=== PATIENT | female | born 1940 | race Caucasian/White ===

== ENCOUNTER 2016-12-15 08:27 | Day surgery (SDC) | payer OTHER, BC ==
[2016-12-14 15:55] VITALS: BMI 21.5
[2016-12-15 09:30] LABS: INR 1.05 (0.82-1.09); PROTHROMBIN TIME (PATIENT) 11.6 SEC (9.98-11.88)
[2016-12-15 09:32] LABS: ACTIVATED PTT 33.8 SECONDS (26.9-34.4)
[2016-12-15] MEDS ORDERED: HEPARIN NA (PORCINE) 5,000 UNITS/ML 1ML VIAL ONE ×2 (10:32→11:17)
[2016-12-15] MEDS ORDERED: LIDOCAINE HCL 1%, 10 MG/ML (20ML VIAL) ONE (10:32)
[2016-12-15] MEDS ORDERED: MIDAZOLAM HCL 2 MG/2 ML SINGLE DOSE VIAL ONE ×2 (10:54→10:55)
[2016-12-15] MEDS ORDERED: ceFAZolin SODIUM 1 GM VIAL ONE (10:59)
[2016-12-15] MEDS ORDERED: LIDOCAINE HCL 1%, 10 MG/ML (50 mL VIAL) IJ ONE (11:02)
[2016-12-15] MEDS ORDERED: ONDANSETRON 4 MG/2 ML VIAL IVPUSH PRN (11:23)
--- NOTE | 2016-12-15 12:09 | OP ---
Operative Note - Note: Operative Date: 12/15/16 Pre-Operative Diagnosis: Right second toe discoloration Operation: Aortogram, RLE angiogram, right SFA atherectomy, right tibial artery atherecotmy with angioplasty Findings: TP trunk stenosis -- 80% Calcium present Post-Operative Diagnosis: Same as Pre-op Surgeon: Kyler Graham Anesthesia: Fractional Estimated Blood Loss (mls): 50 Operative Report Dictated: Yes
--- NOTE | 2016-12-15 12:14 | HP ---
Admitting History and Physical - Admission Chief Complaint: right foot second toe discoloration - Past Medical History Cardiovascular: Yes: Other (Sciatica) Musculoskeletal: Yes: Chronic low back pain (Secondary to sciatica) - Past Surgical History Past Surgical History: Yes: Vein Stripping/Ligation (B/L LE) - Smoking History Smoking history: Former smoker Have you smoked in the past 12 months: No If you are a former smoker, when did you quit?: 1989 - Alcohol/Substance Use Hx Alcohol Use: Yes (wine 2-3/day) Home Medications - Allergies Allergies/Adverse Reactions: Allergies Allergy/AdvReac Type Severity Reaction Status Date / Time No Known Allergies Allergy Verified 12/15/16 11:59 - Home Medications Home Medications: Ambulatory Orders Advair 250-50 Diskus 1 puff IH DAILY 11/01/16 Budesonide/Formeterol Fumarate [SYMBICORT 160/4.5mcg -] 1 inh IH DAILY 11/01/16 Cholecalciferol (Vitamin D3) [Vitamin D3] 1,000 units PO DAILY 11/01/16 Cilostazol 50 tab PO DAILY 11/01/16 Cyanocobalamin (Vitamin B-12) [Vitamin B-12] 1 tab PO DAILY 11/01/16 Fluocinonide 0.05% Cream [Lidex 0.05% Cream -] 1 applic TP DAILY #1 tube Gabapentin [Neurontin] 1 cap PO DAILY 11/01/16 [place]uff-3 Fatty Acids [[place]uff-3] 1 cap PO DAILY 11/01/16 Rosuvastatin Calcium [Crestor] 20 mg PO HS 11/01/16 Clopidogrel Bisulfate [Plavix -] 75 mg PO DAILY 12/14/16 Multivit-Min/FA/Lycopen/Lutein [Centrum Silver Tablet] 1 each PO DAILY 12/15/16 Physical Examination Vital Signs: Vital Signs Temperature 97.8 F 12/15/16 09:21 Pulse Rate 94 H 12/15/16 09:21 Respiratory Rate 18 12/15/16 09:21 Blood Pressure 149/80 12/15/16 09:21 O2 Sat by Pulse Oximetry (%) 97 12/15/16 09:21 Constitutional: Yes: Well Nourished Eyes: Yes: WNL HENT: Yes: WNL Neck: Yes: WNL Cardiovascular: Yes: WNL Respiratory: Yes: WNL Gastrointestinal: Yes: WNL Musculoskeletal: Yes: WNL Extremities: Yes: WNL Edema: No Assessment/Plan right foot second toe discoloration 1. For angiogram today
[2016-12-15 18:41] VITALS: TEMP 98.1
[2016-12-15 19:41] VITALS: BP 124/58; PULSE 80
--- NOTE | 2016-12-16 20:26 | OP ---
DATE OF OPERATION: 12/15/2016 PREOPERATIVE DIAGNOSIS: Right 2nd toe discoloration. POSTOPERATIVE DIAGNOSIS: Right 2nd toe discoloration. PROCEDURE: Aortogram, right lower extremity angiogram, orbital atherectomy right superficial femoral artery, orbital atherectomy right tibial artery. SURGEON: Kyler Espinoza DO ANESTHESIA: Fractional. BLOOD LOSS: Was 50 mL. The patient is a 76-year-old female that was seen in our vascular clinic with 2nd toe discoloration. She had a preoperative ultrasound showing that she has tibial disease and TP trunk disease. It was decided that she would need an angiogram. Patient came into ambulatory surgery. Patient was consented for the procedure, understanding all risks, benefits, and alternatives and was then taken to the operating room. Once in the operating room, she was laid on the operating table in a supine manner, and the areas of the right and left groin were prepped and draped in a sterile surgical manner. We then injected 10 mL of lidocaine 1% over the left common femoral artery. We then took a micropuncture needle and punctured the left common femoral artery. A micropuncture wire was inserted, and a traditional 5-Kyrgyz sheath was inserted. A 0.035 floppy guidewire was inserted under fluoroscopy into the aorta followed by an Omniflush catheter. We then shot an aortogram by hand injection showing that the aorta and the iliac arteries were without any disease. We then placed our 0.035 floppy guidewire down to the right common femoral artery and Omniflush catheter followed. We then shot an angiogram of the right lower extremity by hand injection showing that the proximal SFA was very calcified and had about an 80% stenosis right at the takeoff. The rest of the SFA was patent. Distal SFA was patent. Popliteal artery was patent. Below-knee popliteal artery was patent. The TP trunk had an 80% stenosis due to calcifications, and patient had 2-vessel runoff into the foot, AT and PT. At this point, we placed a 0.035 stiff guidewire into the SFA, took out our Omniflush catheter, placed a 6 x 45 crossover sheath and 5000 units of IV heparin were administered to the patient. We then went ahead and using an 0.035 Quick-Cross, we were able to get our wire and place our wire into the peritoneal artery, and that was exchanged for a ViperWire. We then went ahead and used a I orbital atherectomy device and performed orbital atherectomy of the tibioperoneal trunk at the tibial artery. We then made [address] We then brought the catheter up and performed orbital atherectomy of the proximal SFA. Completion angiogram showed that the proximal SFA was patent. Completion angiogram now showed that the TP trunk was patent. We then went ahead and used a 3 x 4 Bard balloon and performed angioplasty of the TP trunk at the tibial artery. Completion angiogram showed that the area was now patent, and there was good 2-vessel runoff into the foot. We then brought our sheath up and over and StarClose device was successfully deployed in the left common femoral artery. Pressure was held for 5 minutes after which there was no bleeding. Areas were then dried and Dermabond was placed. Patient tolerated the procedure with no complications. Patient transferred to PACU in stable condition. KYLER ESPINOZA DO NP/[id number]
== END 2016-12-15 15:25 | disposition home or self-care (01) ==
LOC: JASU-SURG 08:27
PROVIDERS: ATTEND Surgery Vascular Surgery
PROC: B41FYZZ Fluoroscopy of Right Lower Extremity Arteries using Other Contrast (ICD-10-PCS; 2016-12-15)
PROC: B410YZZ Fluoroscopy of Abdominal Aorta using Other Contrast (ICD-10-PCS; 2016-12-15)
PROC: 047T3ZZ Dilation of Right Peroneal Artery, Percutaneous Approach (ICD-10-PCS; principal; 2016-12-15 10:00)
DX: I70.291 Other atherosclerosis of native arteries of extremities, right leg (principal)
CPT/HCPCS: 37229; C1726; 36415; 76000-TC; 85610; 85730; 94760; J1644

== ENCOUNTER 2017-03-10 08:07 | Day surgery (SDC) | payer OTHER, BC ==
[2017-03-09 15:23] VITALS: BMI 21.7
[2017-03-10] MEDS ORDERED: MIDAZOLAM HCL 2 MG/2 ML SINGLE DOSE VIAL ONE (08:52)
[2017-03-10] MEDS ORDERED: PROPOFOL 20 ML ONE (08:52)
[2017-03-10] MEDS ORDERED: LIDOCAINE HCL 1%, 10 MG/ML (20ML VIAL) NR ONE (09:43)
[2017-03-10] MEDS ORDERED: ceFAZolin SODIUM 1 GM VIAL IVPB ONE (09:43)
[2017-03-10] MEDS ORDERED: HEPARIN NA (PORCINE) 5,000 UNITS/ML 1ML VIAL SQ ONE (09:53)
[2017-03-10] MEDS ORDERED: ceFAZolin SODIUM 1 GM VIAL ONE (09:58)
--- NOTE | 2017-03-10 10:22 | OP ---
Operative Note - Note: Operative Date: 03/10/17 Pre-Operative Diagnosis: LLE claudication Operation: Aortogram, LLE angiogram Post-Operative Diagnosis: Same as Pre-op Surgeon: Kyler Graham Anesthesia: Fractional Estimated Blood Loss (mls): 5 Operative Report Dictated: Yes
--- NOTE | 2017-03-10 10:23 | HP ---
Admitting History and Physical - Admission Chief Complaint: LLE claudication Limitations to Obtaining History: No Limitations - Past Medical History Cardiovascular: Yes: Other (Sciatica) ...: No Musculoskeletal: Yes: Chronic low back pain (Secondary to sciatica) - Past Surgical History Past Surgical History: Yes: Vein Stripping/Ligation (B/L LE) - Advance Directives Advance Directives: Yes: Living Will - Smoking History Smoking history: Former smoker Have you smoked in the past 12 months: No If you are a former smoker, when did you quit?: 1989 - Alcohol/Substance Use Hx Alcohol Use: Yes (wine 2-3/day) Home Medications - Allergies Allergies/Adverse Reactions: Allergies Allergy/AdvReac Type Severity Reaction Status Date / Time No Known Allergies Allergy Verified 03/10/17 08:42 - Home Medications Home Medications: Ambulatory Orders Advair 250-50 Diskus 1 puff IH DAILY 11/01/16 Budesonide/Formeterol Fumarate [SYMBICORT 160/4.5mcg -] 1 inh IH DAILY 11/01/16 Cholecalciferol (Vitamin D3) [Vitamin D3] 1,000 units PO DAILY 11/01/16 Cilostazol 50 tab PO DAILY 11/01/16 Cyanocobalamin (Vitamin B-12) [Vitamin B-12] 1 tab PO DAILY 11/01/16 Gabapentin [Neurontin] 1 cap PO DAILY 11/01/16 Phillips-3 Fatty Acids [[place]ips-3] 1 cap PO HS 11/01/16 Rosuvastatin Calcium [Crestor] 20 mg PO HS 11/01/16 Clopidogrel Bisulfate [Plavix -] 100 mg PO DAILY 12/14/16 Multivit-Min/FA/Lycopen/Lutein [Centrum Silver Tablet] 1 each PO DAILY 12/15/16 Naproxen [Naprosyn -] 500 mg PO DAILY 02/14/17 Silver Sulfadiazine [Silvadene] 85 gm TP DAILY #1 cream..g. 02/14/17 Review of Systems - Review of Systems Constitutional: reports: No Symptoms Eyes: reports: No Symptoms HENT: reports: No Symptoms Neck: reports: No Symptoms Cardiovascular: reports: No Symptoms Respiratory: reports: No Symptoms Gastrointestinal: reports: No Symptoms Musculoskeletal: reports: Extremity Pain, Muscle Pain, Muscle Cramps Integumentary: reports: No Symptoms Neurological: reports: No Symptoms Physical Examination Vital Signs: Vital Signs Temperature 97.8 F 03/10/17 08:46 Pulse Rate 100 H 03/10/17 08:46 Respiratory Rate 18 03/10/17 08:46 Blood Pressure 153/74 03/10/17 08:46 O2 Sat by Pulse Oximetry (%) 97 03/10/17 08:50 Constitutional: Yes: Well Nourished Eyes: Yes: WNL HENT: Yes: WNL Neck: Yes: WNL Cardiovascular: Yes: WNL Respiratory: Yes: WNL Gastrointestinal: Yes: WNL Extremities: Yes: WNL Edema: Yes Peripheral Pulses WNL: Yes Integumentary: Yes: WNL Neurological: Yes: WNL Problem List - Problems (1) Claudication in peripheral vascular disease Code(s): I73.9 - PERIPHERAL VASCULAR DISEASE, UNSPECIFIED Assessment/Plan LLE claudication 1. For angiogram today
[2017-03-10 11:09] VITALS: TEMP 98
--- NOTE | 2017-03-10 11:10 | OP ---
DATE OF OPERATION: 03/10/2017 PREOPERATIVE DIAGNOSIS: Left lower extremity claudication. POSTOPERATIVE DIAGNOSIS: Left lower extremity claudication. PROCEDURE PERFORMED: Aortogram, left lower extremity angiogram. SURGEON: Kyler Espinoza DO ANESTHESIA: Fractional. BLOOD LOSS: 50 mL. INDICATIONS: The patient is a 76-year-old female who had left lower extremity claudication. Preoperative ultrasound showed calcification of her SFA and decrease in her ABIs. The patient complained of left lower extremity claudication upon ambulation. It was decided that we would do a diagnostic angiogram by Ambulatory Surgery. DESCRIPTION OF PROCEDURE: The patient came into Ambulatory Surgery. The patient was consented for the procedure, understanding all risks, benefits and alternatives. She was then taken to the operating room. Once in the operating room, the patient was laid on the operating table in the supine manner. The area of the right groin was prepped and draped in a sterile surgical manner. We then injected 10 mL of lidocaine 1% over the right common femoral artery. Under ultrasound guidance, we visualized the right common femoral artery and we were able to use our Micropuncture needle and punctured the artery. Micropuncture wire was inserted. An additional 5-[place]an sheath was inserted. A 0.035 floppy guidewire was inserted into the aorta, followed by an Omni Flush catheter. We then shot an aortogram by hand injection, showing that aorta and iliac arteries were without any disease. We then took our wire and brought it up and over to the left common femoral artery and our Omni Flush catheter followed. We then shot an angiogram of the left lower extremity, showing that the common femoral artery, the profunda and the SFA were patent. The popliteal artery was patent. The patient had 3 vessels at the trifurcation and had 2-vessel runoff, PT and DP, into the foot. At this point there was no need for intervention. We brought our Omni Flush catheter up and over and out. We then took out our sheath and pressure was held on the right groin for 5 minutes. Afterwards there was no bleeding. The area was wet and dried, and Dermabond was placed. The patient tolerated the procedure with no complication. The patient was transferred to the PACU in stable condition. The patient's pain is probably neurological in nature, considering how much back pain she has. The patient will follow up in clinic in 2 weeks. KYLER ESPINOZA DO [employer] ACT OFFICER/[id number]
[2017-03-10 13:44] VITALS: BP 130/64; PULSE 96
== END 2017-03-10 13:47 | disposition home or self-care (01) ==
LOC: JASU-SURG 08:07
PROVIDERS: ATTEND Surgery Vascular Surgery
PROC: B41DZZZ Fluoroscopy of Aorta and Bilateral Lower Extremity Arteries (ICD-10-PCS; principal; 2017-03-10 10:30)
DX: I70.218 Atherosclerosis of native arteries of extremities with intermittent claudication, other extremity (principal)
CPT/HCPCS: 75716-TC; 76000-TC; 94760; J1644

== ENCOUNTER 2018-08-19 12:50 | Inpatient (IN) | payer OTHER, BC ==
--- NOTE | 2018-08-19 14:15 | PDOC ---
History of Present Illness - General Chief Complaint: Pain, Acute Stated Complaint: pain and swelling to legs Time Seen by Provider: 08/19/18 13:54 History Source: Patient Exam Limitations: No Limitations - History of Present Illness Initial Comments: 78 yo F h/o HLD and PAD on cilostazol and crestor, chronic b/l posterior leg wounds sent by wound care for worsening leg ulcers and pain. Patient noted several open ulcers with yellow drainage, pain, erythema, edema. Patient was on keflex and she voluntarily stopped it because it's not helping. Last U/S done showed 50-70% stenosis in superficial femoral artery b/l and R popliteal artery. Denies fever, chills, abd pain. 08/19/18 14:41 Leg exam revealed 1 ulcer on R medial leg, > 2 ulcers on posterior R leg and none on L leg. None of which is actively draining. Will send CBC, CMP, wound and blood cultures. Past History - Past Medical History Allergies/Adverse Reactions: Allergies Allergy/AdvReac Type Severity Reaction Status Date / Time No Known Allergies Allergy Verified 08/19/18 13:00 Home Medications: Ambulatory Orders Advair 250-50 Diskus 1 puff IH DAILY 11/01/16 Budesonide/Formeterol Fumarate [SYMBICORT 160/4.5mcg -] 1 inh IH DAILY 11/01/16 Cholecalciferol (Vitamin D3) [Vitamin D3] 1,000 units PO DAILY 11/01/16 Cilostazol 50 tab PO DAILY 11/01/16 Cyanocobalamin (Vitamin B-12) [Vitamin B-12] 1 tab PO DAILY 11/01/16 Gabapentin [Neurontin] 1 cap PO DAILY 11/01/16 [place]adwin-3 Fatty Acids [[place]adwin-3] 1 cap PO HS 11/01/16 Rosuvastatin Calcium [Crestor] 20 mg PO HS 11/01/16 Clopidogrel Bisulfate [Plavix -] 100 mg PO DAILY 12/14/16 Multivit-Min/FA/Lycopen/Lutein [Centrum Silver Tablet] 1 each PO DAILY 12/15/16 Silver Sulfadiazine [Silvadene] 85 gm TP DAILY #1 cream..g. 06/30/18 Cephalexin [Keflex] 500 mg PO TID #21 capsule 08/07/18 Anemia: No Cancer: No Cardiac Disorders: Yes (CAD) CVA: No COPD: Yes CHF: No Dementia: No Diabetes: No GI Disorders: Yes Disorders: No HTN: Yes Hypercholesterolemia: Yes Liver Disease: No Seizures: No Thyroid Disease: No - Surgical History Cardiac Surgery: Yes (cardiac stents x3) - Suicide/Smoking/Psychosocial Hx Smoking History: Never smoked Have you smoked in the past 12 months: No If you are a former smoker, when did you quit?: 1989 Information on smoking cessation initiated: No Hx Alcohol Use: No Drug/Substance Use Hx: No Substance Use Type: None Hx Substance Use Treatment: No Review of Systems - Review of Systems Able to Perform ROS?: Yes Is the patient limited Austrian proficient: No Constitutional: No: Chills, Fever Respiratory: No: Cough, Shortness of Breath Cardiac (ROS): Yes: Edema. No: Chest Pain Integumentary: Yes: Erythema, Lesions *Physical Exam - Vital Signs Last Vital Signs Temp Pulse Resp BP Pulse Ox 98.2 F 98 H 16 125/59 L 100 08/19/18 12:58 08/19/18 12:58 08/19/18 12:58 08/19/18 12:58 08/19/18 12:58 - Physical Exam General Appearance: Yes: Appropriately Dressed. No: Apparent Distress Respiratory/Chest: positive: Lungs Clear, Normal Breath Sounds Cardiovascular: positive: Regular Rhythm, Regular Rate, S1, S2, Edema Gastrointestinal/Abdominal: positive: Normal Bowel Sounds. negative: Tender Extremity: positive: Tender, Swelling, Erythema Integumentary: positive: Warm, Erythema, Swelling Neurologic: positive: subassembler II-XII NML intact, Fully Oriented, Alert ED Treatment Course - LABORATORY CBC & Chemistry Diagram: 08/19/18 14:46 08/19/18 14:46 *DC/Admit/Observation/Transfer Diagnosis at time of Disposition: Leg ulcer Qualifiers: Laterality: right Non-pressure ulcer stage: unspecified non-pressure ulcer stage Qualified Code(s): L97.919 - Non-pressure chronic ulcer of unspecified part of right lower leg with unspecified severity - Discharge Dispostion Decision to Admit order: Yes - Referrals - Patient Instructions - Post Discharge Activity
--- NOTE | 2018-08-19 15:11 | PDOC ---
Attending Attestation - Resident Resident Name: MuñizHair - ED Attending Attestation I have performed the following: I have examined & evaluated the patient, The case was reviewed & discussed with the resident, I agree w/resident's findings & plan - HPI HPI: 08/19/18 15:17 78 YOF with h/o severe PVD, chronic ulcers presenting with acute on chronic worsening lower extremity wounds /pain with drainage to RLE x 1 week, failing outpatient keflex course (Noncompliant, stopped taking ~2 days ago while supposed to be on 5 d course.) She had visit with vascular surgeon/wound clinic with Dr Graham 08/18/18 for RT lower posterior leg wounds/ulcers notable for copious amounts of draining to B/ L LE. Patient was placed on a course of Keflex and she stopped the medication because she felt like it was not working. US also revealed RLE moderate stenosis of mid SFA, diffuse calcification and LLE moderate distal SFA and distal popliteal artery stenosis, mild to moderate diffuse calcifications - disease progression noted compared to 04/2018. At that time, advised for ED eval, ID consult, referred for IV abx and admission 08/20/18 07:19 - Physicial Exam PE: 08/19/18 15:17 Agree with the resident's HPI and PE as documented in the electronic medical record. NAD, well appearing, of note, focused exam with BLE dry scaly skin and erythema, RLE with medial superficial ulcerative wound and posterior calf superficial ulcer wound, no drainage, very tender to palpation, +warmth to palpation. 1+ DP pulses throughout. soft compartments. wiggles toes, SILT grossly intact to light touch. - Medical Decision Making 08/19/18 15:18 See HPI for details Vital signs reviewed, wnl. Prior notes reviewed, including admissions, discharges and consultations. Prior wound culture from RLE with enterococcus and dipheteroid and Corynebacterium ( skin darrel) laboratory results and imaging reviewed, basic labs and lytes wnl, notable for - blood cultures, wound cultures pending and obtained EKG normal sinus rhythm at 98 bpm, no interval abnormalities, narrow QRS, ST and T wave segments and morphology normal. Nonspecific T wave abnormalities - intermittent PVCs, some limitation with artifact. ED course - wound cultures to lower extrem acute on chronic wounds, at risk for MRSA, cover with IV vancomycin/zosyn empirically; narrow per culture - IV abx zosyn and vancomycin, high risk for resistant organisms and pseudomonas coverage - analgesia - ID cs with Dr Bates as inpatient as dictated by vascular note. Admit for acute on chronic ulcerative wounds to RLE, with known PVD.. Discussed results and management plan with pt and family member at bedside, agree with impression and plan inpatient consult with vascular and ID. 08/19/18 15:20 08/20/18 07:19 Heart Score/ECG Review #1 ECG reviewed & interpreted by me at: 15:00 General ECG Interpretation: Sinus Rhythm, Normal Rate 08/19/18 15:21 EKG normal sinus rhythm at 98 bpm, no interval abnormalities, narrow QRS, ST and T wave segments and morphology normal. Nonspecific T wave abnormalities - intermittent PVCs, some limitation with artifact.
[2018-08-19 15:14] LABS: BASO % 1.2 % (0-2.0); EOS % 6.3 % (0-4.5); HEMATOCRIT 41.6 % (32.4-45.2); HEMOGLOBIN 13.9 GM/dL (10.7-15.3); MCH 34.4 pg (25.7-33.7); MCHC 33.5 g/dl (32.0-36.0); MEAN CELL VOLUME 102.7 fl (80-96); MONO % 13.4 % (3.8-10.2); NEUT % 62.1 % (42.8-82.8); PLATELET COUNT 270 K/MM3 (134-434); RBC 4.05 M/mm3 (3.60-5.2); RDW 13.2 % (11.6-15.6); WHITE BLOOD COUNT 7.6 K/mm3 (4.0-10.0)
[2018-08-19 15:18] LABS: ALBUMIN 3.1 g/dl (3.4-5.0); ALK PHOS 125 U/L (45-117); ANION GAP 10 MMOL/L (8-16); BILIRUBIN,TOTAL 0.6 mg/dL (0.2-1); BLOOD UREA NITROGEN 9 mg/dL (7-18); CALCIUM 8.7 mg/dL (8.5-10.1); CHLORIDE 102 mmol/L (98-107); CO2 26 mmol/L (21-32); CREATININE 0.4 mg/dL (0.55-1.3); GLUCOSE,RANDOM 107 mg/dL (74-106); POTASSIUM 4.1 mmol/L (3.5-5.1); SGOT/AST 37 U/L (15-37); SGPT/ALT 25 U/L (13-61); SODIUM 138 mmol/L (136-145); TOT PROT 6.8 g/dl (6.4-8.2)
[2018-08-19] MEDS ORDERED: VANCOMYCIN 1 GM in D5W (PRE-DOCKED) 1,000 MG/250 ML IVPB ONE (15:20)
[2018-08-19] MEDS ORDERED: PIPERACILLIN/TAZOB 3.375 GM 3.375 GM in DEXTROSE 5%-WATER - 50 ML IVPB ONE (15:22)
[2018-08-19] MEDS ORDERED: ACETAMINOPHEN 1000 MG/100 ML VIAL (NON FORMULARY) IVPB ONE (15:25)
[2018-08-19] MEDS ORDERED: PIPERACILLIN/TAZOB 3.375 GM 3.375 GM/50 ML BAG IVPB ONE ×2 (15:34→20:32)
[2018-08-19] MEDS ORDERED: VANCOMYCIN 1 GRAM (PRE-DOCKED) 1,000 MG/250 ML BAG IVPB ONE (15:34)
[2018-08-19] MEDS ORDERED: ACETAMINOPHEN INJECTION 100 ML IVPB ONE (15:34)
--- NOTE | 2018-08-19 15:36 | CON.ID ---
Consult Consult Specialty:: infectious diseases - Past Medical History Cardio/Vascular: Yes: Other (Sciatica) Musculoskeletal: Yes: Chronic low back pain (Secondary to sciatica) - Past Surgical History Past Surgical History: Yes: Vein Stripping/Ligation (B/L LE) - Alcohol/Substance Use Hx Alcohol Use: No - Smoking History Smoking history: Never smoked Have you smoked in the past 12 months: No If you are a former smoker, when did you quit?: 1989 Home Medications - Allergies Allergies/Adverse Reactions: Allergies Allergy/AdvReac Type Severity Reaction Status Date / Time No Known Allergies Allergy Verified 08/19/18 13:00 - Home Medications Home Medications: Ambulatory Orders Advair 250-50 Diskus 1 puff IH DAILY 11/01/16 Budesonide/Formeterol Fumarate [SYMBICORT 160/4.5mcg -] 1 inh IH DAILY 11/01/16 Cholecalciferol (Vitamin D3) [Vitamin D3] 1,000 units PO DAILY 11/01/16 Cilostazol 50 tab PO DAILY 11/01/16 Cyanocobalamin (Vitamin B-12) [Vitamin B-12] 1 tab PO DAILY 11/01/16 Gabapentin [Neurontin] 1 cap PO DAILY 11/01/16 [place]-3 Fatty Acids [[place]-3] 1 cap PO HS 11/01/16 Rosuvastatin Calcium [Crestor] 20 mg PO HS 11/01/16 Clopidogrel Bisulfate [Plavix -] 100 mg PO DAILY 12/14/16 Multivit-Min/FA/Lycopen/Lutein [Centrum Silver Tablet] 1 each PO DAILY 12/15/16 Silver Sulfadiazine [Silvadene] 85 gm TP DAILY #1 cream..g. 06/30/18 Cephalexin [Keflex] 500 mg PO TID #21 capsule 08/07/18 Physical Exam Vital Signs: Vital Signs Temperature 98.2 F 08/19/18 12:58 Pulse Rate 98 H 08/19/18 12:58 Respiratory Rate 16 08/19/18 12:58 Blood Pressure 125/59 L 08/19/18 12:58 O2 Sat by Pulse Oximetry (%) 100 08/19/18 12:58 Labs: CBC, BMP 08/19/18 14:46 08/19/18 14:46
[2018-08-19] MEDS: PIPERACILLIN/TAZOB 3.375 GM 3.375 GM in DEXTROSE 5%-WATER - 50 ML IVPB SCH ×2 (16:13→20:50)
--- NOTE | 2018-08-19 16:31 | HP ---
CHIEF COMPLAINT: PCP: None Wound Care: Dr. Graham HISTORY OF PRESENT ILLNESS: 78yo F with h/o HLD, CAD s/p PCI, and PAD with chronic wounds who presents today due to suspected cellulitus. Pt was seen within the week at wound care which noted some of the pt's R wounds beginning to drain yellow fluid. She was placed on Keflex and was instructed to take a 5 days course while following up a few days later. Pt stopped her Keflex regiment 2 days into the course because she felt like the antibiotics were not working. Pt returned on Tuesday08/18/18 to wound care with profusely draining wounds on her R leg and had ID consulted on the status of the wounds. Pt was recommended to go to the ER then, however pt opted to take outpatient antibiotics (Keflex) properly due to her birthday being today. Pt returned to the ER today due to acutely worsening pain. Pt was seen by ID in the ER and was placed on Zosyn for cellulitis. Wound and blood cultures were taken. Currently, pt reports burning pain in her legs. She denies any fever/chills, shortness of breath, chest pain, palpitations, abdominal pain, dysuria, polyuria , hematuria, diarrhea, constipation, n/v, weakness, parasthesias, incontinence, back pain. PAST MEDICAL HISTORY: HLD CAD s/p PCI PAD PAST SURGICAL HISTORY: B/L vein stripping PCI stenting (unknown material; unknown facility; more than 5 years ago) Social History: Smoking: Former; quit 1990 (smoked 1/2 PPD since she was 17) Alcohol: Denies Drugs: Denies Family History: Diabetes, HTN both sides Allergies No Known Allergies Allergy (Verified 08/19/18 13:00) HOME MEDICATIONS: Home Medications Medication Instructions Recorded Budesonide/Formeterol Fumarate 1 inh IH DAILY 11/01/16 [SYMBICORT 160/4.5mcg -] Cilostazol 50 tab PO DAILY 11/01/16 Cyanocobalamin (Vitamin B-12) 1 tab PO DAILY 11/01/16 [Vitamin B-12] Rosuvastatin Calcium [Crestor] 20 mg PO HS 11/01/16 Multivit-Min/FA/Lycopen/Lutein 1 each PO DAILY 12/15/16 [Centrum Silver Tablet] Silver Sulfadiazine [Silvadene] 85 gm TP DAILY #1 cream..g. 06/30/18 Cephalexin [Keflex] 500 mg PO TID #21 capsule 08/07/18 REVIEW OF SYSTEMS As per HPI PHYSICAL EXAMINATION Vital Signs - 24 hr 08/19/18 12:58 Temperature 98.2 F Pulse Rate 98 H Respiratory 16 Rate Blood Pressure 125/59 L O2 Sat by Pulse 100 Oximetry (%) GENERAL: NAD, awake, alert, and fully oriented HEEN: NC/AT, EOMI, SHAW, sclera anicteric, MMM NECK: No JVD LUNGS: CTA bilaterally. No wheezes, and no crackles. No accessory muscle use. HEART: RRR, normal S1 and S2 without murmur ABDOMEN: Soft, NT/ND, normoactive bowel sounds, no guarding MUSCULOSKELETAL: No CVA tenderness. EXTREMITIES: 1+ DP and PT pulse on L leg, 1+ PT pulse on R, warm, R leg edema noted (chronic), erythematous vascular changes noted b/l to knees, R leg anteromedial wound about 1in x .5in w/o drainage, R leg posterolateral wound .5in x .5in with trace yellow drainage, TTP of R leg. 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 Normal speech. Normal gait. PSYCHIATRIC: Cooperative. Good eye contact. Appropriate mood and affect. SKIN: Warm, dry, see extremity exam Laboratory Results 08/19/18 08/19/18 08/19/18 14:46 14:46 14:46 WBC 7.6 RBC 4.05 Hgb 13.9 Hct 41.6 MCV 102.7 H MCH 34.4 H MCHC 33.5 RDW 13.2 Plt Count 270 MPV 8.0 Absolute Neuts (auto) 4.7 Neutrophils % 62.1 D Lymphocytes % 17.0 D Monocytes % 13.4 H Eosinophils % 6.3 H D Basophils % 1.2 Nucleated RBC % 0 Sodium 138 Potassium 4.1 Chloride 102 Carbon Dioxide 26 Anion Gap 10 BUN 9 Creatinine 0.4 L Creat Clearance w eGFR 153.97 Random Glucose 107 H Calcium 8.7 Total Bilirubin 0.6 AST 37 ALT 25 Alkaline Phosphatase 125 H Total Protein 6.8 Albumin 3.1 L Blood Type O POSITIVE Antibody Screen Negative ASSESSMENT/PLAN: Cellulitis of the R leg B/l chronic wounds HLD CAD with prior stents --Continue Zosyn --Would cultures to follow-up --Silvadene to be applied with JOHN wrap --ID on board; appreciate recommendations --Will continue Cilostazole BID PO --Continue Crestor HS FEN: Fluids: Not indicated Electrolyte abnormalities: None Nutrition: Regular PPX: DVT - Lovenox SQ Dispo: Admit inpatient services for IV antibiotics Case discussed with Dr. Arianna Hodo, DO - IM PGY-2 Visit type - Emergency Visit Emergency Visit: Yes ED Registration Date: 08/19/18 Care time: The patient presented to the Emergency Department on the above date and was hospitalized for further evaluation of their emergent condition. - New Patient This patient is new to me today: Yes Date on this admission: 08/19/18 - Critical Care Critical Care patient: No
[2018-08-19] MEDS ORDERED: ACETAMINOPHEN 325 MG TABLET (FP) PO PRN (16:32)
--- NOTE | 2018-08-19 18:39 | PN ---
Teaching Attending Note Name of Resident: Saul Hood ATTENDING PHYSICIAN STATEMENT I saw and evaluated the patient. I reviewed the resident's note and discussed the case with the resident. I agree with the resident's findings and plan as documented. SUBJECTIVE: CC: draining LE wounds HPI: 78 y/o lady with h/o PVd, CAD s/p Stenting,HLP, chronic LE wounds, who presented after being referred form wound care clinic for treatment of infected LE wounds she has chronic wounds, started draining about 2 months ago. she has been visiting wound care clinic weekly . few days ago, she was given keflex for signs of infection, but she stopped on her own. she was seen again yesterday and was asked to go to ER, but she presented today. she denies any fever s or chills. no CP or SOB. arterial doppler was done and showed 20-49% setnosis in R SFA, and 50-74% stenosis in L distal popliteal artery which has progressed from before but Dr. Graham decided that no procedure was indicated. OBJECTIVE: NAD, MMM, no LAP or JVD in neck CV: RRR, no MRG lungs: CTAB Abd: soft, NT, ND ,NL BS Ext: erythema and hyperpigmentation in LE , with superficial wounds on both legs with yellow surface. DP 2+ b/l. nl sensation in feeet. fungal infection among R 3-4th digits . Neuro: EOMI, round equal pupils, reactive to light , no facial droop. strength 5 /5 in upper and lower extremities proximally and distally except for hip flexion as it is limited due to pain. nl sensation to light touch. ASSESSMENT AND PLAN: 78 y/o lady with h/o PVd, CAD s/p Stenting,HLP, chronic LE wounds, who presented after being referred form wound care clinic for treatment of infected LE wounds. 1- b/l LE infected wounds with surrounding cellulitis: - cont zosyn - follow cx - apply silvadine and wrap with gauze daily and JOHN wraps 2- Tinea pedis: add nystatin 3- PVD: no intervention per vascular note formyesterday - cont cilostazole - cont statin 4- Dispo: HLOC
[2018-08-19] MEDS ORDERED: INSULIN NPH 100 UNITS/ML *VIAL ONE (21:02)
[2018-08-19] MEDS ORDERED: NAPROXEN 250 MG TABLET (FP) PO ONE (21:05)
[2018-08-19] MEDS ORDERED: ROSUVASTATIN CA 20 MG TABLET (FP) PO SCH (22:00)
[2018-08-20] MEDS ORDERED: DEXTROSE 5%-WATER - 50 ML IVPB ONE ×3 (03:46→18:41)
[2018-08-20] MEDS ORDERED: PIPERACILLIN/TAZOBACTAM 3.375 GM VIAL IVPB ONE ×3 (03:46→18:41)
[2018-08-20] MEDS: PIPERACILLIN/TAZOB 3.375 GM 3.375 GM in DEXTROSE 5%-WATER - 50 ML IVPB SCH ×3 (03:52→18:43)
--- NOTE | 2018-08-20 04:22 | HOSP ---
Physical Examination Vital Signs: Vital Signs Temperature 97.6 F 08/19/18 20:29 Pulse Rate 96 H 08/19/18 20:29 Respiratory Rate 18 08/19/18 21:00 Blood Pressure 137/60 08/19/18 20:29 O2 Sat by Pulse Oximetry (%) 98 08/19/18 21:00 Labs: CBC, BMP 08/19/18 14:46 08/19/18 14:46 Hospitalist Encounter Assessment: got called around 4:am that patient went to the bathroom adn there was blood found in the toilet and when she wiped- this was the first time this has happened to her vitals: BP 116/49 HR 90 RR 14 patient is asymptomatic- denies any dizziness , palpitations, SOB ordered STAT CBC- will act appropriately based on Hgb level consider GI consult for AM rectal performed: no external hemorrhoids; blood present on glove- no fissures/ lesions no internal hemorrhoid palpated Visit type - Emergency Visit Emergency Visit: Yes ED Registration Date: 08/19/18 Care time: The patient presented to the Emergency Department on the above date and was hospitalized for further evaluation of their emergent condition. - New Patient This patient is new to me today: Yes Date on this admission: 08/20/18 - Critical Care Critical Care patient: No
[2018-08-20 04:46] LABS: HEMOGLOBIN 11.8 GM/dL (10.7-15.3); MCH 34.8 pg (25.7-33.7); MCHC 33.8 g/dl (32.0-36.0); MEAN CELL VOLUME 102.9 fl (80-96); MEAN PLT VOLUME 7.6 fl (7.5-11.1); PLATELET COUNT 238 K/MM3 (134-434); RDW 13.2 % (11.6-15.6)
[2018-08-20] MEDS ORDERED: SODIUM CHLORIDE 250 ML IV STA (05:19)
[2018-08-20 07:02] LABS: HEMATOCRIT 33.7 % (32.4-45.2); HEMOGLOBIN 11.3 GM/dL (10.7-15.3); MCH 34.3 pg (25.7-33.7); MCHC 33.5 g/dl (32.0-36.0); MEAN CELL VOLUME 102.4 fl (80-96); MEAN PLT VOLUME 7.7 fl (7.5-11.1); PLATELET COUNT 244 K/MM3 (134-434); RBC 3.29 M/mm3 (3.60-5.2); RDW 13.2 % (11.6-15.6); WHITE BLOOD COUNT 7.7 K/mm3 (4.0-10.0)
[2018-08-20 07:24] LABS: ANION GAP 6 MMOL/L (8-16); BLOOD UREA NITROGEN 13 mg/dL (7-18); CALCIUM 7.7 mg/dL (8.5-10.1); CHLORIDE 106 mmol/L (98-107); CO2 27 mmol/L (21-32); CREATININE 0.5 mg/dL (0.55-1.3); GLUCOSE,RANDOM 105 mg/dL (74-106); POTASSIUM 3.8 mmol/L (3.5-5.1); SODIUM 139 mmol/L (136-145)
--- NOTE | 2018-08-20 08:41 | CON.GI ---
Consult Consult Specialty:: GI Referred by:: Hospitalist Service Reason for Consultation:: Rectal Bleeding - History of Present Illness Chief Complaint: Leg Pain History of Present Illness: 73F admitted for evaluation of leg pain. Has PVD and leg wounds. Was advised to be admitted last week, however, wanted to celebrate her birthday yesterday. Had rectal bleeding this morning, was noted to be hypotensive and lightheaded with systolic BM 90's. She was bolused 250cc of NS. She takes 2 aleve pills per day for the leg pain and is on Pletal (She believes that she is on Plavix, however). She is not on GI prophylaxis at home. She was given 250mg of naproxen last night for her leg pain. She has three alcoholic beverages per day for multiple years. She had three dark bloody BM's this morning. She denies abdominal pain. She believes that her last colonoscopy was 8 years ago and was unrevealing. She denies nausea. There has been no vomiting. She does not recall having had an upper endoscopy. There is no family history of colon cancer. - History Source History Provided By: Patient, Medical Record - Past Medical History Cardio/Vascular: Yes: CAD (S/P cardiac stents), Other (PVD. LE venous stasis wounds) ...: No Musculoskeletal: Yes: Chronic low back pain (Secondary to sciatica) - Past Surgical History Past Surgical History: Yes: Vein Stripping/Ligation (B/L LE) - Alcohol/Substance Use Hx Alcohol Use: Yes (3 drinks per day) History of Substance Use: reports: None - Smoking History Smoking history: Former smoker Have you smoked in the past 12 months: No If you are a former smoker, when did you quit?: 1989 - Social History Usual Living Arrangement: Alone () ADL: Independent Place of : [facility] History of Recent Travel: No Home Medications - Allergies Allergies/Adverse Reactions: Allergies Allergy/AdvReac Type Severity Reaction Status Date / Time No Known Allergies Allergy Verified 08/19/18 13:00 - Home Medications Home Medications: Ambulatory Orders Budesonide/Formeterol Fumarate [SYMBICORT 160/4.5mcg -] 1 inh IH DAILY 11/01/16 Cilostazol 50 tab PO BID 11/01/16 Cyanocobalamin (Vitamin B-12) [Vitamin B-12] 1 tab PO DAILY 11/01/16 Rosuvastatin Calcium [Crestor] 20 mg PO HS 11/01/16 Multivit-Min/FA/Lycopen/Lutein [Centrum Silver Tablet] 1 each PO DAILY 12/15/16 Silver Sulfadiazine [Silvadene] 85 gm TP DAILY #1 cream..g. 06/30/18 Family Disease History - Family Disease History Family Disease History: Other: Father (: 50's: [place]), Mother (: "She was old"), Brother, Sister (1, healthy), Son (1, healthy), Daughter (1, healthy) Other Family History: No family history of colorectal cancer or other GI malignancy Review of Systems - Review of Systems Cardiovascular: denies: Chest Pain, Shortness of Breath Physical Exam-GI Vital Signs: Vital Signs Temperature 08/20/18 08:46 Pulse Rate 95 H 08/20/18 08:46 Respiratory Rate 18 08/20/18 08:46 Blood Pressure 106/60 08/20/18 08:46 O2 Sat by Pulse Oximetry (%) 98 % on RA 08/19/18 08:46 Constitutional: Yes: Calm Eyes: No: Sclera Icterus Cardiovascular: Yes: Tachycardia Respiratory: Yes: CTA Bilaterally Gastrointestinal Inspection: No: Distention, Scars ...Auscultate: Yes: Normoactive Bowel Sounds ...Palpate: Yes: Soft. No: Hepatomegaly, Splenomegaly, Tenderness ...Percussion: No: Tympanitic ...Rectal Exam: Yes: Other (No external lesions, no masses, dark blood in rectal vault) Edema: No (No LE edema) Neurological: Yes: Alert Labs: CBC, BMP 08/20/18 06:30 08/20/18 06:30 Problem List - Problems (1) Rectal bleed Assessment/Plan: New onset rectal bleeding in the setting of antiplatelet therapy, frequent NSAID use at home and NSAID analgesia last night for leg pain. Tachycardic and hypotensive with the bleeding. Differential would include LGIB source precipitated by NSAID use (diverticular) vs. brisk Upper GI bleed. Advise: Transfer to ICU for closer monitoring given change in hemodynamics along with her bleeding. No beds available to transfer to monitored setting NPO Started PPI drip Discussed both EGD and colonoscopy with Ms. Mcgrath. Discussed potential risks of the procedure like but not limited to bleeding, perforation requiring surgery to repair, infection, sedation medication effects all of which could be potentially life threatening. She has agreed to the procedures Ordered coags Code(s): K62.5 - HEMORRHAGE OF ANUS AND RECTUM
[2018-08-20] MEDS ORDERED: PANTOPRAZOLE SODIUM 80 MG in SODIUM CHLORIDE 100 ML IVPB SCH (08:45)
--- NOTE | 2018-08-20 08:57 | PN ---
Progress Note (short form) - Note Progress Note: Subjective: had 3 episodes of GI painless GI bleed this am , sat on toilet to urinate and BRBPR came out. no abd pain. felt a little dizzy. given IVF and CBC was done now she reports she is on plavix and she uses aleve . last colo was 7-8 yrs ago and was told it was fine. never had GI bleed before Objective: Vital Signs: Last Vital Signs Temp Pulse Resp BP Pulse Ox 97.4 F L 99 H 18 147/63 98 08/20/18 07:54 08/20/18 07:54 08/20/18 07:54 08/20/18 07:54 08/19/18 21:00 Laboratory Results - last 24 hr 08/19/18 08/19/18 08/19/18 14:46 14:46 14:46 WBC 7.6 RBC 4.05 Hgb 13.9 Hct 41.6 MCV 102.7 H MCH 34.4 H MCHC 33.5 RDW 13.2 Plt Count 270 MPV 8.0 Absolute Neuts (auto) 4.7 Neutrophils % 62.1 D Lymphocytes % 17.0 D Monocytes % 13.4 H Eosinophils % 6.3 H D Basophils % 1.2 Nucleated RBC % 0 Sodium 138 Potassium 4.1 Chloride 102 Carbon Dioxide 26 Anion Gap 10 BUN 9 Creatinine 0.4 L Creat Clearance w eGFR 153.97 Random Glucose 107 H Calcium 8.7 Total Bilirubin 0.6 AST 37 ALT 25 Alkaline Phosphatase 125 H Total Protein 6.8 Albumin 3.1 L Blood Type O POSITIVE Antibody Screen Negative 08/20/18 08/20/18 08/20/18 04:36 06:30 06:30 WBC 7.0 7.7 RBC 3.40 L 3.29 L Hgb 11.8 11.3 Hct 35.0 D 33.7 MCV 102.9 H 102.4 H MCH 34.8 H 34.3 H MCHC 33.8 33.5 RDW 13.2 13.2 Plt Count 238 244 MPV 7.6 7.7 Absolute Neuts (auto) Neutrophils % Lymphocytes % Monocytes % Eosinophils % Basophils % Nucleated RBC % Sodium 139 Potassium 3.8 Chloride 106 Carbon Dioxide 27 Anion Gap 6 L BUN 13 Creatinine 0.5 L Creat Clearance w eGFR 119.02 Random Glucose 105 Calcium 7.7 L Total Bilirubin AST ALT Alkaline Phosphatase Total Protein Albumin Blood Type Antibody Screen Physical Exam: NAD, anxious CV: RRR, no MRG lungs: CTAB Abd: soft, NT, ND ,NL BS Ext: erythema (improved) and hyperpigmentation on LE , with superficial wounds on both legs with yellow discharge. DP 2+ b/l. Rectal: declined by patient as it was just done by GI ASSESSMENT AND PLAN: 78 y/o lady with h/o PVd, CAD s/p Stenting,HLP, chronic LE wounds, who presented after being referred form wound care clinic for treatment of infected LE wounds. 1- Painless rectal bleed. DDx is wide but includes hemorrhoids, diverticular and AVMs.. she takes anti-platelet and NSAIds. - repeat stat CBC - follow CBC throughout the day - start IVF - GI on board, and will decide on colonoscopy later - hold cilostazole and no more NSAids -[facility] called, will call again when open 2- b/l LE infected wounds with surrounding cellulitis: legs look better today - cont zosyn - follow cx - apply silvadine and wrap with gauze daily and JOHN wraps 3- Tinea pedis: add nystatin 4- PVD: no intervention per vascular - hold cilostazole - cont statin 5- Dispo: HLOC. Tx to tele Visit type - Emergency Visit Emergency Visit: Yes ED Registration Date: 08/19/18 Care time: The patient presented to the Emergency Department on the above date and was hospitalized for further evaluation of their emergent condition. - Critical Care Critical Care patient: No - Discharge Referral Referred to [facility] No
[2018-08-20] MEDS ORDERED: SODIUM CHLORIDE 1,000 ML IV SCH ×2 (09:00→14:00)
[2018-08-20] MEDS ORDERED: BUDESONIDE/FORMETEROL FUMARATE 160/4.5 mcg INHALER IH SCH (10:00)
[2018-08-20] MEDS ORDERED: CYANOCOBALAMIN 1,000 MCG TABLET (FP) PO SCH (10:00)
[2018-08-20] MEDS ORDERED: ENOXAPARIN NA (PORCINE) 40 MG/0.4 ML DISP.SYRIN SQ SCH (10:00)
[2018-08-20] MEDS ORDERED: PANTOPRAZOLE 40 MG TABLET (FP) PO SCH (10:00)
[2018-08-20] MEDS ORDERED: CILOSTAZOL 50 MG TABLET (FP) PO SCH ×2 (10:00)
[2018-08-20] MEDS ORDERED: SILVER SULFADIAZINE 1% TOP CREAM 50 GM JAR TP SCH (10:00)
[2018-08-20 10:22] LABS: HEMATOCRIT 34.2 % (32.4-45.2); HEMOGLOBIN 11.6 GM/dL (10.7-15.3); MCH 34.9 pg (25.7-33.7); MCHC 33.9 g/dl (32.0-36.0); MEAN CELL VOLUME 102.7 fl (80-96); MEAN PLT VOLUME 7.8 fl (7.5-11.1); PLATELET COUNT 268 K/MM3 (134-434); RBC 3.33 M/mm3 (3.60-5.2); RDW 13.2 % (11.6-15.6); WHITE BLOOD COUNT 10.1 K/mm3 (4.0-10.0)
[2018-08-20 10:39] LABS: INR 1.13 (0.83-1.09); PROTHROMBIN TIME (PATIENT) 13.3 SEC (9.7-13.0)
[2018-08-20 10:41] LABS: ACTIVATED PTT 31.2 SECONDS (25.2-36.5)
--- NOTE | 2018-08-20 12:07 | PN ---
Progress Note, Physician History of Present Illness: events noted patient started bleeding since this morning feels very tired clots red according to her started suddenly - Current Medication List Current Medications: Active Medications Acetaminophen (Tylenol -) 650 mg PO Q4H PRN PRN Reason: FEVER Last Admin: 08/20/18 07:23 Dose: 650 mg Budesonide/Formoterol Fumarate (Symbicort 160/4.5mcg -) 2 puff IH BID [facility] Cyanocobalamin (Vitamin B12 -) 1,000 mcg PO DAILY [facility] Last Admin: 08/20/18 11:38 Dose: 1,000 mcg Piperacillin Sod/Tazobactam (Sod 3.375 gm/ Dextrose) 50 mls @ 100 mls/hr IVPB Q8H-IV [facility]; Protocol Last Admin: 08/20/18 11:37 Dose: 100 mls/hr Pantoprazole Sodium 80 mg/ (Sodium Chloride) 100 mls @ 10 mls/hr IVPB Q10H [facility] Last Admin: 08/20/18 09:47 Dose: 10 mls/hr Sodium Chloride (Normal Saline -) 1,000 mls @ 100 mls/hr IV ASDIR [facility] Last Admin: 08/20/18 09:47 Dose: 100 mls/hr Rosuvastatin Calcium (Crestor -) 20 mg PO HS [facility] Last Admin: 08/19/18 22:04 Dose: 20 mg Silver Sulfadiazine (Silvadene -) 1 applic TP DAILY [facility] Last Admin: 08/20/18 11:40 Dose: 1 applic - Objective Vital Signs: Vital Signs Temperature 97.4 F L 08/20/18 07:54 Pulse Rate 98 H 08/20/18 10:57 Respiratory Rate 18 08/20/18 10:57 Blood Pressure 106/49 L 08/20/18 10:57 O2 Sat by Pulse Oximetry (%) 98 08/19/18 21:00 Constitutional: Yes: No Distress, Calm Cardiovascular: Yes: Tachycardia, S1, S2 Respiratory: Yes: Regular, CTA Bilaterally Gastrointestinal: Yes: Soft, Hypoactive Bowel Sounds Musculoskeletal: Yes: WNL Extremities: Yes: WNL Integumentary: Yes: Erythema (b/l legs improving) Neurological: Yes: Alert, Oriented Labs: CBC, BMP 08/20/18 09:30 08/20/18 06:30 INR, PTT INR 1.13 (0.83-1.09) H 08/20/18 09:30 Assessment/Plan patient with multiple medical problems now with gi bleed gi bleed b/l cellulitis of the leg pain legs erythema of the legs plan continue abx hydration monitor h and h icu close watch rest as per the team
[2018-08-20 13:14] LABS: HEMATOCRIT 30.2 % (32.4-45.2); HEMOGLOBIN 10.2 GM/dL (10.7-15.3); MCH 34.8 pg (25.7-33.7); MCHC 33.7 g/dl (32.0-36.0); MEAN CELL VOLUME 103.2 fl (80-96); MEAN PLT VOLUME 7.9 fl (7.5-11.1); PLATELET COUNT 239 K/MM3 (134-434); RBC 2.93 M/mm3 (3.60-5.2); WHITE BLOOD COUNT 8.8 K/mm3 (4.0-10.0)
--- NOTE | 2018-08-20 13:33 | PN ---
Progress Note (short form) - Note Progress Note: EGD complete. Procedure report left in procedural section of physical chart and will be scanned into [employer] Problem List - Problems (1) Rectal bleed Code(s): K62.5 - HEMORRHAGE OF ANUS AND RECTUM
[2018-08-20] MEDS ORDERED: ePHEDrine SULFATE 50 MG/1 ML AMPULE ONE (13:52)
[2018-08-20] MEDS ORDERED: ACETAMINOPHEN 325 MG TABLET (FP) PO PRN (14:00)
[2018-08-20] MEDS ORDERED: PEG 3350/NA SULF BICARB CL/KCL 4000 ML SOLN.RECON PO ONE (15:00)
--- NOTE | 2018-08-20 16:41 | CONSULT ---
Consult Consult Specialty:: PULM/CCM Referred by:: Dr. Rani Keller Reason for Consultation:: GIB - History of Present Illness Chief Complaint: GIB History of Present Illness: Ms. Mcgrath is a 78yo F w/ COPD, HLD, CAD s/p PCI, and PAD c/b chronic LE wounds ( wound care clinic pt) admitted on 08/19 for suspected LE cellulitus. The pt was convalescing on 8W w/ IV Abx & taking copious NSAIDs for LE discomfort and suddenly presented w/ BRBPR this AM. Hgb 13.9 --> 10.2. - History Source History Provided By: Patient Limitations to Obtaining History: No Limitations - Past Medical History Cardio/Vascular: Yes: CAD (S/P cardiac stents), Other (PVD. LE venous stasis wounds) Pulmonary: Yes: COPD ...: No Musculoskeletal: Yes: Chronic low back pain (Secondary to sciatica) - Past Surgical History Past Surgical History: Yes: Vein Stripping/Ligation (B/L LE) - Alcohol/Substance Use Hx Alcohol Use: Yes (3 drinks per day) History of Substance Use: reports: None - Smoking History Smoking history: Former smoker Have you smoked in the past 12 months: No If you are a former smoker, when did you quit?: 1989 - Social History Usual Living Arrangement: Alone () ADL: Independent History of Recent Travel: No Home Medications - Allergies Allergies/Adverse Reactions: Allergies Allergy/AdvReac Type Severity Reaction Status Date / Time No Known Allergies Allergy Verified 08/19/18 13:00 - Home Medications Home Medications: Ambulatory Orders Budesonide/Formeterol Fumarate [SYMBICORT 160/4.5mcg -] 1 inh IH DAILY 11/01/16 Cilostazol 50 tab PO BID 11/01/16 Cyanocobalamin (Vitamin B-12) [Vitamin B-12] 1 tab PO DAILY 11/01/16 Rosuvastatin Calcium [Crestor] 20 mg PO HS 11/01/16 Multivit-Min/FA/Lycopen/Lutein [Centrum Silver Tablet] 1 each PO DAILY 12/15/16 Silver Sulfadiazine [Silvadene] 85 gm TP DAILY #1 cream..g. 06/30/18 Family Disease History - Family Disease History Family Disease History: Other: Father (: 50's: [place]), Mother (: "She was old"), Brother, Sister (1, healthy), Son (1, healthy), Daughter (1, healthy) Other Family History: No family history of colorectal cancer or other GI malignancy Review of Systems - Review of Systems Constitutional: reports: Weakness Eyes: reports: No Symptoms HENT: reports: No Symptoms Neck: reports: No Symptoms Cardiovascular: reports: No Symptoms Respiratory: reports: No Symptoms Gastrointestinal: reports: Rectal Bleeding Genitourinary: reports: No Symptoms Breasts: reports: No Symptoms Reported Musculoskeletal: reports: Back Pain, Extremity Pain Integumentary: reports: Erythema, Lesions Neurological: reports: No Symptoms Endocrine: reports: No Symptoms Hematology/Lymphatic: reports: No Symptoms Psychiatric: reports: No Symptoms Physical Exam Vital Signs: Vital Signs Temperature 98.0 F 08/20/18 15:12 Pulse Rate 96 H 08/20/18 15:12 Respiratory Rate 16 08/20/18 15:12 Blood Pressure 98/60 08/20/18 15:12 O2 Sat by Pulse Oximetry (%) 100 08/20/18 15:00 Intake & Output 08/17/18 08/18/18 08/19/18 08/20/18 23:59 23:59 23:59 23:59 Intake Total 100 1120 Balance 100 1120 Weight 51.12 kg Constitutional: Yes: Ashen, Cachectic, Thin Eyes: Yes: WNL HENT: Yes: WNL, Atraumatic, Normocephalic Neck: Yes: WNL, Supple, Trachea Midline Cardiovascular: Yes: WNL, Regular Rate and Rhythm Respiratory: Yes: CTA Bilaterally, Diminished Gastrointestinal: Yes: Rectal Bleeding ...Rectal Exam: Yes: Deferred Renal/: Yes: WNL Breast(s): Yes: WNL Musculoskeletal: Yes: Muscle Weakness Extremities: Yes: Erythema Edema: No Peripheral Pulses WNL: Yes Neurological: Yes: WNL, Alert, Oriented ...Motor Strength: WNL Psychiatric: Yes: WNL, Alert, Oriented Labs: CBC, BMP 08/20/18 12:50 08/20/18 06:30 Problem List - Problems (1) Rectal bleed Code(s): K62.5 - HEMORRHAGE OF ANUS AND RECTUM (2) Leg ulcer Code(s): L97.909 - NON-PRS CHRONIC ULC UNSP PRT OF UNSP LOW LEG W UNSP SEVERITY Qualifiers: Laterality: right Non-pressure ulcer stage: unspecified non-pressure ulcer stage Qualified Code(s): L97.919 - Non-pressure chronic ulcer of unspecified part of right lower leg with unspecified severity Assessment/Plan ASSESS: This is a 78 y/o woman w/ COPD, HL, PAD/PVD, CAD s/p Stenting, HLP, chronic LE wounds, admitted for infected LE wounds, transferred to ICU now for GIB. PLAN: -NPO -FiO2 for an SpO2 > 92% -Nebs -Cont home dose Symbicort -Hold NSAIDs -D/c All anti HTN meds -Maintain large bore IV X2 -Maintain active T&S -IVFs -Trend CBC -Normal Transfusion thresholds -Maintain a MAP Gaol of 65 -Cont Abx for Legs -Bowel Prep -Colonoscopy -SCDs -PPI TAY [facility]NALES-[facility] ICU PULM/CCM [id number]
--- NOTE | 2018-08-20 18:00 | EKG ---
Test Reason : Blood Pressure : / mmHG Vent. Rate : 098 BPM Atrial Rate : 098 BPM P-R Int : 000 ms QRS Dur : 074 ms QT Int : 392 ms P-R-T Axes : 000 044 -22 degrees QTc Int : 500 ms POOR DATA QUALITY, INTERPRETATION MAY BE ADVERSELY AFFECTED NORMAL SINUS RHYTHM WITH OCCASIONAL PREMATURE VENTRICULAR COMPLEXES POSSIBLE ANTERIOR INFARCT (CITED ON OR BEFORE 12-FEB-2007) ABNORMAL ECG WHEN COMPARED WITH ECG OF 12-FEB-2007 18:52, NON-SPECIFIC CHANGE IN ST SEGMENT IN INFERIOR LEADS NONSPECIFIC T WAVE ABNORMALITY, WORSE IN ANTERIOR LEADS T WAVE INVERSION NO LONGER EVIDENT IN LATERAL LEADS Confirmed by NICHOLAS ENW, MANUEL ([id number]) on 08/20/2018 6:00:29 PM Referred By: Confirmed By:MANUEL PETERSON MD
[2018-08-20 19:15] LABS: HEMOGLOBIN 9.5 GM/dL (10.7-15.3); MCH 34.2 pg (25.7-33.7); MCHC 32.8 g/dl (32.0-36.0); MEAN CELL VOLUME 104.5 fl (80-96); MEAN PLT VOLUME 7.8 fl (7.5-11.1); PLATELET COUNT 205 K/MM3 (134-434); RBC 2.78 M/mm3 (3.60-5.2); RDW 13.2 % (11.6-15.6); WHITE BLOOD COUNT 7.4 K/mm3 (4.0-10.0)
[2018-08-20] MEDS: PANTOPRAZOLE 20 MG TABLET (FP) PO SCH (21:31)
[2018-08-20] MEDS ORDERED: ROSUVASTATIN CA 20 MG TABLET (FP) PO SCH (22:00)
[2018-08-20] MEDS: BUDESONIDE/FORMETEROL FUMARATE 160/4.5 mcg INHALER IH SCH (22:25)
[2018-08-21] MEDS: SODIUM CHLORIDE 1,000 ML IV SCH ×2 (00:30→10:16)
[2018-08-21] MEDS ORDERED: DEXTROSE 5%-WATER - 50 ML IVPB ONE ×2 (03:16→08:42)
[2018-08-21] MEDS ORDERED: PIPERACILLIN/TAZOBACTAM 3.375 GM VIAL IVPB ONE ×2 (03:16→08:42)
[2018-08-21] MEDS: PIPERACILLIN/TAZOB 3.375 GM 3.375 GM in DEXTROSE 5%-WATER - 50 ML IVPB SCH ×2 (03:21→10:14)
[2018-08-21 07:01] LABS: HEMATOCRIT 27.4 % (32.4-45.2); HEMOGLOBIN 9.1 GM/dL (10.7-15.3); MCH 34.8 pg (25.7-33.7); MCHC 33.2 g/dl (32.0-36.0); MEAN CELL VOLUME 104.7 fl (80-96); PLATELET COUNT 219 K/MM3 (134-434); RBC 2.61 M/mm3 (3.60-5.2); RDW 13.2 % (11.6-15.6); WHITE BLOOD COUNT 7.5 K/mm3 (4.0-10.0)
[2018-08-21 07:44] LABS: ALBUMIN 2.2 g/dl (3.4-5.0); ALK PHOS 76 U/L (45-117); ANION GAP 5 MMOL/L (8-16); BILIRUBIN,TOTAL 0.8 mg/dL (0.2-1); BLOOD UREA NITROGEN 13 mg/dL (7-18); CALCIUM 7.2 mg/dL (8.5-10.1); CHLORIDE 108 mmol/L (98-107); CO2 29 mmol/L (21-32); CREATININE 0.4 mg/dL (0.55-1.3); GLUCOSE,RANDOM 89 mg/dL (74-106); MAGNESIUM 1.8 mg/dL (1.8-2.4); PHOSPHOROUS 3.1 mg/dL (2.5-4.9); SGOT/AST 25 U/L (15-37); SGPT/ALT 15 U/L (13-61); SODIUM 143 mmol/L (136-145); TOT PROT 4.9 g/dl (6.4-8.2)
[2018-08-21] MEDS ORDERED: ACETAMINOPHEN 1000 MG/100 ML VIAL (NON FORMULARY) IVPB ONE (08:00)
[2018-08-21] MEDS ORDERED: CYANOCOBALAMIN 1,000 MCG TABLET (FP) PO SCH (10:00)
[2018-08-21] MEDS ORDERED: SILVER SULFADIAZINE 1% TOP CREAM 400 GM JAR TP SCH (10:00)
[2018-08-21] MEDS: PANTOPRAZOLE 20 MG TABLET (FP) PO SCH ×2 (10:13→22:33)
[2018-08-21] MEDS: BUDESONIDE/FORMETEROL FUMARATE 160/4.5 mcg INHALER IH SCH ×2 (10:16→22:33)
[2018-08-21] MEDS ORDERED: PT OWN MED DRAWER 7, Y5N ONE ×2 (10:20→22:20)
[2018-08-21] MEDS ORDERED: SODIUM CHLORIDE 500 ML IV STA ×2 (11:28→15:40)
--- NOTE | 2018-08-21 11:59 | PN ---
Teaching Attending Note Name of Resident: Abril Winn ATTENDING PHYSICIAN STATEMENT I saw and evaluated the patient. I reviewed the resident's note and discussed the case with the resident. I agree with the resident's findings and plan as documented. SUBJECTIVE: Patient seen and examiend in the ICU. Awake and alert. Denies CP or SOB. Transferred due to acute GI bleed. No transfusions required. No abdominal pain. Intake & Output 08/18/18 08/19/18 08/20/18 08/21/18 23:59 23:59 23:59 23:59 Intake Total 100 1120 1200 Balance 100 1120 1200 Weight 112 lb 11.2 oz Last Vital Signs Temp Pulse Resp BP Pulse Ox 97.6 F 87 18 97/42 L 100 08/21/18 10:00 08/21/18 10:00 08/21/18 10:00 08/21/18 10:00 08/21/18 08:26 Active Medications Acetaminophen (Tylenol -) 650 mg PO Q4H PRN PRN Reason: FEVER Budesonide/Formoterol Fumarate (Symbicort 160/4.5mcg -) 2 puff IH BID [facility] Last Admin: 08/21/18 10:16 Dose: 160 mcg Cyanocobalamin (Vitamin B12 -) 1,000 mcg PO DAILY [facility] Last Admin: 08/21/18 10:20 Dose: 1,000 mcg Sodium Chloride (Normal Saline -) 1,000 mls @ 500 mls/hr IV 1XPACU [facility] Last Admin: 08/20/18 16:00 Dose: Not Given Piperacillin Sod/Tazobactam (Sod 3.375 gm/ Dextrose) 50 mls @ 100 mls/hr IVPB Q8H-IV [facility]; Protocol Last Admin: 08/21/18 10:14 Dose: 100 mls/hr Sodium Chloride (Normal Saline -) 1,000 mls @ 100 mls/hr IV ASDIR [facility] Last Admin: 08/21/18 10:16 Dose: 100 mls/hr Sodium Chloride (Normal Saline -) 500 mls @ 500 mls/hr IV ASDIR [facility] Stop: 08/21/18 12:27 Pantoprazole Sodium (Protonix -) 20 mg PO BID [facility] Last Admin: 08/21/18 10:13 Dose: 20 mg Rosuvastatin Calcium (Crestor -) 20 mg PO HS [facility] Last Admin: 08/20/18 21:30 Dose: Not Given Silver Sulfadiazine (Silvadene -) 1 applic TP DAILY [facility] Last Admin: 08/21/18 10:14 Dose: 1 applic Constitutional: Yes: Awake and alert, Thin, NAD Eyes: Yes: WNL HENT: Yes: WNL, Atraumatic, Normocephalic Neck: Yes: WNL, Supple, Trachea Midline Cardiovascular: Yes: WNL, Regular Rate and Rhythm Respiratory: Yes: Diminished at the bases, no wheeze Gastrointestinal: Yes: Rectal Bleeding ...Rectal Exam: Yes: Deferred Renal/: Yes: WNL Breast(s): Yes: WNL Musculoskeletal: Yes: Muscle Weakness Extremities: Yes: Erythema Edema: No Peripheral Pulses WNL: Yes Neurological: Yes: WNL, Alert, Oriented ...Motor Strength: WNL Psychiatric: Yes: WNL, Alert, Oriented Labs: Laboratory Results - last 24 hr 08/19/18 08/20/18 08/20/18 14:46 12:50 18:50 WBC 8.8 7.4 RBC 2.93 L 2.78 L Hgb 10.2 L 9.5 L Hct 30.2 L 29.0 L MCV 103.2 H 104.5 H MCH 34.8 H 34.2 H MCHC 33.7 32.8 RDW 13.0 13.2 Plt Count 239 205 MPV 7.9 7.8 Sodium Potassium Chloride Carbon Dioxide Anion Gap BUN Creatinine Creat Clearance w eGFR Random Glucose Calcium Phosphorus Magnesium Total Bilirubin AST ALT Alkaline Phosphatase Total Protein Albumin Blood Type O POSITIVE Antibody Screen Negative Crossmatch See Detail 08/21/18 08/21/18 05:30 05:30 WBC 7.5 RBC 2.61 L Hgb 9.1 L Hct 27.4 L MCV 104.7 H MCH 34.8 H MCHC 33.2 RDW 13.2 Plt Count 219 MPV 8.0 Sodium 143 Potassium 4.0 Chloride 108 H Carbon Dioxide 29 Anion Gap 5 L BUN 13 Creatinine 0.4 L Creat Clearance w eGFR 153.97 Random Glucose 89 Calcium 7.2 L Phosphorus 3.1 Magnesium 1.8 Total Bilirubin 0.8 AST 25 ALT 15 Alkaline Phosphatase 76 Total Protein 4.9 L Albumin 2.2 L Blood Type Antibody Screen Crossmatch Problem List - Problems (1) Rectal bleed Code(s): K62.5 - HEMORRHAGE OF ANUS AND RECTUM (2) Leg ulcer Code(s): L97.909 - NON-PRS CHRONIC ULC UNSP PRT OF UNSP LOW LEG W UNSP SEVERITY Qualifiers: Laterality: right Non-pressure ulcer stage: unspecified non-pressure ulcer stage Qualified Code(s): L97.919 - Non-pressure chronic ulcer of unspecified part of right lower leg with unspecified severity Assessment/Plan ASSESS: This is a 78 y/o woman w/ COPD, HL, PAD/PVD, CAD s/p Stenting, HLP, chronic LE wounds, admitted for infected LE wounds, transferred to ICU now for GIB. PLAN: NPO O2 as needed to maintain saturation BD TX PRN Symbicort No NSAIDs Maintain large bore IV X2 IVF bolus Normal transfusion thresholds ABX per ID For Colonoscopy Floor if H&H stable and no acute bleeding Dr Mccarthy
--- NOTE | 2018-08-21 12:43 | PN ---
Teaching Attending Note Name of Resident: Leilani Perez ATTENDING PHYSICIAN STATEMENT I saw and evaluated the patient. I reviewed the resident's note and discussed the case with the resident. I agree with the resident's findings and plan as documented. SUBJECTIVE: No fever or chills. cont to have bloody BM this am . no abd pain. feels SOB . no cough OBJECTIVE: NAD, calm CV: RRR, no MRG. JVD today lungs: CTAB Abd: soft, NT, ND ,NL BS Ext: erythema cont to improve. hyperpigmentation on LE , with superficial wounds on both legs with yellow discharge. DP 2+ b/l. ASSESSMENT AND PLAN: 78 y/o lady with h/o PVd, CAD s/p Stenting, HLP, chronic LE wounds, who presented after being referred form wound care clinic for treatment of infected LE wounds. 1- Painless lower GI bleed: vitals are stable. Hb is stable - Colonoscopy today - hold antiplatelet. - repeat CBC in afternoon - cont PPI 2- SOB: col dbe due to volume overload with IVF - check cxray - decrease rate of IVF 3- b/l LE infected wounds with surrounding cellulitis: improved . - wound cx reviewed. - cont zosyn - follow final cx 4- Tinea pedis: cont nystatin 5- PVD: no intervention per vascular - hold cilostazole - cont statin 6- Dispo: HLOC will call pharmacy and confirm meds
--- NOTE | 2018-08-21 13:22 | PN ---
Progress Note (short form) - Note Progress Note: Brief GI procedure note - see full report in paper chart Severe left sided diverticulosis Mostly brown liquid stool in left colon Area at 25cm from the anal verge with scant old blood in the region of a diverticulum, washed without underlying lesion; suspect resolved diverticular bleed Can start clear liquid diet Trend hgb
--- NOTE | 2018-08-21 13:49 | PN ---
Physical Exam: SUBJECTIVE: Patient seen this morning. She reports she has pain in her legs. She is unsure if she is having any blood bowel movements. No other complaints. OBJECTIVE: Vital Signs Temperature 97.6 F 08/21/18 10:00 Pulse Rate 93 H 08/21/18 12:00 Respiratory Rate 25 H 08/21/18 12:00 Blood Pressure 108/56 L 08/21/18 12:00 O2 Sat by Pulse Oximetry (%) 100 08/21/18 08:26 GENERAL: The patient is awake, alert, and fully oriented, in no acute distress. HEAD: Normal with no signs of trauma. EYES: PERRL, extraocular movements intact LUNGS: Breath sounds equal, clear to auscultation bilaterally, no wheezes, no crackles, no accessory muscle use. HEART: Regular rate and rhythm, S1, S2 without murmur, rub or gallop. ABDOMEN: Soft, nontender, nondistended, normoactive EXTREMITIES: 2+ pulses, warm, well-perfused, no edema, chronic skin changes with erythema, weeping at RLE CBCD WBC 7.5 K/mm3 (4.0-10.0) 08/21/18 05:30 RBC 2.61 M/mm3 (3.60-5.2) L 08/21/18 05:30 Hgb 9.1 GM/dL (10.7-15.3) L 08/21/18 05:30 Hct 27.4 % (32.4-45.2) L 08/21/18 05:30 MCV 104.7 fl (80-96) H 08/21/18 05:30 MCHC 33.2 g/dl (32.0-36.0) 08/21/18 05:30 RDW 13.2 % (11.6-15.6) 08/21/18 05:30 Plt Count 219 K/MM3 (134-434) 08/21/18 05:30 MPV 8.0 fl (7.5-11.1) 08/21/18 05:30 CMP Sodium 143 mmol/L (136-145) 08/21/18 05:30 Potassium 4.0 mmol/L (3.5-5.1) 08/21/18 05:30 Chloride 108 mmol/L (98-107) H 08/21/18 05:30 Carbon Dioxide 29 mmol/L (21-32) 08/21/18 05:30 Anion Gap 5 MMOL/L (8-16) L 08/21/18 05:30 BUN 13 mg/dL (7-18) 08/21/18 05:30 Creatinine 0.4 mg/dL (0.55-1.3) L 08/21/18 05:30 Creat Clearance w eGFR 153.97 (>60) 08/21/18 05:30 Calcium 7.2 mg/dL (8.5-10.1) L 08/21/18 05:30 Total Bilirubin 0.8 mg/dL (0.2-1) 08/21/18 05:30 AST 25 U/L (15-37) 08/21/18 05:30 ALT 15 U/L (13-61) 08/21/18 05:30 Alkaline Phosphatase 76 U/L (45-117) 08/21/18 05:30 Total Protein 4.9 g/dl (6.4-8.2) L 08/21/18 05:30 Albumin 2.2 g/dl (3.4-5.0) L 08/21/18 05:30 Active Medications Acetaminophen (Tylenol -) 650 mg PO Q4H PRN PRN Reason: FEVER Budesonide/Formoterol Fumarate (Symbicort 160/4.5mcg -) 2 puff IH BID [facility] Last Admin: 08/21/18 10:16 Dose: 160 mcg Cyanocobalamin (Vitamin B12 -) 1,000 mcg PO DAILY [facility] Last Admin: 08/21/18 10:20 Dose: 1,000 mcg Sodium Chloride (Normal Saline -) 1,000 mls @ 500 mls/hr IV 1XPACU [facility] Last Admin: 08/20/18 16:00 Dose: Not Given Piperacillin Sod/Tazobactam (Sod 3.375 gm/ Dextrose) 50 mls @ 100 mls/hr IVPB Q8H-IV [facility]; Protocol Last Admin: 08/21/18 10:14 Dose: 100 mls/hr Sodium Chloride (Normal Saline -) 1,000 mls @ 50 mls/hr IV ASDIR [facility] Pantoprazole Sodium (Protonix -) 20 mg PO BID [facility] Last Admin: 08/21/18 10:13 Dose: 20 mg Rosuvastatin Calcium (Crestor -) 20 mg PO HS [facility] Last Admin: 08/20/18 21:30 Dose: Not Given Silver Sulfadiazine (Silvadene -) 1 applic TP DAILY [facility] Last Admin: 08/21/18 10:14 Dose: 1 applic ASSESSMENT/PLAN: Patient is a 78 y/o female with a history of HLD, CAD s/p PCI, and PAD who is here for cellulitis and GI bleed. Neuro - A &O x3, stable Cardio - continue crestor - pressure low, 500 bolus with recent bleeding Pulm - stable - continue symbicort 2 puff BID GI - protonix 20 BID - EGD: gastric erythema and erosions, stricture below hiatal hernia - colonoscopy today, f/u results Nephro - stable ID - LE cellulitis - f/u Dr. Boyer - continue Michael - E. coli in wound Heme - hold AC with bleeding FEN - continue VB12 - NS @ 100 Dispo: to tele today Visit type - Emergency Visit Emergency Visit: No - New Patient This patient is new to me today: Yes Date on this admission: 08/21/18 - Critical Care Critical Care patient: Yes Total Critical Care Time (in minutes): 40 Critical Care Statement: The care of this patient involved high complexity decision making to prevent further life threatening deterioration of the patient 's condition and/or to evaluate & treat vital organ system(s) failure or risk of failure.
[2018-08-21] MEDS ORDERED: N IV SCH (14:00)
[2018-08-21 14:24] VITALS: BMI 21.1
--- NOTE | 2018-08-21 15:29 | PN ---
Progress Note, Physician History of Present Illness: stable gi note seen procedure note noted - Current Medication List Current Medications: Active Medications Acetaminophen (Tylenol -) 650 mg PO Q4H PRN PRN Reason: FEVER Budesonide/Formoterol Fumarate (Symbicort 160/4.5mcg -) 2 puff IH BID [facility] Last Admin: 08/21/18 10:16 Dose: 160 mcg Cyanocobalamin (Vitamin B12 -) 1,000 mcg PO DAILY [facility] Last Admin: 08/21/18 10:20 Dose: 1,000 mcg Sodium Chloride (Normal Saline -) 1,000 mls @ 500 mls/hr IV 1XPACU [facility] Last Admin: 08/20/18 16:00 Dose: Not Given Piperacillin Sod/Tazobactam (Sod 3.375 gm/ Dextrose) 50 mls @ 100 mls/hr IVPB Q8H-IV [facility]; Protocol Last Admin: 08/21/18 10:14 Dose: 100 mls/hr Sodium Chloride (Normal Saline -) 1,000 mls @ 50 mls/hr IV ASDIR [facility] Pantoprazole Sodium (Protonix -) 20 mg PO BID [facility] Last Admin: 08/21/18 10:13 Dose: 20 mg Rosuvastatin Calcium (Crestor -) 20 mg PO HS [facility] Last Admin: 08/20/18 21:30 Dose: Not Given Silver Sulfadiazine (Silvadene -) 1 applic TP DAILY [facility] Last Admin: 08/21/18 10:14 Dose: 1 applic - Objective Vital Signs: Vital Signs Temperature 97.6 F 08/21/18 10:00 Pulse Rate 93 H 08/21/18 12:00 Respiratory Rate 25 H 08/21/18 12:00 Blood Pressure 108/56 L 08/21/18 12:00 O2 Sat by Pulse Oximetry (%) 100 08/21/18 08:26 Constitutional: Yes: No Distress, Calm Cardiovascular: Yes: S1, S2 Respiratory: Yes: Regular, CTA Bilaterally Gastrointestinal: Yes: Soft, Hypoactive Bowel Sounds Musculoskeletal: Yes: WNL Extremities: Yes: WNL Neurological: Yes: Alert, Oriented Psychiatric: Yes: Alert, Oriented Labs: CBC, BMP 08/21/18 05:30 08/21/18 05:30 INR, PTT INR 1.13 (0.83-1.09) H 08/20/18 09:30 Assessment/Plan Problem List - Problems (1) Rectal bleed Code(s): K62.5 - HEMORRHAGE OF ANUS AND RECTUM (2) Leg ulcer Code(s): L97.909 - NON-PRS CHRONIC ULC UNSP PRT OF UNSP LOW LEG W UNSP SEVERITY Qualifiers: Laterality: right Non-pressure ulcer stage: unspecified non-pressure ulcer stage Qualified Code(s): L97.919 - Non-pressure chronic ulcer of unspecified part of right lower leg with unspecified severity Assessment/Plan ASSESS: This is a 78 y/o woman w/ COPD, HL, PAD/PVD, CAD s/p Stenting, HLP, chronic LE wounds, admitted for infected LE wounds, transferred to ICU now for GIB. plan continue abx monitor for bleeding rest as per the team patient stable
[2018-08-21] MEDS ORDERED: ACETAMINOPHEN 325 MG TABLET (FP) PO PRN (15:40)
[2018-08-21] MEDS ORDERED: SODIUM CHLORIDE 1,000 ML IV ONE (16:00)
[2018-08-21] MEDS ORDERED: SODIUM CHLORIDE 1,000 ML IV SCH (18:00)
[2018-08-21 19:22] LABS: HEMATOCRIT 28.4 % (32.4-45.2); HEMOGLOBIN 9.2 GM/dL (10.7-15.3); MCH 34.3 pg (25.7-33.7); MCHC 32.5 g/dl (32.0-36.0); MEAN CELL VOLUME 105.6 fl (80-96); MEAN PLT VOLUME 8.5 fl (7.5-11.1); PLATELET COUNT 213 K/MM3 (134-434); RBC 2.69 M/mm3 (3.60-5.2); RDW 13.3 % (11.6-15.6); WHITE BLOOD COUNT 8.1 K/mm3 (4.0-10.0)
--- NOTE | 2018-08-21 19:30 | PN ---
Physical Exam: SUBJECTIVE: Patient seen and examined at bedside this morning. No acute events overnight. Patient reports to have shortness of breath, and still noted to have some blood in her stool. Otherwise she denies any fever, chills, headache, dizziness, chest pain, abdominal pain, diarrhea, urinary symptoms. OBJECTIVE: Vital Signs Temperature 98.1 F 08/21/18 20:00 Pulse Rate 92 H 08/21/18 20:00 Respiratory Rate 20 08/21/18 20:00 Blood Pressure 131/52 L 08/21/18 20:00 O2 Sat by Pulse Oximetry (%) 99 08/21/18 21:00 GENERAL: The patient is awake, alert, and fully oriented, on 3L NC. HEAD: Normal with no signs of trauma. EYES: PERRLA, eOMI, sclera anicteric, conjunctiva clear. ENT: oropharynx clear without exudates, moist mucous membranes. NECK: Trachea midline, full range of motion, supple. LUNGS: Breath sounds equal, clear to auscultation bilaterally. HEART: Regular rate and rhythm, S1, S2 without murmur, rub or gallop. ABDOMEN: Soft, nontender, nondistended, normoactive bowel sounds. EXTREMITIES: 2+ pulses, no edema. +hyperpigmented lesion with erythema on both LE with multiple draining wounds bilaterally. NEUROLOGICAL: Cranial nerves II through XII grossly intact. Normal speech, gait not observed. PSYCH: Normal mood, normal affect. SKIN: Warm, dry, normal turgor, no rashes or lesions noted Laboratory Results - last 24 hr 08/21/18 08/21/18 08/21/18 05:30 05:30 17:30 WBC 7.5 8.1 RBC 2.61 L 2.69 L Hgb 9.1 L 9.2 L Hct 27.4 L 28.4 L MCV 104.7 H 105.6 H MCH 34.8 H 34.3 H MCHC 33.2 32.5 RDW 13.2 13.3 Plt Count 219 213 MPV 8.0 8.5 Sodium 143 Potassium 4.0 Chloride 108 H Carbon Dioxide 29 Anion Gap 5 L BUN 13 Creatinine 0.4 L Creat Clearance w eGFR 153.97 Random Glucose 89 Calcium 7.2 L Phosphorus 3.1 Magnesium 1.8 Total Bilirubin 0.8 AST 25 ALT 15 Alkaline Phosphatase 76 Total Protein 4.9 L Albumin 2.2 L Active Medications Generic Name Dose Route Start Last Admin Trade Name Lloydq PRN Reason Stop Dose Admin Acetaminophen 650 mg 08/21/18 15:40 Tylenol - PO Q4H PRN FEVER Budesonide/Formoterol Fumarate 2 puff 08/21/18 22:00 Symbicort 160/4.5mcg - IH BID [facility] Cyanocobalamin 1,000 mcg 08/22/18 10:00 Vitamin B12 - PO DAILY [facility] Sodium Chloride 1,000 mls @ 50 mls/hr 08/21/18 18:00 Normal Saline - IV ASDIR [facility] Piperacillin Sod/Tazobactam 50 mls @ 100 mls/hr 08/21/18 18:00 Sod 3.375 gm/ Dextrose IVPB Q8H-IV [facility] Protocol Pantoprazole Sodium 20 mg 08/21/18 22:00 Protonix - PO BID [facility] Rosuvastatin Calcium 20 mg 08/21/18 22:00 Crestor - PO HS [facility] ASSESSMENT/PLAN: Patient is a 78 year old female with past medical history of HLD, CAD s/p PCI, and PAD with chronic wounds, who initially presented from wound care clinic due to nonhealing LE wounds, and then had episodes of GI bleeding. #Bilateral LE cellulitis -Wound culture showed LFGNB and Grp D enterococcus -Zosyn 3.375gm q8h day 3 -Silvadene applied to wound -ID (Dr. Bates) consulted. REcommendations appreciated. #GI bleeding: LGIB vs UGIB -frequent NSAID use and antiplatelet therapy -GI (Dr Simon) consulted. REcommendations appreciated. -EGD done showed hiatal hernia, gastritis and esophageal spasm -Colonoscopy revealed severe left sided diverticulosis, mostly brown liquid stool in left colon; suspect resolved diverticular bleed -vitals and H/H stable, will continue to monitor -antiplatelet on hold -Tylenol PRN for pain -Protonix 20mg BID #Shortness of breath: new onset -patient saturating at 99% on 3L NC -CXR done -IVF decreased to 50cc #HLD -Continue Crestor 20mg Po HS #FEN -IV NS @50cc -Electrolytes wnl, routine bmp monitoring -Clear liquid diet #Prophylaxis -Not on any chemical ppx in light of bleeding #Disposition -full code -transfer to tele Visit type - Emergency Visit Emergency Visit: Yes ED Registration Date: 08/19/18 Care time: The patient presented to the Emergency Department on the above date and was hospitalized for further evaluation of their emergent condition. - New Patient This patient is new to me today: Yes Date on this admission: 08/22/18 - Critical Care Critical Care patient: Yes Total Critical Care Time (in minutes): 35 Critical Care Statement: The care of this patient involved high complexity decision making to prevent further life threatening deterioration of the patient 's condition and/or to evaluate & treat vital organ system(s) failure or risk of failure.
[2018-08-21] MEDS: ROSUVASTATIN CA 20 MG TABLET (FP) PO SCH (22:34)
[2018-08-22] MEDS ORDERED: PIPERACILLIN/TAZOBACTAM 3.375 GM VIAL IVPB ONE ×3 (01:27→17:09)
[2018-08-22] MEDS ORDERED: DEXTROSE 5%-WATER - 50 ML IVPB ONE ×3 (01:27→17:09)
[2018-08-22] MEDS: PIPERACILLIN/TAZOB 3.375 GM 3.375 GM in DEXTROSE 5%-WATER - 50 ML IVPB SCH ×4 (02:15→17:10)
[2018-08-22 07:04] LABS: HEMATOCRIT 26.5 % (32.4-45.2); HEMOGLOBIN 8.8 GM/dL (10.7-15.3); LYMPH % 19.9 % (8-40); MCH 34.6 pg (25.7-33.7); MCHC 33.1 g/dl (32.0-36.0); MEAN CELL VOLUME 104.6 fl (80-96); MONO % 12.4 % (3.8-10.2); NEUT % 54.7 % (42.8-82.8); PLATELET COUNT 222 K/MM3 (134-434); RBC 2.53 M/mm3 (3.60-5.2); WHITE BLOOD COUNT 6.5 K/mm3 (4.0-10.0)
[2018-08-22 07:29] LABS: ANION GAP 6 MMOL/L (8-16); BLOOD UREA NITROGEN 8 mg/dL (7-18); CALCIUM 7.6 mg/dL (8.5-10.1); CHLORIDE 108 mmol/L (98-107); CO2 27 mmol/L (21-32); CREATININE 0.4 mg/dL (0.55-1.3); GLUCOSE,RANDOM 101 mg/dL (74-106); MAGNESIUM 1.8 mg/dL (1.8-2.4); PHOSPHOROUS 2.7 mg/dL (2.5-4.9); POTASSIUM 3.3 mmol/L (3.5-5.1); SODIUM 141 mmol/L (136-145)
[2018-08-22] MEDS ORDERED: ALBUTEROL SO4 2.5/IPRATROPIUM 0.5 INH SOL 3 ML VIAL.NEB. NEB PRN (10:35)
[2018-08-22] MEDS: PANTOPRAZOLE 20 MG TABLET (FP) PO SCH ×2 (11:06→22:51)
[2018-08-22] MEDS: CYANOCOBALAMIN 1,000 MCG TABLET (FP) PO SCH (11:06)
[2018-08-22] MEDS: BUDESONIDE/FORMETEROL FUMARATE 160/4.5 mcg INHALER IH SCH ×2 (11:06→22:51)
[2018-08-22 11:13] LABS: N-TERMINAL BNP 1539.2 pg/ml (5-450)
[2018-08-22] MEDS ORDERED: POTASSIUM CHLORIDE TABS 20 MEQ TABLET.ER (FP) PO ONE (14:11)
--- NOTE | 2018-08-22 14:40 | PN ---
Progress Note, Physician - Current Medication List Current Medications: Active Medications Acetaminophen (Tylenol -) 650 mg PO Q4H PRN PRN Reason: FEVER Albuterol/Ipratropium (Duoneb -) 1 amp NEB Q4H PRN PRN Reason: SHORTNESS OF BREATH Last Admin: 08/22/18 11:46 Dose: 1 amp Budesonide/Formoterol Fumarate (Symbicort 160/4.5mcg -) 2 puff IH BID [facility] Last Admin: 08/22/18 11:06 Dose: 2 500s Cyanocobalamin (Vitamin B12 -) 1,000 mcg PO DAILY [facility] Last Admin: 08/22/18 11:06 Dose: 1,000 mcg Piperacillin Sod/Tazobactam (Sod 3.375 gm/ Dextrose) 50 mls @ 100 mls/hr IVPB Q8H-IV [facility]; Protocol Last Admin: 08/22/18 11:02 Dose: 100 mls/hr Pantoprazole Sodium (Protonix -) 20 mg PO BID [facility] Last Admin: 08/22/18 11:06 Dose: 20 mg Rosuvastatin Calcium (Crestor -) 20 mg PO HS [facility] Last Admin: 08/21/18 22:34 Dose: 20 mg - Objective Vital Signs: Vital Signs Temperature 98 F 08/22/18 11:07 Pulse Rate 90 08/22/18 11:07 Respiratory Rate 22 H 08/22/18 11:07 Blood Pressure 125/55 L 08/22/18 11:07 O2 Sat by Pulse Oximetry (%) 99 08/21/18 21:00 Labs: CBC, BMP 08/22/18 06:30 08/22/18 06:30 INR, PTT INR 1.13 (0.83-1.09) H 08/20/18 09:30
--- NOTE | 2018-08-22 15:39 | PN.GI ---
GI Progress Note Subjective: No overt bleeding EGD with findings not related to GI bleed Colonoscopy suggestive of resolved diverticular bleed Complains of SOB - Objective Vital Signs: Vital Signs Temperature 98.6 F 08/22/18 15:00 Pulse Rate 97 H 08/22/18 15:00 Respiratory Rate 20 08/22/18 15:00 Blood Pressure 106/57 L 08/22/18 15:00 O2 Sat by Pulse Oximetry (%) 99 08/21/18 21:00 Constitutional: Calm Eyes: No: Sclera Icterus Cardiovascular: Yes: Regular Rate and Rhythm Respiratory: Yes: Wheezes (exp wheezes with) ...Auscultate: Yes: Normoactive Bowel Sounds ...Palpate: Yes: Soft. No: Hepatomegaly, Splenomegaly, Tenderness Neurological: Yes: Alert Labs: CBC, BMP 08/22/18 06:30 08/22/18 06:30 INR, PTT INR 1.13 (0.83-1.09) H 08/20/18 09:30 Problem List - Problems (1) Rectal bleed Assessment/Plan: Suspected resolved diverticular bleed Avoid NSAIDS Advance diet: Chopped diet Outpatient follow-up from GI standpoint. DIscussed with patient's daughter as well Code(s): K62.5 - HEMORRHAGE OF ANUS AND RECTUM
--- NOTE | 2018-08-22 16:34 | PATH ---
Surgical Pathology Report Patient Name: ALBERTO MAYA [facility]. Rec. #: [id number] /Age/Gender: 1940 (Age: 78) / F Account: [id number] Location: [address] [place] [address]/[place] Taken: 08/20/2018 Received: 08/21/2018 Reported: 08/22/2018 Physicians: Catherine Bueno M.D. Specimen(s) Received A: ANTRUM B: BODY AND ANGULARIS Clinical History GI bleed Postoperative diagnosis: Hiatal hernia, gastritis, esophageal spasm Final Diagnosis A. STOMACH, ANTRUM, BIOPSY: GASTRIC ANTRAL MUCOSA WITH MILD CHRONIC FOCAL ACTIVE GASTRITIS AND ASSOCIATED EROSION. IMMUNOHISTOCHEMICAL STAIN FOR H. PYLORI IS NEGATIVE. B. STOMACH, ANGULARIS AND BODY, BIOPSY: GASTRIC MUCOSA WITH MILD CHRONIC GASTRITIS. IMMUNOHISTOCHEMICAL STAIN FOR H. PYLORI IS NEGATIVE. Electronically Signed Abril Dong M.D. Gross Description A. Received in formalin, labeled "biopsy antrum" are 3 sifuentes, irregular portions of soft tissue ranging from 0.1-0.3 cm. in greatest dimension. The specimens are submitted in toto in one cassette. B. Received in formalin, labeled "biopsy angularis and body" are 3 sifuentes, irregular portions of soft tissue ranging from 0.1-0.4 cm. in greatest dimension. The specimens are submitted in toto in one cassette. /08/21/2018 saudi08/21/2018
[2018-08-22] MEDS ORDERED: FUROSEMIDE 40 MG/4 ML INJECTABLE VIAL IVPUSH ONE (16:45)
--- NOTE | 2018-08-22 18:19 | PN ---
Teaching Attending Note Name of Resident: Leilani Perez ATTENDING PHYSICIAN STATEMENT I saw and evaluated the patient. I reviewed the resident's note and discussed the case with the resident. I agree with the resident's findings and plan as documented. SUBJECTIVE: no fever or chills. feels SOB , and has cough. OBJECTIVE: NAD, calm CV: RRR, no MRG. JVD today lungs: CTAB Abd: soft, NT, ND ,NL BS Ext: erythema cont to improve.did not allow full unwrapping of her legs ASSESSMENT AND PLAN: 78 y/o lady with h/o PVd, CAD s/p Stenting, HLP, chronic LE wounds, who presented after being referred form wound care clinic for treatment of infected LE wounds. 1- Painless lower GI bleed: s/p EGD and colo - cont to hold antiplatelet. - stable Hb - cont PPI - path report reviewed: gastritis and neg H. pylori 2- SOB: due to pulmonary edema form IVF. BNP elevated - stop IVf and give one dose of lasix 3- b/l LE infected wounds with surrounding cellulitis: improved . - cont zosyn - follow final cx 4- Tinea pedis: cont nystatin 5- PVD: no intervention per vascular ( out pt notes) - hold cilostazole - cont statin 6- h/o CAD , s/p stenting many years ago. - confirmed that ga is not on lavix . only cilostazole as out pt . now on hold will resume when safe per GI 7- Dispo: HLOC
--- NOTE | 2018-08-22 18:53 | PN ---
Physical Exam: SUBJECTIVE: Patient seen and examined at bedside this morning. Patient reported to have shortness breath. Last night Could not reach the bathroom without getting short of breath. As per nurse, desaturated to 80% while walking without oxygen. Otherwise, she denies any fever, chills, headache, dizziness, chest pain , abdominal pain, bloody stools. OBJECTIVE: Vital Signs Period Temp Pulse Resp BP Sys/Nelson Pulse Ox Last 24 Hr 97.6 F-98.6 F 85-97 20-22 106-131/47-60 99 GENERAL: The patient is awake, alert, and fully oriented, on 3L NC. HEAD: Normal with no signs of trauma. EYES: PERRLA, eOMI, sclera anicteric, conjunctiva clear. ENT: oropharynx clear without exudates, moist mucous membranes. NECK: Trachea midline, full range of motion, supple. LUNGS: Breath sounds equal, clear to auscultation bilaterally. HEART: Regular rate and rhythm, S1, S2 without murmur, rub or gallop. ABDOMEN: Soft, nontender, nondistended, normoactive bowel sounds. EXTREMITIES: 2+ pulses, no edema. +hyperpigmented lesion with erythema on both LE with multiple draining wounds bilaterally. NEUROLOGICAL: Cranial nerves II through XII grossly intact. Normal speech, gait not observed. PSYCH: Normal mood, normal affect. SKIN: Warm, dry, normal turgor, no rashes or lesions noted Laboratory Results - last 24 hr 08/19/18 08/21/18 08/22/18 14:46 17:30 06:30 WBC 8.1 RBC 2.69 L Hgb 9.2 L Hct 28.4 L MCV 105.6 H MCH 34.3 H MCHC 32.5 RDW 13.3 Plt Count 213 MPV 8.5 Absolute Neuts (auto) Neutrophils % Lymphocytes % Monocytes % Eosinophils % Basophils % Nucleated RBC % Sodium 141 Potassium 3.3 L Chloride 108 H Carbon Dioxide 27 Anion Gap 6 L BUN 8 Creatinine 0.4 L Creat Clearance w eGFR 153.97 Random Glucose 101 Calcium 7.6 L Phosphorus 2.7 Magnesium 1.8 B-Natriuretic Peptide 1539.2 H Crossmatch See Detail 08/22/18 06:30 WBC 6.5 RBC 2.53 L Hgb 8.8 L Hct 26.5 L MCV 104.6 H MCH 34.6 H MCHC 33.1 RDW 13.0 Plt Count 222 MPV 8.0 Absolute Neuts (auto) 3.5 Neutrophils % 54.7 Lymphocytes % 19.9 Monocytes % 12.4 H Eosinophils % 12.0 H D Basophils % 1.0 Nucleated RBC % 0 Sodium Potassium Chloride Carbon Dioxide Anion Gap BUN Creatinine Creat Clearance w eGFR Random Glucose Calcium Phosphorus Magnesium B-Natriuretic Peptide Crossmatch Active Medications Generic Name Dose Route Start Last Admin Trade Name Freq PRN Reason Stop Dose Admin Acetaminophen 650 mg 08/21/18 15:40 Tylenol - PO Q4H PRN FEVER Albuterol/Ipratropium 1 amp 08/22/18 10:35 08/22/18 11:46 Duoneb - NEB 1 amp Q4H PRN Administration SHORTNESS OF BREATH Budesonide/Formoterol Fumarate 2 puff 08/21/18 22:00 08/22/18 11:06 Symbicort 160/4.5mcg - IH 2 500s BID [facility] Administration Cyanocobalamin 1,000 mcg 08/22/18 10:00 08/22/18 11:06 Vitamin B12 - PO 1,000 mcg DAILY [facility] Administration Piperacillin Sod/Tazobactam 50 mls @ 100 mls/hr 08/21/18 18:00 08/22/18 17:10 Sod 3.375 gm/ Dextrose IVPB 100 mls/hr Q8H-IV [facility] Administration Protocol Pantoprazole Sodium 20 mg 08/21/18 22:00 08/22/18 11:06 Protonix - PO 20 mg BID [facility] Administration Rosuvastatin Calcium 20 mg 08/21/18 22:00 08/21/18 22:34 Crestor - PO 20 mg HS [facility] Administration ASSESSMENT/PLAN: Patient is a 78 year old female with past medical history of HLD, CAD s/p PCI, and PAD with chronic wounds, who initially presented from wound care clinic due to nonhealing LE wounds, and then had episodes of GI bleeding. #Bilateral LE cellulitis -Wound culture showed LFGNB and Grp D enterococcus -Zosyn 3.375gm q8h day 4 -Silvadene applied to wound -ID (Dr. Bates) consulted. REcommendations appreciated. #GI bleeding: LGIB vs UGIB -frequent NSAID use and antiplatelet therapy -GI (Dr Simon) consulted. REcommendations appreciated. -EGD done showed hiatal hernia, gastritis and esophageal spasm -Colonoscopy revealed severe left sided diverticulosis, mostly brown liquid stool in left colon; suspect resolved diverticular bleed -vitals and H/H stable, will continue to monitor -antiplatelet on hold -Tylenol PRN for pain -Protonix 20mg BID #Shortness of breath: new onset -patient saturating at 99% on 3L NC -CXR done -BNP 1539 -IV fluids discontinued -Will give one dose of IV Lasix 20mg #HLD -Continue Crestor 20mg Po HS #FEN -Not on any standing fluids -Electrolytes wnl, routine bmp monitoring -Chopped diet #Prophylaxis -Not on any chemical ppx in light of bleeding #Disposition -full code -tele Visit type - Emergency Visit Emergency Visit: Yes ED Registration Date: 08/19/18 Care time: The patient presented to the Emergency Department on the above date and was hospitalized for further evaluation of their emergent condition. - New Patient This patient is new to me today: Yes Date on this admission: 08/22/18 - Critical Care Critical Care patient: No
[2018-08-22] MEDS: ROSUVASTATIN CA 20 MG TABLET (FP) PO SCH (22:51)
[2018-08-23] MEDS ORDERED: PIPERACILLIN/TAZOBACTAM 3.375 GM VIAL IVPB ONE ×3 (01:18→20:03)
[2018-08-23] MEDS ORDERED: DEXTROSE 5%-WATER - 50 ML IVPB ONE ×3 (01:19→20:03)
[2018-08-23] MEDS: PIPERACILLIN/TAZOB 3.375 GM 3.375 GM in DEXTROSE 5%-WATER - 50 ML IVPB SCH ×3 (01:38→21:33)
[2018-08-23 07:05] LABS: HEMATOCRIT 26.5 % (32.4-45.2); HEMOGLOBIN 8.9 GM/dL (10.7-15.3); MCHC 33.6 g/dl (32.0-36.0); MEAN CELL VOLUME 104.3 fl (80-96); PLATELET COUNT 234 K/MM3 (134-434); RBC 2.54 M/mm3 (3.60-5.2); RDW 13.3 % (11.6-15.6); WHITE BLOOD COUNT 7.2 K/mm3 (4.0-10.0)
[2018-08-23 07:35] LABS: ANION GAP 3 MMOL/L (8-16); BLOOD UREA NITROGEN 6 mg/dL (7-18); CALCIUM 7.7 mg/dL (8.5-10.1); CHLORIDE 107 mmol/L (98-107); CO2 30 mmol/L (21-32); CREATININE 0.5 mg/dL (0.55-1.3); GLUCOSE,RANDOM 105 mg/dL (74-106); MAGNESIUM 1.8 mg/dL (1.8-2.4); PHOSPHOROUS 2.1 mg/dL (2.5-4.9); POTASSIUM 3.6 mmol/L (3.5-5.1); SODIUM 140 mmol/L (136-145)
--- NOTE | 2018-08-23 07:40 | PN ---
Teaching Attending Note Name of Resident: Leilani Perez ATTENDING PHYSICIAN STATEMENT I saw and evaluated the patient. I reviewed the resident's note and discussed the case with the resident. I agree with the resident's findings and plan as documented. SUBJECTIVE: Patient is feeling better, denies any shortness of breath. OBJECTIVE: Vital Signs Temperature 98.1 F 08/23/18 06:00 Pulse Rate 82 08/23/18 06:00 Respiratory Rate 18 08/23/18 06:00 Blood Pressure 118/69 08/23/18 06:00 O2 Sat by Pulse Oximetry (%) 98 08/22/18 21:00 GENERAL: The patient is awake, alert, and fully oriented, on 3L NC. HEAD: Normal with no signs of trauma. EYES: PERRLA, EOMI, sclera anicteric, conjunctiva clear. ENT: oropharynx clear without exudates, moist mucous membranes. NECK: Trachea midline, full range of motion, supple. LUNGS: Breath sounds equal, clear to auscultation bilaterally. HEART: Regular rate and rhythm, S1, S2 without murmur, rub or gallop. ABDOMEN: Soft, nontender, nondistended, normoactive bowel sounds. EXTREMITIES: 2+ pulses, no edema. hyperpigmented lesion with erythema on both LE with multiple draining wounds bilaterally. NEUROLOGICAL: Cranial nerves II through XII grossly intact. Normal speech, gait not observed. PSYCH: Normal mood, normal affect. SKIN: Warm, dry, normal turgor, no rashes or lesions noted CBCD WBC 6.5 K/mm3 (4.0-10.0) 08/22/18 06:30 RBC 2.53 M/mm3 (3.60-5.2) L 08/22/18 06:30 Hgb 8.8 GM/dL (10.7-15.3) L 08/22/18 06:30 Hct 26.5 % (32.4-45.2) L 08/22/18 06:30 MCV 104.6 fl (80-96) H 08/22/18 06:30 MCHC 33.1 g/dl (32.0-36.0) 08/22/18 06:30 RDW 13.0 % (11.6-15.6) 08/22/18 06:30 Plt Count 222 K/MM3 (134-434) 08/22/18 06:30 MPV 8.0 fl (7.5-11.1) 08/22/18 06:30 CMP Sodium 140 mmol/L (136-145) 08/23/18 06:30 Potassium 3.6 mmol/L (3.5-5.1) 08/23/18 06:30 Chloride 107 mmol/L (98-107) 08/23/18 06:30 Carbon Dioxide 30 mmol/L (21-32) 08/23/18 06:30 Anion Gap 3 MMOL/L (8-16) L 08/23/18 06:30 BUN 6 mg/dL (7-18) L 08/23/18 06:30 Creatinine 0.5 mg/dL (0.55-1.3) L 08/23/18 06:30 Creat Clearance w eGFR 119.02 (>60) 08/23/18 06:30 Random Glucose 105 mg/dL (74-106) 08/23/18 06:30 Calcium 7.7 mg/dL (8.5-10.1) L 08/23/18 06:30 Total Bilirubin 0.8 mg/dL (0.2-1) 08/21/18 05:30 AST 25 U/L (15-37) 08/21/18 05:30 ALT 15 U/L (13-61) 08/21/18 05:30 Alkaline Phosphatase 76 U/L (45-117) 08/21/18 05:30 Total Protein 4.9 g/dl (6.4-8.2) L 08/21/18 05:30 Albumin 2.2 g/dl (3.4-5.0) L 08/21/18 05:30 Current Medications Generic Name Dose Route Start Last Admin Trade Name Freq PRN Reason Stop Dose Admin Acetaminophen 650 mg 08/21/18 15:40 Tylenol - PO Q4H PRN FEVER Albuterol/Ipratropium 1 amp 08/22/18 10:35 08/22/18 11:46 Duoneb - NEB 1 amp Q4H PRN Administration SHORTNESS OF BREATH Budesonide/Formoterol Fumarate 2 puff 08/21/18 22:00 08/22/18 22:51 Symbicort 160/4.5mcg - IH 2 500s BID [facility] Administration Cyanocobalamin 1,000 mcg 08/22/18 10:00 08/22/18 11:06 Vitamin B12 - PO 1,000 mcg DAILY [facility] Administration Piperacillin Sod/Tazobactam 50 mls @ 100 mls/hr 08/21/18 18:00 08/23/18 01:38 Sod 3.375 gm/ Dextrose IVPB 100 mls/hr Q8H-IV [facility] Administration Protocol Pantoprazole Sodium 20 mg 08/21/18 22:00 08/22/18 22:51 Protonix - PO 20 mg BID [facility] Administration Rosuvastatin Calcium 20 mg 08/21/18 22:00 08/22/18 22:51 Crestor - PO 20 mg HS [facility] Administration Home Medications Medication Instructions Recorded Budesonide/Formeterol Fumarate 1 inh IH DAILY 11/01/16 [SYMBICORT 160/4.5mcg -] Cilostazol 50 tab PO BID 11/01/16 Cyanocobalamin (Vitamin B-12) 1 tab PO DAILY 11/01/16 [Vitamin B-12] Rosuvastatin Calcium [Crestor] 20 mg PO HS 11/01/16 Multivit-Min/FA/Lycopen/Lutein 1 each PO DAILY 12/15/16 [Centrum Silver Tablet] Silver Sulfadiazine [Silvadene] 85 gm TP DAILY #1 cream..g. 06/30/18 Albuterol Sulfate [Albuterol 1 unit NEB PRN 08/21/18 Sulfate Hfa] Tiotropium Breda [Spiriva] 2 unit NEB DAILY 08/21/18 Microbiology 08/19/18 14:46 Blood - Peripheral Venous Blood Culture - Preliminary NO GROWTH OBTAINED AFTER 72 HOURS, INCUBATION TO CONTINUE FOR 2 DAYS. 08/19/18 14:46 Blood - Peripheral Venous Blood Culture - Preliminary NO GROWTH OBTAINED AFTER 72 HOURS, INCUBATION TO CONTINUE FOR 2 DAYS. 08/19/18 14:35 Ulcer Gram Stain - Final 08/19/18 14:35 Ulcer Wound Culture - Final Enterococcus Faecalis Escherichia Coli Stenotrophomon.(X.)Maltophilia 08/19/18 14:51 Calf - Right Posterior Gram Stain - Final 08/19/18 14:51 Calf - Right Posterior Wound Culture - Final Escherichia Coli Enterococcus Faecalis Diphtheroid/Corynebacterium ASSESSMENT AND PLAN: Patient is a 78yo female with PMHx of PVd, CAD s/p stenting, HLP, chronic LE wounds, who presented after being referred form wound care clinic for treatment of infected LE wounds. # Acute LGI bleed most likely due diverticular bleed : s/p EGD and colonoscopy by . Upon dc to f/u with - cont to hold antiplatelet. avoid Nsaid, monitor h/h (stable at this time), cont PPI - path report reviewed: gastritis and neg H. pylori #DRm=[id number], avoid Qtc prolonging drugs. # b/l LE infected wounds with cellulitis: improved . on zosyn continue, ID on the case. # Tinea pedis: cont nystatin # PVD: no intervention per vascular ( out pt notes), hold cilostazole due to bleed, cont statin # Hx of CAD , s/p stenting many years ago. on cilostazole as out pt .( on hold now due to LGI bleed) will resume when safe per GI Advance diet: Chopped diet DVT Px: AC is on hold due to GIB will check TSh, FT4 since patient has cold extremities.
[2018-08-23] MEDS: PANTOPRAZOLE 20 MG TABLET (FP) PO SCH ×2 (09:31→21:32)
[2018-08-23] MEDS: CYANOCOBALAMIN 1,000 MCG TABLET (FP) PO SCH (09:31)
[2018-08-23] MEDS: BUDESONIDE/FORMETEROL FUMARATE 160/4.5 mcg INHALER IH SCH ×2 (09:31→21:32)
--- NOTE | 2018-08-23 11:54 | PN.GI ---
GI Progress Note Subjective: Pt seen/examined at bedside, reports some discomfort due to leg wounds, no new complaints. Denies abdominal pain, n/v. Tolerating regular diet, moving bowels, no further bleeding. - Objective Vital Signs: Vital Signs Temperature 98.1 F 08/23/18 10:00 Pulse Rate 90 08/23/18 10:00 Respiratory Rate 18 08/23/18 10:00 Blood Pressure 134/63 08/23/18 10:00 O2 Sat by Pulse Oximetry (%) 95 08/23/18 10:00 Constitutional: Well Nourished, No Distress, Calm Cardiovascular: Yes: WNL, Regular Rate and Rhythm Respiratory: Yes: WNL, Regular, CTA Bilaterally Gastrointestinal Inspection: Yes: WNL ...Palpate: Yes: Other (Abd soft, nt, nd) Labs: CBC, BMP 08/23/18 06:30 08/23/18 06:30 INR, PTT INR 1.13 (0.83-1.09) H 08/20/18 09:30 Problem List - Problems (1) Rectal bleed Assessment/Plan: 78yo female with rectal bleeding s/p EGD revealing 3cm hiatal hernia and gastric erythema (biopsies revealing chronic gastritis), and colonoscopy with left sided diverticulosis. Suspected resolved diverticular bleed. Hb stable, no further bleeding. -Continue to monitor Hb and for evidence of bleeding -Continue PPI -Avoid NSAIDs if possible -Diet as tolerated -Outpt GI follow up upon discharge Code(s): K62.5 - HEMORRHAGE OF ANUS AND RECTUM
--- NOTE | 2018-08-23 14:05 | PN ---
Progress Note, Physician History of Present Illness: still wiht leg pain no new issues wounds drying - Current Medication List Current Medications: Active Medications Acetaminophen (Tylenol -) 650 mg PO Q4H PRN PRN Reason: FEVER Albuterol/Ipratropium (Duoneb -) 1 amp NEB Q4H PRN PRN Reason: SHORTNESS OF BREATH Last Admin: 08/22/18 11:46 Dose: 1 amp Budesonide/Formoterol Fumarate (Symbicort 160/4.5mcg -) 2 puff IH BID [facility] [place] Last Admin: 08/23/18 09:31 Dose: 2 500s Cyanocobalamin (Vitamin B12 -) 1,000 mcg PO DAILY [facility] [place] Last Admin: 08/23/18 09:31 Dose: 1,000 mcg Piperacillin Sod/Tazobactam (Sod 3.375 gm/ Dextrose) 50 mls @ 100 mls/hr IVPB Q8H-IV [facility]; Protocol Last Admin: 08/23/18 09:32 Dose: 100 mls/hr Pantoprazole Sodium (Protonix -) 20 mg PO BID [facility] [place] Last Admin: 08/23/18 09:31 Dose: 20 mg Rosuvastatin Calcium (Crestor -) 20 mg PO HS [facility] [place] Last Admin: 08/22/18 22:51 Dose: 20 mg - Objective Vital Signs: Vital Signs Temperature 98.1 F 08/23/18 10:00 Pulse Rate 90 08/23/18 10:00 Respiratory Rate 18 08/23/18 10:00 Blood Pressure 134/63 08/23/18 10:00 O2 Sat by Pulse Oximetry (%) 95 08/23/18 10:00 Constitutional: Yes: Calm, Mild Distress Cardiovascular: Yes: Regular Rate and Rhythm Respiratory: Yes: Regular, CTA Bilaterally Gastrointestinal: Yes: Normal Bowel Sounds, Soft Musculoskeletal: Yes: WNL Extremities: Yes: Other Wound/Incision: Yes: Dressing Dry and Intact Neurological: Yes: Alert, Oriented Psychiatric: Yes: Alert, Oriented Labs: CBC, BMP 08/23/18 06:30 08/23/18 06:30 INR, PTT INR 1.13 (0.83-1.09) H 08/20/18 09:30 Assessment/Plan Problem List - Problems (1) Rectal bleed Code(s): K62.5 - HEMORRHAGE OF ANUS AND RECTUM (2) Leg ulcer Code(s): L97.909 - NON-PRS CHRONIC ULC UNSP PRT OF UNSP LOW LEG W UNSP SEVERITY Qualifiers: Laterality: right Non-pressure ulcer stage: unspecified non-pressure ulcer stage Qualified Code(s): L97.919 - Non-pressure chronic ulcer of unspecified part of right lower leg with unspecified severity Assessment/Plan ASSESS: This is a 78 y/o woman w/ COPD, HL, PAD/PVD, CAD s/p Stenting, HLP, chronic LE wounds, admitted for infected LE wounds, transferred to ICU now for GIB. all the cx reports noted patient says legs painful unable to walk properly plan continue abx await for finalization of cx then will decide final plan rest as per the team
--- NOTE | 2018-08-23 14:32 | PN ---
Physical Exam: SUBJECTIVE: Patient seen and examined at bedside this morning. No acute events overnight. Patient reported feeling better today with less shortness of breath. Patient still has bilateral leg pain. Erythema of b/l LE improved. Denies fever , chills, headache, chest pain, palpitations, abdominal pain, diarrhea, bloody stools or urinary symptoms. OBJECTIVE: Vital Signs Temperature 98.1 F 08/23/18 14:00 Pulse Rate 82 08/23/18 14:00 Respiratory Rate 20 08/23/18 14:00 Blood Pressure 121/50 L 08/23/18 14:00 O2 Sat by Pulse Oximetry (%) 95 08/23/18 10:00 GENERAL: The patient is awake, alert, and fully oriented, on 3L NC. HEAD: Normal with no signs of trauma. EYES: PERRLA, eOMI, sclera anicteric, conjunctiva clear. ENT: oropharynx clear without exudates, moist mucous membranes. NECK: Trachea midline, full range of motion, supple. LUNGS: Breath sounds equal, clear to auscultation bilaterally. HEART: Regular rate and rhythm, S1, S2 without murmur, rub or gallop. ABDOMEN: Soft, nontender, nondistended, normoactive bowel sounds. EXTREMITIES: 2+ pulses, no edema. +hyperpigmented lesion with erythema on both LE with multiple draining wounds bilaterally. NEUROLOGICAL: Cranial nerves II through XII grossly intact. Normal speech, gait not observed. PSYCH: Normal mood, normal affect. SKIN: Warm, dry, normal turgor, no rashes or lesions noted Laboratory Results - last 24 hr 08/19/18 08/23/18 08/23/18 14:46 06:30 06:30 WBC 7.2 RBC 2.54 L Hgb 8.9 L Hct 26.5 L MCV 104.3 H MCH 35.0 H MCHC 33.6 RDW 13.3 Plt Count 234 MPV 8.0 Sodium 140 Potassium 3.6 Chloride 107 Carbon Dioxide 30 Anion Gap 3 L BUN 6 L Creatinine 0.5 L Creat Clearance w eGFR 119.02 POC Glucometer Random Glucose 105 Calcium 7.7 L Phosphorus 2.1 L Magnesium 1.8 Crossmatch See Detail 08/23/18 06:50 WBC RBC Hgb Hct MCV MCH MCHC RDW Plt Count MPV Sodium Potassium Chloride Carbon Dioxide Anion Gap BUN Creatinine Creat Clearance w eGFR POC Glucometer 136 Random Glucose Calcium Phosphorus Magnesium Crossmatch Active Medications Generic Name Dose Route Start Last Admin Trade Name Freq PRN Reason Stop Dose Admin Acetaminophen 650 mg 08/21/18 15:40 Tylenol - PO Q4H PRN FEVER Albuterol/Ipratropium 1 amp 08/22/18 10:35 08/22/18 11:46 Duoneb - NEB 1 amp Q4H PRN Administration SHORTNESS OF BREATH Budesonide/Formoterol Fumarate 2 puff 08/21/18 22:00 08/23/18 09:31 Symbicort 160/4.5mcg - IH 2 500s BID [facility] Administration Cyanocobalamin 1,000 mcg 08/22/18 10:00 08/23/18 09:31 Vitamin B12 - PO 1,000 mcg DAILY [facility] Administration Piperacillin Sod/Tazobactam 50 mls @ 100 mls/hr 08/21/18 18:00 08/23/18 09:32 Sod 3.375 gm/ Dextrose IVPB 100 mls/hr Q8H-IV [facility] Administration Protocol Pantoprazole Sodium 20 mg 08/21/18 22:00 08/23/18 09:31 Protonix - PO 20 mg BID [facility] Administration Rosuvastatin Calcium 20 mg 08/21/18 22:00 08/22/18 22:51 Crestor - PO 20 mg HS [facility] Administration ASSESSMENT/PLAN: Patient is a 78 year old female with past medical history of HLD, CAD s/p PCI, and PAD with chronic wounds, who initially presented from wound care clinic due to nonhealing LE wounds, and then had episodes of GI bleeding. #Bilateral LE cellulitis -Wound culture showed LFGNB and Grp D enterococcus -Zosyn 3.375gm q8h day 5 -Silvadene applied to wound -ID (Dr. Bates) consulted. Recommendations appreciated. -Vascular surgery (Dr. Graham) consulted. #GI bleeding: LGIB vs UGIB -frequent NSAID use and antiplatelet therapy -GI (Dr Simon) consulted. REcommendations appreciated. -EGD done showed hiatal hernia, gastritis and esophageal spasm -Colonoscopy revealed severe left sided diverticulosis, mostly brown liquid stool in left colon; suspect resolved diverticular bleed -vitals and H/H stable, will continue to monitor -antiplatelet on hold -Tylenol PRN for pain -Protonix 20mg BID #Shortness of breath: new onset -patient saturating at 99% on 3L NC -BNP 1539 -IV fluids discontinued -one dose of IV Lasix 20mg given yesterday. -Will repeat CXR -TSH, free T4 #HLD -Continue Crestor 20mg Po HS #FEN -Not on any standing fluids -Electrolytes wnl, routine bmp monitoring -Chopped diet #Prophylaxis -Not on any chemical ppx in light of bleeding #Disposition -full code -tele Visit type - Emergency Visit Emergency Visit: Yes ED Registration Date: 08/19/18 Care time: The patient presented to the Emergency Department on the above date and was hospitalized for further evaluation of their emergent condition. - New Patient This patient is new to me today: Yes Date on this admission: 08/23/18 - Critical Care Critical Care patient: No
[2018-08-23] MEDS: ROSUVASTATIN CA 20 MG TABLET (FP) PO SCH (21:32)
[2018-08-24] MEDS: PIPERACILLIN/TAZOB 3.375 GM 3.375 GM in DEXTROSE 5%-WATER - 50 ML IVPB SCH ×3 (03:28→17:44)
[2018-08-24 05:56] LABS: BASO % 1.5 % (0-2.0); EOS % 13.1 % (0-4.5); HEMATOCRIT 27.3 % (32.4-45.2); HEMOGLOBIN 9.1 GM/dL (10.7-15.3); LYMPH % 21.7 % (8-40); MCH 35.2 pg (25.7-33.7); MCHC 33.5 g/dl (32.0-36.0); MEAN PLT VOLUME 7.9 fl (7.5-11.1); MONO % 13.1 % (3.8-10.2); NEUT % 50.6 % (42.8-82.8); PLATELET COUNT 222 K/MM3 (134-434); RDW 13.2 % (11.6-15.6); WHITE BLOOD COUNT 5.6 K/mm3 (4.0-10.0)
[2018-08-24 06:30] LABS: ANION GAP 5 MMOL/L (8-16); BLOOD UREA NITROGEN 4 mg/dL (7-18); CALCIUM 7.5 mg/dL (8.5-10.1); CHLORIDE 106 mmol/L (98-107); CO2 33 mmol/L (21-32); CREATININE 0.5 mg/dL (0.55-1.3); GLUCOSE,RANDOM 115 mg/dL (74-106); MAGNESIUM 1.6 mg/dL (1.8-2.4); PHOSPHOROUS 2.9 mg/dL (2.5-4.9); POTASSIUM 4.2 mmol/L (3.5-5.1); SODIUM 144 mmol/L (136-145)
--- NOTE | 2018-08-24 08:47 | CONSULT ---
- Consultation REQUESTING PROVIDER: CONSULT REQUEST: We have been asked to surgically evaluate this patient for B/L LE venous stasis wounds. PCP:Cedrick Pereira HISTORY OF PRESENT ILLNESS: 78 yo F h/o HLD, PAD and chronic b/l posterior leg wounds referred by wound care for worsening leg ulcers and pain- IV ABX. Patient was on Keflex and she voluntarily stopped it because it's not helping. She denies any fever, chills, abd pain, N/V/D. Past History - Past Medical History Allergies/Adverse Reactions: Allergies Allergy/AdvReac Type Severity Reaction Status Date / Time No Known Allergies Allergy Verified 08/19/18 13:00 Home Medications: Ambulatory Orders Advair 250-50 Diskus 1 puff IH DAILY 11/01/16 Budesonide/Formeterol Fumarate [SYMBICORT 160/4.5mcg -] 1 inh IH DAILY 11/01/16 Cholecalciferol (Vitamin D3) [Vitamin D3] 1,000 units PO DAILY 11/01/16 Cilostazol 50 tab PO DAILY 11/01/16 Cyanocobalamin (Vitamin B-12) [Vitamin B-12] 1 tab PO DAILY 11/01/16 Gabapentin [Neurontin] 1 cap PO DAILY 11/01/16 Alpine-3 Fatty Acids [Alpine-3] 1 cap PO HS 11/01/16 Rosuvastatin Calcium [Crestor] 20 mg PO HS 11/01/16 Clopidogrel Bisulfate [Plavix -] 100 mg PO DAILY 12/14/16 Multivit-Min/FA/Lycopen/Lutein [Centrum Silver Tablet] 1 each PO DAILY 12/15/16 Silver Sulfadiazine [Silvadene] 85 gm TP DAILY #1 cream..g. 06/30/18 Cephalexin [Keflex] 500 mg PO TID #21 capsule 08/07/18 Anemia: No Cancer: No Cardiac Disorders: Yes (CAD) CVA: No COPD: Yes CHF: No Dementia: No Diabetes: No GI Disorders: Yes Disorders: No HTN: Yes Hypercholesterolemia: Yes Liver Disease: No Seizures: No Thyroid Disease: No - Surgical History Cardiac Surgery: Yes (cardiac stents x3) - Suicide/Smoking/Psychosocial Hx Smoking History: Never smoked Have you smoked in the past 12 months: No If you are a former smoker, when did you quit?: 1989 Information on smoking cessation initiated: No Hx Alcohol Use: No Drug/Substance Use Hx: No Substance Use Type: None Hx Substance Use Treatment: No Review of Systems - Review of Systems Able to Perform ROS?: Yes Is the patient limited [place] proficient: No Constitutional: No: Chills, Fever Respiratory: No: Cough, Shortness of Breath Cardiac (ROS): Yes: Edema. No: Chest Pain Integumentary: Yes: Erythema, Lesions *Physical Exam - Vital Signs Last Vital Signs Temp Pulse Resp BP Pulse Ox 98.2 F 98 H 16 125/59 L 100 08/19/18 12:58 08/19/18 12:58 08/19/18 12:58 08/19/18 12:58 08/19/18 12:58 PHYSICAL EXAM: GENERAL: Awake, alert, and fully oriented, in no acute distress. HEAD: Normal with no signs of trauma. EYES: sclera anicteric, conjunctiva clear. LUNGS: No auditory wheezes, No accessory muscle use. MUSCULOSKELETAL: moving all extremities without limitation. LOWER EXTREMITIES: - Chronic Skin changes over b/l LE with mild edema and tenderness throughout Wound Right Lower Posterior Leg Wound Length (cm.): 2.0 Wound Width (cm.): 0.3 Wound Depth (cm.): 0.1 Wound Right Lower Posterior Leg Wound Length (cm.): 2.0 Wound Width (cm.): 0.3 Wound Depth (cm.): 0.1 Fibrotic Tissue: Yes Necrotic tissue: No Granulation tissue: Yes Drainage: minimal oozing, no active d/c B/L LE with +2 DP pulses, warm, well-perfused. NEUROLOGICAL: Normal speech, gait not observed. PSYCH: Cooperative. Good eye contact. Appropriate mood and affect. SKIN: Warm, dry, normal turgor. Vital Signs Temperature 97.4 F L 08/24/18 06:00 Pulse Rate 75 08/24/18 06:00 Respiratory Rate 18 08/24/18 06:00 Blood Pressure 111/57 L 08/24/18 06:00 O2 Sat by Pulse Oximetry (%) 93 L 08/23/18 20:45 Lab Results WBC 5.6 K/mm3 (4.0-10.0) 08/24/18 05:30 RBC 2.60 M/mm3 (3.60-5.2) L 08/24/18 05:30 Hgb 9.1 GM/dL (10.7-15.3) L 08/24/18 05:30 Hct 27.3 % (32.4-45.2) L 08/24/18 05:30 MCV 105.0 fl (80-96) H 08/24/18 05:30 MCHC 33.5 g/dl (32.0-36.0) 08/24/18 05:30 RDW 13.2 % (11.6-15.6) 08/24/18 05:30 Plt Count 222 K/MM3 (134-434) 08/24/18 05:30 Sodium 144 mmol/L (136-145) 08/24/18 05:30 Potassium 4.2 mmol/L (3.5-5.1) 08/24/18 05:30 Chloride 106 mmol/L (98-107) 08/24/18 05:30 Carbon Dioxide 33 mmol/L (21-32) H 08/24/18 05:30 Anion Gap 5 MMOL/L (8-16) L 08/24/18 05:30 BUN 4 mg/dL (7-18) L 08/24/18 05:30 Creatinine 0.5 mg/dL (0.55-1.3) L 08/24/18 05:30 Random Glucose 115 mg/dL (74-106) H 08/24/18 05:30 Calcium 7.5 mg/dL (8.5-10.1) L 08/24/18 05:30 Blood Type O POSITIVE 08/19/18 14:46 Antibody Screen Negative 08/19/18 14:46 INR 1.13 (0.83-1.09) H 08/20/18 09:30 Imaging: US taken 08/18/18 shows: 1. RIGHT LEG: -Moderate, 50-74% stenosis of the mid superficial femoral artery. -Secondary evidence of runoff disease. -Mild to moderate diffuse calcification visualized throughout the right lower extremity. 2. LEFT LEG: -Moderate, 50-74% stenosis of the distal superficial femoral artery and distal popliteal artery. -Secondary evidence of runoff disease. -Mild to moderate diffuse calcification visualized throughout the left lower extremity. Disease progression of the left lower extremity in comparison to prior study on 04/25/2018. Problem List - Problems (1) Venous stasis dermatitis Assessment/Plan: Patient with chronic B/L LE venous statis ulcers- no evidence foe surgical intervention. 1) Continue antibiotics per ID/medical team 2) Dress wounds with Silvadene cream, gauze and kurlex daily 3) Elevate the lower extremity above the level of the heart at all times while at rest 4) Bilateral compression with mara wraps once cellulitis has receded (wrap from metacarpal heads to below knee) 5) Follow up with Dr Graham as out patient in wound care clinic. Evaluation and plan discussed with Dr Graham. Code(s): I87.2 - VENOUS INSUFFICIENCY (CHRONIC) (PERIPHERAL) (2) Venous stasis dermatitis of both lower extremities Code(s): I87.2 - VENOUS INSUFFICIENCY (CHRONIC) (PERIPHERAL)
[2018-08-24] MEDS: BUDESONIDE/FORMETEROL FUMARATE 160/4.5 mcg INHALER IH SCH ×2 (09:21→21:03)
[2018-08-24] MEDS ORDERED: PIPERACILLIN/TAZOBACTAM 3.375 GM VIAL IVPB ONE ×2 (10:23→16:16)
[2018-08-24] MEDS ORDERED: DEXTROSE 5%-WATER - 50 ML IVPB ONE ×2 (10:24→16:16)
[2018-08-24] MEDS: CYANOCOBALAMIN 1,000 MCG TABLET (FP) PO SCH (10:44)
[2018-08-24] MEDS: PANTOPRAZOLE 20 MG TABLET (FP) PO SCH ×2 (10:44→21:03)
[2018-08-24 11:52] LABS: ANISOCYTOSIS 1+; MACROCYTOSIS 1+; PLATELET ESTIMATE NORMAL
[2018-08-24] MEDS ORDERED: MAGNESIUM OXIDE 400 MG TABLET (FP) PO ONE (15:17)
--- NOTE | 2018-08-24 16:39 | PN ---
Teaching Attending Note Name of Resident: Leilani Perez ATTENDING PHYSICIAN STATEMENT I saw and evaluated the patient. I reviewed the resident's note and discussed the case with the resident. I agree with the resident's findings and plan as documented. SUBJECTIVE: Patient is comfortable with no acute distress, no fever or chills with elevated blood pressure. OBJECTIVE: Vital Signs Temperature 98.0 F 08/24/18 14:20 Pulse Rate 68 08/24/18 14:20 Respiratory Rate 16 08/24/18 14:20 Blood Pressure 163/86 08/24/18 14:20 O2 Sat by Pulse Oximetry (%) 90 L 08/24/18 14:02 GENERAL: The patient is awake, alert, and fully oriented, sitting comfortably HEAD: Normal with no signs of trauma. EYES: PERRLA, EOMI, sclera anicteric, conjunctiva clear. ENT: oropharynx clear without exudates, moist mucous membranes. NECK: Trachea midline, full range of motion, supple. LUNGS: Breath sounds equal, clear to auscultation bilaterally. HEART: Regular rate and rhythm, S1, S2 without murmur, rub or gallop. ABDOMEN: Soft, nontender, nondistended, normoactive bowel sounds. EXTREMITIES: 2+ pulses, no edema. positive for LE wounds Bl. NEUROLOGICAL: Cranial nerves II through XII grossly intact. Normal speech, gait not observed. PSYCH: Normal mood, normal affect. SKIN: Warm, dry, normal turgor, no rashes or lesions noted CBCD WBC 5.6 K/mm3 (4.0-10.0) 08/24/18 05:30 RBC 2.60 M/mm3 (3.60-5.2) L 08/24/18 05:30 Hgb 9.1 GM/dL (10.7-15.3) L 08/24/18 05:30 Hct 27.3 % (32.4-45.2) L 08/24/18 05:30 MCV 105.0 fl (80-96) H 08/24/18 05:30 MCHC 33.5 g/dl (32.0-36.0) 08/24/18 05:30 RDW 13.2 % (11.6-15.6) 08/24/18 05:30 Plt Count 222 K/MM3 (134-434) 08/24/18 05:30 MPV 7.9 fl (7.5-11.1) 08/24/18 05:30 CMP Sodium 144 mmol/L (136-145) 08/24/18 05:30 Potassium 4.2 mmol/L (3.5-5.1) 08/24/18 05:30 Chloride 106 mmol/L (98-107) 08/24/18 05:30 Carbon Dioxide 33 mmol/L (21-32) H 08/24/18 05:30 Anion Gap 5 MMOL/L (8-16) L 08/24/18 05:30 BUN 4 mg/dL (7-18) L 08/24/18 05:30 Creatinine 0.5 mg/dL (0.55-1.3) L 08/24/18 05:30 Creat Clearance w eGFR 119.02 (>60) 08/24/18 05:30 Random Glucose 115 mg/dL (74-106) H 08/24/18 05:30 Calcium 7.5 mg/dL (8.5-10.1) L 08/24/18 05:30 Total Bilirubin 0.8 mg/dL (0.2-1) 08/21/18 05:30 AST 25 U/L (15-37) 08/21/18 05:30 ALT 15 U/L (13-61) 08/21/18 05:30 Alkaline Phosphatase 76 U/L (45-117) 08/21/18 05:30 Total Protein 4.9 g/dl (6.4-8.2) L 08/21/18 05:30 Albumin 2.2 g/dl (3.4-5.0) L 08/21/18 05:30 Current Medications Generic Name Dose Route Start Last Admin Trade Name Freq PRN Reason Stop Dose Admin Acetaminophen 650 mg 08/21/18 15:40 Tylenol - PO Q4H PRN FEVER Albuterol/Ipratropium 1 amp 08/22/18 10:35 08/22/18 11:46 Duoneb - NEB 1 amp Q4H PRN Administration SHORTNESS OF BREATH Budesonide/Formoterol Fumarate 2 puff 08/21/18 22:00 08/24/18 09:21 Symbicort 160/4.5mcg - IH 2 puff BID [facility] Administration Cyanocobalamin 1,000 mcg 08/22/18 10:00 08/24/18 10:44 Vitamin B12 - PO 1,000 mcg DAILY [facility] Administration Piperacillin Sod/Tazobactam 50 mls @ 100 mls/hr 08/21/18 18:00 08/24/18 10:43 Sod 3.375 gm/ Dextrose IVPB 100 mls/hr Q8H-IV [facility] Administration Protocol Pantoprazole Sodium 20 mg 08/21/18 22:00 08/24/18 10:44 Protonix - PO 20 mg BID [facility] Administration Rosuvastatin Calcium 20 mg 08/21/18 22:00 08/23/18 21:32 Crestor - PO 20 mg HS [facility] Administration Home Medications Medication Instructions Recorded Budesonide/Formeterol Fumarate 1 inh IH DAILY 11/01/16 [SYMBICORT 160/4.5mcg -] Cilostazol 50 tab PO BID 11/01/16 Cyanocobalamin (Vitamin B-12) 1 tab PO DAILY 11/01/16 [Vitamin B-12] Rosuvastatin Calcium [Crestor] 20 mg PO HS 11/01/16 Multivit-Min/FA/Lycopen/Lutein 1 each PO DAILY 12/15/16 [Centrum Silver Tablet] Silver Sulfadiazine [Silvadene] 85 gm TP DAILY #1 cream..g. 06/30/18 Albuterol Sulfate [Albuterol 1 unit NEB PRN 08/21/18 Sulfate Hfa] Tiotropium [place] [Spiriva] 2 unit NEB DAILY 08/21/18 ASSESSMENT AND PLAN: Patient is a 78yo female with PMHx of PVd, CAD s/p stenting, HLP, chronic LE wounds, who presented after being referred form wound care clinic for treatment of infected LE wounds. # s/p LGI bleed most likely due diverticular bleed : s/p EGD and colonoscopy by . patient will follow with Pletal is on hold. H/H stable. cont PPI. path report reviewed: gastritis and neg H. pylori # b/l LE infected wounds with cellulitis: improved .on zosyn continue, ID on the case. # Tinea pedis: cont nystatin # PVD: no intervention per vascular , hold cilostazole due to bleed, cont statin # Hx of CAD , s/p stenting many years ago. on cilostazole as out pt .( on hold now due to LGI bleed), will resume when safe per GI Advance diet: Chopped diet DVT Px: AC is on hold due to GIB
--- NOTE | 2018-08-24 16:56 | PN ---
Progress Note, Physician History of Present Illness: patient feels very weak throat painful says hard to walk cx results noted - Current Medication List Current Medications: Active Medications Acetaminophen (Tylenol -) 650 mg PO Q4H PRN PRN Reason: FEVER Albuterol/Ipratropium (Duoneb -) 1 amp NEB Q4H PRN PRN Reason: SHORTNESS OF BREATH Last Admin: 08/22/18 11:46 Dose: 1 amp Budesonide/Formoterol Fumarate (Symbicort 160/4.5mcg -) 2 puff IH BID [facility] Last Admin: 08/24/18 09:21 Dose: 2 puff Cyanocobalamin (Vitamin B12 -) 1,000 mcg PO DAILY [facility] Last Admin: 08/24/18 10:44 Dose: 1,000 mcg Piperacillin Sod/Tazobactam (Sod 3.375 gm/ Dextrose) 50 mls @ 100 mls/hr IVPB Q8H-IV [facility]; Protocol Last Admin: 08/24/18 10:43 Dose: 100 mls/hr Pantoprazole Sodium (Protonix -) 20 mg PO BID [facility] Last Admin: 08/24/18 10:44 Dose: 20 mg Rosuvastatin Calcium (Crestor -) 20 mg PO HS [facility] Last Admin: 08/23/18 21:32 Dose: 20 mg - Objective Vital Signs: Vital Signs Temperature 98.0 F 08/24/18 14:20 Pulse Rate 68 08/24/18 14:20 Respiratory Rate 16 08/24/18 14:20 Blood Pressure 163/86 08/24/18 14:20 O2 Sat by Pulse Oximetry (%) 90 L 08/24/18 14:02 Constitutional: Yes: Calm, Mild Distress, Thin Cardiovascular: Yes: Regular Rate and Rhythm Respiratory: Yes: Regular, CTA Bilaterally Gastrointestinal: Yes: Normal Bowel Sounds, Soft Musculoskeletal: Yes: WNL Extremities: Yes: Erythema, Other Wound/Incision: Yes: Dressing Dry and Intact Neurological: Yes: Alert, Oriented Psychiatric: Yes: Alert, Oriented Labs: CBC, BMP 08/24/18 05:30 08/24/18 05:30 INR, PTT INR 1.13 (0.83-1.09) H 08/20/18 09:30 Assessment/Plan Problem List - Problems (1) Rectal bleed Code(s): K62.5 - HEMORRHAGE OF ANUS AND RECTUM (2) Leg ulcer Code(s): L97.909 - NON-PRS CHRONIC ULC UNSP PRT OF UNSP LOW LEG W UNSP SEVERITY Qualifiers: Laterality: right Non-pressure ulcer stage: unspecified non-pressure ulcer stage Qualified Code(s): L97.919 - Non-pressure chronic ulcer of unspecified part of right lower leg with unspecified severity Assessment/Plan ASSESS: This is a 78 y/o woman w/ COPD, HL, PAD/PVD, CAD s/p Stenting, HLP, chronic LE wounds, admitted for infected LE wounds, transferred to ICU now for GIB. all the cx reports noted patient says legs painful unable to walk properly plan can switch to oral abx 1 ampiciliin 500 mg q6 hrly for 10 days 2 bactrim ds 1 tab po bid for 12 days 3 make sure patient checks her electrolytes at least once when patient on the med 4 wound care physio
--- NOTE | 2018-08-24 18:09 | PN ---
Physical Exam: SUBJECTIVE: Patient seen and examined at bedside this morning. No acute events overnight. Patient feels better and reports still with bilateral leg pain, making it hard for her to walk. OBJECTIVE: Vital Signs Temperature 98.0 F 08/24/18 14:20 Pulse Rate 68 08/24/18 14:20 Respiratory Rate 16 08/24/18 14:20 Blood Pressure 163/86 08/24/18 14:20 O2 Sat by Pulse Oximetry (%) 90 L 08/24/18 14:02 GENERAL: The patient is awake, alert, and fully oriented, on 3L NC. HEAD: Normal with no signs of trauma. EYES: PERRLA, eOMI, sclera anicteric, conjunctiva clear. ENT: oropharynx clear without exudates, moist mucous membranes. NECK: Trachea midline, full range of motion, supple. LUNGS: Breath sounds equal, clear to auscultation bilaterally. HEART: Regular rate and rhythm, S1, S2 without murmur, rub or gallop. ABDOMEN: Soft, nontender, nondistended, normoactive bowel sounds. EXTREMITIES: 2+ pulses, no edema. +hyperpigmented lesion with erythema on both LE, improving NEUROLOGICAL: Cranial nerves II through XII grossly intact. Normal speech, gait not observed. PSYCH: Normal mood, normal affect. SKIN: Warm, dry, normal turgor, no rashes or lesions noted Laboratory Results - last 24 hr 08/24/18 08/24/18 05:30 05:30 WBC 5.6 RBC 2.60 L Hgb 9.1 L Hct 27.3 L MCV 105.0 H MCH 35.2 H MCHC 33.5 RDW 13.2 Plt Count 222 MPV 7.9 Absolute Neuts (auto) 2.8 Neutrophils % 50.6 Lymphocytes % 21.7 Monocytes % 13.1 H Eosinophils % 13.1 H Basophils % 1.5 Nucleated RBC % 0 Hypochromia 0 Platelet Estimate Normal Polychromasia 0 Poikilocytosis 0 Anisocytosis 1+ Microcytosis 0 Macrocytosis 1+ Sodium 144 Potassium 4.2 Chloride 106 Carbon Dioxide 33 H Anion Gap 5 L BUN 4 L Creatinine 0.5 L Creat Clearance w eGFR 119.02 Random Glucose 115 H Calcium 7.5 L Phosphorus 2.9 Magnesium 1.6 L TSH 2.77 Free T4 0.88 Active Medications Generic Name Dose Route Start Last Admin Trade Name Freq PRN Reason Stop Dose Admin Acetaminophen 650 mg 08/21/18 15:40 Tylenol - PO Q4H PRN FEVER Albuterol/Ipratropium 1 amp 08/22/18 10:35 08/22/18 11:46 Duoneb - NEB 1 amp Q4H PRN Administration SHORTNESS OF BREATH Budesonide/Formoterol Fumarate 2 puff 08/21/18 22:00 08/24/18 09:21 Symbicort 160/4.5mcg - IH 2 puff BID [facility] Administration Cyanocobalamin 1,000 mcg 08/22/18 10:00 08/24/18 10:44 Vitamin B12 - PO 1,000 mcg DAILY [facility] Administration Piperacillin Sod/Tazobactam 50 mls @ 100 mls/hr 08/21/18 18:00 08/24/18 17:44 Sod 3.375 gm/ Dextrose IVPB 100 mls/hr Q8H-IV [facility] Administration Protocol Pantoprazole Sodium 20 mg 08/21/18 22:00 08/24/18 10:44 Protonix - PO 20 mg BID [facility] Administration Rosuvastatin Calcium 20 mg 08/21/18 22:00 08/23/18 21:32 Crestor - PO 20 mg HS [facility] Administration ASSESSMENT/PLAN: Patient is a 78 year old female with past medical history of HLD, CAD s/p PCI, and PAD with chronic wounds, who initially presented from wound care clinic due to nonhealing LE wounds, and then had episodes of GI bleeding. #Bilateral LE cellulitis -Wound culture showed LFGNB and Grp D enterococcus -Zosyn 3.375gm q8h day 6 -Silvadene applied to wound -ID (Dr. Bates) consulted. Recommendations appreciated. -Can switch to oral antibiotics upon discharge: -Ampicillin 500mg q6 for 10 days -Bactrim DS 1tab BID for 12 days -Wound care clinic follow up -Repeat electrolytes as outpatient -Vascular surgery (Dr. Graham) consulted. #GI bleeding: LGIB vs UGIB -frequent NSAID use and antiplatelet therapy -GI (Dr Simon) consulted. REcommendations appreciated. -EGD done showed hiatal hernia, gastritis and esophageal spasm -Colonoscopy revealed severe left sided diverticulosis, mostly brown liquid stool in left colon; suspect resolved diverticular bleed -vitals and H/H stable, will continue to monitor -antiplatelet on hold -Tylenol PRN for pain -Protonix 20mg BID #Shortness of breath: improving -patient saturating at 95% at rest without oxygen -not using oxygen at home -pre and post prior to discharge #HLD -Continue Crestor 20mg Po HS #FEN -Not on any standing fluids -Electrolytes wnl, routine bmp monitoring -Chopped diet #Prophylaxis -Not on any chemical ppx in light of bleeding #Disposition -full code -transfer to med surg -STR recommended by PT Visit type - Emergency Visit Emergency Visit: Yes ED Registration Date: 08/19/18 Care time: The patient presented to the Emergency Department on the above date and was hospitalized for further evaluation of their emergent condition. - New Patient This patient is new to me today: No - Critical Care Critical Care patient: No
[2018-08-24] MEDS: ROSUVASTATIN CA 20 MG TABLET (FP) PO SCH (21:03)
[2018-08-25] MEDS ORDERED: ACETAMINOPHEN 325 MG TABLET (FP) PO PRN (00:48)
[2018-08-25] MEDS ORDERED: ALBUTEROL SO4 2.5/IPRATROPIUM 0.5 INH SOL 3 ML VIAL.NEB. NEB PRN (00:48)
[2018-08-25] MEDS ORDERED: PIPERACILLIN/TAZOBACTAM 3.375 GM VIAL IVPB ONE ×2 (02:48→09:37)
[2018-08-25] MEDS ORDERED: DEXTROSE 5%-WATER - 50 ML IVPB ONE ×2 (02:48→09:37)
[2018-08-25] MEDS: PIPERACILLIN/TAZOB 3.375 GM 3.375 GM in DEXTROSE 5%-WATER - 50 ML IVPB SCH ×2 (03:07→09:46)
[2018-08-25 07:39] LABS: ANION GAP 4 MMOL/L (8-16); BLOOD UREA NITROGEN 4 mg/dL (7-18); CALCIUM 7.7 mg/dL (8.5-10.1); CHLORIDE 104 mmol/L (98-107); CO2 34 mmol/L (21-32); CREATININE 0.5 mg/dL (0.55-1.3); GLUCOSE,RANDOM 106 mg/dL (74-106); MAGNESIUM 1.6 mg/dL (1.8-2.4); PHOSPHOROUS 2.9 mg/dL (2.5-4.9); POTASSIUM 3.6 mmol/L (3.5-5.1); SODIUM 142 mmol/L (136-145)
[2018-08-25] MEDS ORDERED: MAGNESIUM OXIDE 400 MG TABLET (FP) PO ONE (09:10)
[2018-08-25] MEDS ORDERED: BUDESONIDE/FORMETEROL FUMARATE 160/4.5 mcg INHALER IH SCH (10:00)
[2018-08-25] MEDS ORDERED: CYANOCOBALAMIN 1,000 MCG TABLET (FP) PO SCH (10:00)
[2018-08-25] MEDS ORDERED: PANTOPRAZOLE 20 MG TABLET (FP) PO SCH (10:00)
--- NOTE | 2018-08-25 13:38 | PN ---
Progress Note, Physician History of Present Illness: patient still c/o of breathing difficulty needing oxygen still - Current Medication List Current Medications: Active Medications Acetaminophen (Tylenol -) 650 mg PO Q4H PRN PRN Reason: FEVER Albuterol/Ipratropium (Duoneb -) 1 amp NEB Q4H PRN PRN Reason: SHORTNESS OF BREATH Last Admin: 08/25/18 08:21 Dose: 1 amp Budesonide/Formoterol Fumarate (Symbicort 160/4.5mcg -) 2 puff IH BID [facility] Last Admin: 08/25/18 09:44 Dose: 2 puff Cyanocobalamin (Vitamin B12 -) 1,000 mcg PO DAILY [facility] Last Admin: 08/25/18 09:45 Dose: 1,000 mcg Piperacillin Sod/Tazobactam (Sod 3.375 gm/ Dextrose) 50 mls @ 100 mls/hr IVPB Q8H-IV [facility]; Protocol Last Admin: 08/25/18 09:46 Dose: 100 mls/hr Pantoprazole Sodium (Protonix -) 20 mg PO BID [facility] Last Admin: 08/25/18 09:45 Dose: 20 mg Rosuvastatin Calcium (Crestor -) 20 mg PO HS [facility] - Objective Vital Signs: Vital Signs Temperature 97.9 F 08/25/18 10:00 Pulse Rate 90 08/25/18 10:00 Respiratory Rate 20 08/25/18 10:00 Blood Pressure 125/54 L 08/25/18 10:00 O2 Sat by Pulse Oximetry (%) 95 08/25/18 09:00 Constitutional: Yes: Calm, Mild Distress HENT: Yes: Atraumatic, Normocephalic Cardiovascular: Yes: Regular Rate and Rhythm Respiratory: Yes: Regular, CTA Bilaterally Gastrointestinal: Yes: Normal Bowel Sounds, Soft Musculoskeletal: Yes: WNL Extremities: Yes: Other Wound/Incision: Yes: Dressing Dry and Intact Neurological: Yes: Alert, Oriented Psychiatric: Yes: Alert, Oriented Labs: CBC, BMP 08/24/18 05:30 08/25/18 06:10 INR, PTT INR 1.13 (0.83-1.09) H 08/20/18 09:30 Assessment/Plan Problem List - Problems (1) Rectal bleed Code(s): K62.5 - HEMORRHAGE OF ANUS AND RECTUM (2) Leg ulcer Code(s): L97.909 - NON-PRS CHRONIC ULC UNSP PRT OF UNSP LOW LEG W UNSP SEVERITY Qualifiers: Laterality: right Non-pressure ulcer stage: unspecified non-pressure ulcer stage Qualified Code(s): L97.919 - Non-pressure chronic ulcer of unspecified part of right lower leg with unspecified severity Assessment/Plan ASSESS: This is a 78 y/o woman w/ COPD, HL, PAD/PVD, CAD s/p Stenting, HLP, chronic LE wounds, admitted for infected LE wounds, transferred to ICU now for GIB. all the cx reports noted patient says legs painful unable to walk properly please make sure that the patient is stable from the resp point of view before patient goes to rehab rest as per the team
[2018-08-25 15:51] VITALS: BP 134/51; PULSE 96; TEMP 97.8
--- NOTE | 2018-08-25 16:53 | DS ---
Physical Exam: SUBJECTIVE: Patient seen and examined at bedside this morning. OBJECTIVE: Vital Signs Temperature 97.8 F 08/25/18 15:50 Pulse Rate 96 H 08/25/18 15:50 Respiratory Rate 20 08/25/18 15:50 Blood Pressure 134/51 L 08/25/18 15:50 O2 Sat by Pulse Oximetry (%) 95 08/25/18 09:00 PHYSICAL EXAM GENERAL: The patient is awake, alert, and fully oriented, on 3L NC. HEAD: Normal with no signs of trauma. EYES: PERRLA, eOMI, sclera anicteric, conjunctiva clear. ENT: oropharynx clear without exudates, moist mucous membranes. NECK: Trachea midline, full range of motion, supple. LUNGS: Breath sounds equal, clear to auscultation bilaterally. HEART: Regular rate and rhythm, S1, S2 without murmur, rub or gallop. ABDOMEN: Soft, nontender, nondistended, normoactive bowel sounds. EXTREMITIES: 2+ pulses, no edema. +hyperpigmented lesion with erythema on both LE, improving NEUROLOGICAL: Cranial nerves II through XII grossly intact. Normal speech, gait not observed. PSYCH: Normal mood, normal affect. SKIN: Warm, dry, normal turgor, no rashes or lesions noted LABS Laboratory Results - last 24 hr 08/25/18 06:10 Sodium 142 Potassium 3.6 Chloride 104 Carbon Dioxide 34 H Anion Gap 4 L BUN 4 L Creatinine 0.5 L Creat Clearance w eGFR 119.02 Random Glucose 106 Calcium 7.7 L Phosphorus 2.9 Magnesium 1.6 L HOSPITAL COURSE: Date of Admission:08/19/18 Date of Discharge: 08/25/18 Patient is a 78 year old female with past medical history of HLD, CAD s/p PCI, and PAD with chronic wounds, who initially presented from wound care clinic due to nonhealing LE wounds. Patient was admitted and wound culture was done. Patient was started on IV Zosyn. Patient also had episodes of rectal bleeding. GI consulted. Patient had endoscopy and colonoscopy done which showed gastritis , diverticulosis, H.pylori negative. She was started on Protonix 20mg BID. Patient was discharged to SNF for rehab and continued wound care, with oral antibiotics which she will continue for 2 weeks. Patient was instructed to follow-up with PCP, GI, ID and Vascular. Discharge Summary Reason For Visit: ULCER OF LOWER EXTERMITY Current Active Problems Leg ulcer (Acute) Venous stasis dermatitis of both lower extremities (Chronic) Condition: Improved - Instructions Diet, Activity, Other Instructions: Your visit You were admitted to the hospital because the wounds on your legs were noted to be infected. You were treated with IV antibiotics. You will be prescribed antibiotics which you will take by mouth and please take them as prescribed. You also had episodes of passing blood in the stool. You were evaluated by the portrait painter, where you underwent procedures to check your bowels. You were found to have an inflammation on your stomach that was likely caused by the medications you took for pain (Motrin, Aleve). Please avoid these medications in the future. Care -Drink plenty of water and exercise regularly. -Keep the wound clean and dry at all times. -Apply silvadene cream to the affected area. -Avoid NSAIDs such as Motrin or Aleve. Take Tylenol as needed for your leg pain. -Please follow up with Dr. Graham at the wound care clinic. Medications Please take the following medications as prescribed: 1. Ampicillin 500mg every 6 hours for 10 days. 2. Bactrim DS 1 tab twice a day for 12 days. 3. Protonix 20mg twice a day. Continue your other home medications as instructed. Follow-up -Please follow-up with your primary care doctor within 1 week. -Please follow-up with Dr. Graham at the wound clinic within 1 week. -Please follow-up with the portrait painter (Dr. Simon) within 1 week. Additional info Call 911 or go to the ED if with any worsening fever, chills, chest pain, shortness of breath, nausea, vomiting, headache, belly pain, bloody urine or stools. Referrals: [facility] [place] [facility] [place] [Provider Group] Araceli Bates MD [Staff Physician] - Isacc Simon DO [Staff Physician] - Kyler Graham MD [Non Staff, Medical] - 1 Week Disposition: [facility] - Home Medications Comprehensive Discharge Medication List: Ambulatory Orders Budesonide/Formeterol Fumarate [SYMBICORT 160/4.5mcg -] 1 inh IH DAILY 11/01/16 Cilostazol 50 tab PO BID 11/01/16 Cyanocobalamin (Vitamin B-12) [Vitamin B-12] 1 tab PO DAILY 11/01/16 Multivit-Min/FA/Lycopen/Lutein [Centrum Silver Tablet] 1 each PO DAILY 12/15/16 Silver Sulfadiazine [Silvadene] 85 gm TP DAILY #1 cream..g. 06/30/18 Albuterol Sulfate [Albuterol Sulfate Hfa] 1 unit NEB PRN 08/21/18 Tiotropium [place] [Spiriva] 2 unit NEB DAILY 08/21/18 Acetaminophen [Tylenol .Regular Strength -] 650 mg PO Q6H PRN tablet 08/25/18 Ampicillin Trihydrate 500 mg PO Q6H #40 capsule 08/25/18 Cyanocobalamin [Vitamin B12 -] 1,000 mcg PO DAILY tablet 08/25/18 Lactobacillus Acidophilus [Acidophilus Lactobacilli] 1 each PO DAILY #30 capsule 08/25/18 Pantoprazole Sodium [Protonix -] 20 mg PO BID #60 tablet.ec 08/25/18 Rosuvastatin [Crestor -] 20 mg PO HS #30 tablet 08/25/18 Sulfamethoxazole/Trimethoprim [Bactrim Ds -] 1 tab PO BID #24 tablet 08/25/18 - Discharge Referral Referred to [facility] No
--- NOTE | 2018-08-25 20:11 | PN ---
Teaching Attending Note Name of Resident: Leilani Perez ATTENDING PHYSICIAN STATEMENT I saw and evaluated the patient. I reviewed the resident's note and discussed the case with the resident. I agree with the resident's findings and plan as documented. SUBJECTIVE: Patient is comfortable with no acute distress, no nausea or vomiting, no shortness of breath. OBJECTIVE: Vital Signs Temperature 97.8 F 08/25/18 15:50 Pulse Rate 96 H 08/25/18 15:50 Respiratory Rate 20 08/25/18 15:50 Blood Pressure 134/51 L 08/25/18 15:50 O2 Sat by Pulse Oximetry (%) 95 08/25/18 09:00 GENERAL: The patient is awake, alert, and fully oriented. HEAD: Normal with no signs of trauma. EYES: PERRLA, EOMI, sclera anicteric, conjunctiva clear. ENT: oropharynx clear without exudates, moist mucous membranes. NECK: Trachea midline, full range of motion, supple. LUNGS: Breath sounds equal, clear to auscultation bilaterally. No wheeze, rales or rhonchi. HEART: Regular rate and rhythm, S1, S2 without murmur, rub or gallop. ABDOMEN: Soft, nontender, nondistended, normoactive bowel sounds. EXTREMITIES: 2+ pulses, no edema. open wounds of both LE bl. NEUROLOGICAL: Cranial nerves II through XII grossly intact. Normal speech, gait not observed. PSYCH: Normal mood, normal affect. SKIN: Warm, dry, normal turgor, no rashes or lesions noted CBCD WBC 5.6 K/mm3 (4.0-10.0) 08/24/18 05:30 RBC 2.60 M/mm3 (3.60-5.2) L 08/24/18 05:30 Hgb 9.1 GM/dL (10.7-15.3) L 08/24/18 05:30 Hct 27.3 % (32.4-45.2) L 08/24/18 05:30 MCV 105.0 fl (80-96) H 08/24/18 05:30 MCHC 33.5 g/dl (32.0-36.0) 08/24/18 05:30 RDW 13.2 % (11.6-15.6) 08/24/18 05:30 Plt Count 222 K/MM3 (134-434) 08/24/18 05:30 MPV 7.9 fl (7.5-11.1) 08/24/18 05:30 CMP Sodium 142 mmol/L (136-145) 08/25/18 06:10 Potassium 3.6 mmol/L (3.5-5.1) 08/25/18 06:10 Chloride 104 mmol/L (98-107) 08/25/18 06:10 Carbon Dioxide 34 mmol/L (21-32) H 08/25/18 06:10 Anion Gap 4 MMOL/L (8-16) L 08/25/18 06:10 BUN 4 mg/dL (7-18) L 08/25/18 06:10 Creatinine 0.5 mg/dL (0.55-1.3) L 08/25/18 06:10 Creat Clearance w eGFR 119.02 (>60) 08/25/18 06:10 Random Glucose 106 mg/dL (74-106) 08/25/18 06:10 Calcium 7.7 mg/dL (8.5-10.1) L 08/25/18 06:10 Total Bilirubin 0.8 mg/dL (0.2-1) 08/21/18 05:30 AST 25 U/L (15-37) 08/21/18 05:30 ALT 15 U/L (13-61) 08/21/18 05:30 Alkaline Phosphatase 76 U/L (45-117) 08/21/18 05:30 Total Protein 4.9 g/dl (6.4-8.2) L 08/21/18 05:30 Albumin 2.2 g/dl (3.4-5.0) L 08/21/18 05:30 Home Medications Medication Instructions Recorded Budesonide/Formeterol Fumarate 1 inh IH DAILY 11/01/16 [SYMBICORT 160/4.5mcg -] Cilostazol 50 tab PO BID 11/01/16 Cyanocobalamin (Vitamin B-12) 1 tab PO DAILY 11/01/16 [Vitamin B-12] Multivit-Min/FA/Lycopen/Lutein 1 each PO DAILY 12/15/16 [Centrum Silver Tablet] Silver Sulfadiazine [Silvadene] 85 gm TP DAILY #1 cream..g. 06/30/18 Albuterol Sulfate [Albuterol 1 unit NEB PRN 08/21/18 Sulfate Hfa] Tiotropium [place] [Spiriva] 2 unit NEB DAILY 08/21/18 Acetaminophen [Tylenol .Regular 650 mg PO Q6H PRN tablet 08/25/18 Strength -] Ampicillin Trihydrate 500 mg PO Q6H #40 capsule 08/25/18 Cyanocobalamin [Vitamin B12 -] 1,000 mcg PO DAILY tablet 08/25/18 Lactobacillus Acidophilus 1 each PO DAILY #30 capsule 08/25/18 [Acidophilus Lactobacilli] Pantoprazole Sodium [Protonix -] 20 mg PO BID #60 tablet.ec 08/25/18 Rosuvastatin [Crestor -] 20 mg PO HS #30 tablet 08/25/18 Sulfamethoxazole/Trimethoprim 1 tab PO BID #24 tablet 08/25/18 [Bactrim Ds -] US of LEs 08/18/18 shows: 1. RIGHT LEG: -Moderate, 50-74% stenosis of the mid superficial femoral artery. -Secondary evidence of runoff disease. -Mild to moderate diffuse calcification visualized throughout the right lower extremity. 2. LEFT LEG: -Moderate, 50-74% stenosis of the distal superficial femoral artery and distal popliteal artery. -Secondary evidence of runoff disease. -Mild to moderate diffuse calcification visualized throughout the left lower extremity. Disease progression of the left lower extremity in comparison to prior study on 04/25/2018. ASSESSMENT AND PLAN: Patient is a 78yo female with PMHx of PVd, CAD s/p stenting, HLP, chronic LE wounds, who presented after being referred form wound care clinic for treatment of infected LE wounds. #s/p Acute LGI bleed most likely due diverticular bleed : s/p EGD and colonoscopy by . patient will follow up with - will continue to Protonix 20mg po bid, avoid Nsaid, continue Protonix , H/H stable. - path report reviewed: gastritis and neg H. pylori # b/l LE infected wounds with cellulitis with open wounds: s/p IV zosyn completed , as per Id; Dr. Bates to discharge the patient on Bactrim Ds and ampicillin for 20 days , plenty of water to drink. # PVD: no intervention per vascular ( out pt notes), will continue cilostazole for now, discussed with GI, is ok to restart since patient needs the medication for her Lower extremities , has claudication with stenosis , which will help to heal her wounds as well. cont statin # Hx of CAD/PVD: s/p stenting many years ago. on cilostazole as out pt will continue, ok to restart her , as long as she is not taking NSAIDS with it. AND PATIENT is on Protonix 20mg BID. # Tinea pedis: cont nystatin Advance diet: Chopped diet
[2018-08-25] MEDS ORDERED: ROSUVASTATIN CA 20 MG TABLET (FP) PO SCH (22:00)
== END 2018-08-25 17:45 | DRG 602 ==
LOC: JER 12:50 → JERBED 15:34 → J8W 08-20 00:54 → JICU 08-20 15:14 → J4S 08-21 15:43 → J6S 08-25 00:39
PROVIDERS: ADMIT Internal Medicine; ATTEND Internal Medicine
PROC: 0DB68ZX Excision of Stomach, Via Natural or Artificial Opening Endoscopic, Diagnostic (ICD-10-PCS; principal; 2018-08-20 13:00)
PROC: 0DJD8ZZ Inspection of Lower Intestinal Tract, Via Natural or Artificial Opening Endoscopic (ICD-10-PCS; 2018-08-21)
DX: L03.115 Cellulitis of right lower limb (principal); K57.91 Diverticulosis of intestine, part unspecified, without perforation or abscess with bleeding; L97.919 Non-pressure chronic ulcer of unspecified part of right lower leg with unspecified severity; I73.89 Other specified peripheral vascular diseases; L03.116 Cellulitis of left lower limb; I25.10 Atherosclerotic heart disease of native coronary artery without angina pectoris; E78.5 Hyperlipidemia, unspecified; B35.3 Tinea pedis; M54.40 Lumbago with sciatica, unspecified side; K64.8 Other hemorrhoids; J44.9 Chronic obstructive pulmonary disease, unspecified; K44.9 Diaphragmatic hernia without obstruction or gangrene; K22.4 Dyskinesia of esophagus; R06.02 Shortness of breath; K29.60 Other gastritis without bleeding; B95.2 Enterococcus as the cause of diseases classified elsewhere; B96.20 Unspecified Escherichia coli [E. coli] as the cause of diseases classified elsewhere; I87.2 Venous insufficiency (chronic) (peripheral); Z95.5 Presence of coronary angioplasty implant and graft; Z87.891 Personal history of nicotine dependence
CPT/HCPCS: 29581-LT; 29581-RT; 36415; 71045-TC-FY; 80048; 80053; 82962; 83735; 83880; 84100; 84439; 84443; 85025; 85027; 85610; 85730; 86850; 86900; 86901; 86922; 87040; 87070; 87077; 87186; 87205; 88305-TC; 93005; 93010; 94640; 94760; 94761; 97116-GP; 97162-GP; 99284-25; A4649; A6197; G0463-25; J0131; J7030

== ENCOUNTER 2018-12-12 11:43 | Emergency (ER) | payer OTHER, BC ==
[2018-12-12 12:03] VITALS: BMI 20.7
--- NOTE | 2018-12-12 12:15 | PDOC ---
History of Present Illness - General Chief Complaint: Pain Stated Complaint: Edema - History of Present Illness Initial Comments: 12/12/18 13:01 78F w/ pmh of HLD, COPD, CAD(s/p PCI x3, 2005), PVD, diverticulosis presents ot [facility] with complaint of Left knee pain w/a bl knee swelling. Endorses injurying knee after twisting motion when pivoting around chair. Experienced a sharp pain in the Left knee. Did not fall. The day after twisting motion, had trouble ambulating but still able to stand. Experienced b/l knee swelling. Denies erythema to knees. Has chronic BLE swelling which occasional weeps serous fluid. Not compliant with compression stockings. Gets around with FWW. Saw PCP one week prior who prescribed Amoxicillin for presumed cellulitis. Patient lives at home alone. Has family and neighbors check in on her frequently. Severity: moderate Associated Symptoms: denies: chest pain, cough, diaphoresis, fever/chills, nausea/vomiting, shortness of breath, syncope Past History - Travel Traveled outside of the country in the last 30 days: No Close contact w/someone who was outside of country & ill: No - Past Medical History Allergies/Adverse Reactions: Allergies Allergy/AdvReac Type Severity Reaction Status Date / Time No Known Allergies Allergy Verified 12/12/18 12:11 Home Medications: Ambulatory Orders Budesonide/Formeterol Fumarate [SYMBICORT 160/4.5mcg -] 1 inh IH DAILY 11/01/16 Cilostazol 50 tab PO BID 11/01/16 Cyanocobalamin (Vitamin B-12) [Vitamin B-12] 1 tab PO DAILY 11/01/16 Multivit-Min/FA/Lycopen/Lutein [Centrum Silver Tablet] 1 each PO DAILY 12/15/16 Silver Sulfadiazine [Silvadene] 85 gm TP DAILY #1 cream..g. 06/30/18 Albuterol Sulfate [Albuterol Sulfate Hfa] 1 unit NEB PRN 08/21/18 Tiotropium [place] [Spiriva] 2 unit NEB DAILY 08/21/18 Acetaminophen [Tylenol .Regular Strength -] 650 mg PO Q6H PRN tablet 08/25/18 Ampicillin Trihydrate 500 mg PO Q6H #40 capsule 08/25/18 Cyanocobalamin [Vitamin B12 -] 1,000 mcg PO DAILY tablet 08/25/18 Lactobacillus Acidophilus [Acidophilus Lactobacilli] 1 each PO DAILY #30 capsule 08/25/18 Pantoprazole Sodium [Protonix -] 20 mg PO BID #60 tablet.ec 08/25/18 Rosuvastatin [Crestor -] 20 mg PO HS #30 tablet 08/25/18 Sulfamethoxazole/Trimethoprim [Bactrim Ds -] 1 tab PO BID #24 tablet 08/25/18 Anemia: No Cancer: No Cardiac Disorders: Yes (CAD) CVA: No COPD: Yes CHF: No Dementia: No Diabetes: No GI Disorders: Yes Disorders: No HTN: Yes Hypercholesterolemia: Yes Liver Disease: No Seizures: No Thyroid Disease: No - Surgical History Abdominal Surgery: No Cardiac Surgery: Yes (cardiac stents x3) - Suicide/Smoking/Psychosocial Hx Smoking History: Former smoker (former 1ppd, last cigarette was 14ys prior) Have you smoked in the past 12 months: No If you are a former smoker, when did you quit?: 1989 Information on smoking cessation initiated: No Hx Alcohol Use: Yes (2-3glasses of wine nightly) Drug/Substance Use Hx: No Substance Use Type: None Hx Substance Use Treatment: No Review of Systems - Review of Systems Constitutional: No: Chills, Diaphoresis, Fever, Malaise HEENTM: No: Blurred Vision, Double Vision Respiratory: No: Cough, Orthopnea, Shortness of Breath Cardiac (ROS): No: Chest Pain, Irregular Heart Rate ABD/GI: No: Constipated, Diarrhea, Nausea, Rectal Bleeding, Vomiting : No: Burning, Dysuria, Frequency Musculoskeletal: Yes: Symptoms Reported Integumentary: Yes: Symptoms Reported Neurological: No: Headache, Numbness, Paresthesia *Physical Exam - Vital Signs Last Vital Signs Temp Pulse Resp BP Pulse Ox 97.8 F 77 18 133/55 L 95 12/12/18 11:56 12/12/18 11:56 12/12/18 11:56 12/12/18 11:56 12/12/18 11:56 - Physical Exam General Appearance: Yes: Thin. No: Apparent Distress HEENT: positive: EOMI. negative: Pale Conjunctivae Respiratory/Chest: positive: Lungs Clear. negative: Crackles, Rales, Wheezing Cardiovascular: positive: Regular Rhythm, Regular Rate Vascular Pulses: Dorsalis-Pedis (R): 1+, Doralis-Pedis (L): 1+ Extremity: positive: Swelling (BLE 2+ pitting edema to mid thigh), Other ( normal AROM of RLE. LLE with decreased knee flexion. Mildy TTP of L knee) Neurologic: positive: Fully Oriented Medical Decision Making - Medical Decision Making 12/12/18 13:14 78F w/ pmh of HLD, COPD, CAD(s/p PCI x3, 2005), PVD, diverticulosis presents ot [facility] with complaint of Left knee pain w/a bl knee swelling. Possible MSK injury. Does not have good home support as patient lives alone
[2018-12-12] MEDS ORDERED: ACETAMINOPHEN 1000 MG/100 ML VIAL (NON FORMULARY) IVPB ONE (13:08)
[2018-12-12] MEDS ORDERED: ACETAMINOPHEN INJECTION 100 ML IVPB ONE (13:27)
--- NOTE | 2018-12-12 13:27 | PDOC ---
*Physical Exam - Vital Signs Last Vital Signs Temp Pulse Resp BP Pulse Ox 97.8 F 77 18 133/55 L 95 12/12/18 11:56 12/12/18 11:56 12/12/18 11:56 12/12/18 11:56 12/12/18 11:56 - Physical Exam Comments: 12/12/18 13:11 Gen: WDWN woman, no acute distress, laying in bed, cane at bedside Skin: venous stasis changes on bilateral lower extremities, not warm, equal in size Knee: left knee with normal passive range of motion, comparable to right, no overlying scars / ecchymosis MSK: quadriceps and calf tender to palpation' Neuro: alert and oriented <Silverio Vanessa - Last Filed: 12/12/18 15:18> - Vital Signs Last Vital Signs Temp Pulse Resp BP Pulse Ox 97.8 F 77 18 133/55 L 95 12/12/18 11:56 12/12/18 11:56 12/12/18 11:56 12/12/18 11:56 12/12/18 11:56 <Shelley Jimenez - Last Filed: 12/12/18 15:47> - Vital Signs Last Vital Signs Temp Pulse Resp BP Pulse Ox 97.8 F 77 18 133/55 L 95 12/12/18 11:56 12/12/18 11:56 12/12/18 11:56 12/12/18 11:56 12/12/18 11:56 <Jakob Cummins - Last Filed: 12/12/18 16:10> ED Treatment Course - LABORATORY CBC & Chemistry Diagram: 12/12/18 13:20 12/12/18 13:20 <Silverio Vanessa - Last Filed: 12/12/18 15:18> - LABORATORY CBC & Chemistry Diagram: 12/12/18 13:20 12/12/18 13:20 - ADDITIONAL ORDERS Additional order review: Laboratory Results 12/12/18 13:20 Sodium 143 Potassium 3.9 Chloride 105 Carbon Dioxide 30 Anion Gap 8 BUN 7.1 Creatinine 0.5 L Est GFR (CKD-EPI)AfAm 106.69 Est GFR (CKD-EPI)NonAf 92.05 Random Glucose 78 Calcium 8.9 Total Bilirubin 0.6 AST 68 H ALT 37 Alkaline Phosphatase 169 H Total Protein 7.0 Albumin 2.8 L 12/12/18 13:20 RBC 4.21 MCV 88.5 MCHC 32.9 RDW 20.7 H MPV 8.5 Neutrophils % 49.0 Lymphocytes % 24.5 Monocytes % 18.1 H Eosinophils % 7.4 H Basophils % 1.0 - Medications Given in the ED: ED Medications Discontinued Medications Generic Name Dose Route Start Last Admin Trade Name Freq PRN Reason Stop Dose Admin Acetaminophen 1,000 mg 12/12/18 13:08 12/12/18 13:53 Ofirmev Injection - IVPB 12/12/18 13:09 1,000 mg ONCE ONE Administration <Shelley Jimenez - Last Filed: 12/12/18 15:47> - LABORATORY CBC & Chemistry Diagram: 12/12/18 13:20 12/12/18 13:20 - ADDITIONAL ORDERS Additional order review: Laboratory Results 12/12/18 13:20 Sodium 143 Potassium 3.9 Chloride 105 Carbon Dioxide 30 Anion Gap 8 BUN 7.1 Creatinine 0.5 L Est GFR (CKD-EPI)AfAm 106.69 Est GFR (CKD-EPI)NonAf 92.05 Random Glucose 78 Calcium 8.9 Total Bilirubin 0.6 AST 68 H ALT 37 Alkaline Phosphatase 169 H Total Protein 7.0 Albumin 2.8 L 12/12/18 13:20 RBC 4.21 MCV 88.5 MCHC 32.9 RDW 20.7 H MPV 8.5 Neutrophils % 49.0 Lymphocytes % 24.5 Monocytes % 18.1 H Eosinophils % 7.4 H Basophils % 1.0 - RADIOLOGY Radiology Studies Ordered: Category Date Time Status KNEE 2 POS-LEFT [RAD] Stat Radiology 12/12/18 13:07 Taken DUPLEX VASCUL US-1 LEG [US] Stat Ultrasound 12/12/18 13:07 Completed - Medications Given in the ED: ED Medications Discontinued Medications Generic Name Dose Route Start Last Admin Trade Name Freq PRN Reason Stop Dose Admin Acetaminophen 1,000 mg 12/12/18 13:08 12/12/18 13:53 Ofirmev Injection - IVPB 12/12/18 13:09 1,000 mg ONCE ONE Administration <Jakob Cummins - Last Filed: 12/12/18 16:10> Medical Decision Making - Medical Decision Making 12/12/18 15:[address] Sanchez -Pt with L knee pain, chronic venous changes -Social work to evaluate safety at home with at home nursing / PT followup -L knee xray -L knee ultrasound to evaluate for hematoma -At home ice, elevate, stay off the leg -Orthopaedic consult for MRI if pain doesnt resolve by early next week 12/12/18 15:16 -CBC and CMP wnl -Knee images taken, awaiting read <Silverio Vanessa - Last Filed: 12/12/18 15:18> *DC/Admit/Observation/Transfer <Silverio Vanessa - Last Filed: 12/12/18 15:18> - Discharge Dispostion Decision to Admit order: No <Shelley Jimenez - Last Filed: 12/12/18 15:47> - Discharge Dispostion Decision to Admit order: No <Jakob Cummins - Last Filed: 12/12/18 16:10> Diagnosis at time of Disposition: Venous stasis dermatitis of both lower extremities Knee pain Qualifiers: Chronicity: acute Laterality: left Qualified Code(s): M25.562 - Pain in left knee Knee effusion Qualifiers: Laterality: left Qualified Code(s): M25.462 - Effusion, left knee - Discharge Dispostion Disposition: HOME Condition at time of disposition: Stable - Referrals Referrals: Jesenia Graham MD [Primary Care Provider] - Lux Avila DO [Staff Physician] - - Patient Instructions Printed Discharge Instructions: DI for Knee Effusion Additional Instructions: Ice affected knee 20 minutes on 20 minutes off for the next 3 days. Keep elevated as much as possible. When walking walking all times with walker. Take [id number] Tylenol as directed on package for the next week. Tramadol only for severe pain. It is important to follow up with orthopedics within the next 2-3 days. Visiting nurse and visiting physical therapy will visit you at home for further management. If you are unable to function at home like this please return to the emergency department your discretion. - Post Discharge Activity
[2018-12-12 14:00] LABS: EOS % 7.4 % (0-4.5); HEMATOCRIT 37.3 % (32.4-45.2); HEMOGLOBIN 12.3 GM/dL (10.7-15.3); LYMPH % 24.5 % (8-40); MCH 29.1 pg (25.7-33.7); MCHC 32.9 g/dl (32.0-36.0); MEAN CELL VOLUME 88.5 fl (80-96); MEAN PLT VOLUME 8.5 fl (7.5-11.1); MONO % 18.1 % (3.8-10.2); PLATELET COUNT 263 K/MM3 (134-434); RBC 4.21 M/mm3 (3.60-5.2); RDW 20.7 % (11.6-15.6); WHITE BLOOD COUNT 5.4 K/mm3 (4.0-10.0)
--- NOTE | 2018-12-12 14:23 | PDOC ---
Documentation entered by Nancy Schultz SCRIBE, acting as scribe for Jakob Cummins MD. Jakob Cummins MD: This documentation has been prepared by the Marion bergeron Renju, SCRIBE, under my direction and personally reviewed by me in its entirety. I confirm that the documentation accurately reflects all work, treatment, procedures, and medical decision making performed by me. Attending Attestation - Resident Resident Name: Aydin Sanchez - HPI HPI: 12/12/18 13:28 The patient is a 78 year old female with a past medical history of COPD, CAD(s/ p PCI x3, 2005), PVD, diverticulosis, and HLD who presents to the emergency department for evaluation of left knee pain associated with knee swelling bilaterally. Patient states she injured her left knee after twisting her leg while pivoting around a wooden chair. Patient states she did not fall. She states she ambulates with a walker. Family at bedside states she was PCP last week and was prescribed Amoxicillin for cellulitis. Patient lives at home alone and states she is unable to move up and down her stairs at home. The patient denies recent fall, chest pain, shortness of breath, headache, and dizziness. Denies fevers, chills, nausea, and vomiting. Allergies: No known allergies Social History: No reported alcohol, cigarette, or drug use. PCP: Dr. Costa Vascular: Dr. Graham - Physicial Exam PE: 12/12/18 13:29 ROS: A complete review of 10 out of 10 review of systems is taken and is negative apart from what is previously mentioned below and in the HPI. Vitals: Triage Vital signs reviewed General Appearance: no acute distress, well nourished well developed, Head: Atraumatic, Eyes: Pupils equal reactive round, extraocular movement intact Neck: Supple Chest Wall: Nontender Cardiac: Regular rate and rhythm, no murmurs, no rubs, no gallops, Lungs: Clear to auscultation bilaterally, good air movement bilaterally, Abdomen: Soft, non distended, non tender to palpation Extremities:(+)Bilateral 2+ pitting edema with chronic venous stasis changes to lower extremities. Some pain to left knee with active range of motion, no pain with passive range of motion. Skin: Warm and dry, no rashes or lesions, no rash, no petechiae Neuro: Strength intact to all extremities, Sensation intact to all extremities, gait normal Psych: normal mood, normal affect - Medical Decision Making 12/12/18 13:30 The patient is a 78 year old female with a past medical history of COPD, CAD(s/ p PCI x3, 2005), PVD, diverticulosis, and HLD who presents to the emergency department for evaluation of left knee pain associated with knee swelling bilaterally. Plan: Labs Medication Ultrasound X-ray 12/12/18 17:45 Difficulty ambulating in her three-story workup secondary to a knee injury that occurred last week. She has chronic venous stasis changes to her lower extremities she has on amoxicillin for the possibility of infection An x-ray was performed which demonstrated no acute fracture dislocation ultrasound was negative for DVT Given the patient's lack of mobility it was recommended that she stays in the hospital for possible short-term rehabilitation our social media marketing analyst has consult on the patient and offered the patient admission for short-term rehabilitation given her poor home situation Patient is adamant she will not go to a rehabilitation facility. Our social media marketing analyst has arranged for outpatient physical therapy and outpatient visiting nurse services Patient is here with her daughter and granddaughter. She feels better after IV Tylenol patient will need to follow up with her vascular surgeon for reevaluation over lower extremity peripheral vascular disease as well as with orthopedics within 2 days. Should the patient be unable to function at home or if any of the redness worsens or if fever develops she will return to the emergency department for further management Findings, the need for follow-up and strict return instructions discussed with patient.
[2018-12-12 14:31] LABS: ALBUMIN 2.8 g/dl (3.4-5.0); BILIRUBIN,TOTAL 0.6 mg/dL (0.2-1); BLOOD UREA NITROGEN 7.1 mg/dL (7-18); CALCIUM 8.9 mg/dL (8.5-10.1); CREATININE 0.5 mg/dL (0.55-1.3); POTASSIUM 3.9 mmol/L (3.5-5.1)
[2018-12-12 15:30] LABS: ANISOCYTOSIS 0; MACROCYTOSIS 0; OVALOCYTE 1+; PLATELET ESTIMATE NORMAL; TARGET CELLS 1+; TEAR DROP CELLS 1+
[2018-12-12 16:27] VITALS: BP 159/75; PULSE 76; TEMP 98
== END 2018-12-12 16:43 | disposition home or self-care (01) ==
LOC: JER 11:43
PROC: 3E033NZ Introduction of Analgesics, Hypnotics, Sedatives into Peripheral Vein, Percutaneous Approach (ICD-10-PCS; principal; 2018-12-12)
DX: I87.2 Venous insufficiency (chronic) (peripheral) (principal); I73.89 Other specified peripheral vascular diseases; M25.462 Effusion, left knee; M25.461 Effusion, right knee; M25.562 Pain in left knee; I25.10 Atherosclerotic heart disease of native coronary artery without angina pectoris; I10 Essential (primary) hypertension; Z95.5 Presence of coronary angioplasty implant and graft; E78.5 Hyperlipidemia, unspecified; Z87.19 Personal history of other diseases of the digestive system; X50.1XXA Overexertion from prolonged static or awkward postures, initial encounter; Y93.89 Activity, other specified; Y92.018 Other place in single-family (private) house as the place of occurrence of the external cause; Y99.8 Other external cause status
CPT/HCPCS: 36415; 73560-TC-LT-FY; 80053; 85025; 93971-TC; 96372; 99283-25; J0131

== ENCOUNTER 2019-12-27 14:47 | Inpatient (IN) | payer OTHER, BC ==
[2019-12-27 15:14] VITALS: BMI 20.2
--- NOTE | 2019-12-27 15:25 | PDOC ---
History of Present Illness - General Chief Complaint: Wound Stated Complaint: LEG INFECTION Time Seen by Provider: 12/27/19 15:24 - History of Present Illness Initial Comments: 79 YOF h/o NH s/p stenting on blood thinners and peripheral artery disease presents w/ bilateral lower leg wounds as well as right foot wound of two weeks duration. Patient reports that she is followed regularly by Dr. Graham, for management of bilateral lower extremity wounds 2/2 chronic venous insufficiency. At her last visit 3 week prior, her wounds were debrided and per the patient began weeping and impaired healing since. Approximately 2 weeks ago she observed a small blister on her right foot which has since in size and has become so painful as to limit ambulation. She mentions serosanguinous discharge from the leg wounds however no discharge from the foot wound. She denies fever, chills, nausea, vomiting, chest pain, shortness of breath. Constitutional: No Weight Change, No Fever, No Chills, No Night Sweats, No Fatigue, No Malaise ENT/Mouth: No Hearing Changes, No Ear Pain, No Nasal Congestion, No Sinus Pain, No Hoarseness, No sore throat, No Rhinorrhea, No Swallowing Difficulty Eyes: No Eye Pain, No Swelling, No Redness, No Foreign Body, No Discharge, No Vision Changes Cardiovascular: No Chest Pain, No SOB, No PND, No Dyspnea on Exertion, No Orthopnea, No Claudication, No Edema, No Palpitations Respiratory: No Cough, No Sputum, No Wheezing, No Smoke Exposure Gastrointestinal: No Nausea, No Vomiting, No Diarrhea, No Constipation, No Pain, No Heartburn, No Anorexia, No Dysphagia, No Hematochezia, No Melena, No Flatulence, No Jaundice Genitourinary: No Dysmenorrhea, No DUB, No Dyspareunia, No Dysuria, No Urinary Frequency, No Hematuria, No Urinary Incontinence, No Urgency, No Flank Pain, No Urinary Flow Changes, No Hesitancy Musculoskeletal: No Arthralgias, No Myalgias, No Joint Swelling, No Joint Stiffness, No Back Pain, No Neck Pain, No Injury History Skin: No Pruritis, No Hair Changes, No Breast/Skin Changes, No Nipple Discharge Neuro: No Weakness, No Numbness, No Paresthesias, No Loss of Consciousness, No Syncope, No Dizziness, No Headache, No Coordination Changes, No Recent Falls Psych: No Anxiety/Panic, No Depression, No Insomnia, No Personality Changes, No Delusions, No Rumination, No SI/HI/AH/VH, No Social Issues, No Memory Changes, No Violence/Abuse Hx., No Eating Concerns Heme/Lymph: No Bruising, No Bleeding, No Transfusions History, No Lymphadenopathy Endocrine: No Polyuria, No Polydipsia, No Temperature Intolerance Past History - Medical History Allergies/Adverse Reactions: Allergies Allergy/AdvReac Type Severity Reaction Status Date / Time No Known Allergies Allergy Verified 11/02/19 13:35 Home Medications: Ambulatory Orders Budesonide/Formeterol Fumarate [SYMBICORT 160/4.5mcg -] 1 inh IH DAILY 11/01/16 Cilostazol 50 tab PO BID 11/01/16 Multivit-Min/FA/Lycopen/Lutein [Centrum Silver Tablet] 1 each PO DAILY 12/15/16 Albuterol Sulfate [Albuterol Sulfate Hfa] 1 unit NEB PRN 08/21/18 Tiotropium [place] [Spiriva] 2 unit NEB DAILY 08/21/18 Acetaminophen [Tylenol .Regular Strength -] 650 mg PO Q6H PRN tablet 08/25/18 Cyanocobalamin [Vitamin B12 -] 1,000 mcg PO DAILY tablet 08/25/18 Lactobacillus Acidophilus [Acidophilus Lactobacilli] 1 each PO DAILY #30 capsule 08/25/18 Pantoprazole Sodium [Protonix -] 20 mg PO BID #60 tablet.ec 08/25/18 Rosuvastatin [Crestor -] 20 mg PO HS #30 tablet 08/25/18 Tramadol HCl 50 mg PO DAILY #3 tablet MDD 1 12/12/18 Anemia: No Cancer: No Cardiac Disorders: Yes (CAD) CVA: No COPD: Yes CHF: No Dementia: No Diabetes: No GI Disorders: Yes Disorders: No HTN: Yes Hypercholesterolemia: Yes Liver Disease: No Seizures: No Thyroid Disease: No - Surgical History Abdominal Surgery: No Cardiac Surgery: Yes (cardiac stents x3) - Reproductive History Is Patient Now?: No - Psycho-Social/Smoking History Smoking History: Never smoked Have you smoked in the past 12 months: No If you are a former smoker, when did you quit?: 1989 - Substance Abuse Hx (Audit-C & DAST Scrn) How often the patient has a drink containing alcohol: Monthly or less Score: In Men: 4 or > Positive; In Women: 3 or > Positive: 1 Screen Result (Pos requires Nsg. Audit-10AR): Negative In the last yr the pt used illegal drug/Rx for NonMed reason: No Score: Yes response is considered Positive: 0 Screen Result (Positive result requires Nsg. DAST-10): Negative *Physical Exam - Vital Signs Last Vital Signs Temp Pulse Resp BP Pulse Ox 97.9 F 98 H 19 141/70 97 12/27/19 15:06 12/27/19 15:06 12/27/19 15:06 12/27/19 15:06 12/27/19 15:06 - Physical Exam General Appearance: Yes: Appropriately Dressed, Mild Distress, Thin HEENT: positive: EOMI, JULIO C, Normal ENT Inspection, Normal Voice Neck: positive: Trachea midline, Normal Thyroid Respiratory/Chest: positive: Lungs Clear, Normal Breath Sounds Cardiovascular: positive: Regular Rhythm, Regular Rate, S1, S2 Gastrointestinal/Abdominal: positive: Normal Bowel Sounds, Flat, Soft Musculoskeletal: positive: Normal Inspection Extremity: positive: Normal Capillary Refill, Swelling, Erythema, Other (mottling of skin in bilateral lower leg, wounds on interior aspect of bilateral lower legs with serosanguinous discharge, 5cm blister on right foot with apparent underlying necrosis) Integumentary: positive: Erythema Medical Decision Making - Medical Decision Making 79 YOF h/o NH s/p stenting on blood thinners and peripheral artery disease presents w/ bilateral lower leg wounds as well as right foot wound of two weeks duration. Patient reports that she is followed regularly by Dr. Graham, for management of bilateral lower extremity wounds 2/2 chronic venous insufficiency. At her last visit 3 week prior, her wounds were debrided and per the patient began weeping and impaired healing since. Approximately 2 weeks ago she observed a small blister on her right foot which has since in size and has become so painful as to limit ambulation. She mentions serosanguinous discharge from the leg wounds however no discharge from the foot wound. She denies fever, chills, nausea, vomiting, chest pain, shortness of breath. Vitals on arrival wnl. Exam revealing of mottled, erythematous skin on lower legs bilaterally, ulceration of interior aspect of lower legs bilaterally with serosanguinous discharge, right foot shows 5 cm blister with underlying fluid and apparent necrosis. ddx: wet gangrene, osteomyelitis, cellulitis. plan: Xray right foot, wound cultures, blood cultures, labs, vancomycin and zosyn IV. reassess: Discharge - Follow up/Referral Referrals: Mark Liang MD [Primary Care Provider] - - Patient Discharge Instructions - Post Discharge Activity
[2019-12-27] MEDS ORDERED: PIPERACILLIN/TAZOB 3.375 GM 3.375 GM in DEXTROSE 5%-WATER - 50 ML IVPB ONE (16:53)
[2019-12-27] MEDS ORDERED: VANCOMYCIN 1 GM in D5W (PRE-DOCKED) 1,000 MG/250 ML IVPB ONE (16:54)
--- NOTE | 2019-12-27 17:27 | PDOC ---
Documentation entered by Suzanne Muhammad SCRIBE, acting as scribe for Candace Zhao MD. Candace Zhao MD: This documentation has been prepared by the scribe, Suzanne Muhammad SCRIBE, under my direction and personally reviewed by me in its entirety. I confirm that the documentation accurately reflects all work, treatment, procedures, and medical decision making performed by me. Attending Attestation - Resident Resident Name: Chris Medel - ED Attending Attestation I have performed the following: I have examined & evaluated the patient, The case was reviewed & discussed with the resident, I agree w/resident's findings & plan, Exceptions are as noted - HPI HPI: 12/27/19 16:12 The patient is an 79-year-old female with a past medical history significant for COPD, CAD s/p PCI, PVD, diverticulosis, and HLD who presents to the emergency department with bilateral lower extremity pain and increased drainage x1.5 weeks. Also reports large blister on bottom of R foot which has been drainaing a clear liquid. Reports pain when she puts pressure on her R foot. Denies fevers. Denies new shoes. No other complaints. - Physicial Exam PE: 12/27/19 17:20 General: non-toxic appearing Extremities: +cobblestoning of b/l lower legs with ulcer on medial aspect of L tib/fib with small amount of drainage, +large blister on bottom of R foot with small amount of serous liquid draining and minimal ttp, no crepitus, mildly increased warmth - Medical Decision Making 12/27/19 17:25 79 yo F with concern for cellulitis of foot/infected ulcer, not rapidly progressive and no systemic signs of infection so less likely nec fasc. Plan: -labs -cxr -xr R foot -vanc -zosyn -admit This clinical encounter is taking place during a federal and state health care emergency attributable to the novel [place] Virus pandemic. The County Extension Agent of the Department of Health and Human Services has declared, pursuant to the Public Health Service Act 319F-3 (42 U.S.C. 247d-6d), that a covered persons activities related to medical countermeasures against COVID-19 will be immune from liability under Federal and State law. Discharge - Discharge Information Problems reviewed: Yes Clinical Impression/Diagnosis: Cellulitis of foot - Follow up/Referral - Patient Discharge Instructions - Post Discharge Activity
[2019-12-27 17:37] LABS: BASO % 0.6 % (0-2.0); EOS % 0.5 % (0-4.5); HEMATOCRIT 46.2 % (32.4-45.2); HEMOGLOBIN 15.4 GM/dL (10.7-15.3); LYMPH % 10.6 % (8-40); MCH 35.1 pg (25.7-33.7); MCHC 33.4 g/dl (32.0-36.0); MEAN CELL VOLUME 104.9 fl (80-96); MEAN PLT VOLUME 8.1 fl (7.5-11.1); MONO % 12.1 % (3.8-10.2); NEUT % 76.2 % (42.8-82.8); PLATELET COUNT 267 K/MM3 (134-434); RDW 13.6 % (11.6-15.6); WHITE BLOOD COUNT 8.6 K/mm3 (4.0-10.0)
[2019-12-27] MEDS ORDERED: VANCOMYCIN 1 GRAM (PRE-DOCKED) 1,000 MG/250 ML BAG IVPB ONE (17:42)
[2019-12-27] MEDS ORDERED: PIPERACILLIN/TAZOB 3.375 GM 3.375 GM/50 ML BAG IVPB ONE (17:43)
[2019-12-27 17:44] LABS: INR 1.03 (0.83-1.09); PROTHROMBIN TIME (PATIENT) 12.1 SEC (9.7-13.0)
[2019-12-27 17:47] LABS: ACTIVATED PTT 30.5 SECONDS (25.2-36.5)
[2019-12-27] MEDS ORDERED: SODIUM CHLORIDE 1,000 ML IV SCH (18:00)
[2019-12-27 18:05] LABS: ALBUMIN 2.8 g/dl (3.4-5.0); BLOOD UREA NITROGEN 15.3 mg/dL (7-18); CALCIUM 9.3 mg/dL (8.5-10.1); CREATININE 0.7 mg/dL (0.55-1.3); TOT PROT 7.6 g/dl (6.4-8.2)
--- NOTE | 2019-12-27 19:46 | PN ---
Teaching Attending Note Name of Resident: Lenin Miles ATTENDING PHYSICIAN STATEMENT I saw and evaluated the patient. I reviewed the resident's note and discussed the case with the resident. I agree with the resident's findings and plan as documented. SUBJECTIVE: Patient is an 79 year old woman with a PMH of DC (s/p 2 stents), COPD, HLD and Peripheral artery disease who presents with bilateral lower leg wounds as well as right foot wound of two weeks duration. Patient reports that she is followed regularly by Dr. Graham for management of bilateral lower extremity wounds due to chronic venous insufficiency. At her last visit 3 week prior, her wounds were debrided and per the patient began weeping and healing has been impaired. Goldy roximately two weeks ago she observed a small blister on her right foot which has since in size and has become so painful as to limit ambulation. She mentions serosanguinous discharge from the leg wounds however no discharge from the foot wound. She denies fever, chills, nausea, vomiting, chest pain, shortness of breath, diarrhea or dysuria. Ex smoker. Denies alcohol, tobacco or illicit drug use. No sick contacts or recent travels. Family history of DM and HTN on both sides. OBJECTIVE: Alert Vital Signs Period Temp Pulse Resp BP Sys/Nelson Pulse Ox Last 24 Hr 97.3 F-97.9 F 94-98 19 125-141/69-70 97-97 HEENT: No Jaundice, eye redness or discharge, PERRLA, EOMI. Normocephalic, atraumatic. External ears are normal and hearing is grossly intact. No nasal discharge. Neck: Supple, nontender. No palpable adenopathy or thyromegaly. No JVD Chest: Good effort. Clear to auscultation and percussion. Heart: Regular. No S3, rub or murmur Abdomen: Not distended, soft, nontender and no HSM. No rebound or guarding. Normal bowel sounds. Ext: Peripheral pulses intact. Lower leg edema. Bilateral lower leg edema and erythema; wounds on interior aspect legs with serosanguinous discharge, blister on plantar surface of right foot. Skin: Warm and dry. No petechiae, rash or ecchymosis. Neuro: Alert. Oriented x3. CN 2-12 grossly intact. Sensation grossly intact in all four extremities and DTR are symmetric. Psych: Appropriate mood and affect. Good insight. Current Medications Generic Name Dose Route Start Last Admin Trade Name Frelora PRN Reason Stop Dose Admin Sodium Chloride 1,000 mls @ 0 mls/hr 12/27/19 18:00 12/27/19 18:16 Normal Saline - IV 1,000 mls/hr ASDIR WESTLEY Administration Wide Open Home Medications Medication Instructions Recorded Budesonide/Formeterol Fumarate 1 inh IH DAILY 11/01/16 [SYMBICORT 160/4.5mcg -] Cilostazol 50 tab PO BID 11/01/16 Multivit-Min/FA/Lycopen/Lutein 1 each PO DAILY 12/15/16 [Centrum Silver Tablet] Albuterol Sulfate [Albuterol 1 unit NEB PRN 08/21/18 Sulfate Hfa] Tiotropium [place] [Spiriva] 2 unit NEB DAILY 08/21/18 Acetaminophen [Tylenol .Regular 650 mg PO Q6H PRN tablet 08/25/18 Strength -] Cyanocobalamin [Vitamin B12 -] 1,000 mcg PO DAILY tablet 08/25/18 Lactobacillus Acidophilus 1 each PO DAILY #30 capsule 08/25/18 [Acidophilus Lactobacilli] Pantoprazole Sodium [Protonix -] 20 mg PO BID #60 tablet.ec 08/25/18 Rosuvastatin [Crestor -] 20 mg PO HS #30 tablet 08/25/18 Tramadol HCl 50 mg PO DAILY #3 tablet MDD 1 12/12/18 Abnormal Lab Results 12/27/19 12/27/19 12/27/19 17:00 17:00 17:00 Hgb 15.4 H Hct 46.2 H D MCV 104.9 H MCH 35.1 H D Monocytes % 12.1 H Anion Gap 6 L Random Glucose 116 H AST 51 H Alkaline Phosphatase 176 H C-Reactive Protein 11.4 H Albumin 2.8 L Current Medications Generic Name Dose Route Start Last Admin Trade Name Kenny PRN Reason Stop Dose Admin Enoxaparin Sodium 40 mg 12/28/19 10:00 Lovenox - SQ DAILY WESTLEY Sodium Chloride 1,000 mls @ 0 mls/hr 12/27/19 18:00 12/27/19 18:16 Normal Saline - IV 1,000 mls/hr ASDIR WESTLEY Administration Wide Open ASSESSMENT AND PLAN: 1. Infected leg wounds and cellulitis - Sepsis work up done. Patient started on IV Vancomycin and IV Zosyn. Provide daily wound care and consult ID, Vascular and Wound care service. Foot/tibia/fibula xrays show osteopenia, but no fracture or gas collection. Will need MRI to rule out osteomyelitis. CXR shows cardiomegaly with no evidence of acute lung disease. EKG shows NSR at 97/minute and QTc 464; inferior infarct of indeterminate age. Not significantly changed compared to prior EKG. Initial troponin is negative. Will avoid drugs that may prolong QTc. Viral testing for COVID-19 ordered and patient placed on airborne, droplet and contact isolation. Will continue comprehensive care for all of patients comorbid conditions including Duoneb PRN for COPD. 2. Hypoalbuminemia - Possibly due to combined effects of malnutrition and inflammation associated with comorbid conditions. Will ensure adequate dietary protein intake and also consult risk control officer. Urinalysis pending. 3. DVT prophylaxis - Lovenox 40 mg SQ q 24 hours. 4. Advance directives - Full code
--- NOTE | 2019-12-28 00:26 | HP ---
CHIEF COMPLAINT: B/L Leg ulcer PCP: Danica HISTORY OF PRESENT ILLNESS: Patient is an 79yo female with a PMHx of PVD, COPD, CAD, HLD and diverticulosis now presenting with b/l leg ulcer of >3days. Was of gradual onset, following surgery on b/l legs for venous peripheral vascular disease. Following the surgery, the legs healed but a few weeks later she noticed the skin over her leg began to swell with subsequent developement of an ulcer on b/l leg above the medial malleolus with the left appearing first. The ulcer on the plantar surface of her right foot is said to have developed 3 days ago following her f/u appointment. The ulcers started a started as a blister with intense pain and inability to walk leaving a necrotic overlying transparent skin. Pain is sharp, relieved by an unknown medication taken just once but no known aggravating factor. It is 9/10 in severity with numbness and a pinching sensation of affected skin Patient has a hx of 2 SC with [address], surg on B/l lower limbs and wears compression stockings all day except at bedtime. No hx of DM, blood disorder, fever, joint disorder, fever, chills, skin grider on sun exposure or STD. She admited to incontinence, wears diapers, no dysuria, frequency, hematuria, chest pain, cough, cyanosis, BOLAÑOS, seizures, confusion, hearing or visual impairment ER course was notable for: (1)Wound culture (2)Blood culture x 2 samples (3)N/S 1000ml, Zosyn and Vancomycin. Recent Travel:None PAST SURGICAL HISTORY: None Social History: Lives alone in [place] Smoking:None Alcohol:None Drugs: None Allergies: No Known Allergies Allergy (Verified 11/02/19 13:35) HOME MEDICATIONS: Home Medications Medication Instructions Recorded Budesonide/Formeterol Fumarate 1 inh IH DAILY 11/01/16 [SYMBICORT 160/4.5mcg -] Cilostazol 50 tab PO BID 11/01/16 Multivit-Min/FA/Lycopen/Lutein 1 each PO DAILY 12/15/16 [Centrum Silver Tablet] Albuterol Sulfate [Albuterol 1 unit NEB PRN 08/21/18 Sulfate Hfa] Tiotropium [place] [Spiriva] 2 unit NEB DAILY 08/21/18 Acetaminophen [Tylenol .Regular 650 mg PO Q6H PRN tablet 08/25/18 Strength -] Cyanocobalamin [Vitamin B12 -] 1,000 mcg PO DAILY tablet 08/25/18 Lactobacillus Acidophilus 1 each PO DAILY #30 capsule 08/25/18 [Acidophilus Lactobacilli] Pantoprazole Sodium [Protonix -] 20 mg PO BID #60 tablet.ec 08/25/18 Rosuvastatin [Crestor -] 20 mg PO HS #30 tablet 08/25/18 Tramadol HCl 50 mg PO DAILY #3 tablet MDD 1 12/12/18 REVIEW OF SYSTEMS Negative except as above Vital Signs - 24 hr 12/27/19 12/27/19 12/27/19 15:06 18:27 21:05 Temperature 97.9 F 97.3 F L 97.9 F Pulse Rate 98 H 102 H Pulse Rate [ 94 H Right Radial] Respiratory 19 18 Rate Blood Pressure 141/70 134/64 Blood Pressure 125/69 [Right Arm] O2 Sat by Pulse 97 97 93 L Oximetry (%) 12/27/19 12/27/19 21:16 21:32 Temperature 97.9 F Pulse Rate 102 H Pulse Rate [ Right Radial] Respiratory 18 Rate Blood Pressure 134/64 Blood Pressure [Right Arm] O2 Sat by Pulse 93 L 93 L Oximetry (%) PHYSICAL EXAMINATION GENERAL: Awake, alert, and fully oriented HEAD: Normal with no signs of trauma. EYES: Sclera anicteric, conjunctiva clear NECK: Normal range of motion, supple without lymphadenopathy, JVD, or masses. LUNGS:Vesicular breath sounds equal b/l. No wheezes, and no crackles. No obvious sign of respiratory distress HEART: Regular rate and rhythm, normal S1 and S2. Murmur in aortic and pulmonic valvualr regions, rub or gallop. ABDOMEN: Soft, nontender, flat, normoactive bowel sounds, no masses. No hepatomegaly or splenomegaly. MUSCULOSKELETAL: No CVA tenderness. UPPER EXTREMITIES: spare regions of subcutaneos bleeds NEUROLOGICAL: Cranial nerves II-XII intact. Normal speech. PSYCHIATRIC: Cooperative. Good eye contact. Appropriate mood and affect. SKIN. General thin and transparent exposing underlying capillaries. LOWER EXTREMITIES: Overlying skin is Swollen, hyperemic and cobble stoning of b/l legs with two ulcers on the rt lower limbs and one on the left. The rt ulcers are located on the plantar surface, with an overlying necrotic skin draining yellowish fluid. Laboratory Results - last 24 hr 12/27/19 12/27/19 12/27/19 17:00 17:00 17:00 WBC 8.6 RBC 4.40 Hgb 15.4 H Hct 46.2 H D MCV 104.9 H MCH 35.1 H D MCHC 33.4 RDW 13.6 D Plt Count 267 MPV 8.1 Absolute Neuts (auto) 6.6 Neutrophils % 76.2 D Lymphocytes % 10.6 D Monocytes % 12.1 H Eosinophils % 0.5 D Basophils % 0.6 Nucleated RBC % 0 PT with INR INR PTT (Actin FS) Sodium 136 Potassium 4.0 Chloride 100 Carbon Dioxide 30 Anion Gap 6 L BUN 15.3 Creatinine 0.7 Est GFR (CKD-EPI)AfAm 94.84 Est GFR (CKD-EPI)NonAf 81.83 Random Glucose 116 H Calcium 9.3 Total Bilirubin 1.0 AST 51 H ALT 29 Alkaline Phosphatase 176 H C-Reactive Protein 11.4 H Total Protein 7.6 Albumin 2.8 L 12/27/19 17:00 WBC RBC Hgb Hct MCV MCH MCHC RDW Plt Count MPV Absolute Neuts (auto) Neutrophils % Lymphocytes % Monocytes % Eosinophils % Basophils % Nucleated RBC % PT with INR 12.10 INR 1.03 PTT (Actin FS) 30.5 Sodium Potassium Chloride Carbon Dioxide Anion Gap BUN Creatinine Est GFR (CKD-EPI)AfAm Est GFR (CKD-EPI)NonAf Random Glucose Calcium Total Bilirubin AST ALT Alkaline Phosphatase C-Reactive Protein Total Protein Albumin ASSESSMENT/PLAN: #RLE CELLULITIS W/BLISTERING 2/2 LONG STANDING PAD Hx of PVD Chronic and new onset non healing ulcer left leg and rt plantar foot and leg nursing home hx of HLD Hx of SC x 2 stents New Onset leg ulcer and chronic ulcer Osteopenia observed in Xray of the legs and foot Wound culture Blood culture x 2 samples CBC + diff IV Vancomycin and IV Zosyn MRI B/L Lower limb w/o to r/o osteomyelitis. CXR shows cardiomegaly with no evidence of acute lung disease. #PROLONGED QTc on EKG EKG shows NSR at 97/minute and QTc 464 Inferior infarct of indeterminate age. Not significantly changed compared to prior EKG. Initial troponin is negative. Will avoid drugs that may prolong QTc. Viral testing for COVID-19 ordered Patient has been on airborne, droplet and contact isolation. Will continue comprehensive care for all of patients comorbid conditions. #Hypoalbuminemia Likely due reduced synthesis in malnutrition and losses in chronic inflammation. Patient to receive education on dietary protein intake. Consult stave saw operator. F/U UA result #DVT prophylaxis - Lovenox 40 mg SQ q 24 hours. Duoneb PRN for COPD F/u pending lab results and images and treat as medically required Advance directives - Full code Family Medical History Family History: As Documented (erythematous b/l legs with cobblestoning) Visit type - Medication Review Med list reviewed for High Risk Meds patients 65 and older: Yes - Emergency Visit Emergency Visit: Yes ED Registration Date: 12/27/19 Care time: The patient presented to the Emergency Department on the above date and was hospitalized for further evaluation of their emergent condition. - New Patient This patient is new to me today: Yes Date on this admission: 12/27/19 - Critical Care Critical Care patient: No ATTENDING PHYSICIAN STATEMENT I saw and evaluated the patient. I reviewed the resident's note and discussed the case with the resident. I agree with the resident's findings and plan as documented. SUBJECTIVE: OBJECTIVE: ASSESSMENT AND PLAN:
[2019-12-28] MEDS ORDERED: PIPERACILLIN/TAZOB 3.375 GM 3.375 GM in DEXTROSE 5%-WATER - 50 ML IVPB SCH (02:30)
[2019-12-28] MEDS ORDERED: PIPERACILLIN/TAZOBACTAM 3.375 GM VIAL IVPB ONE ×3 (03:11→13:23)
[2019-12-28] MEDS ORDERED: DEXTROSE 5%-WATER - 50 ML IVPB ONE ×3 (03:12→13:23)
[2019-12-28] MEDS: ACETAMINOPHEN 1000 MG/100 ML VIAL (NON FORMULARY) IVPB PRN ×2 (03:19→09:25)
[2019-12-28] MEDS: PIPERACILLIN/TAZOB 3.375 GM 3.375 GM in DEXTROSE 5%-WATER - 50 ML IVPB SCH ×3 (03:28→17:15)
[2019-12-28] MEDS ORDERED: ACETAMINOPHEN 325 MG TABLET (FP) PO ONE (07:55)
[2019-12-28] MEDS ORDERED: ALBUTEROL SO4 HFA INHALER IH PRN (08:16)
[2019-12-28 08:20] LABS: BASO % 0.6 % (0-2.0); EOS % 0.9 % (0-4.5); HEMATOCRIT 39.6 % (32.4-45.2); HEMOGLOBIN 13.2 GM/dL (10.7-15.3); LYMPH % 13.7 % (8-40); MCH 34.9 pg (25.7-33.7); MCHC 33.4 g/dl (32.0-36.0); MEAN CELL VOLUME 104.5 fl (80-96); MEAN PLT VOLUME 8.3 fl (7.5-11.1); MONO % 14.7 % (3.8-10.2); NEUT % 70.1 % (42.8-82.8); PLATELET COUNT 244 K/MM3 (134-434); RBC 3.79 M/mm3 (3.60-5.2); RDW 13.5 % (11.6-15.6); WHITE BLOOD COUNT 8.3 K/mm3 (4.0-10.0)
[2019-12-28 08:47] LABS: ALBUMIN 2.1 g/dl (3.4-5.0); BILIRUBIN,TOTAL 1.3 mg/dL (0.2-1); BLOOD UREA NITROGEN 10.4 mg/dL (7-18); CALCIUM 7.8 mg/dL (8.5-10.1); CREATININE 0.4 mg/dL (0.55-1.3); MAGNESIUM 1.9 mg/dL (1.8-2.4); POTASSIUM 3.5 mmol/L (3.5-5.1); TOT PROT 5.6 g/dl (6.4-8.2)
[2019-12-28] MEDS: ENOXAPARIN NA (PORCINE) 40 MG/0.4 ML DISP.SYRIN SQ SCH (09:14)
[2019-12-28 09:36] LABS: ARTERIAL BLD GAS O2 SATURATION 98.1 mmHg (95-98); ARTERIAL BLOOD GAS BASE EXCESS -0.5 mmol/L (-2-2); ARTERIAL BLOOD GAS PO2 109.2 mmHg (80-100); ARTERIAL BLOOD GAS pH 7.416 (7.350-7.450)
[2019-12-28] MEDS ORDERED: VANCOMYCIN 1 GRAM (PRE-DOCKED) 1,000 MG/250 ML BAG IVPB ONE (10:00)
[2019-12-28] MEDS ORDERED: VANCOMYCIN 1 GM in D5W (PRE-DOCKED) 1,000 MG/250 ML IVPB SCH (10:00)
--- NOTE | 2019-12-28 10:04 | PN ---
Progress Note (short form) - Note Progress Note: Vascular Surgery Pt seen and examined. Bilateral lower extremity cellulitis. Right plantar blister with abscess draining. Bedside blister debrided. Culture of abscess fluid sent off. Elen to all wounds daily . ID on case. Kyler Graham DO
--- NOTE | 2019-12-28 10:39 | CON.ID ---
Consult Consult Specialty:: infectious diseases Referred by:: hospitalist Reason for Consultation:: b/l cellulitis of the legs with open and draining wounds - History of Present Illness Chief Complaint: pain,erythema and wounds of both legs History of Present Illness: 79yo female with a PMHx of PVD, COPD, CAD, HLD and diverticulosis now presenting with b/l leg ulcer of >3days. 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 Following the surgery, the legs healed but a few weeks later she noticed the skin over her skin was beginning to swell and developed an ulcer on the left leg right above the above medial malleolus. The ulcer on the plantar surface of her right foot is said to have developed after wound dressing at her physician's clinic. Following the dressing, the blister developed causing her intense pain and inability to walk leaving a necrotic overlying transparent skin. Pain is sharp, relieved by an unknown medication taken just once but no known aggravating factor. It is 9/10 in severity with numbness and a pinching sensation of affected skin Patient has a hx of 2 MO with [address], surg on B/l lower limbs and wears compression stockings all day except at bedtime. No hx of DM, blood disorder, fever, joint disorder, fever, chills, skin grider on sun exposure or STD. She admited to incontinence, wears diapers, no dysuria, frequency, hematuria, chest pain, cough, cyanosis, BOLAÑOS, seizures, confusion, hearing or visual impairment the above is the history of the patient patient seen by vascular and wound care this morning and the wound was debrided ,patient c/o of pain in the wounds - History Source History Provided By: Patient Limitations to Obtaining History: No Limitations - Past Medical History Cardio/Vascular: Yes: Other (Sciatica) Pulmonary: Yes: COPD ...LMP: 05/16/89 ...: No Musculoskeletal: Yes: Chronic low back pain (Secondary to sciatica) - Past Surgical History Past Surgical History: Yes: Vein Stripping/Ligation (B/L LE) - Alcohol/Substance Use Hx Alcohol Use: Yes (2-3glasses of wine nightly) History of Substance Use: reports: None - Smoking History Smoking history: Never smoked Have you smoked in the past 12 months: No If you are a former smoker, when did you quit?: 1990 - Social History Usual Living Arrangement: Alone ADL: Independent History of Recent Travel: No Home Medications - Allergies Allergies/Adverse Reactions: Allergies Allergy/AdvReac Type Severity Reaction Status Date / Time No Known Allergies Allergy Verified 11/02/19 13:35 - Home Medications Home Medications: Ambulatory Orders Budesonide/Formeterol Fumarate [SYMBICORT 160/4.5mcg -] 1 puff IH DAILY 11/01/16 Cilostazol 50 tab PO BID 11/01/16 Albuterol Sulfate [Albuterol Sulfate Hfa] 2 puff IH Q4H PRN 08/21/18 Tiotropium [place] [Spiriva] 2 unit NEB DAILY 08/21/18 Lactobacillus Acidophilus [Acidophilus Lactobacilli] 1 each PO DAILY #30 capsule 08/25/18 Rosuvastatin [Crestor -] 20 mg PO HS #30 tablet 08/25/18 Alendronate Sodium [Fosamax] 1 tab WEEKLY 12/28/19 Amoxicillin/Potassium Clav [Augmentin 875-125 Tablet] 1 tab PO DAILY 12/28/19 Review of Systems - Review of Systems Constitutional: reports: Weakness, Other Eyes: reports: No Symptoms HENT: reports: No Symptoms Neck: reports: No Symptoms Cardiovascular: reports: No Symptoms Respiratory: reports: No Symptoms Gastrointestinal: reports: No Symptoms Genitourinary: reports: No Symptoms Musculoskeletal: reports: Muscle Pain Integumentary: reports: Erythema, Wound Neurological: reports: No Symptoms Endocrine: reports: No Symptoms Hematology/Lymphatic: reports: No Symptoms Psychiatric: reports: No Symptoms Physical Exam Vital Signs: Vital Signs Temperature 97.8 F 12/28/19 09:22 Pulse Rate 95 H 12/28/19 09:22 Respiratory Rate 12/28/19 09:22 Blood Pressure 114/60 12/28/19 09:22 O2 Sat by Pulse Oximetry (%) 99 12/28/19 09:22 Constitutional: Yes: Calm, Mild Distress, Thin Eyes: Yes: Conjunctiva Clear HENT: Yes: Atraumatic, Normocephalic Neck: Yes: Supple, Trachea Midline Cardiovascular: Yes: Regular Rate and Rhythm Respiratory: Yes: Regular, CTA Bilaterally Gastrointestinal: Yes: Normal Bowel Sounds, Soft Musculoskeletal: Yes: WNL Extremities: Yes: Erythema, Other (wounds on the legs) Wound/Incision: Yes: Dressing Removed, Draining, Other (infected wounds) Neurological: Yes: Alert, Oriented Psychiatric: Yes: Alert, Oriented Labs: CBC, BMP 12/28/19 07:06 12/28/19 07:06 Imaging - Results Chest X-ray: Report Reviewed, Image Reviewed X-ray: Report Reviewed, Image Reviewed Assessment/Plan Bilateral lower extremity cellulitis. Right plantar blister with abscess draining. cad cellulitis of the legs infected wound blister debrided plan will continue zosyn await for cx results wound care rest as per the team
[2019-12-28] MEDS ORDERED: PT OWN MED DRAWER 7, Y5N ONE (11:20)
[2019-12-28] MEDS: oxyCODONE HCL 5 MG TABLET PO PRN (14:21)
[2019-12-28] MEDS: COLLAGENASE CLOSTRIDIUM HIST. 30 GRAMS TUBE TP SCH (14:24)
--- NOTE | 2019-12-28 15:11 | PN ---
Physical Exam: SUBJECTIVE: Patient seen and examined bedside. Reports being in a lot of pain from her leg wound. Otherwise, denies, SOB, chest pain, fever or chills. OBJECTIVE: Vital Signs 12/28/19 09:22 Temperature 97.8 F Pulse Rate 95 H Respiratory 20 Rate Blood Pressure 114/60 O2 Sat by Pulse 99 Oximetry (%) GENERAL: The patient is awake, alert, and fully oriented. Cachectic HEAD: Normal with no signs of trauma. EYES: PERRL, extraocular movements intact ENT: moist mucous membranes. NECK: supple. LUNGS: Breath sounds equal & CTA BL HEART: RRR S1, S2 ABDOMEN: Soft, nontender, nondistended, normoactive bowel sounds EXTREMITIES: BL Legs are very erythematous with cobblestoning. Ulcer on medial aspect of L tib/fib with small amount of drainage. Large blister on bottom of R foot with serous liquid draining. Pulses intact. NEUROLOGICAL: Cranial nerves II through XII grossly intact. Normal speech PSYCH: Normal mood, normal affect. SKIN: BL Legs erythematous with cobblestoning. Laboratory Results - last 24 hr 12/27/19 12/27/19 12/27/19 17:00 17:00 17:00 WBC 8.6 RBC 4.40 Hgb 15.4 H Hct 46.2 H D MCV 104.9 H MCH 35.1 H D MCHC 33.4 RDW 13.6 D Plt Count 267 MPV 8.1 Absolute Neuts (auto) 6.6 Neutrophils % 76.2 D Lymphocytes % 10.6 D Monocytes % 12.1 H Eosinophils % 0.5 D Basophils % 0.6 Nucleated RBC % 0 ESR PT with INR INR PTT (Actin FS) D-Dimer Anticoagulation Therapy Puncture Site Patient Temperature ABG pH ABG pCO2 ABG pO2 ABG HCO3 ABG O2 Sat (Measured) ABG O2 Content ABG Base Excess Jason Test Patient On Oxygen O2 Delivery Device Oxygen Flow Rate Vent Mode Vent Rate Mechanical Rate PEEP Pressure Support Vent Sodium 136 Potassium 4.0 Chloride 100 Carbon Dioxide 30 Anion Gap 6 L BUN 15.3 Creatinine 0.7 Est GFR (CKD-EPI)AfAm 94.84 Est GFR (CKD-EPI)NonAf 81.83 Random Glucose 116 H Hemoglobin A1c % Calcium 9.3 Phosphorus Magnesium Ferritin Total Bilirubin 1.0 AST 51 H ALT 29 Alkaline Phosphatase 176 H LD Total C-Reactive Protein 11.4 H Total Protein 7.6 Albumin 2.8 L Vitamin B12 12/27/19 12/28/19 12/28/19 17:00 07:06 07:06 WBC 8.3 RBC 3.79 Hgb 13.2 Hct 39.6 MCV 104.5 H MCH 34.9 H MCHC 33.4 RDW 13.5 Plt Count 244 MPV 8.3 Absolute Neuts (auto) 5.8 Neutrophils % 70.1 Lymphocytes % 13.7 D Monocytes % 14.7 H Eosinophils % 0.9 Basophils % 0.6 Nucleated RBC % 0 ESR PT with INR 12.10 INR 1.03 PTT (Actin FS) 30.5 D-Dimer Anticoagulation Therapy Puncture Site Patient Temperature ABG pH ABG pCO2 ABG pO2 ABG HCO3 ABG O2 Sat (Measured) ABG O2 Content ABG Base Excess Jason Test Patient On Oxygen O2 Delivery Device Oxygen Flow Rate Vent Mode Vent Rate Mechanical Rate PEEP Pressure Support Vent Sodium 139 Potassium 3.5 Chloride 106 Carbon Dioxide 27 Anion Gap 7 L BUN 10.4 Creatinine 0.4 L Est GFR (CKD-EPI)AfAm 114.01 Est GFR (CKD-EPI)NonAf 98.37 Random Glucose 100 Hemoglobin A1c % Calcium 7.8 L Phosphorus 3.0 Magnesium 1.9 Ferritin 179.1 Total Bilirubin 1.3 H AST 41 H ALT 21 Alkaline Phosphatase 109 LD Total 139 C-Reactive Protein Total Protein 5.6 L Albumin 2.1 L Vitamin B12 686 12/28/19 12/28/19 12/28/19 07:06 07:06 09:15 WBC RBC Hgb Hct MCV MCH MCHC RDW Plt Count MPV Absolute Neuts (auto) Neutrophils % Lymphocytes % Monocytes % Eosinophils % Basophils % Nucleated RBC % ESR PT with INR INR PTT (Actin FS) D-Dimer Anticoagulation Therapy No Result Required. Puncture Site No Result Required. Patient Temperature No Result Required. ABG pH 7.416 ABG pCO2 37.70 ABG pO2 109.2 H ABG HCO3 23.7 ABG O2 Sat (Measured) 98.1 H ABG O2 Content No Result Required. ABG Base Excess -0.5 Jason Test No Result Required. Patient On Oxygen No Result Required. O2 Delivery Device No Result Required. Oxygen Flow Rate No Result Required. Vent Mode No Result Required. Vent Rate No Result Required. Mechanical Rate No Result Required. PEEP No Result Required. Pressure Support Vent No Result Required. Sodium Potassium Chloride Carbon Dioxide Anion Gap BUN Creatinine Est GFR (CKD-EPI)AfAm Est GFR (CKD-EPI)NonAf Random Glucose Hemoglobin A1c % 5.1 Calcium Phosphorus Magnesium Ferritin Total Bilirubin AST ALT Alkaline Phosphatase LD Total C-Reactive Protein Total Protein Albumin Vitamin B12 Cancelled 12/28/19 12/28/19 12:45 12:45 WBC RBC Hgb Hct MCV MCH MCHC RDW Plt Count MPV Absolute Neuts (auto) Neutrophils % Lymphocytes % Monocytes % Eosinophils % Basophils % Nucleated RBC % ESR 25 PT with INR INR PTT (Actin FS) D-Dimer 1103 H Anticoagulation Therapy Puncture Site Patient Temperature ABG pH ABG pCO2 ABG pO2 ABG HCO3 ABG O2 Sat (Measured) ABG O2 Content ABG Base Excess Jason Test Patient On Oxygen O2 Delivery Device Oxygen Flow Rate Vent Mode Vent Rate Mechanical Rate PEEP Pressure Support Vent Sodium Potassium Chloride Carbon Dioxide Anion Gap BUN Creatinine Est GFR (CKD-EPI)AfAm Est GFR (CKD-EPI)NonAf Random Glucose Hemoglobin A1c % Calcium Phosphorus Magnesium Ferritin Total Bilirubin AST ALT Alkaline Phosphatase LD Total C-Reactive Protein Total Protein Albumin Vitamin B12 Active Medications Generic Name Dose Route Start Last Admin Trade Name Freq PRN Reason Stop Dose Admin Acetaminophen 1,000 mg 12/28/19 02:36 12/28/19 09:25 Ofirmev Injection - IVPB 12/29/19 02:36 1,000 mg Q6H PRN Administration PAIN LEVEL 1-5 Albuterol Sulfate 2 puff 12/28/19 08:16 12/28/19 09:20 Ventolin Hfa Inhaler - IH 2 puff Q4H PRN Administration SHORT OF BREATH/WHEEZING Collagenase 1 applic 12/28/19 10:00 12/28/19 14:24 Santyl - TP 1 applic DAILY [facility] Administration Protocol Enoxaparin Sodium 40 mg 12/28/19 10:00 12/28/19 09:14 Lovenox - SQ 40 mg DAILY [place] Administration Piperacillin Sod/Tazobactam 50 mls @ 100 mls/hr 12/28/19 18:00 Sod 3.375 gm/ Dextrose IVPB Q8H-IV [place] Protocol Oxycodone HCl 5 mg 12/28/19 09:15 12/28/19 14:21 Roxicodone - PO 5 mg Q4H PRN Administration PAIN LEVEL 7 - 10 X-ray of the right leg, 2 views There is evidence of osteopenia. The alignment is satisfactory. No acute fracture, dislocation or gross focal bone destruction is identified. Vascular calcifications are present, posteriorly. There are mild to moderate degenerative changes in the knee joint. The ankle mortise is intact. Impression: See discussion above Correlate clinically to determine further evaluation considering the clinical history of rule out osteomyelitis. X-ray of the right foot, 3 views There is evidence of osteopenia. The alignment is satisfactory without gross evidence of an acute fracture, dislocation or bone destruction. No gross soft tissue swelling is identified Impression: See discussion above. Correlate clinically to determine further evaluation considering the clinical history of rule out osteomyelitis. ASSESSMENT/PLAN: 79 yo female with a PMHx of PVD, COPD, CAD (s/p PCI), HLD & diverticulosis now presenting with b/l leg ulcer with increased drainage over last week. Wound has gotten worse since her surgery on b/l legs for venous peripheral vascular disease. See's Dr. Graham at [facility]. Admitted to the hospital for cellulitis. RLE CELLULITIS - Hx of PVD, acute on chronic ulcer left leg and rt plantar foot and leg - xray of Right leg results above - Wound cultures pending - Blood culture x 2 samples - Previous cultures from 09/2019 grew pseudomonas - ID consulted (Dr. Bates) IV Zosyn started last night continue zosyn - IV Vancomycin given x1 in ED - Wound Care/Vascular (Dr. Graham) Bedside blister debrided. Culture of abscess fluid sent off. Santyl to all wounds daily - Continue Cilostazol Elevated Inflammatory makers - Elevated D-Dimer - elevated CRP, downtrending - covid pending COPD - continue home meds spiriva symbicort albuterol inhaler PRN Hypoalbuminemia - Likely 2/2 malnutrition and losses 2/2 chronic inflammation. - Consult maintenance technician 2nd shift DVT prophylaxis Lovenox 40 mg Sq Visit type - Emergency Visit Emergency Visit: Yes ED Registration Date: 12/27/19 Care time: The patient presented to the Emergency Department on the above date and was hospitalized for further evaluation of their emergent condition. - New Patient This patient is new to me today: Yes Date on this admission: 12/27/19 - Critical Care Critical Care patient: No - Discharge Referral Referred to [facility] Med P.C.: No - Medication Review Med list reviewed for High Risk Meds patients 65 and older: Yes ATTENDING PHYSICIAN STATEMENT I saw and evaluated the patient. I reviewed the resident's note and discussed the case with the resident. I agree with the resident's findings and plan as documented. SUBJECTIVE: OBJECTIVE: ASSESSMENT AND PLAN:
--- NOTE | 2019-12-28 15:44 | EKG ---
Test Reason : Blood Pressure : / mmHG Vent. Rate : 097 BPM Atrial Rate : 097 BPM P-R Int : 110 ms QRS Dur : 082 ms QT Int : 366 ms P-R-T Axes : 082 055 -28 degrees QTc Int : 464 ms SINUS RHYTHM WITH SINUS ARRHYTHMIA WITH SHORT IL POSSIBLE LEFT ATRIAL ENLARGEMENT POSSIBLE INFERIOR INFARCT , AGE UNDETERMINED ABNORMAL ECG WHEN COMPARED WITH ECG OF 19-AUG-2018 15:01, SINUS RHYTHM HAS REPLACED JUNCTIONAL RHYTHM NONSPECIFIC T WAVE ABNORMALITY, IMPROVED IN LATERAL LEADS Confirmed by REYMUNDO CHAPMAN MD ([id number]) on 12/28/2019 3:44:23 PM Referred By: Confirmed By:REYMUNDO CHAPMAN MD
--- NOTE | 2019-12-28 18:28 | PN ---
Teaching Attending Note Name of Resident: Yael Calabrese ATTENDING PHYSICIAN STATEMENT I saw and evaluated the patient. I reviewed the resident's note and discussed the case with the resident. I agree with the resident's findings and plan as documented. SUBJECTIVE: Patient is feeling comfortable, stating that her dr. was just here and wrapped her feet, and refusing to un-wrapp the feet at this time OBJECTIVE: Vital Signs Temperature 97.5 F L 12/28/19 14:00 Pulse Rate 82 12/28/19 14:00 Respiratory Rate 16 12/28/19 14:00 Blood Pressure 100/52 L 12/28/19 14:00 O2 Sat by Pulse Oximetry (%) 99 12/28/19 09:22 PE:per resident's note refused to unwrapp her feet CBCD WBC 8.3 K/mm3 (4.0-10.0) 12/28/19 07:06 RBC 3.79 M/mm3 (3.60-5.2) 12/28/19 07:06 Hgb 13.2 GM/dL (10.7-15.3) 12/28/19 07:06 Hct 39.6 % (32.4-45.2) 12/28/19 07:06 MCV 104.5 fl (80-96) H 12/28/19 07:06 MCHC 33.4 g/dl (32.0-36.0) 12/28/19 07:06 RDW 13.5 % (11.6-15.6) 12/28/19 07:06 Plt Count 244 K/MM3 (134-434) 12/28/19 07:06 MPV 8.3 fl (7.5-11.1) 12/28/19 07:06 CMP Sodium 139 mmol/L (136-145) 12/28/19 07:06 Potassium 3.5 mmol/L (3.5-5.1) 12/28/19 07:06 Chloride 106 mmol/L (98-107) 12/28/19 07:06 Carbon Dioxide 27 mmol/L (21-32) 12/28/19 07:06 Anion Gap 7 MMOL/L (8-16) L 12/28/19 07:06 BUN 10.4 mg/dL (7-18) 12/28/19 07:06 Creatinine 0.4 mg/dL (0.55-1.3) L 12/28/19 07:06 Random Glucose 100 mg/dL (74-106) 12/28/19 07:06 Calcium 7.8 mg/dL (8.5-10.1) L 12/28/19 07:06 Total Bilirubin 1.3 mg/dL (0.2-1) H 12/28/19 07:06 AST 41 U/L (15-37) H 12/28/19 07:06 ALT 21 U/L (13-61) 12/28/19 07:06 Alkaline Phosphatase 109 U/L (45-117) 12/28/19 07:06 Total Protein 5.6 g/dl (6.4-8.2) L 12/28/19 07:06 Albumin 2.1 g/dl (3.4-5.0) L 12/28/19 07:06 Current Medications Generic Name Dose Route Start Last Admin Trade Name Freq PRN Reason Stop Dose Admin Acetaminophen 1,000 mg 12/28/19 02:36 12/28/19 09:25 Ofirmev Injection - IVPB 12/29/19 02:36 1,000 mg Q6H PRN Administration PAIN LEVEL 1-5 Albuterol Sulfate 2 puff 12/28/19 15:15 Ventolin Hfa Inhaler - IH Q4H PRN WHEEZING Budesonide/Formoterol Fumarate 1 puff 12/29/19 10:00 Symbicort 160/4.5mcg - IH DAILY [facility] Cilostazol 50 mg 12/28/19 22:00 Pletal - PO BID [place] Collagenase 1 applic 12/28/19 10:00 12/28/19 14:24 Santyl - TP 1 applic DAILY [place] Administration Protocol Enoxaparin Sodium 40 mg 12/28/19 10:00 12/28/19 09:14 Lovenox - SQ 40 mg DAILY [place] Administration Piperacillin Sod/Tazobactam 50 mls @ 100 mls/hr 12/28/19 18:00 12/28/19 17:15 Sod 3.375 gm/ Dextrose IVPB 100 mls/hr Q8H-IV [place] Administration Protocol Lactobacillus Acidophilus 1 tab 12/29/19 10:00 Bacid - PO DAILY [place] Oxycodone HCl 5 mg 12/28/19 09:15 12/28/19 14:21 Roxicodone - PO 5 mg Q4H PRN Administration PAIN LEVEL 7 - 10 Rosuvastatin Calcium 20 mg 12/28/19 22:00 Crestor - PO HS [facility] Tiotropium [place] 2 puff 12/29/19 10:00 Spiriva Respimat IH DAILY [facility] Home Medications Medication Instructions Recorded Budesonide/Formeterol Fumarate 1 puff IH DAILY 11/01/16 [SYMBICORT 160/4.5mcg -] Cilostazol 50 tab PO BID 11/01/16 Albuterol Sulfate [Albuterol 2 puff IH Q4H PRN 08/21/18 Sulfate Hfa] Tiotropium [place] [Spiriva] 2 unit NEB DAILY 08/21/18 Lactobacillus Acidophilus 1 each PO DAILY #30 capsule 08/25/18 [Acidophilus Lactobacilli] Rosuvastatin [Crestor -] 20 mg PO HS #30 tablet 08/25/18 Alendronate Sodium [Fosamax] 1 tab WEEKLY 12/28/19 Amoxicillin/Potassium Clav 1 tab PO DAILY 12/28/19 [Augmentin 875-125 Tablet] Microbiology 12/28/19 09:53 Foot - Right Wound Culture - Preliminary 12/27/19 17:00 Wound Gram Stain - Final 12/27/19 17:00 Wound Wound Culture - Preliminary Pseudomonas Species Presumptive Mrsa (Pbp2a Pos) 12/27/19 17:00 Wound Gram Stain - Final 12/27/19 17:00 Wound Wound Culture - Preliminary Pseudomonas Species Pseudomonas Species#2 Non Lactose Fermenting Gnb Presumptive Mrsa (Pbp2a Pos) 12/27/19 17:00 Blood - Peripheral Venous Blood Culture - Preliminary NO GROWTH OBTAINED AFTER 24 HOURS, INCUBATION TO CONTINUE FOR 4 DAYS. 12/27/19 17:00 Blood - Peripheral Venous Blood Culture - Preliminary NO GROWTH OBTAINED AFTER 24 HOURS, INCUBATION TO CONTINUE FOR 4 DAYS. ASSESSMENT AND PLAN: This patient is an 79yof with a PMHx of PVD, COPD, CAD (s/p PCI), HLD & diverti culosis now presenting with b/l leg ulcer with increased drainage over last week s/p surgery of b/l lower extremities , follows Dr. Bearden at [facility]. Admitted to the hospital for having acute cellulitis with abscess draining. # Acute bl lower extremities CELLULITIS with right plantar blister with an abscess draining. On Iv abx zosyn , s/p vanco. follow the cx and sensitivity s/p debridment by Dr bearden, vascular surgeon. as per vascular , cx of an abscess was send, and ordered Santyl to all the wounds #PVD: continue Plental, and crestor # Covid pending : follow markers # Hx of COPD stable : continue home meds, symbicort and spiriva #Hx of CAD (s/p PCI): #Hx of dicerticulosis: stable DVT Px: Lovenox 40 mg Sq .
[2019-12-28] MEDS: ROSUVASTATIN CA 20 MG TABLET (FP) PO SCH (21:09)
[2019-12-28] MEDS: CILOSTAZOL 50 MG TABLET PO SCH (21:09)
[2019-12-28] MEDS ORDERED: CILOSTAZOL 50 MG TABLET PO SCH (22:00)
[2019-12-29] MEDS ORDERED: DEXTROSE 5%-WATER - 50 ML IVPB ONE ×3 (01:00→18:53)
[2019-12-29] MEDS ORDERED: PIPERACILLIN/TAZOBACTAM 3.375 GM VIAL IVPB ONE ×3 (01:00→18:53)
[2019-12-29] MEDS: PIPERACILLIN/TAZOB 3.375 GM 3.375 GM in DEXTROSE 5%-WATER - 50 ML IVPB SCH ×3 (01:37→18:56)
[2019-12-29] MEDS: oxyCODONE HCL 5 MG TABLET PO PRN ×3 (07:00→22:09)
[2019-12-29 08:20] LABS: HEMATOCRIT 38.5 % (32.4-45.2); MCH 35.6 pg (25.7-33.7); MCHC 33.8 g/dl (32.0-36.0); MEAN CELL VOLUME 105.2 fl (80-96); MEAN PLT VOLUME 8.4 fl (7.5-11.1); PLATELET COUNT 213 K/MM3 (134-434); RBC 3.66 M/mm3 (3.60-5.2); RDW 13.6 % (11.6-15.6); WHITE BLOOD COUNT 7.2 K/mm3 (4.0-10.0)
[2019-12-29 08:36] LABS: PHOSPHOROUS 3.1 mg/dL (2.5-4.9)
[2019-12-29] MEDS ORDERED: PT OWN MED DRAWER 7, Y5N ONE ×2 (09:49→21:03)
[2019-12-29] MEDS: LACTOBACILLUS ACIDOPHILUS 1 TABLET PO SCH (09:53)
[2019-12-29] MEDS: BUDESONIDE/FORMETEROL FUMARATE 160/4.5 mcg INHALER IH SCH (09:53)
[2019-12-29] MEDS: ENOXAPARIN NA (PORCINE) 40 MG/0.4 ML DISP.SYRIN SQ SCH (09:53)
[2019-12-29] MEDS: CILOSTAZOL 50 MG TABLET PO SCH ×2 (09:54→22:08)
[2019-12-29] MEDS: COLLAGENASE CLOSTRIDIUM HIST. 30 GRAMS TUBE TP SCH (09:54)
--- NOTE | 2019-12-29 10:06 | PN ---
Progress Note (short form) - Note Progress Note: Patient is feeling better, NAD Vital Signs Temperature 97.4 F L 12/29/19 07:00 Pulse Rate 78 12/29/19 07:00 Respiratory Rate 20 12/29/19 07:00 Blood Pressure 103/40 L 12/29/19 07:00 O2 Sat by Pulse Oximetry (%) 97 12/29/19 07:00 GENERAL: The patient is awake, alert, and fully oriented, in no acute distress. HEAD: Normal with no signs of trauma. EYES: PERRL, extraocular movements intact, sclera anicteric, conjunctiva clear. ENT: Ears normal, oropharynx clear without exudates, moist mucous membranes. NECK: Trachea midline, full range of motion, supple. LUNGS: Breath sounds equal, clear to auscultation bilaterally, no wheezes, no crackles, no accessory muscle use. HEART: Regular rate and rhythm, S1, S2 without murmur, rub or gallop. ABDOMEN: Soft, nontender, nondistended, normoactive bowel sounds, no guarding, no rebound, no hepatosplenomegaly, no masses. EXTREMITIES: 2+ pulses, warm, bl LE wrapped with mara bandage by Dr bearden NEUROLOGICAL: Cranial nerves II through XII grossly intact. Normal speech, gait not observed. PSYCH: Normal mood, normal affect. SKIN: Warm, dry, normal turgor, no rashes or lesions noted CBCD WBC 7.2 K/mm3 (4.0-10.0) 12/29/19 06:35 RBC 3.66 M/mm3 (3.60-5.2) 12/29/19 06:35 Hgb 13.0 GM/dL (10.7-15.3) 12/29/19 06:35 Hct 38.5 % (32.4-45.2) 12/29/19 06:35 MCV 105.2 fl (80-96) H 12/29/19 06:35 MCHC 33.8 g/dl (32.0-36.0) 12/29/19 06:35 RDW 13.6 % (11.6-15.6) 12/29/19 06:35 Plt Count 213 K/MM3 (134-434) 12/29/19 06:35 MPV 8.4 fl (7.5-11.1) 12/29/19 06:35 CMP Sodium 139 mmol/L (136-145) 12/28/19 07:06 Potassium 3.5 mmol/L (3.5-5.1) 12/28/19 07:06 Chloride 106 mmol/L (98-107) 12/28/19 07:06 Carbon Dioxide 27 mmol/L (21-32) 12/28/19 07:06 Anion Gap 7 MMOL/L (8-16) L 12/28/19 07:06 BUN 10.4 mg/dL (7-18) 12/28/19 07:06 Creatinine 0.4 mg/dL (0.55-1.3) L 12/28/19 07:06 Random Glucose 100 mg/dL (74-106) 12/28/19 07:06 Calcium 7.8 mg/dL (8.5-10.1) L 12/28/19 07:06 Total Bilirubin 1.3 mg/dL (0.2-1) H 12/28/19 07:06 AST 41 U/L (15-37) H 12/28/19 07:06 ALT 21 U/L (13-61) 12/28/19 07:06 Alkaline Phosphatase 109 U/L (45-117) 12/28/19 07:06 Total Protein 5.6 g/dl (6.4-8.2) L 12/28/19 07:06 Albumin 2.1 g/dl (3.4-5.0) L 12/28/19 07:06 Current Medications Generic Name Dose Route Start Last Admin Trade Name Freq PRN Reason Stop Dose Admin Albuterol Sulfate 2 puff 12/28/19 15:15 Ventolin Hfa Inhaler - IH Q4H PRN WHEEZING Budesonide/Formoterol Fumarate 1 puff 12/29/19 10:00 12/29/19 09:53 Symbicort 160/4.5mcg - IH 1 puff DAILY [facility] Administration Cilostazol 50 mg 12/28/19 22:00 12/29/19 09:54 Pletal - PO 50 mg BID [facility] Administration Collagenase 1 applic 12/28/19 10:00 12/29/19 09:54 Santyl - TP 1 applic DAILY [facility] Administration Protocol Enoxaparin Sodium 40 mg 12/28/19 10:00 12/29/19 09:53 Lovenox - SQ 40 mg DAILY [facility] Administration Piperacillin Sod/Tazobactam 50 mls @ 100 mls/hr 12/28/19 18:00 12/29/19 09:53 Sod 3.375 gm/ Dextrose IVPB 100 mls/hr Q8H-IV [facility] Administration Protocol Lactobacillus Acidophilus 1 tab 12/29/19 10:00 12/29/19 09:53 Bacid - PO 1 tab DAILY [facility] Administration Oxycodone HCl 5 mg 12/28/19 09:15 12/29/19 07:00 Roxicodone - PO 5 mg Q4H PRN Administration PAIN LEVEL 7 - 10 Rosuvastatin Calcium 20 mg 12/28/19 22:00 12/28/19 21:09 Crestor - PO 20 mg HS [facility] Administration Tiotropium [place] 2 puff 12/29/19 10:00 Spiriva Respimat IH DAILY [facility] Home Medications Medication Instructions Recorded Budesonide/Formeterol Fumarate 1 puff IH DAILY 11/01/16 [SYMBICORT 160/4.5mcg -] Cilostazol 50 tab PO BID 11/01/16 Albuterol Sulfate [Albuterol 2 puff IH Q4H PRN 08/21/18 Sulfate Hfa] Tiotropium [place] [Spiriva] 2 unit NEB DAILY 08/21/18 Lactobacillus Acidophilus 1 each PO DAILY #30 capsule 08/25/18 [Acidophilus Lactobacilli] Rosuvastatin [Crestor -] 20 mg PO HS #30 tablet 08/25/18 Alendronate Sodium [Fosamax] 1 tab WEEKLY 12/28/19 Amoxicillin/Potassium Clav 1 tab PO DAILY 12/28/19 [Augmentin 875-125 Tablet] cXR: MILD CARDIOMEGALY, NO ACUTE LUNG DZ XRAY OF THE RIGHT LEG: NO FX, + FOR VASCULAR CALCIFICATIONS, MILD TO MODERATE DEGENERATIVE CHANGES IN THE KNEE JOINT. Microbiology 12/28/19 09:53 Foot - Right Wound Culture - Preliminary 12/27/19 17:00 Wound Gram Stain - Final 12/27/19 17:00 Wound Wound Culture - Preliminary Pseudomonas Species Presumptive Mrsa (Pbp2a Pos) 12/27/19 17:00 Wound Gram Stain - Final 12/27/19 17:00 Wound Wound Culture - Preliminary Pseudomonas Species Pseudomonas Species#2 Non Lactose Fermenting Gnb Presumptive Mrsa (Pbp2a Pos) 12/27/19 17:00 Blood - Peripheral Venous Blood Culture - Preliminary NO GROWTH OBTAINED AFTER 24 HOURS, INCUBATION TO CONTINUE FOR 4 DAYS. 12/27/19 17:00 Blood - Peripheral Venous Blood Culture - Preliminary NO GROWTH OBTAINED AFTER 24 HOURS, INCUBATION TO CONTINUE FOR 4 DAYS. AssessmENT AND PLAN: This patient is an 79yof with a PMHx of PVD, COPD, CAD (s/p PCI), HLD & diverticulosis now presenting with b/l leg ulcer with increased drainage over last week s/p surgery of b/l lower extremities , follows Dr. Bearden at [facility]. Admitted to the hospital for having acute cellulitis with abscess draining. # Acute bl lower extremities CELLULITIS with right plantar blister with an abscess draining. On Iv abx zosyn , s/p vanco. follow the cx and sensitivity s/p debridment by Dr bearden, vascular surgeon. as per vascular , cx of an abscess was send, and ordered Santyl to all the wounds #PVD: continue Plental, and crestor # Covid pending : follow markers # Hx of COPD stable : continue home meds, symbicort and spiriva #Hx of CAD (s/p PCI): #Hx of dicerticulosis: stable DVT Px: Lovenox 40 mg Sq cbc cmp esr crp Visit type - Emergency Visit Emergency Visit: Yes ED Registration Date: 12/27/19 Care time: The patient presented to the Emergency Department on the above date and was hospitalized for further evaluation of their emergent condition. - New Patient This patient is new to me today: No - Critical Care Critical Care patient: No - Discharge Referral Referred to [facility] No - Medication Review Med list reviewed for High Risk Meds patients 65 and older: Yes
[2019-12-29] MEDS ORDERED: VANCOMYCIN 1 GRAM (PRE-DOCKED) 1,000 MG/250 ML BAG IVPB SCH (10:28)
[2019-12-29] MEDS: TIOTROPIUM BROMIDE 2.5 MCG (SPIRIVA) RESPIMAT INHALER IH SCH (11:53)
--- NOTE | 2019-12-29 15:39 | PN ---
Progress Note, Physician History of Present Illness: Pt states she feels well other than some throbbing pain in LE. Afebrile, without distress. - Current Medication List Current Medications: Active Medications Albuterol Sulfate (Ventolin Hfa Inhaler -) 2 puff IH Q4H PRN PRN Reason: WHEEZING Amino Acids (Prosource No Carb Liquid Pkt) 30 ml PO BID@0800,1730 [facility] Budesonide/Formoterol Fumarate (Symbicort 160/4.5mcg -) 1 puff IH DAILY [facility] Last Admin: 12/29/19 09:53 Dose: 1 puff Documented by: Cilostazol (Pletal -) 50 mg PO BID [facility] Last Admin: 12/29/19 09:54 Dose: 50 mg Documented by: Collagenase (Santyl -) 1 applic TP DAILY [facility]; Protocol Last Admin: 12/29/19 09:54 Dose: 1 applic Documented by: Enoxaparin Sodium (Lovenox -) 40 mg SQ DAILY [facility] Last Admin: 12/29/19 09:53 Dose: 40 mg Documented by: Piperacillin Sod/Tazobactam (Sod 3.375 gm/ Dextrose) 50 mls @ 100 mls/hr IVPB Q 8H-IV [facility]; Protocol Last Admin: 12/29/19 09:53 Dose: 100 mls/hr Documented by: Vancomycin HCl (Vancomycin (Pre-Docked)) 1,000 mg in 250 mls @ 166.667 mls/hr IVPB Q12H [facility]; Protocol Stop: 12/29/19 23:57 Last Admin: 12/29/19 11:02 Dose: 166.667 mls/hr Documented by: Vancomycin HCl 750 mg/ (Dextrose) 250 mls @ 250 mls/hr IVPB BID [facility]; Protocol Lactobacillus Acidophilus (Bacid -) 1 tab PO DAILY [facility] Last Admin: 12/29/19 09:53 Dose: 1 tab Documented by: Oxycodone HCl (Roxicodone -) 5 mg PO Q4H PRN PRN Reason: PAIN LEVEL 7 - 10 Last Admin: 12/29/19 15:14 Dose: 5 mg Documented by: Rosuvastatin Calcium (Crestor -) 20 mg PO HS [facility] Last Admin: 12/28/19 21:09 Dose: 20 mg Documented by: Tiotropium [place] (Spiriva Respimat) 2 puff IH DAILY [facility] Last Admin: 12/29/19 11:53 Dose: 2 puff Documented by: - Objective Vital Signs: Vital Signs Temperature 98.1 F 12/29/19 11:00 Pulse Rate 79 12/29/19 11:00 Respiratory Rate 18 12/29/19 11:00 Blood Pressure 103/47 L 12/29/19 11:00 O2 Sat by Pulse Oximetry (%) 95 12/29/19 11:00 Constitutional: Yes: No Distress, Calm Cardiovascular: Yes: Regular Rate and Rhythm Respiratory: Yes: Regular Gastrointestinal: Yes: Normal Bowel Sounds, Soft Genitourinary: Yes: WNL Wound/Incision: Yes: Dressing Dry and Intact (refuses wound evaluation at this time) Labs: CBC, BMP 12/29/19 06:35 12/28/19 07:06 INR, PTT INR 1.03 (0.83-1.09) 12/27/19 17:00 - ....Imaging X-ray: Report Reviewed Problem List - Problems (1) Cellulitis of foot Code(s): L03.119 - CELLULITIS OF UNSPECIFIED PART OF LIMB (2) Leg ulcer Code(s): L97.909 - NON-PRS CHRONIC ULC UNSP PRT OF UNSP LOW LEG W UNSP SEVERITY Qualifiers: Laterality: right Non-pressure ulcer stage: unspecified non-pressure ulcer stage Qualified Code(s): L97.919 - Non-pressure chronic ulcer of unspecified part of right lower leg with unspecified severity (3) Claudication in peripheral vascular disease Code(s): I73.9 - PERIPHERAL VASCULAR DISEASE, UNSPECIFIED (4) Idiopathic chronic venous hypertension of right lower extremity with ulcer and inflammation Code(s): I87.331 - CHRONIC VENOUS HTN W ULCER AND INFLAMMATION OF R LOW EXTREM; L97.919 - NON-PRS CHRONIC ULC UNSP PRT OF R LOW LEG W UNSP SEVERITY (5) Venous stasis dermatitis of both lower extremities Code(s): I87.2 - VENOUS INSUFFICIENCY (CHRONIC) (PERIPHERAL) Assessment/Plan Infected LE ulcers Rt plantar ulcer PVD CAD COPD Venous stasis -- wound culture isolates noted: Pseudomonas, MRSA -- Blood cultures neg 24h, CRP trending down -- Zosyn/Vancomycin for now -- monitor renal function, Vancomycin levels -- continue wound care
[2019-12-29] MEDS: AMINO ACIDS/PROTEIN HYDROLYS 30 ML LIQUID.PKT PO SCH (18:56)
[2019-12-29] MEDS ORDERED: VANCOMYCIN 1,000 MG in DEXTROSE 5%-WATER - 250 ML IVPB SCH (22:00)
[2019-12-29] MEDS: VANCOMYCIN 750 MG in DEXTROSE 5%-WATER - 250 ML IVPB SCH (22:08)
[2019-12-29] MEDS: ROSUVASTATIN CA 20 MG TABLET (FP) PO SCH (22:08)
[2019-12-30] MEDS ORDERED: DEXTROSE 5%-WATER - 50 ML IVPB ONE ×3 (02:38→17:29)
[2019-12-30] MEDS ORDERED: PIPERACILLIN/TAZOBACTAM 3.375 GM VIAL IVPB ONE ×3 (02:38→17:28)
[2019-12-30] MEDS: PIPERACILLIN/TAZOB 3.375 GM 3.375 GM in DEXTROSE 5%-WATER - 50 ML IVPB SCH ×3 (02:45→17:52)
[2019-12-30 08:23] LABS: BASO % 1.1 % (0-2.0); EOS % 6.7 % (0-4.5); HEMATOCRIT 37.5 % (32.4-45.2); HEMOGLOBIN 12.6 GM/dL (10.7-15.3); LYMPH % 18.1 % (8-40); MCH 35.1 pg (25.7-33.7); MCHC 33.6 g/dl (32.0-36.0); MEAN CELL VOLUME 104.4 fl (80-96); MEAN PLT VOLUME 8.1 fl (7.5-11.1); NEUT % 58.1 % (42.8-82.8); PLATELET COUNT 227 K/MM3 (134-434); RBC 3.59 M/mm3 (3.60-5.2); RDW 13.4 % (11.6-15.6); WHITE BLOOD COUNT 6.6 K/mm3 (4.0-10.0)
[2019-12-30 08:57] LABS: ALBUMIN 1.9 g/dl (3.4-5.0); BLOOD UREA NITROGEN 8.8 mg/dL (7-18); CALCIUM 7.8 mg/dL (8.5-10.1); CREATININE 0.4 mg/dL (0.55-1.3); MAGNESIUM 1.9 mg/dL (1.8-2.4); POTASSIUM 3.5 mmol/L (3.5-5.1); TOT PROT 5.5 g/dl (6.4-8.2)
[2019-12-30] MEDS: VANCOMYCIN 750 MG in DEXTROSE 5%-WATER - 250 ML IVPB SCH ×2 (09:39→22:33)
[2019-12-30] MEDS ORDERED: PT OWN MED DRAWER 7, Y5N ONE (09:47)
[2019-12-30] MEDS: CILOSTAZOL 50 MG TABLET PO SCH ×2 (09:51→22:33)
[2019-12-30] MEDS: LACTOBACILLUS ACIDOPHILUS 1 TABLET PO SCH (09:51)
[2019-12-30] MEDS: AMINO ACIDS/PROTEIN HYDROLYS 30 ML LIQUID.PKT PO SCH ×2 (09:51→17:52)
[2019-12-30] MEDS: ENOXAPARIN NA (PORCINE) 40 MG/0.4 ML DISP.SYRIN SQ SCH (09:51)
[2019-12-30] MEDS: COLLAGENASE CLOSTRIDIUM HIST. 30 GRAMS TUBE TP SCH (09:52)
[2019-12-30] MEDS: BUDESONIDE/FORMETEROL FUMARATE 160/4.5 mcg INHALER IH SCH (09:52)
[2019-12-30] MEDS: TIOTROPIUM BROMIDE 2.5 MCG (SPIRIVA) RESPIMAT INHALER IH SCH (09:52)
[2019-12-30 10:03] LABS: ERYTHROCYTE SEDIMENTATION RATE 35 mm/hr (0-30)
--- NOTE | 2019-12-30 13:40 | PN ---
Physical Exam: SUBJECTIVE: Patient seen and examined. She reports some soreness but is overall feeling better. She gets some shortness of breath when moving around but quickly recovers. OBJECTIVE: Vital Signs Period Temp Pulse Resp BP Sys/Nelson Pulse Ox Last 24 Hr 97.9 F-98.3 F 86-102 18-20 105-146/50-70 91-98 GENERAL: A&Ox3, no acute distress HEAD: Atraumatic. EYES: PERRL, EOM intact. ENT: Ears normal, nares patent, moist mucous membranes. NECK: Trachea midline, full range of motion. LUNGS: Clear to auscultation bilaterally. HEART: RRR, no murmur. ABDOMEN: Soft, nontender, nondistended, normoactive bowel sounds. EXTREMITIES: Warm, well-perfused, erythema b/l. Bandaged. NEUROLOGICAL: Cranial nerves II through XII grossly intact. Normal speech. PSYCH: Normal mood, normal affect. SKIN: Warm, dry, normal turgor. Laboratory Results - last 24 hr 12/30/19 12/30/19 07:18 07:18 WBC 6.6 RBC 3.59 L Hgb 12.6 Hct 37.5 MCV 104.4 H MCH 35.1 H MCHC 33.6 RDW 13.4 Plt Count 227 MPV 8.1 Absolute Neuts (auto) 3.9 Neutrophils % 58.1 Lymphocytes % 18.1 D Monocytes % 16.0 H Eosinophils % 6.7 H D Basophils % 1.1 Nucleated RBC % 0 ESR 35 H Sodium 137 Potassium 3.5 Chloride 102 Carbon Dioxide 26 Anion Gap 9 BUN 8.8 Creatinine 0.4 L Est GFR (CKD-EPI)AfAm 114.01 Est GFR (CKD-EPI)NonAf 98.37 Random Glucose 89 Calcium 7.8 L Magnesium 1.9 Total Bilirubin 1.0 AST 34 ALT 22 Alkaline Phosphatase 94 C-Reactive Protein 5.8 H Total Protein 5.5 L Albumin 1.9 L Active Medications Generic Name Dose Route Start Last Admin Trade Name Freq PRN Reason Stop Dose Admin Albuterol Sulfate 2 puff 12/28/19 15:15 Ventolin Hfa Inhaler - IH Q4H PRN WHEEZING Amino Acids 30 ml 12/29/19 17:30 12/30/19 09:51 Prosource No Carb Liquid Pkt PO 30 ml BID@0800,1730 [facility] Administration Budesonide/Formoterol Fumarate 1 puff 12/29/19 10:00 12/30/19 09:52 Symbicort 160/4.5mcg - IH 1 puff DAILY [facility] Administration Cilostazol 50 mg 12/28/19 22:00 12/30/19 09:51 Pletal - PO 50 mg BID [facility] Administration Collagenase 1 applic 12/28/19 10:00 12/30/19 09:52 Santyl - TP 1 applic DAILY [facility] Administration Protocol Enoxaparin Sodium 40 mg 12/28/19 10:00 12/30/19 09:51 Lovenox - SQ 40 mg DAILY [facility] Administration Piperacillin Sod/Tazobactam 50 mls @ 100 mls/hr 12/28/19 18:00 12/30/19 11:05 Sod 3.375 gm/ Dextrose IVPB 100 mls/hr Q8H-IV [facility] Administration Protocol Vancomycin HCl 750 mg/ 250 mls @ 250 mls/hr 12/29/19 22:00 12/30/19 09:39 Dextrose IVPB 250 mls/hr BID [facility] Administration Protocol Lactobacillus Acidophilus 1 tab 12/29/19 10:00 12/30/19 09:51 Bacid - PO 1 tab DAILY [facility] Administration Oxycodone HCl 5 mg 12/28/19 09:15 12/29/19 22:09 Roxicodone - PO 5 mg Q4H PRN Administration PAIN LEVEL 7 - 10 Rosuvastatin Calcium 20 mg 12/28/19 22:00 12/29/19 22:08 Crestor - PO 20 mg HS [facility] Administration Tiotropium [place] 2 puff 12/29/19 10:00 12/30/19 09:52 Spiriva Respimat IH 2 puff DAILY [facility] Administration ASSESSMENT/PLAN: 79 yo female with a PMHx of PVD, COPD, CAD (s/p PCI), HLD & diverticulosis now presenting with b/l leg ulcer with increased drainage over last week. Wound has gotten worse since her surgery on b/l legs for venous peripheral vascular disease. Admitted to the hospital for cellulitis. #RLE cellulitis - Hx of PVD, acute on chronic ulcer left leg and rt plantar foot and leg - xray of Right leg results above - Wound cultures MRSA and Pseudomonas - Blood cultures negative after 3 days - Zosyn - Vanc - Bacid - oxycodone PRN - Wound Care/Vascular (Dr. Graham) - continue Santyl - Continue Cilostazol - ID following #COPD - continue Spiriva, Symbicort, Albuterol #HLD - continue statin DVT Ppx Lovenox 40 mg Sq FEN no standing fluids monitor labs cholesterol/sodium/fat restricted diet dispo med/surg FULL CODE Visit type - Emergency Visit Emergency Visit: Yes ED Registration Date: 12/27/19 Care time: The patient presented to the Emergency Department on the above date and was hospitalized for further evaluation of their emergent condition. - New Patient This patient is new to me today: Yes Date on this admission: 12/30/19 - Critical Care Critical Care patient: No - Medication Review Med list reviewed for High Risk Meds patients 65 and older: Yes ATTENDING PHYSICIAN STATEMENT I saw and evaluated the patient. I reviewed the resident's note and discussed the case with the resident. I agree with the resident's findings and plan as documented. SUBJECTIVE: OBJECTIVE: ASSESSMENT AND PLAN:
--- NOTE | 2019-12-30 15:01 | PN ---
Progress Note, Physician History of Present Illness: Pt without new complaints. Has throbbing pain in Rt foot. Afebrile. MRI results noted. - Current Medication List Current Medications: Active Medications Albuterol Sulfate (Ventolin Hfa Inhaler -) 2 puff IH Q4H PRN PRN Reason: WHEEZING Amino Acids (Prosource No Carb Liquid Pkt) 30 ml PO BID@0800,1730 [facility] Last Admin: 12/30/19 09:51 Dose: 30 ml Documented by: Budesonide/Formoterol Fumarate (Symbicort 160/4.5mcg -) 1 puff IH DAILY [facility] Last Admin: 12/30/19 09:52 Dose: 1 puff Documented by: Cilostazol (Pletal -) 50 mg PO BID [facility] Last Admin: 12/30/19 09:51 Dose: 50 mg Documented by: Collagenase (Santyl -) 1 applic TP DAILY [facility]; Protocol Last Admin: 12/30/19 09:52 Dose: 1 applic Documented by: Enoxaparin Sodium (Lovenox -) 40 mg SQ DAILY [facility] Last Admin: 12/30/19 09:51 Dose: 40 mg Documented by: Piperacillin Sod/Tazobactam (Sod 3.375 gm/ Dextrose) 50 mls @ 100 mls/hr IVPB Q8H-IV [facility]; Protocol Last Admin: 12/30/19 11:05 Dose: 100 mls/hr Documented by: Vancomycin HCl 750 mg/ (Dextrose) 250 mls @ 250 mls/hr IVPB BID [facility]; Protocol Last Admin: 12/30/19 09:39 Dose: 250 mls/hr Documented by: Lactobacillus Acidophilus (Bacid -) 1 tab PO DAILY [facility] Last Admin: 12/30/19 09:51 Dose: 1 tab Documented by: Oxycodone HCl (Roxicodone -) 5 mg PO Q4H PRN PRN Reason: PAIN LEVEL 7 - 10 Last Admin: 12/29/19 22:09 Dose: 5 mg Documented by: Rosuvastatin Calcium (Crestor -) 20 mg PO HS [facility] Last Admin: 12/29/19 22:08 Dose: 20 mg Documented by: Tiotropium [place] (Spiriva Respimat) 2 puff IH DAILY [facility] Last Admin: 12/30/19 09:52 Dose: 2 puff Documented by: - Objective Vital Signs: Vital Signs Temperature 98.2 F 12/30/19 09:00 Pulse Rate 102 H 12/30/19 09:00 Respiratory Rate 20 12/30/19 09:00 Blood Pressure 134/54 L 12/30/19 09:00 O2 Sat by Pulse Oximetry (%) 98 12/30/19 09:00 Constitutional: Yes: No Distress, Calm Cardiovascular: Yes: Regular Rate and Rhythm Respiratory: Yes: Regular Gastrointestinal: Yes: Normal Bowel Sounds, Soft Genitourinary: Yes: WNL Wound/Incision: Yes: Dressing Dry and Intact Neurological: Yes: Alert Labs: CBC, BMP 12/30/19 07:18 12/30/19 07:18 INR, PTT INR 1.03 (0.83-1.09) 12/27/19 17:00 Microbiology 12/27/19 17:00 Wound Gram Stain - Final 12/27/19 17:00 Wound Wound Culture - Final Pseudomonas Aeruginosa Mr S Aureus 12/28/19 09:53 Foot - Right Gram Stain - Final 12/28/19 09:53 Foot - Right Wound Culture - Final Presumptive Mrsa (Pbp2a Pos) Pseudomonas Species 12/27/19 17:00 Wound Gram Stain - Final 12/27/19 17:00 Wound Wound Culture - Preliminary Pseudomonas Species Non Lactose Fermenting Gnb Mr S Aureus 12/27/19 17:00 Blood - Peripheral Venous Blood Culture - Preliminary NO GROWTH OBTAINED AFTER 48 HOURS, INCUBATION TO CONTINUE FOR 3 DAYS. 12/27/19 17:00 Blood - Peripheral Venous Blood Culture - Preliminary NO GROWTH OBTAINED AFTER 48 HOURS, INCUBATION TO CONTINUE FOR 3 DAYS. - ....Imaging MRI: Report Reviewed Problem List - Problems (1) Cellulitis of foot Code(s): L03.119 - CELLULITIS OF UNSPECIFIED PART OF LIMB (2) Leg ulcer Code(s): L97.909 - NON-PRS CHRONIC ULC UNSP PRT OF UNSP LOW LEG W UNSP SEVERITY Qualifiers: Laterality: right Non-pressure ulcer stage: unspecified non-pressure ulcer stage Qualified Code(s): L97.919 - Non-pressure chronic ulcer of unspecified p art of right lower leg with unspecified severity (3) Claudication in peripheral vascular disease Code(s): I73.9 - PERIPHERAL VASCULAR DISEASE, UNSPECIFIED (4) Idiopathic chronic venous hypertension of right lower extremity with ulcer and inflammation Code(s): I87.331 - CHRONIC VENOUS HTN W ULCER AND INFLAMMATION OF R LOW EXTREM; L97.919 - NON-PRS CHRONIC ULC UNSP PRT OF R LOW LEG W UNSP SEVERITY (5) Venous stasis dermatitis of both lower extremities Code(s): I87.2 - VENOUS INSUFFICIENCY (CHRONIC) (PERIPHERAL) Assessment/Plan Infected LE ulcers Rt plantar ulcer PVD CAD COPD Venous stasis -- MRI b/l +cellulitis, no abscess/OM -- wound culture +Pseudomonas, MRSA -- continue current antibiotics. Check Vancomycin trough level prior to tomorrow night's dose, monitor renal function -- Blood cultures neg 48h -- continue wound care
--- NOTE | 2019-12-30 17:36 | PN ---
Teaching Attending Note Name of Resident: Stephanie Fatima ATTENDING PHYSICIAN STATEMENT I saw and evaluated the patient. I reviewed the resident's note and discussed the case with the resident. I agree with the resident's findings and plan as documented. SUBJECTIVE: Patient is feeling better OBJECTIVE: Vital Signs Temperature 98.5 F 12/30/19 13:00 Pulse Rate 100 H 12/30/19 13:00 Respiratory Rate 20 12/30/19 13:00 Blood Pressure 128/68 12/30/19 13:00 O2 Sat by Pulse Oximetry (%) 98 12/30/19 09:00 PE: per resident's note CBCD WBC 6.6 K/mm3 (4.0-10.0) 12/30/19 07:18 RBC 3.59 M/mm3 (3.60-5.2) L 12/30/19 07:18 Hgb 12.6 GM/dL (10.7-15.3) 12/30/19 07:18 Hct 37.5 % (32.4-45.2) 12/30/19 07:18 MCV 104.4 fl (80-96) H 12/30/19 07:18 MCHC 33.6 g/dl (32.0-36.0) 12/30/19 07:18 RDW 13.4 % (11.6-15.6) 12/30/19 07:18 Plt Count 227 K/MM3 (134-434) 12/30/19 07:18 MPV 8.1 fl (7.5-11.1) 12/30/19 07:18 CMP Sodium 137 mmol/L (136-145) 12/30/19 07:18 Potassium 3.5 mmol/L (3.5-5.1) 12/30/19 07:18 Chloride 102 mmol/L (98-107) 12/30/19 07:18 Carbon Dioxide 26 mmol/L (21-32) 12/30/19 07:18 Anion Gap 9 MMOL/L (8-16) 12/30/19 07:18 BUN 8.8 mg/dL (7-18) 12/30/19 07:18 Creatinine 0.4 mg/dL (0.55-1.3) L 12/30/19 07:18 Random Glucose 89 mg/dL (74-106) 12/30/19 07:18 Calcium 7.8 mg/dL (8.5-10.1) L 12/30/19 07:18 Total Bilirubin 1.0 mg/dL (0.2-1) 12/30/19 07:18 AST 34 U/L (15-37) 12/30/19 07:18 ALT 22 U/L (13-61) 12/30/19 07:18 Alkaline Phosphatase 94 U/L (45-117) 12/30/19 07:18 Total Protein 5.5 g/dl (6.4-8.2) L 12/30/19 07:18 Albumin 1.9 g/dl (3.4-5.0) L 12/30/19 07:18 Current Medications Generic Name Dose Route Start Last Admin Trade Name Freq PRN Reason Stop Dose Admin Albuterol Sulfate 2 puff 12/28/19 15:15 Ventolin Hfa Inhaler - IH Q4H PRN WHEEZING Amino Acids 30 ml 12/29/19 17:30 12/30/19 09:51 Prosource No Carb Liquid Pkt PO 30 ml BID@0800,1730 [facility] Administration Budesonide/Formoterol Fumarate 1 puff 12/29/19 10:00 12/30/19 09:52 Symbicort 160/4.5mcg - IH 1 puff DAILY [facility] Administration Cilostazol 50 mg 12/28/19 22:00 12/30/19 09:51 Pletal - PO 50 mg BID [facility] Administration Collagenase 1 applic 12/28/19 10:00 12/30/19 09:52 Santyl - TP 1 applic DAILY [facility] Administration Protocol Enoxaparin Sodium 40 mg 12/28/19 10:00 12/30/19 09:51 Lovenox - SQ 40 mg DAILY [facility] Administration Piperacillin Sod/Tazobactam 50 mls @ 100 mls/hr 12/28/19 18:00 12/30/19 11:05 Sod 3.375 gm/ Dextrose IVPB 100 mls/hr Q8H-IV [facility] Administration Protocol Vancomycin HCl 750 mg/ 250 mls @ 250 mls/hr 12/29/19 22:00 12/30/19 09:39 Dextrose IVPB 250 mls/hr BID [facility] Administration Protocol Lactobacillus Acidophilus 1 tab 12/29/19 10:00 12/30/19 09:51 Bacid - PO 1 tab DAILY [facility] Administration Oxycodone HCl 5 mg 12/28/19 09:15 12/29/19 22:09 Roxicodone - PO 5 mg Q4H PRN Administration PAIN LEVEL 7 - 10 Rosuvastatin Calcium 20 mg 12/28/19 22:00 12/29/19 22:08 Crestor - PO 20 mg HS [facility] Administration Tiotropium [place] 2 puff 12/29/19 10:00 12/30/19 09:52 Spiriva Respimat IH 2 puff DAILY [facility] Administration Home Medications Medication Instructions Recorded Budesonide/Formeterol Fumarate 1 puff IH DAILY 11/01/16 [SYMBICORT 160/4.5mcg -] Cilostazol 50 tab PO BID 11/01/16 Albuterol Sulfate [Albuterol 2 puff IH Q4H PRN 08/21/18 Sulfate Hfa] Tiotropium [place] [Spiriva] 2 unit NEB DAILY 08/21/18 Lactobacillus Acidophilus 1 each PO DAILY #30 capsule 08/25/18 [Acidophilus Lactobacilli] Rosuvastatin [Crestor -] 20 mg PO HS #30 tablet 08/25/18 Alendronate Sodium [Fosamax] 1 tab WEEKLY 12/28/19 Amoxicillin/Potassium Clav 1 tab PO DAILY 12/28/19 [Augmentin 875-125 Tablet] Microbiology 12/27/19 17:00 Blood - Peripheral Venous Blood Culture - Preliminary NO GROWTH OBTAINED AFTER 72 HOURS, INCUBATION TO CONTINUE FOR 2 DAYS. 12/27/19 17:00 Blood - Peripheral Venous Blood Culture - Preliminary NO GROWTH OBTAINED AFTER 72 HOURS, INCUBATION TO CONTINUE FOR 2 DAYS. 12/27/19 17:00 Wound Gram Stain - Final 12/27/19 17:00 Wound Wound Culture - Final Pseudomonas Aeruginosa Mr S Aureus 12/28/19 09:53 Foot - Right Gram Stain - Final 12/28/19 09:53 Foot - Right Wound Culture - Final Presumptive Mrsa (Pbp2a Pos) Pseudomonas Species 12/27/19 17:00 Wound Gram Stain - Final 12/27/19 17:00 Wound Wound Culture - Preliminary Pseudomonas Species Non Lactose Fermenting Gnb S Aureus cXR: MILD CARDIOMEGALY, NO ACUTE LUNG DZ XRAY OF THE RIGHT LEG: NO FX, + FOR VASCULAR CALCIFICATIONS, MILD TO MODERATE DEGENERATIVE CHANGES IN THE KNEE JOINT. ASSESSMENT AND PLAN: This patient is an 79yof with a PMHx of PVD, COPD, CAD (s/p PCI), HLD & diverticulosis now presenting with b/l leg ulcer with increased drainage over last week s/p surgery of b/l lower extremities , follows Dr. Bearden at [facility]. Admitted to the hospital for having acute cellulitis with abscess draining. # Acute bl lower extremities CELLULITIS with right plantar blister with an abscess draining. On Iv abx zosyn and vanco. the cx as above, follow sensitivity s/p debridment by Dr bearden, vascular surgeon. as per vascular , cx of an abscess was send, and ordered Santyl to all the wounds #PVD: continue Plental, and crestor # Covid pending : follow markers # Hx of COPD stable : continue home meds, symbicort and spiriva #Hx of CAD (s/p PCI): #Hx of dicerticulosis: stable DVT Px: Lovenox 40 mg Sq continue to monitor the patient
[2019-12-30] MEDS: ROSUVASTATIN CA 20 MG TABLET (FP) PO SCH (22:32)
[2019-12-30] MEDS: oxyCODONE HCL 5 MG TABLET PO PRN (22:32)
[2019-12-31] MEDS ORDERED: DEXTROSE 5%-WATER - 50 ML IVPB ONE ×3 (01:52→17:19)
[2019-12-31] MEDS ORDERED: PIPERACILLIN/TAZOBACTAM 3.375 GM VIAL IVPB ONE ×3 (01:52→17:18)
[2019-12-31] MEDS: PIPERACILLIN/TAZOB 3.375 GM 3.375 GM in DEXTROSE 5%-WATER - 50 ML IVPB SCH ×3 (01:55→18:04)
[2019-12-31] MEDS ORDERED: SODIUM CHLORIDE 1,000 ML IV SCH (08:00)
[2019-12-31 08:31] LABS: EOS % 5.1 % (0-4.5); HEMATOCRIT 40.8 % (32.4-45.2); HEMOGLOBIN 13.6 GM/dL (10.7-15.3); LYMPH % 16.1 % (8-40); MCH 35.2 pg (25.7-33.7); MCHC 33.4 g/dl (32.0-36.0); MEAN CELL VOLUME 105.4 fl (80-96); MEAN PLT VOLUME 7.9 fl (7.5-11.1); MONO % 15.6 % (3.8-10.2); NEUT % 62.2 % (42.8-82.8); PLATELET COUNT 233 K/MM3 (134-434); RBC 3.87 M/mm3 (3.60-5.2); RDW 13.7 % (11.6-15.6); WHITE BLOOD COUNT 7.6 K/mm3 (4.0-10.0)
[2019-12-31 08:56] LABS: ALBUMIN 1.9 g/dl (3.4-5.0); BILIRUBIN,TOTAL 1.7 mg/dL (0.2-1); CALCIUM 7.8 mg/dL (8.5-10.1); CREATININE 0.7 mg/dL (0.55-1.3); MAGNESIUM 2.1 mg/dL (1.8-2.4); POTASSIUM 3.3 mmol/L (3.5-5.1); TOT PROT 5.7 g/dl (6.4-8.2)
[2019-12-31] MEDS ORDERED: POTASSIUM CHLORIDE TABS 20 MEQ TABLET.ER (FP) PO ONE (09:15)
[2019-12-31] MEDS ORDERED: ASCORBIC ACID 250 MG TABLET (FP) PO SCH (10:00)
[2019-12-31 10:04] LABS: ANISOCYTOSIS 1+; MACROCYTOSIS 2+; PLATELET ESTIMATE NORMAL; TEAR DROP CELLS 1+
[2019-12-31] MEDS ORDERED: PT OWN MED DRAWER 7, Y5N ONE ×3 (10:31→20:34)
[2019-12-31] MEDS: ZINC SULFATE 220 MG CAPSULE (FP) PO SCH (10:39)
[2019-12-31] MEDS: LACTOBACILLUS ACIDOPHILUS 1 TABLET PO SCH (10:39)
[2019-12-31] MEDS: CILOSTAZOL 50 MG TABLET PO SCH ×2 (10:39→21:28)
[2019-12-31] MEDS: ENOXAPARIN NA (PORCINE) 40 MG/0.4 ML DISP.SYRIN SQ SCH (10:40)
[2019-12-31] MEDS: AMINO ACIDS/PROTEIN HYDROLYS 30 ML LIQUID.PKT PO SCH ×2 (10:40→18:04)
[2019-12-31] MEDS: TIOTROPIUM BROMIDE 2.5 MCG (SPIRIVA) RESPIMAT INHALER IH SCH (10:41)
[2019-12-31] MEDS: BUDESONIDE/FORMETEROL FUMARATE 160/4.5 mcg INHALER IH SCH (10:42)
[2019-12-31] MEDS: COLLAGENASE CLOSTRIDIUM HIST. 30 GRAMS TUBE TP SCH (10:53)
[2019-12-31] MEDS: MULTIVIT-MINERALS ORAL LIQUID PO SCH (11:01)
[2019-12-31] MEDS: VANCOMYCIN 750 MG in DEXTROSE 5%-WATER - 250 ML IVPB SCH ×2 (11:11→21:29)
[2019-12-31] MEDS: ASCORBIC ACID 250 MG TABLET (FP) PO SCH ×2 (11:12→21:28)
--- NOTE | 2019-12-31 13:40 | PN ---
Progress Note, Physician History of Present Illness: feeling a bit better today - Current Medication List Current Medications: Active Medications Albuterol Sulfate (Ventolin Hfa Inhaler -) 2 puff IH Q4H PRN PRN Reason: WHEEZING Amino Acids (Prosource No Carb Liquid Pkt) 30 ml PO BID@0800,1730 [facility] Last Admin: 12/31/19 10:40 Dose: 30 ml Documented by: Ascorbic Acid (Vitamin C -) 250 mg PO BID [facility] Last Admin: 12/31/19 11:12 Dose: 250 mg Documented by: Budesonide/Formoterol Fumarate (Symbicort 160/4.5mcg -) 1 puff IH DAILY [facility] Last Admin: 12/31/19 10:42 Dose: 1 puff Documented by: Cilostazol (Pletal -) 50 mg PO BID [facility] Last Admin: 12/31/19 10:39 Dose: 50 mg Documented by: Collagenase (Santyl -) 1 applic TP DAILY [facility]; Protocol Last Admin: 12/31/19 10:53 Dose: 1 applic Documented by: Enoxaparin Sodium (Lovenox -) 40 mg SQ DAILY [facility] Last Admin: 12/31/19 10:40 Dose: 40 mg Documented by: Piperacillin Sod/Tazobactam (Sod 3.375 gm/ Dextrose) 50 mls @ 100 mls/hr IVPB Q8H-IV [facility]; Protocol Last Admin: 12/31/19 10:37 Dose: 100 mls/hr Documented by: Vancomycin HCl 750 mg/ (Dextrose) 250 mls @ 250 mls/hr IVPB BID [facility]; Protocol Last Admin: 12/31/19 11:11 Dose: 250 mls/hr Documented by: Sodium Chloride (Normal Saline -) 1,000 mls @ 83 mls/hr IV ASDIR [facility] Stop: 12/31/19 20:03 Last Admin: 12/31/19 11:02 Dose: 83 mls/hr Documented by: Lactobacillus Acidophilus (Bacid -) 1 tab PO DAILY [facility] Last Admin: 12/31/19 10:39 Dose: 1 tab Documented by: Multivitamins/Minerals (Certavite-Antioxidant Liquid) 15 ml PO DAILY [facility] Last Admin: 12/31/19 11:01 Dose: 15 ml Documented by: Oxycodone HCl (Roxicodone -) 5 mg PO Q4H PRN PRN Reason: PAIN LEVEL 7 - 10 Last Admin: 12/30/19 22:32 Dose: 5 mg Documented by: Rosuvastatin Calcium (Crestor -) 20 mg PO HS [facility] Last Admin: 12/30/19 22:32 Dose: 20 mg Documented by: Tiotropium [place] (Spiriva Respimat) 2 puff IH DAILY [facility] Last Admin: 12/31/19 10:41 Dose: 2 puff Documented by: Zinc Sulfate (Orazinc -) 220 mg PO DAILY [facility] Last Admin: 12/31/19 10:39 Dose: 220 mg Documented by: - Objective Vital Signs: Vital Signs Temperature 97.5 F L 12/31/19 05:00 Pulse Rate 94 H 12/31/19 05:00 Respiratory Rate 20 12/31/19 05:00 Blood Pressure 100/42 L 12/31/19 05:00 O2 Sat by Pulse Oximetry (%) 100 12/31/19 05:00 Constitutional: Yes: Calm, Mild Distress, Other (fsailure to thrive) Cardiovascular: Yes: S1, S2 Respiratory: Yes: Regular, CTA Bilaterally Gastrointestinal: Yes: Normal Bowel Sounds, Soft Musculoskeletal: Yes: WNL Extremities: Yes: Other Wound/Incision: Yes: Dressing Dry and Intact Neurological: Yes: Alert, Oriented Psychiatric: Yes: Alert, Oriented Labs: CBC, BMP 12/31/19 07:25 12/31/19 07:25 INR, PTT INR 1.03 (0.83-1.09) 12/27/19 17:00 Assessment/Plan Problem List - Problems (1) Cellulitis of foot Code(s): L03.119 - CELLULITIS OF UNSPECIFIED PART OF LIMB (2) Leg ulcer Code(s): L97.909 - NON-PRS CHRONIC ULC UNSP PRT OF UNSP LOW LEG W UNSP SEVERITY Qualifiers: Laterality: right Non-pressure ulcer stage: unspecified non-pressure ulcer stage Qualified Code(s): L97.919 - Non-pressure chronic ulcer of unspecified part of right lower leg with unspecified severity (3) Claudication in peripheral vascular disease Code(s): I73.9 - PERIPHERAL VASCULAR DISEASE, UNSPECIFIED (4) Idiopathic chronic venous hypertension of right lower extremity with ulcer and inflammation Code(s): I87.331 - CHRONIC VENOUS HTN W ULCER AND INFLAMMATION OF R LOW EXTREM; L97.919 - NON-PRS CHRONIC ULC UNSP PRT OF R LOW LEG W UNSP SEVERITY (5) Venous stasis dermatitis of both lower extremities Code(s): I87.2 - VENOUS INSUFFICIENCY (CHRONIC) (PERIPHERAL) Assessment/Plan Infected LE ulcers Rt plantar ulcer PVD CAD COPD Venous stasis continue current abx vanco trough wound care rest as per the team
--- NOTE | 2019-12-31 14:49 | PN ---
Physical Exam: SUBJECTIVE: Patient seen and examined bedside, resting comfortably. In no distress. Denies SOB, chest pain, fever, or chills. No events overnight. Said pain is well controlled. OBJECTIVE: Vital Signs 12/30/19 12/30/19 17:47 21:00 Temperature 98.9 F 98.8 F Pulse Rate 101 H 88 Respiratory 20 Rate Blood Pressure 141/47 L 120/46 L O2 Sat by Pulse 90 L 94 L Oximetry (%) 12/31/19 05:00 Temperature 97.5 F L Pulse Rate 94 H Respiratory 20 Rate Blood Pressure 100/42 L O2 Sat by Pulse 100 Oximetry (%) GENERAL: The patient is awake, alert, and fully oriented. Cachectic. HEAD: Normal with no signs of trauma. EYES: PERRL, extraocular movements intact ENT: moist mucous membranes. LUNGS: Breath sounds equal & CTA BL HEART: RRR S1, S2 ABDOMEN: Soft, nontender, nondistended, normoactive bowel sounds EXTREMITIES: BL Legs wrapped as per wound care instructions. Pulses intact bl PSYCH: Normal mood, normal affect. SKIN: BL Legs erythematous with cobblestoning. Laboratory Results - last 24 hr 12/31/19 12/31/19 07:25 07:25 WBC 7.6 RBC 3.87 Hgb 13.6 Hct 40.8 MCV 105.4 H MCH 35.2 H MCHC 33.4 RDW 13.7 Plt Count 233 MPV 7.9 Absolute Neuts (auto) 4.7 Neutrophils % 62.2 Lymphocytes % 16.1 Monocytes % 15.6 H Eosinophils % 5.1 H Basophils % 1.0 Nucleated RBC % 0 Hypochromia 0 Platelet Estimate Normal Polychromasia 1+ Poikilocytosis 1+ Anisocytosis 1+ Microcytosis 0 Macrocytosis 2+ Tear Drop Cells 1+ ESR Cancelled Sodium 139 Potassium 3.3 L Chloride 103 Carbon Dioxide 27 Anion Gap 9 BUN 14.0 Creatinine 0.7 Est GFR (CKD-EPI)AfAm 94.84 Est GFR (CKD-EPI)NonAf 81.83 Random Glucose 99 Calcium 7.8 L Magnesium 2.1 Total Bilirubin 1.7 H AST 36 ALT 20 Alkaline Phosphatase 110 C-Reactive Protein 4.4 H Total Protein 5.7 L Albumin 1.9 L Active Medications Generic Name Dose Route Start Last Admin Trade Name Freq PRN Reason Stop Dose Admin Albuterol Sulfate 2 puff 12/28/19 15:15 Ventolin Hfa Inhaler - IH Q4H PRN WHEEZING Amino Acids 30 ml 12/29/19 17:30 12/31/19 10:40 Prosource No Carb Liquid Pkt PO 30 ml BID@0800,1730 [facility] Administration Ascorbic Acid 250 mg 12/31/19 10:00 12/31/19 11:12 Vitamin C - PO 250 mg BID [facility] Administration Budesonide/Formoterol Fumarate 1 puff 12/29/19 10:00 12/31/19 10:42 Symbicort 160/4.5mcg - IH 1 puff DAILY [facility] Administration Cilostazol 50 mg 12/28/19 22:00 12/31/19 10:39 Pletal - PO 50 mg BID [facility] Administration Collagenase 1 applic 12/28/19 10:00 12/31/19 10:53 Santyl - TP 1 applic DAILY [facility] Administration Protocol Enoxaparin Sodium 40 mg 12/28/19 10:00 12/31/19 10:40 Lovenox - SQ 40 mg DAILY [facility] Administration Piperacillin Sod/Tazobactam 50 mls @ 100 mls/hr 12/28/19 18:00 12/31/19 10:37 Sod 3.375 gm/ Dextrose IVPB 100 mls/hr Q8H-IV [facility] Administration Protocol Vancomycin HCl 750 mg/ 250 mls @ 250 mls/hr 12/29/19 22:00 12/31/19 11:11 Dextrose IVPB 250 mls/hr BID [facility] Administration Protocol Sodium Chloride 1,000 mls @ 83 mls/hr 12/31/19 08:00 12/31/19 11:02 Normal Saline - IV 12/31/19 20:03 83 mls/hr ASDIR [facility] Administration Lactobacillus Acidophilus 1 tab 12/29/19 10:00 12/31/19 10:39 Bacid - PO 1 tab DAILY [facility] Administration Multivitamins/Minerals 15 ml 12/31/19 10:00 12/31/19 11:01 Certavite-Antioxidant Liquid PO 15 ml DAILY [facility] Administration Oxycodone HCl 5 mg 12/28/19 09:15 12/30/19 22:32 Roxicodone - PO 5 mg Q4H PRN Administration PAIN LEVEL 7 - 10 Rosuvastatin Calcium 20 mg 12/28/19 22:00 12/30/19 22:32 Crestor - PO 20 mg HS [facility] Administration Tiotropium [place] 2 puff 12/29/19 10:00 12/31/19 10:41 Spiriva Respimat IH 2 puff DAILY [facility] Administration Zinc Sulfate 220 mg 12/31/19 10:00 12/31/19 10:39 Orazinc - PO 220 mg DAILY [facility] Administration ASSESSMENT/PLAN: 79 yo female with a PMHx of PVD, COPD, CAD (s/p PCI), HLD & diverticulosis now presenting with b/l leg ulcer with increased drainage over last week. Wound has gotten worse since her surgery on b/l legs for venous peripheral vascular disease. See's Dr. Graham at [facility]. Admitted to the hospital for cellulitis. RLE CELLULITIS - Hx of PVD, acute on chronic ulcer left leg and rt plantar foot and leg - cultures + for pseudomonas & MRSA - ID consulted (Dr. Bates) IV Zosyn day 5 IV Vacn day 3 - Wound Care/Vascular (Dr. Graham) Santyl to all wounds daily - Continue Cilostazol COPD - continue home meds spiriva symbicort albuterol inhaler PRN Hypoalbuminemia - Likely 2/2 malnutrition and losses 2/2 chronic inflammation. - Consult lung puller started on dailyzinc, vitamin C, multivitamins w/minerals Ensure Enlive daily & Magic cup - on Prosource No Carb Liquid pkt DVT prophylaxis Lovenox 40 mg Sq Visit type - Emergency Visit Emergency Visit: Yes ED Registration Date: 12/27/19 Care time: The patient presented to the Emergency Department on the above date and was hospitalized for further evaluation of their emergent condition. - New Patient This patient is new to me today: No - Critical Care Critical Care patient: No - Discharge Referral Referred to [facility] Med P.C.: Yes Physician Referral: Kyler Graham DO ([facility]) - Medication Review Med list reviewed for High Risk Meds patients 65 and older: Yes ATTENDING PHYSICIAN STATEMENT I saw and evaluated the patient. I reviewed the resident's note and discussed the case with the resident. I agree with the resident's findings and plan as documented. SUBJECTIVE: OBJECTIVE: ASSESSMENT AND PLAN:
--- NOTE | 2019-12-31 17:31 | PN ---
Teaching Attending Note Name of Resident: Yael Claabrese ATTENDING PHYSICIAN STATEMENT I saw and evaluated the patient. I reviewed the resident's note and discussed the case with the resident. I agree with the resident's findings and plan as documented. SUBJECTIVE: Patient is feeling better today , NAD, no fever or chills, no chest pain. OBJECTIVE: Vital Signs Temperature 98.8 F 12/31/19 14:00 Pulse Rate 91 H 12/31/19 14:00 Respiratory Rate 20 12/31/19 14:00 Blood Pressure 113/52 L 12/31/19 14:00 O2 Sat by Pulse Oximetry (%) 91 L 12/31/19 14:00 PE:per resident's note CBCD WBC 7.6 K/mm3 (4.0-10.0) 12/31/19 07:25 RBC 3.87 M/mm3 (3.60-5.2) 12/31/19 07:25 Hgb 13.6 GM/dL (10.7-15.3) 12/31/19 07:25 Hct 40.8 % (32.4-45.2) 12/31/19 07:25 MCV 105.4 fl (80-96) H 12/31/19 07:25 MCHC 33.4 g/dl (32.0-36.0) 12/31/19 07:25 RDW 13.7 % (11.6-15.6) 12/31/19 07:25 Plt Count 233 K/MM3 (134-434) 12/31/19 07:25 MPV 7.9 fl (7.5-11.1) 12/31/19 07:25 CMP Sodium 139 mmol/L (136-145) 12/31/19 07:25 Potassium 3.3 mmol/L (3.5-5.1) L 12/31/19 07:25 Chloride 103 mmol/L (98-107) 12/31/19 07:25 Carbon Dioxide 27 mmol/L (21-32) 12/31/19 07:25 Anion Gap 9 MMOL/L (8-16) 12/31/19 07:25 BUN 14.0 mg/dL (7-18) 12/31/19 07:25 Creatinine 0.7 mg/dL (0.55-1.3) 12/31/19 07:25 Random Glucose 99 mg/dL (74-106) 12/31/19 07:25 Calcium 7.8 mg/dL (8.5-10.1) L 12/31/19 07:25 Total Bilirubin 1.7 mg/dL (0.2-1) H 12/31/19 07:25 AST 36 U/L (15-37) 12/31/19 07:25 ALT 20 U/L (13-61) 12/31/19 07:25 Alkaline Phosphatase 110 U/L (45-117) 12/31/19 07:25 Total Protein 5.7 g/dl (6.4-8.2) L 12/31/19 07:25 Albumin 1.9 g/dl (3.4-5.0) L 12/31/19 07:25 Current Medications Generic Name Dose Route Start Last Admin Trade Name Freq PRN Reason Stop Dose Admin Albuterol Sulfate 2 puff 12/28/19 15:15 Ventolin Hfa Inhaler - IH Q4H PRN WHEEZING Amino Acids 30 ml 12/29/19 17:30 12/31/19 10:40 Prosource No Carb Liquid Pkt PO 30 ml BID@0800,1730 [facility] Administration Ascorbic Acid 250 mg 12/31/19 10:00 12/31/19 11:12 Vitamin C - PO 250 mg BID [facility] Administration Budesonide/Formoterol Fumarate 1 puff 12/29/19 10:00 12/31/19 10:42 Symbicort 160/4.5mcg - IH 1 puff DAILY [facility] Administration Cilostazol 50 mg 12/28/19 22:00 12/31/19 10:39 Pletal - PO 50 mg BID [facility] Administration Collagenase 1 applic 12/28/19 10:00 12/31/19 10:53 Santyl - TP 1 applic DAILY [facility] Administration Protocol Enoxaparin Sodium 40 mg 12/28/19 10:00 12/31/19 10:40 Lovenox - SQ 40 mg DAILY [facility] Administration Piperacillin Sod/Tazobactam 50 mls @ 100 mls/hr 12/28/19 18:00 12/31/19 10:37 Sod 3.375 gm/ Dextrose IVPB 100 mls/hr Q8H-IV [facility] Administration Protocol Vancomycin HCl 750 mg/ 250 mls @ 250 mls/hr 12/29/19 22:00 12/31/19 11:11 Dextrose IVPB 250 mls/hr BID [facility] Administration Protocol Sodium Chloride 1,000 mls @ 83 mls/hr 12/31/19 08:00 12/31/19 11:02 Normal Saline - IV 12/31/19 20:03 83 mls/hr ASDIR [facility] Administration Lactobacillus Acidophilus 1 tab 12/29/19 10:00 12/31/19 10:39 Bacid - PO 1 tab DAILY [facility] Administration Multivitamins/Minerals 15 ml 12/31/19 10:00 12/31/19 11:01 Certavite-Antioxidant Liquid PO 15 ml DAILY [facility] Administration Oxycodone HCl 5 mg 12/28/19 09:15 12/30/19 22:32 Roxicodone - PO 5 mg Q4H PRN Administration PAIN LEVEL 7 - 10 Rosuvastatin Calcium 20 mg 12/28/19 22:00 12/30/19 22:32 Crestor - PO 20 mg HS [facility] Administration Tiotropium [place] 2 puff 12/29/19 10:00 12/31/19 10:41 Spiriva Respimat IH 2 puff DAILY [facility] Administration Zinc Sulfate 220 mg 12/31/19 10:00 12/31/19 10:39 Orazinc - PO 220 mg DAILY [facility] Administration Home Medications Medication Instructions Recorded Budesonide/Formeterol Fumarate 1 puff IH DAILY 11/01/16 [SYMBICORT 160/4.5mcg -] Cilostazol 50 tab PO BID 11/01/16 Albuterol Sulfate [Albuterol 2 puff IH Q4H PRN 08/21/18 Sulfate Hfa] Tiotropium [place] [Spiriva] 2 unit NEB DAILY 08/21/18 Lactobacillus Acidophilus 1 each PO DAILY #30 capsule 08/25/18 [Acidophilus Lactobacilli] Rosuvastatin [Crestor -] 20 mg PO HS #30 tablet 08/25/18 Alendronate Sodium [Fosamax] 1 tab WEEKLY 12/28/19 Amoxicillin/Potassium Clav 1 tab PO DAILY 12/28/19 [Augmentin 875-125 Tablet] Microbiology 12/27/19 17:00 Blood - Peripheral Venous Blood Culture - Preliminary NO GROWTH OBTAINED AFTER 96 HOURS, INCUBATION TO CONTINUE FOR 1 DAYS. 12/27/19 17:00 Blood - Peripheral Venous Blood Culture - Preliminary NO GROWTH OBTAINED AFTER 96 HOURS, INCUBATION TO CONTINUE FOR 1 DAYS. 12/27/19 17:00 Wound Gram Stain - Final 12/27/19 17:00 Wound Wound Culture - Preliminary Pseudomonas Aeruginosa Non Lactose Fermenting Gnb S Aureus 12/27/19 17:00 Wound Gram Stain - Final 12/27/19 17:00 Wound Wound Culture - Final Pseudomonas Aeruginosa S Aureus 12/28/19 09:53 Foot - Right Gram Stain - Final 12/28/19 09:53 Foot - Right Wound Culture - Final Presumptive Mrsa (Pbp2a Pos) Pseudomonas Species cXR: MILD CARDIOMEGALY, NO ACUTE LUNG DZ XRAY OF THE RIGHT LEG: NO FX, + FOR VASCULAR CALCIFICATIONS, MILD TO MODERATE DEGENERATIVE CHANGES IN THE KNEE JOINT. ASSESSMENT AND PLAN: This patient is an 79yof with a PMHx of PVD, COPD, CAD (s/p PCI), HLD & diverticulosis now presenting with b/l leg ulcer with increased drainage over last week s/p surgery of b/l lower extremities , follows Dr. Bearden at [facility]. Admitted to the hospital for having acute cellulitis with abscess draining. # Acute bl lower extremities CELLULITIS(MRSA) with right plantar blister with an abscess draining. On Iv abx zosyn and vanco.as per ID, the cx as above, follow sensitivity s/p debridment by Dr bearden, vascular surgeon. as per vascular , cx of an abscess was send, and ordered Santyl to all the wounds #PVD: continue Plental, and crestor # Covid pending : follow markers # Hx of COPD stable : continue home meds, symbicort and spiriva #Hx of CAD (s/p PCI): #Hx of dicerticulosis: stable DVT Px: Lovenox 40 mg Sq continue to monitor the patient vanco trough level tonight , follow
[2019-12-31] MEDS: ROSUVASTATIN CA 20 MG TABLET (FP) PO SCH (21:29)
[2019-12-31] MEDS: oxyCODONE HCL 5 MG TABLET PO PRN (23:51)
[2020-01-01] MEDS ORDERED: PIPERACILLIN/TAZOBACTAM 3.375 GM VIAL IVPB ONE ×3 (00:10→17:40)
[2020-01-01] MEDS ORDERED: DEXTROSE 5%-WATER - 50 ML IVPB ONE ×3 (00:10→17:41)
[2020-01-01] MEDS: PIPERACILLIN/TAZOB 3.375 GM 3.375 GM in DEXTROSE 5%-WATER - 50 ML IVPB SCH ×3 (01:23→17:55)
[2020-01-01 07:54] LABS: HEMATOCRIT 39.1 % (32.4-45.2); MCH 34.9 pg (25.7-33.7); MCHC 33.3 g/dl (32.0-36.0); MEAN CELL VOLUME 104.7 fl (80-96); PLATELET COUNT 249 K/MM3 (134-434); RBC 3.74 M/mm3 (3.60-5.2); RDW 13.7 % (11.6-15.6)
[2020-01-01 08:23] LABS: ALBUMIN 1.9 g/dl (3.4-5.0); BILIRUBIN,TOTAL 0.7 mg/dL (0.2-1); CALCIUM 7.8 mg/dL (8.5-10.1); CREATININE 0.7 mg/dL (0.55-1.3); MAGNESIUM 2.2 mg/dL (1.8-2.4); PHOSPHOROUS 2.5 mg/dL (2.5-4.9); POTASSIUM 3.5 mmol/L (3.5-5.1); TOT PROT 5.6 g/dl (6.4-8.2)
[2020-01-01] MEDS ORDERED: PT OWN MED DRAWER 7, Y5N ONE ×2 (10:34→21:01)
[2020-01-01] MEDS: ZINC SULFATE 220 MG CAPSULE (FP) PO SCH (10:40)
[2020-01-01] MEDS: AMINO ACIDS/PROTEIN HYDROLYS 30 ML LIQUID.PKT PO SCH ×2 (10:41→17:54)
[2020-01-01] MEDS: LACTOBACILLUS ACIDOPHILUS 1 TABLET PO SCH (10:41)
[2020-01-01] MEDS: CILOSTAZOL 50 MG TABLET PO SCH ×2 (10:41→21:21)
[2020-01-01] MEDS: MULTIVIT-MINERALS ORAL LIQUID PO SCH (10:42)
[2020-01-01] MEDS: ASCORBIC ACID 250 MG TABLET (FP) PO SCH ×2 (10:42→21:21)
[2020-01-01] MEDS: ENOXAPARIN NA (PORCINE) 40 MG/0.4 ML DISP.SYRIN SQ SCH (10:42)
[2020-01-01] MEDS: TIOTROPIUM BROMIDE 2.5 MCG (SPIRIVA) RESPIMAT INHALER IH SCH (10:47)
[2020-01-01] MEDS: BUDESONIDE/FORMETEROL FUMARATE 160/4.5 mcg INHALER IH SCH (10:48)
--- NOTE | 2020-01-01 11:16 | PN ---
Progress Note, Physician History of Present Illness: legs still itching feels better - Current Medication List Current Medications: Active Medications Albuterol Sulfate (Ventolin Hfa Inhaler -) 2 puff IH Q4H PRN PRN Reason: WHEEZING Amino Acids (Prosource No Carb Liquid Pkt) 30 ml PO BID@0800,1730 [facility] Last Admin: 01/01/20 10:41 Dose: 30 ml Documented by: Ascorbic Acid (Vitamin C -) 250 mg PO BID [facility] Last Admin: 01/01/20 10:42 Dose: 250 mg Documented by: Budesonide/Formoterol Fumarate (Symbicort 160/4.5mcg -) 1 puff IH DAILY [facility] Last Admin: 01/01/20 10:48 Dose: 1 puff Documented by: Cilostazol (Pletal -) 50 mg PO BID [facility] Last Admin: 01/01/20 10:41 Dose: 50 mg Documented by: Collagenase (Santyl -) 1 applic TP DAILY [facility]; Protocol Last Admin: 12/31/19 10:53 Dose: 1 applic Documented by: Enoxaparin Sodium (Lovenox -) 40 mg SQ DAILY [facility] Last Admin: 01/01/20 10:42 Dose: 40 mg Documented by: Piperacillin Sod/Tazobactam (Sod 3.375 gm/ Dextrose) 50 mls @ 100 mls/hr IVPB Q8H-IV [facility]; Protocol Last Admin: 01/01/20 10:43 Dose: 100 mls/hr Documented by: Vancomycin HCl 750 mg/ (Dextrose) 250 mls @ 250 mls/hr IVPB BID [facility]; Protocol Last Admin: 12/31/19 21:29 Dose: Not Given Documented by: Lactobacillus Acidophilus (Bacid -) 1 tab PO DAILY [facility] Last Admin: 01/01/20 10:41 Dose: 1 tab Documented by: Multivitamins/Minerals (Certavite-Antioxidant Liquid) 15 ml PO DAILY [facility] Last Admin: 01/01/20 10:42 Dose: 15 ml Documented by: Oxycodone HCl (Roxicodone -) 5 mg PO Q4H PRN PRN Reason: PAIN LEVEL 7 - 10 Last Admin: 12/31/19 23:51 Dose: 5 mg Documented by: Rosuvastatin Calcium (Crestor -) 20 mg PO HS [facility] Last Admin: 12/31/19 21:29 Dose: 20 mg Documented by: Tiotropium [place] (Spiriva Respimat) 2 puff IH DAILY [facility] Last Admin: 01/01/20 10:47 Dose: 2 puff Documented by: Zinc Sulfate (Orazinc -) 220 mg PO DAILY [facility] Last Admin: 01/01/20 10:40 Dose: 220 mg Documented by: - Objective Vital Signs: Vital Signs Temperature 97.7 F 01/01/20 05:54 Pulse Rate 79 01/01/20 05:54 Respiratory Rate 20 01/01/20 05:54 Blood Pressure 105/46 L 01/01/20 05:54 O2 Sat by Pulse Oximetry (%) 97 01/01/20 05:54 Constitutional: Yes: Calm, Mild Distress, Other (failure to thrive) Cardiovascular: Yes: S1, S2 Respiratory: Yes: Regular, CTA Bilaterally Musculoskeletal: Yes: WNL Extremities: Yes: WNL Neurological: Yes: Alert, Oriented Psychiatric: Yes: Alert, Oriented Labs: CBC, BMP 01/01/20 06:56 01/01/20 06:56 INR, PTT INR 1.03 (0.83-1.09) 12/27/19 17:00 Assessment/Plan Problem List - Problems (1) Cellulitis of foot Code(s): L03.119 - CELLULITIS OF UNSPECIFIED PART OF LIMB (2) Leg ulcer Code(s): L97.909 - NON-PRS CHRONIC ULC UNSP PRT OF UNSP LOW LEG W UNSP SEVERITY Qualifiers: Laterality: right Non-pressure ulcer stage: unspecified non-pressure ulcer stage Qualified Code(s): L97.919 - Non-pressure chronic ulcer of unspecified part of right lower leg with unspecified severity (3) Claudication in peripheral vascular disease Code(s): I73.9 - PERIPHERAL VASCULAR DISEASE, UNSPECIFIED (4) Idiopathic chronic venous hypertension of right lower extremity with ulcer and inflammation Code(s): I87.331 - CHRONIC VENOUS HTN W ULCER AND INFLAMMATION OF R LOW EXTREM; L97.919 - NON-PRS CHRONIC ULC UNSP PRT OF R LOW LEG W UNSP SEVERITY (5) Venous stasis dermatitis of both lower extremities Code(s): I87.2 - VENOUS INSUFFICIENCY (CHRONIC) (PERIPHERAL) Assessment/Plan Infected LE ulcers Rt plantar ulcer PVD CAD COPD Venous stasis continue current abx will restart vanco tomorrow wound care rest as per the team
--- NOTE | 2020-01-01 15:43 | PN ---
Physical Exam: SUBJECTIVE: Patient seen and examined bedside, in no distress. Refusing to have her wounds looked at, wants to be seen by Dr. Graham. Patient having increased shortness of breath with stress. On 2L NC currently. Denies chest pain, fever, increased pain, n/v/d. OBJECTIVE: Vital Signs Period Temp Pulse Resp BP Sys/Nelson Pulse Ox Last 24 Hr 97.7 F-98.1 F 79-93 20-20 105-118/46-53 92-97 GENERAL: The patient is awake, alert, and fully oriented. Cachectic. HEAD: Normal with no signs of trauma. EYES: PERRL, extraocular movements intact ENT: moist mucous membranes. LUNGS: Breath sounds equal, decreased BL. Mild wheezing on expiration HEART: RRR S1, S2 ABDOMEN: Soft, nontender, nondistended, normoactive bowel sounds EXTREMITIES: BL Legs wrapped as per wound care instructions. Patient did not allow us to undo bandages. SKIN: BL Legs erythematous with cobblestoning. Laboratory Results - last 24 hr 12/31/19 01/01/20 01/01/20 18:00 06:56 06:56 WBC 6.0 RBC 3.74 Hgb 13.0 Hct 39.1 MCV 104.7 H MCH 34.9 H MCHC 33.3 RDW 13.7 Plt Count 249 MPV 8.0 Sodium 140 Potassium 3.5 Chloride 106 Carbon Dioxide 29 Anion Gap 6 L BUN 15.0 Creatinine 0.7 Est GFR (CKD-EPI)AfAm 94.84 Est GFR (CKD-EPI)NonAf 81.83 Random Glucose 85 Calcium 7.8 L Phosphorus 2.5 Magnesium 2.2 Total Bilirubin 0.7 AST 31 ALT 17 Alkaline Phosphatase 118 H C-Reactive Protein 3.5 H Total Protein 5.6 L Albumin 1.9 L Vitamin B12 857 Serum Folate 11 Vancomycin Pre-Dose 24.6 H 01/01/20 09:35 WBC RBC Hgb Hct MCV MCH MCHC RDW Plt Count MPV Sodium Potassium Chloride Carbon Dioxide Anion Gap BUN Creatinine Est GFR (CKD-EPI)AfAm Est GFR (CKD-EPI)NonAf Random Glucose Calcium Phosphorus Magnesium Total Bilirubin AST ALT Alkaline Phosphatase C-Reactive Protein Total Protein Albumin Vitamin B12 Serum Folate Vancomycin Pre-Dose 14.6 H Active Medications Generic Name Dose Route Start Last Admin Trade Name Freq PRN Reason Stop Dose Admin Albuterol Sulfate 2 puff 12/28/19 15:15 Ventolin Hfa Inhaler - IH Q4H PRN WHEEZING Amino Acids 30 ml 12/29/19 17:30 01/01/20 10:41 Prosource No Carb Liquid Pkt PO 30 ml BID@0800,1730 [facility] Administration Ascorbic Acid 250 mg 12/31/19 10:00 01/01/20 10:42 Vitamin C - PO 250 mg BID [facility] Administration Budesonide/Formoterol Fumarate 1 puff 12/29/19 10:00 01/01/20 10:48 Symbicort 160/4.5mcg - IH 1 puff DAILY [facility] Administration Cilostazol 50 mg 12/28/19 22:00 01/01/20 10:41 Pletal - PO 50 mg BID [facility] Administration Collagenase 1 applic 12/28/19 10:00 12/31/19 10:53 Santyl - TP 1 applic DAILY [facility] Administration Protocol Enoxaparin Sodium 40 mg 12/28/19 10:00 01/01/20 10:42 Lovenox - SQ 40 mg DAILY [facility] Administration Piperacillin Sod/Tazobactam 50 mls @ 100 mls/hr 12/28/19 18:00 01/01/20 10:43 Sod 3.375 gm/ Dextrose IVPB 100 mls/hr Q8H-IV [facility] Administration Protocol Vancomycin HCl 750 mg/ 250 mls @ 250 mls/hr 12/29/19 22:00 12/31/19 21:29 Dextrose IVPB Not Given BID [facility] Protocol Lactobacillus Acidophilus 1 tab 12/29/19 10:00 01/01/20 10:41 Bacid - PO 1 tab DAILY [facility] Administration Multivitamins/Minerals 15 ml 12/31/19 10:00 01/01/20 10:42 Certavite-Antioxidant Liquid PO 15 ml DAILY [facility] Administration Oxycodone HCl 5 mg 12/28/19 09:15 12/31/19 23:51 Roxicodone - PO 5 mg Q4H PRN Administration PAIN LEVEL 7 - 10 Rosuvastatin Calcium 20 mg 12/28/19 22:00 12/31/19 21:29 Crestor - PO 20 mg HS [facility] Administration Tiotropium [place] 2 puff 12/29/19 10:00 01/01/20 10:47 Spiriva Respimat IH 2 puff DAILY [facility] Administration Zinc Sulfate 220 mg 12/31/19 10:00 01/01/20 10:40 Orazinc - PO 220 mg DAILY [facility] Administration ASSESSMENT/PLAN: 79 yo female with a PMHx of PVD, COPD, CAD (s/p PCI), HLD & diverticulosis now presenting with b/l leg ulcer with increased drainage over last week. Wound has gotten worse since her surgery on b/l legs for venous peripheral vascular disease. See's Dr. Graham at [facility]. Admitted to the hospital for cellulitis. RLE CELLULITIS - Hx of PVD, acute on chronic ulcer left leg and rt plantar foot and leg - cultures + for pseudomonas & MRSA + acinetobacter - ID consulted (Dr. Bates) IV Zosyn day 6 IV Vacn day 4 - Wound Care/Vascular (Dr. Graham) Santyl to all wounds daily - Continue Cilostazol Elevated D-Dimer - in setting of infection - r/o DVT - BL venous duplex negative COPD - continue home meds Hypoalbuminemia - Likely 2/2 malnutrition and losses 2/2 chronic inflammation. 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 - New Patient This patient is new to me today: No - Critical Care Critical Care patient: No - Discharge Referral Referred to [facility] Med P.C.: Yes Physician Referral: Kyler Graham DO ([facility]) - Medication Review Med list reviewed for High Risk Meds patients 65 and older: Yes ATTENDING PHYSICIAN STATEMENT I saw and evaluated the patient. I reviewed the resident's note and discussed the case with the resident. I agree with the resident's findings and plan as documented. SUBJECTIVE: OBJECTIVE: ASSESSMENT AND PLAN:
[2020-01-01] MEDS: COLLAGENASE CLOSTRIDIUM HIST. 30 GRAMS TUBE TP SCH (17:55)
--- NOTE | 2020-01-01 18:38 | PN ---
Teaching Attending Note Name of Resident: Yael Calabrese ATTENDING PHYSICIAN STATEMENT I saw and evaluated the patient. I reviewed the resident's note and discussed the case with the resident. I agree with the resident's findings and plan as documented. SUBJECTIVE: seen in am . upset and wants dr. bearden to see her. decliend legs exam. denies SOb or cp OBJECTIVE: NAd, awake, alert ,cooperative CV: RRR Lungs: scattered wheezing. no crackles CV: RRR Abd:sfot, Nt, Nd Ext : legs are wrapped with gauze . no edema on thighs, wrinkly skin oon upper legs . increased warmth . hyperpipgmentaion to upper legs . feet are wrapped. L heel with no ulcers. declined removal of dressings ASSESSMENT AND PLAN: 79 y/o lady with h/o PVD, COPD, CAD (s/p PCI), HLD & diverticulosis who presented with ulcers and drainage of legs 1- cellulitis of LE s . 2- s/p debridement 3- h/o COPD : stable 4- h/o COPD 5- CAD 6- elevated d dimer Plan: - Cx Noted. - will d/w ID - cont Abx - cont santyl - wound care center notified for surgical f/u - elevated d dimer in setting of infection . PE is not suspected , also suspicion for DVT is low . will do US of legs , if neg will stop. procedure was explained to patient and she agrees . - cont inhalers HLOC
[2020-01-01] MEDS: ROSUVASTATIN CA 20 MG TABLET (FP) PO SCH (21:20)
[2020-01-01] MEDS: oxyCODONE HCL 5 MG TABLET PO PRN (21:21)
[2020-01-01] MEDS: VANCOMYCIN 750 MG in DEXTROSE 5%-WATER - 250 ML IVPB SCH (21:21)
[2020-01-02] MEDS ORDERED: PIPERACILLIN/TAZOBACTAM 3.375 GM VIAL IVPB ONE ×3 (01:27→17:40)
[2020-01-02] MEDS ORDERED: DEXTROSE 5%-WATER - 50 ML IVPB ONE ×3 (01:28→17:40)
[2020-01-02] MEDS: PIPERACILLIN/TAZOB 3.375 GM 3.375 GM in DEXTROSE 5%-WATER - 50 ML IVPB SCH ×3 (01:33→17:50)
[2020-01-02 07:40] LABS: HEMATOCRIT 37.6 % (32.4-45.2); HEMOGLOBIN 12.7 GM/dL (10.7-15.3); MCH 35.2 pg (25.7-33.7); MCHC 33.7 g/dl (32.0-36.0); MEAN CELL VOLUME 104.6 fl (80-96); MEAN PLT VOLUME 7.7 fl (7.5-11.1); PLATELET COUNT 246 K/MM3 (134-434); RDW 13.4 % (11.6-15.6); WHITE BLOOD COUNT 6.6 K/mm3 (4.0-10.0)
[2020-01-02 07:51] LABS: BLOOD UREA NITROGEN 15.9 mg/dL (7-18); CALCIUM 7.3 mg/dL (8.5-10.1); CREATININE 0.6 mg/dL (0.55-1.3); MAGNESIUM 2.1 mg/dL (1.8-2.4); PHOSPHOROUS 2.5 mg/dL (2.5-4.9); POTASSIUM 3.1 mmol/L (3.5-5.1)
[2020-01-02] MEDS ORDERED: POTASSIUM CHLORIDE TABS 20 MEQ TABLET.ER (FP) PO ONE (08:26)
[2020-01-02] MEDS ORDERED: PT OWN MED DRAWER 7, Y5N ONE ×2 (09:15→21:22)
[2020-01-02] MEDS: ENOXAPARIN NA (PORCINE) 40 MG/0.4 ML DISP.SYRIN SQ SCH (09:19)
[2020-01-02] MEDS: CILOSTAZOL 50 MG TABLET PO SCH ×2 (09:19→21:25)
[2020-01-02] MEDS: LACTOBACILLUS ACIDOPHILUS 1 TABLET PO SCH (09:19)
[2020-01-02] MEDS: ZINC SULFATE 220 MG CAPSULE (FP) PO SCH (09:19)
[2020-01-02] MEDS: MULTIVIT-MINERALS ORAL LIQUID PO SCH (09:19)
[2020-01-02] MEDS: AMINO ACIDS/PROTEIN HYDROLYS 30 ML LIQUID.PKT PO SCH ×2 (09:19→21:25)
[2020-01-02] MEDS: BENZOCAINE/MENTH/CETYLPYRD CL 1 EACH LOZENGE MM PRN (09:19)
[2020-01-02] MEDS: ASCORBIC ACID 250 MG TABLET (FP) PO SCH (09:20)
[2020-01-02] MEDS: LYTES/YERBA SANTA 240 ML BOTTLE MM SCH (09:20)
[2020-01-02] MEDS: COLLAGENASE CLOSTRIDIUM HIST. 30 GRAMS TUBE TP SCH (09:20)
[2020-01-02] MEDS: TIOTROPIUM BROMIDE 2.5 MCG (SPIRIVA) RESPIMAT INHALER IH SCH (09:20)
[2020-01-02] MEDS: BUDESONIDE/FORMETEROL FUMARATE 160/4.5 mcg INHALER IH SCH (09:20)
[2020-01-02] MEDS: VANCOMYCIN 750 MG in DEXTROSE 5%-WATER - 250 ML IVPB SCH ×2 (10:09→21:26)
[2020-01-02] MEDS: ALBUTEROL SO4 HFA INHALER IH PRN (10:12)
--- NOTE | 2020-01-02 10:27 | PN ---
Progress Note, Physician History of Present Illness: patient with nausea,failure to thrive - Current Medication List Current Medications: Active Medications Albuterol Sulfate (Ventolin Hfa Inhaler -) 2 puff IH Q4H PRN PRN Reason: WHEEZING Last Admin: 01/02/20 10:12 Dose: 2 puff Documented by: Amino Acids (Prosource No Carb Liquid Pkt) 30 ml PO BID@0800,1730 [facility] Last Admin: 01/02/20 09:19 Dose: 30 ml Documented by: Ascorbic Acid (Vitamin C -) 250 mg PO BID [facility] Last Admin: 01/02/20 09:20 Dose: 250 mg Documented by: Benzocaine/Menthol (Cepacol Lozenge -) 1 each MM PRN PRN PRN Reason: SORE THROAT Last Admin: 01/02/20 09:19 Dose: 1 each Documented by: Budesonide/Formoterol Fumarate (Symbicort 160/4.5mcg -) 1 puff IH DAILY [facility] Last Admin: 01/02/20 09:20 Dose: 1 puff Documented by: Cilostazol (Pletal -) 50 mg PO BID [facility] Last Admin: 01/02/20 09:19 Dose: 50 mg Documented by: Collagenase (Santyl -) 1 applic TP DAILY [facility]; Protocol Last Admin: 01/02/20 09:20 Dose: 1 applic Documented by: Enoxaparin Sodium (Lovenox -) 40 mg SQ DAILY [facility] Last Admin: 01/02/20 09:19 Dose: 40 mg Documented by: Piperacillin Sod/Tazobactam (Sod 3.375 gm/ Dextrose) 50 mls @ 100 mls/hr IVPB Q8H-IV [facility]; Protocol Last Admin: 01/02/20 09:19 Dose: 100 mls/hr Documented by: Vancomycin HCl 750 mg/ (Dextrose) 250 mls @ 250 mls/hr IVPB BID [facility]; Protocol Last Admin: 01/02/20 10:09 Dose: 250 mls/hr Documented by: Lactobacillus Acidophilus (Bacid -) 1 tab PO DAILY [facility] Last Admin: 01/02/20 09:19 Dose: 1 tab Documented by: Multivitamins/Minerals (Certavite-Antioxidant Liquid) 15 ml PO DAILY [facility] Last Admin: 01/02/20 09:19 Dose: 15 ml Documented by: Oxycodone HCl (Roxicodone -) 5 mg PO Q4H PRN PRN Reason: PAIN LEVEL 7 - 10 Last Admin: 01/01/20 21:21 Dose: 5 mg Documented by: Rosuvastatin Calcium (Crestor -) 20 mg PO HS [facility] Last Admin: 01/01/20 21:20 Dose: 20 mg Documented by: Saliva Substitute (Mouthkote Solution -) 1 applic MM DAILY [facility] Last Admin: 01/02/20 09:20 Dose: 1 applic Documented by: Tiotropium [place] (Spiriva Respimat) 2 puff IH DAILY [facility] Last Admin: 01/02/20 09:20 Dose: 2 puff Documented by: Zinc Sulfate (Orazinc -) 220 mg PO DAILY [facility] Last Admin: 01/02/20 09:19 Dose: 220 mg Documented by: - Objective Vital Signs: Vital Signs Temperature 97.6 F 01/02/20 10:00 Pulse Rate 95 H 01/02/20 10:00 Respiratory Rate 20 01/02/20 10:00 Blood Pressure 124/53 L 01/02/20 10:00 O2 Sat by Pulse Oximetry (%) 96 01/02/20 10:00 Constitutional: Yes: No Distress, Calm Cardiovascular: Yes: S1, S2 Respiratory: Yes: Regular, CTA Bilaterally Gastrointestinal: Yes: Normal Bowel Sounds, Soft Musculoskeletal: Yes: WNL Extremities: Yes: Other Wound/Incision: Yes: Dressing Dry and Intact Neurological: Yes: Alert, Oriented Psychiatric: Yes: Alert, Oriented Labs: CBC, BMP 01/02/20 06:40 01/02/20 06:40 INR, PTT INR 1.03 (0.83-1.09) 12/27/19 17:00 Assessment/Plan Problem List - Problems (1) Cellulitis of foot Code(s): L03.119 - CELLULITIS OF UNSPECIFIED PART OF LIMB (2) Leg ulcer Code(s): L97.909 - NON-PRS CHRONIC ULC UNSP PRT OF UNSP LOW LEG W UNSP SEVERITY Qualifiers: Laterality: right Non-pressure ulcer stage: unspecified non-pressure ulcer stage Qualified Code(s): L97.919 - Non-pressure chronic ulcer of unspecified part of right lower leg with unspecified severity (3) Claudication in peripheral vascular disease Code(s): I73.9 - PERIPHERAL VASCULAR DISEASE, UNSPECIFIED (4) Idiopathic chronic venous hypertension of right lower extremity with ulcer and inflammation Code(s): I87.331 - CHRONIC VENOUS HTN W ULCER AND INFLAMMATION OF R LOW EXTREM; L97.919 - NON-PRS CHRONIC ULC UNSP PRT OF R LOW LEG W UNSP SEVERITY (5) Venous stasis dermatitis of both lower extremities Code(s): I87.2 - VENOUS INSUFFICIENCY (CHRONIC) (PERIPHERAL) Assessment/Plan Infected LE ulcers Rt plantar ulcer PVD CAD COPD Venous stasis continue current abx will d/w the team wound care rest as per the team
--- NOTE | 2020-01-02 15:04 | PN ---
Physical Exam: SUBJECTIVE: Patient seen and examined bedside. Wearing NC because she was stressed and became SOB. Patient is frustrated because she does not want to go to [facility] because the she has no one to take care of things at home. However, if she goes home, she does not qaulify for daily wound dressing changes with VNS. Patient denies any chest pain, fever, chills, n/v/d. Later in morning after taking all her vitamins and medications, the patient vomited. She was coughing a lot with the vomit and became very SOB. On reexamination she was feeling better but still wearing NC. OBJECTIVE: Vital Signs 01/02/20 10:00 Temperature 97.6 F Pulse Rate 95 H Respiratory 20 Rate Blood Pressure 124/53 L O2 Sat by Pulse 96 Oximetry (%) GENERAL: The patient is A&Ox3. Very cachectic. HEAD: Normal with no signs of trauma. EYES: PERRL, extraocular movements intact ENT: dry mucous membranes LUNGS: Breath sounds equal, decreased BL. Mild wheezing on expiration HEART: RRR S1, S2 ABDOMEN: Soft, nontender, nondistended EXTREMITIES: Pt has BL ulcers on shins. She has plantar ulcer on R foot that was recently debrided with a white rough center that can't be scrapped away. Mild serous discharge from all wounds. Wounds very pink, look clean, no obvious purulence. SKIN: BL Legs erythematous with cobblestoning. Laboratory Results - last 24 hr 01/02/20 01/02/20 06:40 06:40 WBC 6.6 RBC 3.60 Hgb 12.7 Hct 37.6 MCV 104.6 H MCH 35.2 H MCHC 33.7 RDW 13.4 Plt Count 246 MPV 7.7 Sodium 141 Potassium 3.1 L Chloride 108 H Carbon Dioxide 24 Anion Gap 10 BUN 15.9 Creatinine 0.6 Est GFR (CKD-EPI)AfAm 99.77 Est GFR (CKD-EPI)NonAf 86.09 Random Glucose 82 Calcium 7.3 L Phosphorus 2.5 Magnesium 2.1 Active Medications Generic Name Dose Route Start Last Admin Trade Name Freq PRN Reason Stop Dose Admin Albuterol Sulfate 2 puff 12/28/19 15:15 01/02/20 10:12 Ventolin Hfa Inhaler - IH 2 puff Q4H PRN Administration WHEEZING Amino Acids 30 ml 12/29/19 17:30 01/02/20 09:19 Prosource No Carb Liquid Pkt PO 30 ml BID@0800,1730 [facility] Administration Ascorbic Acid 500 mg 01/03/20 16:00 Vitamin C - PO DAILY [facility] Benzocaine/Menthol 1 each 01/02/20 06:50 01/02/20 09:19 Cepacol Lozenge - MM 1 each PRN PRN Administration SORE THROAT Budesonide/Formoterol Fumarate 1 puff 12/29/19 10:00 01/02/20 09:20 Symbicort 160/4.5mcg - IH 1 puff DAILY [facility] Administration Cilostazol 50 mg 12/28/19 22:00 01/02/20 09:19 Pletal - PO 50 mg BID [facility] Administration Collagenase 1 applic 12/28/19 10:00 01/02/20 09:20 Santyl - TP 1 applic DAILY [facility] Administration Protocol Enoxaparin Sodium 40 mg 12/28/19 10:00 01/02/20 09:19 Lovenox - SQ 40 mg DAILY [facility] Administration Piperacillin Sod/Tazobactam 50 mls @ 100 mls/hr 12/28/19 18:00 01/02/20 09:19 Sod 3.375 gm/ Dextrose IVPB 100 mls/hr Q8H-IV [facility] Administration Protocol Vancomycin HCl 750 mg/ 250 mls @ 250 mls/hr 12/29/19 22:00 01/02/20 10:09 Dextrose IVPB 250 mls/hr BID [facility] Administration Protocol Lactobacillus Acidophilus 1 tab 12/29/19 10:00 01/02/20 09:19 Bacid - PO 1 tab DAILY [facility] Administration Oxycodone HCl 5 mg 12/28/19 09:15 01/01/20 21:21 Roxicodone - PO 5 mg Q4H PRN Administration PAIN LEVEL 7 - 10 Rosuvastatin Calcium 20 mg 12/28/19 22:00 01/01/20 21:20 Crestor - PO 20 mg HS [facility] Administration Saliva Substitute 1 applic 01/02/20 10:00 01/02/20 09:20 Mouthkote Solution - MM 1 applic DAILY [facility] Administration Tiotropium [place] 2 puff 12/29/19 10:00 01/02/20 09:20 Spiriva Respimat IH 2 puff DAILY [facility] Administration Zinc Sulfate 220 mg 01/03/20 16:00 Orazinc - PO DAILY [facility] AP portable chest: Shortness of breath a single AP view of the chest has been submitted. Since 12/27/2019 at 1633 hours there are new bilateral effusions with basilar atelectasis and some mild congestive changes. There is a prominent heart, sclerotic unfolded aorta and normal taco. There is a left upper lobe granuloma. Impression: Some congestive changes. Bibasilar findings. Left upper lobe granuloma. New bilateral pulmonary and pleural changes since 12/27/2019. ASSESSMENT/PLAN: 79 yo female with a PMHx of PVD, COPD, CAD (s/p PCI), HLD & diverticulosis now presenting with b/l leg ulcer with increased drainage over last week. Wound has gotten worse since her surgery on b/l legs for venous peripheral vascular disease. See's Dr. Graham at [facility]. Admitted to the hospital for cellulitis. RLE CELLULITIS - Hx of PVD, acute on chronic ulcer left leg and rt plantar foot and leg - cultures + for pseudomonas & MRSA + acinetobacter - ID consulted (Dr. Bates) IV Zosyn day 7 IV Vacn day 5 - troph tomorrow 9:30 AM before 10 AM dose - Wound Care/Vascular (Dr. Graham) Santyl to all wounds daily. Xeroform to plantar surface wound - Continue Cilostazol COPD - continue home meds Hypoalbuminemia - Likely 2/2 malnutrition and losses 2/2 chronic inflammation. - patient became nauseas and vomited from supplements CXR ordered due to possible aspiration/ results above - repeat CXR in AM b/c concern for aspiration d/c multivitamin Zinc & vitamin C for after lunch - continue ensure drinks DVT prophylaxis Lovenox 40 mg Sq Visit type - Emergency Visit Emergency Visit: Yes ED Registration Date: 12/27/19 Care time: The patient presented to the Emergency Department on the above date and was hospitalized for further evaluation of their emergent condition. - New Patient This patient is new to me today: No - Critical Care Critical Care patient: No - Discharge Referral Referred to [facility] Med P.C.: Yes Physician Referral: Kyler Graham DO ([facility]) - Medication Review Med list reviewed for High Risk Meds patients 65 and older: Yes ATTENDING PHYSICIAN STATEMENT I saw and evaluated the patient. I reviewed the resident's note and discussed the case with the resident. I agree with the resident's findings and plan as documented. SUBJECTIVE: OBJECTIVE: ASSESSMENT AND PLAN:
--- NOTE | 2020-01-02 17:14 | PN ---
Teaching Attending Note Name of Resident: Yael Calabrese ATTENDING PHYSICIAN STATEMENT I saw and evaluated the patient. I reviewed the resident's note and discussed the case with the resident. I agree with the resident's findings and plan as documented. SUBJECTIVE: seen around 11 am no fever or chills. no SOB . episode fo cough and wheezing and vomiting after am med including vitamins dsat to 856 % required o2. then later today , she saturated 97 % on room are. OBJECTIVE: NAd, awake, alert ,cooperative CV: RRR Lungs: scattered wheezing, more prominant than yesterday . no crackles CV: RRR Abd: soft, NT, ND Ext : legs with wounds anteriorly and posteriorly with clan base and no discharge . surround ing skin is erythematous and warm and wrinkly. R platar area with an ulcer that has a whitish center , but no discharge and no erythema . L heel with dark discoloration . . no edema on thighs ASSESSMENT AND PLAN: 79 y/o lady with h/o PVD, COPD, CAD (s/p PCI), HLD & diverticulosis who presented with ulcers and drainage of legs 1- cellulitis of LEs . 2- s/p debridement 3- h/o COPD : stable 4- h/o COPD 5- CAD 6- elevated d dimer 7- possible episode of aspiration with vomiting 01/01 Plan: - cxray with some changes in lower ungs. ? aspirated during vomiting this am . sat O2 imrpoved to 97 % on RA later today. No evidence of PNA . possible aspiratio Pneumonitis - speech eval - dc zinc and Vit C - cont Abx . d/w Id . Acinetobacter is covered by zosyn - cont santyl - team d/w dr. bearden who will evaluate wounds tomorrow - elevated d dimer in setting of infection. US negative fro DVT . will not investigate further - cont inhalers d/w patient possible need fro rehab for wound care and strength . She absolutely refused rehab and wants to go home with VNS understanding risk fro falls, and inappropriate wound care HLOC
[2020-01-02] MEDS: oxyCODONE HCL 5 MG TABLET PO PRN (17:57)
[2020-01-02] MEDS: ROSUVASTATIN CA 20 MG TABLET (FP) PO SCH (21:25)
[2020-01-03] MEDS ORDERED: PIPERACILLIN/TAZOBACTAM 3.375 GM VIAL IVPB ONE ×3 (01:50→18:53)
[2020-01-03] MEDS ORDERED: DEXTROSE 5%-WATER - 50 ML IVPB ONE ×3 (01:50→18:53)
[2020-01-03] MEDS: PIPERACILLIN/TAZOB 3.375 GM 3.375 GM in DEXTROSE 5%-WATER - 50 ML IVPB SCH ×3 (02:21→18:56)
[2020-01-03] MEDS ORDERED: FLUCONAZOLE 150 MG TABLET PO ONE (03:35)
[2020-01-03] MEDS ORDERED: PATIENT'S OWN MEDICATION (NON-FORMULARY) (Alendronate Sodium [Fosamax] 1 TAB) PO SCH (07:00)
[2020-01-03 07:24] LABS: HEMATOCRIT 35.4 % (32.4-45.2); HEMOGLOBIN 11.9 GM/dL (10.7-15.3); MCH 34.7 pg (25.7-33.7); MCHC 33.5 g/dl (32.0-36.0); MEAN CELL VOLUME 103.5 fl (80-96); MEAN PLT VOLUME 7.9 fl (7.5-11.1); PLATELET COUNT 232 K/MM3 (134-434); RBC 3.42 M/mm3 (3.60-5.2); RDW 13.4 % (11.6-15.6)
[2020-01-03 07:45] LABS: BLOOD UREA NITROGEN 11.2 mg/dL (7-18); CALCIUM 7.4 mg/dL (8.5-10.1); CREATININE 0.6 mg/dL (0.55-1.3); PHOSPHOROUS 2.5 mg/dL (2.5-4.9); POTASSIUM 3.2 mmol/L (3.5-5.1)
[2020-01-03] MEDS ORDERED: SODIUM CHLORIDE 1,000 ML IV SCH (07:45)
[2020-01-03] MEDS ORDERED: POTASSIUM CHLORIDE TABS 20 MEQ TABLET.ER (FP) PO ONE (07:49)
[2020-01-03] MEDS ORDERED: ACETAMINOPHEN 325 MG TABLET (FP) PO PRN (08:00)
[2020-01-03] MEDS ORDERED: PT OWN MED DRAWER 7, Y5N ONE ×2 (09:43→21:26)
[2020-01-03] MEDS: LACTOBACILLUS ACIDOPHILUS 1 TABLET PO SCH (09:48)
[2020-01-03] MEDS: AMINO ACIDS/PROTEIN HYDROLYS 30 ML LIQUID.PKT PO SCH (09:48)
[2020-01-03] MEDS: ENOXAPARIN NA (PORCINE) 40 MG/0.4 ML DISP.SYRIN SQ SCH (09:49)
[2020-01-03] MEDS: CILOSTAZOL 50 MG TABLET PO SCH ×2 (09:49→21:40)
[2020-01-03] MEDS: oxyCODONE HCL 5 MG TABLET PO PRN (09:50)
[2020-01-03] MEDS: LYTES/YERBA SANTA 240 ML BOTTLE MM SCH (09:51)
[2020-01-03] MEDS: BUDESONIDE/FORMETEROL FUMARATE 160/4.5 mcg INHALER IH SCH (09:52)
[2020-01-03] MEDS: TIOTROPIUM BROMIDE 2.5 MCG (SPIRIVA) RESPIMAT INHALER IH SCH (09:52)
[2020-01-03] MEDS: COLLAGENASE CLOSTRIDIUM HIST. 30 GRAMS TUBE TP SCH (09:53)
--- NOTE | 2020-01-03 09:53 | PN ---
Progress Note, Physician History of Present Illness: stable no new issues failure to thrive wound care - Current Medication List Current Medications: Active Medications Acetaminophen (Tylenol -) 650 mg PO Q6H PRN PRN Reason: PAIN LEVEL 4 - 6 Albuterol Sulfate (Ventolin Hfa Inhaler -) 2 puff IH Q4H PRN PRN Reason: WHEEZING Last Admin: 01/02/20 10:12 Dose: 2 puff Documented by: Amino Acids (Prosource No Carb Liquid Pkt) 30 ml PO BID [facility] Last Admin: 01/02/20 21:25 Dose: 30 ml Documented by: Benzocaine/Menthol (Cepacol Lozenge -) 1 each MM PRN PRN PRN Reason: SORE THROAT Last Admin: 01/02/20 09:19 Dose: 1 each Documented by: Budesonide/Formoterol Fumarate (Symbicort 160/4.5mcg -) 1 puff IH DAILY [facility] Last Admin: 01/02/20 09:20 Dose: 1 puff Documented by: Cilostazol (Pletal -) 50 mg PO BID [facility] Last Admin: 01/02/20 21:25 Dose: 50 mg Documented by: Collagenase (Santyl -) 1 applic TP DAILY [facility]; Protocol Last Admin: 01/02/20 09:20 Dose: 1 applic Documented by: Enoxaparin Sodium (Lovenox -) 40 mg SQ DAILY [facility] Last Admin: 01/02/20 09:19 Dose: 40 mg Documented by: Piperacillin Sod/Tazobactam (Sod 3.375 gm/ Dextrose) 50 mls @ 100 mls/hr IVPB Q8H-IV [facility]; Protocol Last Admin: 01/03/20 02:21 Dose: 100 mls/hr Documented by: Vancomycin HCl 750 mg/ (Dextrose) 250 mls @ 250 mls/hr IVPB BID [facility]; Protocol Last Admin: 01/02/20 21:26 Dose: 250 mls/hr Documented by: Sodium Chloride (Normal Saline -) 1,000 mls @ 75 mls/hr IV ASDIR [facility] Stop: 01/03/20 21:04 Lactobacillus Acidophilus (Bacid -) 1 tab PO DAILY [facility] Last Admin: 01/02/20 09:19 Dose: 1 tab Documented by: Oxycodone HCl (Roxicodone -) 5 mg PO Q6H PRN PRN Reason: PAIN LEVEL 6-10 Rosuvastatin Calcium (Crestor -) 20 mg PO HS [facility] Last Admin: 01/02/20 21:25 Dose: 20 mg Documented by: Saliva Substitute (Mouthkote Solution -) 1 applic MM DAILY [facility] Last Admin: 01/02/20 09:20 Dose: 1 applic Documented by: Tiotropium [place] (Spiriva Respimat) 2 puff IH DAILY [facility] Last Admin: 01/02/20 09:20 Dose: 2 puff Documented by: - Objective Vital Signs: Vital Signs Temperature 98.1 F 01/03/20 06:24 Pulse Rate 80 01/03/20 06:24 Respiratory Rate 20 01/03/20 06:24 Blood Pressure 93/58 L 01/03/20 06:24 O2 Sat by Pulse Oximetry (%) 98 01/03/20 02:00 Constitutional: Yes: Calm, Other (failure to thrive) Eyes: Yes: Conjunctiva Clear Cardiovascular: Yes: S1, S2 Respiratory: Yes: Regular, CTA Bilaterally Gastrointestinal: Yes: Normal Bowel Sounds, Soft Musculoskeletal: Yes: WNL Extremities: Yes: Erythema, Other Wound/Incision: Yes: Dressing Dry and Intact Neurological: Yes: Alert, Oriented Psychiatric: Yes: Alert, Oriented Labs: CBC, BMP 01/03/20 06:45 01/03/20 06:45 INR, PTT INR 1.03 (0.83-1.09) 12/27/19 17:00 Assessment/Plan Problem List - Problems (1) Cellulitis of foot Code(s): L03.119 - CELLULITIS OF UNSPECIFIED PART OF LIMB (2) Leg ulcer Code(s): L97.909 - NON-PRS CHRONIC ULC UNSP PRT OF UNSP LOW LEG W UNSP SEVERITY Qualifiers: Laterality: right Non-pressure ulcer stage: unspecified non-pressure ulcer stage Qualified Code(s): L97.919 - Non-pressure chronic ulcer of unspecified part of right lower leg with unspecified severity (3) Claudication in peripheral vascular disease Code(s): I73.9 - PERIPHERAL VASCULAR DISEASE, UNSPECIFIED (4) Idiopathic chronic venous hypertension of right lower extremity with ulcer and inflammation Code(s): I87.331 - CHRONIC VENOUS HTN W ULCER AND INFLAMMATION OF R LOW EXTREM; L97.919 - NON-PRS CHRONIC ULC UNSP PRT OF R LOW LEG W UNSP SEVERITY (5) Venous stasis dermatitis of both lower extremities Code(s): I87.2 - VENOUS INSUFFICIENCY (CHRONIC) (PERIPHERAL) Assessment/Plan Infected LE ulcers Rt plantar ulcer PVD CAD COPD Venous stasis continue current abx will d/w the team wound care rest as per the team
[2020-01-03] MEDS: ALBUTEROL SO4 HFA INHALER IH PRN (10:15)
[2020-01-03] MEDS ORDERED: MAG HYDROX/AL HYDROX/SIMETH 30 ML UNIT-DOSE CUP PO PRN (10:33)
--- NOTE | 2020-01-03 10:33 | CONSULT ---
Admitting History and Physical - Admission History of Present Illness: 79 y/o lady with h/o PVD, COPD, CAD (s/p PCI), HLD & diverticulosis who presented with ulcers and drainage of legs On 01/01, pt noted to be vomiting large amount after swallowing all morning medications, pt states the vitamins make her nauseous, pt then began coughing and wheezing and appeared SOB, ventolin inh given w/ minimal relief. Later, pt ambulated 20ft with PT Pt maintained on O2 2L spo2 96%, in no acute respiratory distress at this time CXR 01/01,01/02 Progressive bibasilar changes Selected Entries 01/01/20 01/01/20 01/01/20 05:54 09:00 14:00 Breakfast Diet Tolerated Lunch Supper Temperature 97.7 F 98.0 F Pulse Rate 79 92 H Blood Pressure 105/46 L 118/53 L O2 Sat by Pulse 97 92 L 92 L Oximetry (%) Oxygen Delivery Method 01/01/20 01/01/20 01/01/20 17:15 19:44 21:00 Breakfast Diet Tolerated Lunch Supper Temperature 98.2 F 98.3 F Pulse Rate 88 91 H Blood Pressure 137/65 124/49 L O2 Sat by Pulse 100 95 95 Oximetry (%) Oxygen Delivery Room Air Method 01/02/20 01/02/20 01/02/20 06:00 09:00 10:00 Breakfast Diet Tolerated Lunch Supper Temperature 98.1 F 97.6 F Pulse Rate 85 95 H Blood Pressure 107/52 L 124/53 L O2 Sat by Pulse 86 L 96 96 Oximetry (%) Oxygen Delivery Nasal Cannula Method 01/02/20 01/02/20 01/02/20 14:00 15:00 18:00 Breakfast 50% Diet Tolerated Fair Lunch 25% Supper Temperature 98.7 F 98.7 F Pulse Rate 89 96 H Blood Pressure 114/60 146/56 L O2 Sat by Pulse 97 96 Oximetry (%) Oxygen Delivery Method 01/02/20 01/02/20 01/02/20 19:30 20:33 20:36 Breakfast Diet Tolerated Lunch Supper 50% Temperature 99.1 F Pulse Rate 91 H Blood Pressure 113/54 L O2 Sat by Pulse 94 L 94 L Oximetry (%) Oxygen Delivery Nasal Cannula Method 01/03/20 01/03/20 02:00 06:24 Breakfast Diet Tolerated Lunch Supper Temperature 97.9 F 98.1 F Pulse Rate 82 80 Blood Pressure 113/62 93/58 L O2 Sat by Pulse 98 Oximetry (%) Oxygen Delivery Method Laboratory Tests 12/27/19 12/31/19 01/01/20 17:45 18:00 06:56 WBC 6.0 Vancomycin Pre-Dose 24.6 H COVID-19 ([facility]) Not detected 01/01/20 01/02/20 01/03/20 09:35 06:40 06:45 WBC 6.6 7.0 Vancomycin Pre-Dose 14.6 H COVID-19 (JOCELYN) Pt vomited again today after pills, and nausea. Pt c/o heartburn/beches. Denies Odynophagia Limited appetite for solids. Accepts Ensure History Source: Patient Limitations to Obtaining History: No Limitations - Past Medical History Cardiovascular: Yes: Other (Sciatica) Pulmonary: Yes: COPD ...LMP: 05/16/89 ...: No Musculoskeletal: Yes: Chronic low back pain (Secondary to sciatica) - Past Surgical History Past Surgical History: Yes: Vein Stripping/Ligation (B/L LE) - Smoking History Smoking history: Never smoked Have you smoked in the past 12 months: No If you are a former smoker, when did you quit?: 1989 - Alcohol/Substance Use Hx Alcohol Use: Yes (2-3glasses of wine nightly) History of Substance Use: reports: None - Social History ADL: Independent History of Recent Travel: No History - Admission Reason For Visit: WOUND OF FOOT - Diagnostics X-ray: Report Reviewed - General Mental Status: Alert and Oriented, Awake and Alert, Able to Follow Commands Attention: Intact Ability to Follow Directions: Excellent Head/Neck Control: WFL - Hearing Hearing: Normal Speech Evaluation - Communication Primary Language: AMERICAN Communication: Yes: Within Normal Limits - Speech Production Able to Make Needs Known: Yes: WNL Intelligibility: Yes: WNL - Speech Characteristics Voice Loudness: Normal Voice Pitch: Yes: Normal Voice Phonatory-based Quality: Yes: Normal Speech Pattern: Normal Speech Clarity: < 100% Nasal Resonance: Normal Articulation: Yes: Precise Rate of Speech: Intact - Language/Auditory Comprehension Follows: Yes: 2 Stage Simple Commands - Language/Verbal Expression Able to Respond to Simple Queries: Yes: WNL Able to Communicate Wants and Needs: Yes: WNL Functional Communication Status: Yes: WNL - Swallow Evaluation/Bedside Assessment Current Nutritional Intake: Regular, Thin Liquids Oral Secretions: Yes: WFL Dentition: Yes: Adequate Facial Symmetry at Rest: Symmetrical Facial Symmetry on Retraction: Symmetrical Facial Movement: Controlled Sensation: Normal Against Resistance Opening: Normal Against Resistance Closing: Normal Pucker Lips: Normal Smile: Normal Lingual Movement: Normal, Symmetric Lingual Speed of Movement: Normal Lingual Movement Strgth Against Opposition: Normal Lingual Movement Characteristics: Normal Velopharyngeal Movement: Normal Laryngeal Elevation: WFL Laryngeal Movement: Able to Palpate Rate of Intake: WFL Bolus Size: WFL Labial Seal: WFL Chewing: WFL (refused trial of solids. Denies difficulty but poor acceptance) Timing of Swallow: WFL Coughing/Throat Clear: No Change in Voice: No Recommendations - Speech Evaluation, Impression/Plan Impression: Pt vomited yesterday and today after pills, and nausea. Pt c/o "Angina", heartburn/beches. Denies Odynophagia. Limited appetite for solids. Accepts Ensure. No oral thrush noted. Nausea sec to several pills with limited PO intake? Esophageal candidiasis? GERD? - Dysphagia Impressions/Plan Dysphagia Impressions: Ongoing Evaluation *Silent aspiration: cannot be R/O at bedside Dysphagia Treatment Plan: Other (Give pills with pudding,after meals/PO intake, attempt to reduce # of pills at a time.) Recommendations: GI Consult (if difficulty,vomiting persists.), Other (consider appetite stimulant) - Recommendations Diet Consistency: Regular (per pt preferences) Liquids: Thin Liquids Supplement: Ensure, Magic Cup, Ensure Pudding
[2020-01-03] MEDS ORDERED: PANTOPRAZOLE 40 MG TABLET PO SCH (11:08)
[2020-01-03] MEDS: VANCOMYCIN 750 MG in DEXTROSE 5%-WATER - 250 ML IVPB SCH (13:52)
--- NOTE | 2020-01-03 15:09 | PN ---
Teaching Attending Note Name of Resident: Yael Calabrese ATTENDING PHYSICIAN STATEMENT I saw and evaluated the patient. I reviewed the resident's note and discussed the case with the resident. I agree with the resident's findings and plan as documented. SUBJECTIVE: vomiting with potassium pill this am . No fever or chills, No SOB. has dis comfort in perineal area . has Purwick placed and last night per RN dirty fluid was pooling there. OBJECTIVE: NAD, awake, alert ,cooperative CV: RRR Lungs: scattered wheezing, improved from yesterday. no crackles. good air entry CV: RRR Abd: soft, NT, ND Ext: did not allow wounds exam today . perineal area with decreased hair. erythema on external and internal labia majora b/l. with small abrasions on internal labia majora b/l . normal vaginal secretions are seen . ASSESSMENT AND PLAN: 79 y/o lady with h/o PVD, COPD, CAD (s/p PCI), HLD & diverticulosis who presented with ulcers and drainage of legs 1- cellulitis of LEs. 2- s/p debridement 3- h/o COPD : stable 4- h/o COPD 5- CAD 6- elevated d dimer 7- possible episode of aspiration with vomiting 01/01 8- ulceration of labia majora Plan: - respiratory status is stable. cxray with b/l basilar changes , likely represents aspiratio Pneumonitis vs atelectasis . no clinical signs of PNA - dc vitamins. give po liquid K instead of pills - speech eval -cont abx - adjust vanco dose - cont santyl -vascular eval today - cont inhalers - dc PureWick de to ulcerations. diaper HLOC
[2020-01-03] MEDS ORDERED: ZINC SULFATE 220 MG CAPSULE (FP) PO SCH (16:00)
[2020-01-03] MEDS ORDERED: ASCORBIC ACID 500 MG TABLET (FP) PO SCH (16:00)
--- NOTE | 2020-01-03 16:07 | PN ---
Physical Exam: SUBJECTIVE: Patient seen and examined bedside. Complaining of leg pain. Denies fever, chills, n/v/d, increased SOB. Last night patient complained of thick yellow vaginal discharge when purewick was changed. Night team saw and examined and gave 1 dose of oral fluconazole. Later in the morning after patient received PO potassium she vomited again. She describes getting burning sensation in her chest radiating to her throat multiple times after meals. OBJECTIVE: Vital Signs 01/03/20 14:00 Temperature 98.0 F Pulse Rate 91 H Respiratory 20 Rate Blood Pressure 112/46 L O2 Sat by Pulse 94 L Oximetry (%) GENERAL: The patient is A&Ox3. Very cachectic. HEAD: Normal with no signs of trauma. EYES: PERRL, extraocular movements intact ENT: dry mucous membranes LUNGS: BL wheezing, on 3L NC HEART: RRR S1, S2 ABDOMEN: Soft, nontender, nondistended : vaginal area examined, normal white discharged seen, skin breakdown around labia major from purewick. EXTREMITIES: Wounds wrapped, patient did not let us examine today SKIN: BL Legs erythematous with cobblestoning. Laboratory Results - last 24 hr 01/03/20 01/03/20 01/03/20 06:45 06:45 10:04 WBC 7.0 RBC 3.42 L Hgb 11.9 Hct 35.4 MCV 103.5 H MCH 34.7 H MCHC 33.5 RDW 13.4 Plt Count 232 MPV 7.9 Sodium 138 Potassium 3.2 L Chloride 106 Carbon Dioxide 25 Anion Gap 7 L BUN 11.2 Creatinine 0.6 Est GFR (CKD-EPI)AfAm 99.77 Est GFR (CKD-EPI)NonAf 86.09 Random Glucose 102 Calcium 7.4 L Phosphorus 2.5 Magnesium 2.0 Vancomycin Pre-Dose 18.6 H Active Medications Generic Name Dose Route Start Last Admin Trade Name Freq PRN Reason Stop Dose Admin Acetaminophen 650 mg 01/03/20 08:00 Tylenol - PO Q6H PRN PAIN LEVEL 4 - 6 Al Hydroxide/Mg Hydroxide 30 ml 01/03/20 10:33 Mylanta Oral Suspension - PO Q6H PRN DYSPEPSIA Albuterol Sulfate 2 puff 12/28/19 15:15 01/03/20 10:15 Ventolin Hfa Inhaler - IH 2 puff Q4H PRN Administration WHEEZING Amino Acids 30 ml 01/02/20 22:00 01/03/20 09:48 Prosource No Carb Liquid Pkt PO 30 ml BID [facility] Administration Benzocaine/Menthol 1 each 01/02/20 06:50 01/02/20 09:19 Cepacol Lozenge - MM 1 each PRN PRN Administration SORE THROAT Budesonide/Formoterol Fumarate 1 puff 12/29/19 10:00 01/03/20 09:52 Symbicort 160/4.5mcg - IH 1 puff DAILY [facility] Administration Cilostazol 50 mg 12/28/19 22:00 01/03/20 09:49 Pletal - PO 50 mg BID [facility] Administration Collagenase 1 applic 12/28/19 10:00 01/03/20 09:53 Santyl - TP 1 applic DAILY [facility] Administration Protocol Emollient Ointment 1 applic 01/03/20 16:00 Aquaphor - TP DAILY [facility] Enoxaparin Sodium 40 mg 12/28/19 10:00 01/03/20 09:49 Lovenox - SQ 40 mg DAILY [facility] Administration Piperacillin Sod/Tazobactam 50 mls @ 100 mls/hr 12/28/19 18:00 01/03/20 09:50 Sod 3.375 gm/ Dextrose IVPB 100 mls/hr Q8H-IV [facility] Administration Protocol Vancomycin HCl 750 mg/ 250 mls @ 250 mls/hr 12/29/19 22:00 01/03/20 13:52 Dextrose IVPB Not Given BID [facility] Protocol Sodium Chloride 1,000 mls @ 75 mls/hr 01/03/20 07:45 01/03/20 09:58 Normal Saline - IV 01/03/20 21:04 75 mls/hr ASDIR [facility] Administration Lactobacillus Acidophilus 1 tab 12/29/19 10:00 01/03/20 09:48 Bacid - PO 1 tab DAILY [facility] Administration Multi-Ingredient Ointment 1 applic 01/03/20 16:00 Zinc Oxide TP DAILY [facility] Oxycodone HCl 5 mg 01/03/20 08:00 01/03/20 09:50 Roxicodone - PO 5 mg Q6H PRN Administration PAIN LEVEL 6-10 Pantoprazole Sodium 40 mg 01/03/20 11:08 Protonix - PO DAILY [facility] Rosuvastatin Calcium 20 mg 12/28/19 22:00 01/02/20 21:25 Crestor - PO 20 mg HS [facility] Administration Saliva Substitute 1 applic 01/02/20 10:00 01/03/20 09:51 Mouthkote Solution - MM 1 applic DAILY [facility] Administration Tiotropium [place] 2 puff 12/29/19 10:00 01/03/20 09:52 Spiriva Respimat IH 2 puff DAILY [facility] Administration ASSESSMENT/PLAN: 79 yo female with a PMHx of PVD, COPD, CAD (s/p PCI), HLD & diverticulosis now presenting with b/l leg ulcer with increased drainage over last week. Wound has gotten worse since her surgery on b/l legs for venous peripheral vascular disease. See's Dr. Graham at [facility]. Admitted to the hospital for cellulitis. RLE CELLULITIS - Hx of PVD, acute on chronic ulcer left leg and rt plantar foot and leg - cultures + for pseudomonas & MRSA + acinetobacter - ID consulted (Dr. Bates) IV Zosyn day 8 IV Vacn day 6 - troph today 18.6. Held morning dose. Starting decreased vanc dose tonight - Wound Care/Vascular (Dr. Graham) Santyl to all wounds daily. Xeroform to plantar surface wound - Continue Cilostazol Vaginal Skin Ulcer - oral fluconazole given by night team for suspected sharon - skin breakdown from purewick >> d/c purewick - start diapers - start TP zinc for skin breakdown COPD - continue home meds Hypoalbuminemia - Likely 2/2 malnutrition and losses 2/2 chronic inflammation. - patient became nauseas and vomited from supplements again today. Watch for signs symptoms aspiration pneumonia d/c supplements - continue ensure drinks Hypokalemia - po potassium give but patient threw up - if levels continue to decrease will try IV potassium DVT prophylaxis Lovenox 40 mg Sq Visit type - Emergency Visit Emergency Visit: Yes ED Registration Date: 12/27/19 Care time: The patient presented to the Emergency Department on the above date and was hospitalized for further evaluation of their emergent condition. - New Patient This patient is new to me today: No - Critical Care Critical Care patient: No - Discharge Referral Referred to [facility] Med P.C.: Yes Physician Referral: Kyler Graham DO ([facility]) - Medication Review Med list reviewed for High Risk Meds patients 65 and older: Yes ATTENDING PHYSICIAN STATEMENT I saw and evaluated the patient. I reviewed the resident's note and discussed the case with the resident. I agree with the resident's findings and plan as documented. SUBJECTIVE: OBJECTIVE: ASSESSMENT AND PLAN:
[2020-01-03] MEDS: MINERAL OIL/PET HY-PHL TOPICAL OINTMENT 454 GM JAR TP SCH (18:14)
[2020-01-03] MEDS: ZINC OXIDE 20% TOPICAL OINTMENT 30 GM TUBE TP SCH (18:14)
--- NOTE | 2020-01-03 18:32 | PN ---
Progress Note (short form) - Note Progress Note: Vascular Surgery Pt seen and examined. All dressings changed. All wounds clean on bl shins Right plantar blister site is clean. Pt to go home on antibiotics as per ID Please have pt come to wound care center on tuesday. Continue santyl with xeroform daily Kyler Graham DO
[2020-01-03] MEDS: VANCOMYCIN 500 MG in DEXTROSE 5%-WATER 100 ML IVPB SCH (21:39)
[2020-01-03] MEDS: MAG HYDROX/AL HYDROX/SIMETH 30 ML UNIT-DOSE CUP PO SCH (21:40)
[2020-01-03] MEDS: ROSUVASTATIN CA 20 MG TABLET (FP) PO SCH (21:40)
[2020-01-04] MEDS ORDERED: PIPERACILLIN/TAZOBACTAM 3.375 GM VIAL IVPB ONE ×3 (01:43→17:14)
[2020-01-04] MEDS ORDERED: DEXTROSE 5%-WATER - 50 ML IVPB ONE ×3 (01:44→17:14)
[2020-01-04] MEDS: PIPERACILLIN/TAZOB 3.375 GM 3.375 GM in DEXTROSE 5%-WATER - 50 ML IVPB SCH ×3 (02:07→17:18)
[2020-01-04] MEDS: BENZOCAINE/MENTH/CETYLPYRD CL 1 EACH LOZENGE MM PRN ×2 (02:28→22:45)
[2020-01-04] MEDS: MAG HYDROX/AL HYDROX/SIMETH 30 ML UNIT-DOSE CUP PO SCH (06:17)
[2020-01-04 08:58] LABS: BASO % 0.9 % (0-2.0); EOS % 2.2 % (0-4.5); HEMATOCRIT 36.6 % (32.4-45.2); HEMOGLOBIN 12.4 GM/dL (10.7-15.3); LYMPH % 11.9 % (8-40); MCH 35.5 pg (25.7-33.7); MCHC 33.9 g/dl (32.0-36.0); MEAN CELL VOLUME 104.5 fl (80-96); MEAN PLT VOLUME 7.8 fl (7.5-11.1); MONO % 12.3 % (3.8-10.2); NEUT % 72.7 % (42.8-82.8); PLATELET COUNT 249 K/MM3 (134-434); RBC 3.51 M/mm3 (3.60-5.2); RDW 13.5 % (11.6-15.6); WHITE BLOOD COUNT 7.5 K/mm3 (4.0-10.0)
[2020-01-04 09:22] LABS: CREATININE 0.7 mg/dL (0.55-1.3); POTASSIUM 3.8 mmol/L (3.5-5.1)
[2020-01-04 09:23] LABS: CALCIUM 7.5 mg/dL (8.5-10.1); MAGNESIUM 2.3 mg/dL (1.8-2.4); PHOSPHOROUS 2.1 mg/dL (2.5-4.9)
[2020-01-04] MEDS ORDERED: PT OWN MED DRAWER 7, Y5N ONE ×4 (09:23→22:40)
[2020-01-04 09:26] LABS: BLOOD UREA NITROGEN 8.4 mg/dL (7-18)
[2020-01-04] MEDS: ENOXAPARIN NA (PORCINE) 40 MG/0.4 ML DISP.SYRIN SQ SCH (09:30)
[2020-01-04] MEDS: CILOSTAZOL 50 MG TABLET PO SCH ×2 (09:30→22:14)
[2020-01-04] MEDS: LACTOBACILLUS ACIDOPHILUS 1 TABLET PO SCH (09:30)
[2020-01-04] MEDS: PANTOPRAZOLE 40 MG TABLET PO SCH (09:30)
[2020-01-04] MEDS: guaiFENesin 600 MG TABLET.ER (FP) PO SCH ×2 (09:30→22:13)
[2020-01-04] MEDS: TIOTROPIUM BROMIDE 2.5 MCG (SPIRIVA) RESPIMAT INHALER IH SCH (09:31)
[2020-01-04] MEDS: BUDESONIDE/FORMETEROL FUMARATE 160/4.5 mcg INHALER IH SCH (09:31)
[2020-01-04] MEDS: MINERAL OIL/PET HY-PHL TOPICAL OINTMENT 454 GM JAR TP SCH (09:31)
[2020-01-04] MEDS: LYTES/YERBA SANTA 240 ML BOTTLE MM SCH (09:31)
[2020-01-04] MEDS: ZINC OXIDE 20% TOPICAL OINTMENT 30 GM TUBE TP SCH (09:32)
[2020-01-04] MEDS: COLLAGENASE CLOSTRIDIUM HIST. 30 GRAMS TUBE TP SCH (09:32)
[2020-01-04] MEDS ORDERED: PANTOPRAZOLE 40 MG TABLET PO SCH (10:00)
[2020-01-04] MEDS: VANCOMYCIN 500 MG in DEXTROSE 5%-WATER 100 ML IVPB SCH (10:40)
[2020-01-04] MEDS: CALCIUM CARBONATE 650 MG TABLET PO SCH ×3 (10:40→22:13)
--- NOTE | 2020-01-04 10:44 | PN ---
Progress Note, BUSINESS OPERATIONS MANAGER - Note Progress Note: Selected Entries 01/03/20 01/03/20 01/03/20 10:00 15:00 17:15 Breakfast 50% 50% 0 Diet Tolerated Fair Fair Fair Lunch 50% 50% Supper 25% Temperature Pulse Rate Blood Pressure 01/04/20 01/04/20 07:11 09:24 Breakfast Diet Tolerated Lunch Supper Temperature 98.4 F 98.3 F Pulse Rate 88 90 Blood Pressure 116/56 L 130/65 Laboratory Tests 01/04/20 08:29 WBC 7.5 Much improved, Protonix. Eating well without difficulty.
--- NOTE | 2020-01-04 11:33 | PN ---
Progress Note, Physician History of Present Illness: stable very weak wounds looked at looks clean - Current Medication List Current Medications: Active Medications Acetaminophen (Tylenol -) 650 mg PO Q6H PRN PRN Reason: PAIN LEVEL 4 - 6 Albuterol Sulfate (Ventolin Hfa Inhaler -) 2 puff IH Q4H PRN PRN Reason: WHEEZING Last Admin: 01/03/20 10:15 Dose: 2 puff Documented by: Benzocaine/Menthol (Cepacol Lozenge -) 1 each MM PRN PRN PRN Reason: SORE THROAT Last Admin: 01/04/20 02:28 Dose: 1 each Documented by: Budesonide/Formoterol Fumarate (Symbicort 160/4.5mcg -) 1 puff IH DAILY [facility] Last Admin: 01/04/20 09:31 Dose: 1 puff Documented by: Calcium Carbonate (Calcium Carbonate -) 650 mg PO BID [facility] Last Admin: 01/04/20 10:41 Dose: Not Given Documented by: Cilostazol (Pletal -) 50 mg PO BID [facility] Last Admin: 01/04/20 09:30 Dose: 50 mg Documented by: Collagenase (Santyl -) 1 applic TP DAILY [facility]; Protocol Last Admin: 01/04/20 09:32 Dose: 1 applic Documented by: Emollient Ointment (Aquaphor -) 1 applic TP DAILY [facility] Last Admin: 01/04/20 09:31 Dose: 1 applic Documented by: Enoxaparin Sodium (Lovenox -) 40 mg SQ DAILY [facility] Last Admin: 01/04/20 09:30 Dose: 40 mg Documented by: Guaifenesin (Mucinex -) 600 mg PO BID [facility] Last Admin: 01/04/20 09:30 Dose: 600 mg Documented by: Piperacillin Sod/Tazobactam (Sod 3.375 gm/ Dextrose) 50 mls @ 100 mls/hr IVPB Q 8H-IV [facility]; Protocol Last Admin: 01/04/20 09:30 Dose: 100 mls/hr Documented by: Vancomycin HCl 500 mg/ (Dextrose) 100 mls @ 100 mls/hr IVPB Q12H [facility]; Protocol Last Admin: 01/04/20 10:40 Dose: 100 mls/hr Documented by: Lactobacillus Acidophilus (Bacid -) 1 tab PO DAILY [facility] Last Admin: 01/04/20 09:30 Dose: 1 tab Documented by: Multi-Ingredient Ointment (Zinc Oxide) 1 applic TP DAILY [facility] Last Admin: 01/04/20 09:32 Dose: 1 applic Documented by: Oxycodone HCl (Roxicodone -) 5 mg PO Q6H PRN PRN Reason: PAIN LEVEL 6-10 Last Admin: 01/03/20 09:50 Dose: 5 mg Documented by: Pantoprazole Sodium (Protonix -) 40 mg PO DAILY [facility] Last Admin: 01/04/20 09:30 Dose: 40 mg Documented by: Rosuvastatin Calcium (Crestor -) 20 mg PO HS [facility] Last Admin: 01/03/20 21:40 Dose: 20 mg Documented by: Saliva Substitute (Mouthkote Solution -) 1 applic MM DAILY [facility] Last Admin: 01/04/20 09:31 Dose: 1 applic Documented by: Tiotropium [place] (Spiriva Respimat) 2 puff IH DAILY [facility] Last Admin: 01/04/20 09:31 Dose: 2 puff Documented by: - Objective Vital Signs: Vital Signs Temperature 98.3 F 01/04/20 09:24 Pulse Rate 90 01/04/20 09:24 Respiratory Rate 20 01/04/20 09:24 Blood Pressure 130/65 01/04/20 09:24 O2 Sat by Pulse Oximetry (%) 96 01/04/20 07:11 Constitutional: Yes: Calm, Mild Distress Eyes: Yes: Conjunctiva Clear Cardiovascular: Yes: S1, S2 Respiratory: Yes: Regular, CTA Bilaterally Gastrointestinal: Yes: Normal Bowel Sounds, Soft Musculoskeletal: Yes: WNL Extremities: Yes: Other Wound/Incision: Yes: Dressing Removed, Other Neurological: Yes: Alert, Oriented Psychiatric: Yes: Alert, Oriented Labs: CBC, BMP 01/04/20 08:29 01/04/20 08:29 INR, PTT INR 1.03 (0.83-1.09) 12/27/19 17:00 Assessment/Plan Problem List - Problems (1) Cellulitis of foot Code(s): L03.119 - CELLULITIS OF UNSPECIFIED PART OF LIMB (2) Leg ulcer Code(s): L97.909 - NON-PRS CHRONIC ULC UNSP PRT OF UNSP LOW LEG W UNSP SEVERITY Qualifiers: Laterality: right Non-pressure ulcer stage: unspecified non-pressure ulcer stage Qualified Code(s): L97.919 - Non-pressure chronic ulcer of unspecified part of right lower leg with unspecified severity (3) Claudication in peripheral vascular disease Code(s): I73.9 - PERIPHERAL VASCULAR DISEASE, UNSPECIFIED (4) Idiopathic chronic venous hypertension of right lower extremity with ulcer and inflammation Code(s): I87.331 - CHRONIC VENOUS HTN W ULCER AND INFLAMMATION OF R LOW EXTREM; L97.919 - NON-PRS CHRONIC ULC UNSP PRT OF R LOW LEG W UNSP SEVERITY (5) Venous stasis dermatitis of both lower extremities Code(s): I87.2 - VENOUS INSUFFICIENCY (CHRONIC) (PERIPHERAL) Assessment/Plan Infected LE ulcers Rt plantar ulcer PVD CAD COPD Venous stasis wounds looked at plan can switch to oral abx doxy 100 mg po bid levaquin 750mg po daily both for another 10 days needs nutrition and lot of help wound care
[2020-01-04] MEDS ORDERED: ALBUTEROL SO4 2.5/IPRATROPIUM 0.5 INH SOL 3 ML VIAL.NEB. NEB ONE (11:44)
[2020-01-04] MEDS ORDERED: ALBUTEROL SO4 2.5/IPRATROPIUM 0.5 INH SOL 3 ML VIAL.NEB. NEB PRN (12:08)
[2020-01-04] MEDS: ALBUTEROL SO4 2.5/IPRATROPIUM 0.5 INH SOL 3 ML VIAL.NEB. NEB SCH ×3 (15:25→20:38)
--- NOTE | 2020-01-04 15:28 | PN ---
Teaching Attending Note Name of Resident: Yael Calabrese ATTENDING PHYSICIAN STATEMENT I saw and evaluated the patient. I reviewed the resident's note and discussed the case with the resident. I agree with the resident's findings and plan as documented. SUBJECTIVE: No fever ro chills. denies SOB . denies cough . she feels much better . has pain in legs OBJECTIVE: NAD, awake, alert ,cooperative CV: RRR Lungs: scattered wheezing, good air entry CV: RRR Abd: soft, NT, ND Ext: legs with hyperpigmented skin, and improvement in warmth. wounds with no discharge , clean base, . R plantar foot blister has dried and with no discharge. L heel is still the same ASSESSMENT AND PLAN: 79 y/o lady with h/o PVD, COPD, CAD (s/p PCI), HLD & diverticulosis who presented with ulcers and drainage of legs 1- cellulitis of LEs. 2- s/p debridement 3- h/o COPD : stable 4- h/o COPD 5- CAD 6- elevated d dimer 7- possible episode of aspiration with vomiting 01/01 8- ulceration of labia majora Plan: - cxray is stable /better - atelectasis is expected to get worse while pt in hospital. add incentive spirometer. add Nebs , dc spiriva . check pre-post - speech eval noted - d/w dr. Bates, po Abx x 10 days . EKG reviewed, QTC 460 acceptable. will repeat to make sure qtc is not longer - cont santyl and xeroform to wounds daily patient contto refuse rehab, i spoke to her again today. d/w IRENE
--- NOTE | 2020-01-04 17:31 | PN ---
Physical Exam: SUBJECTIVE: Patient seen and examined bedside. Complaining of having shortness of breath this morning, so on NC. Patient still complaining of gastric reflux pain, and said she did not like the mylanta. OBJECTIVE: Vital Signs Vital Signs - 24 hr 01/03/20 01/04/20 20:53 07:11 Temperature 98.3 F 98.4 F Pulse Rate 86 88 Respiratory 20 20 Rate Blood Pressure 102/50 L 116/56 L O2 Sat by Pulse 96 96 Oximetry (%) 01/04/20 01/04/20 09:24 14:00 Temperature 98.3 F 97.7 F Pulse Rate 90 Respiratory 20 20 Rate Blood Pressure 130/65 99/45 L O2 Sat by Pulse 96 Oximetry (%) GENERAL: The patient is A&Ox3. Very cachectic. HEAD: Normal with no signs of trauma. EYES: PERRL, extraocular movements intact ENT: dry mucous membranes LUNGS: BL expiratory wheezing, on 3L NC HEART: RRR S1, S2 ABDOMEN: Soft, nontender, nondistended EXTREMITIES: Wounds look pink and clean, no streaking, no purulent discharge. SKIN: BL Legs erythematous with cobblestoning. Laboratory Results - last 24 hr 01/04/20 01/04/20 08:29 08:29 WBC 7.5 RBC 3.51 L Hgb 12.4 Hct 36.6 MCV 104.5 H MCH 35.5 H MCHC 33.9 RDW 13.5 Plt Count 249 MPV 7.8 Absolute Neuts (auto) 5.4 Neutrophils % 72.7 Lymphocytes % 11.9 D Monocytes % 12.3 H Eosinophils % 2.2 Basophils % 0.9 Nucleated RBC % 0 Sodium 141 Potassium 3.8 Chloride 107 Carbon Dioxide 27 Anion Gap 7 L BUN 8.4 Creatinine 0.7 Est GFR (CKD-EPI)AfAm 94.84 Est GFR (CKD-EPI)NonAf 81.83 Random Glucose 93 Calcium 7.5 L Phosphorus 2.1 L Magnesium 2.3 Active Medications Generic Name Dose Route Start Last Admin Trade Name Freq PRN Reason Stop Dose Admin Acetaminophen 650 mg 01/03/20 08:00 Tylenol - PO Q6H PRN PAIN LEVEL 4 - 6 Albuterol Sulfate 2 puff 12/28/19 15:15 01/03/20 10:15 Ventolin Hfa Inhaler - IH 2 puff Q4H PRN Administration WHEEZING Albuterol/Ipratropium 1 amp 01/04/20 16:00 01/04/20 16:43 Duoneb - NEB 1 amp RQID [facility] Administration Benzocaine/Menthol 1 each 01/02/20 06:50 01/04/20 02:28 Cepacol Lozenge - MM 1 each PRN PRN Administration SORE THROAT Budesonide/Formoterol Fumarate 1 puff 12/29/19 10:00 01/04/20 09:31 Symbicort 160/4.5mcg - IH 1 puff DAILY [facility] Administration Calcium Carbonate 650 mg 01/04/20 08:15 01/04/20 10:41 Calcium Carbonate - PO Not Given BID [facility] Cilostazol 50 mg 12/28/19 22:00 01/04/20 09:30 Pletal - PO 50 mg BID [facility] Administration Collagenase 1 applic 12/28/19 10:00 01/04/20 09:32 Santyl - TP 1 applic DAILY [facility] Administration Protocol Emollient Ointment 1 applic 01/03/20 16:00 01/04/20 09:31 Aquaphor - TP 1 applic DAILY [facility] Administration Enoxaparin Sodium 40 mg 12/28/19 10:00 01/04/20 09:30 Lovenox - SQ 40 mg DAILY [facility] Administration Guaifenesin 600 mg 01/04/20 10:00 01/04/20 09:30 Mucinex - PO 600 mg BID [facility] Administration Piperacillin Sod/Tazobactam 50 mls @ 100 mls/hr 12/28/19 18:00 01/04/20 17:18 Sod 3.375 gm/ Dextrose IVPB 100 mls/hr Q8H-IV [facility] Administration Protocol Vancomycin HCl 500 mg/ 100 mls @ 100 mls/hr 01/03/20 22:00 01/04/20 10:40 Dextrose IVPB 100 mls/hr Q12H [facility] Administration Protocol Lactobacillus Acidophilus 1 tab 12/29/19 10:00 01/04/20 09:30 Bacid - PO 1 tab DAILY [facility] Administration Multi-Ingredient Ointment 1 applic 01/03/20 16:00 01/04/20 09:32 Zinc Oxide TP 1 applic DAILY [facility] Administration Oxycodone HCl 5 mg 01/03/20 08:00 08/20/20 09:50 Roxicodone - PO 5 mg Q6H PRN Administration PAIN LEVEL 6-10 Pantoprazole Sodium 40 mg 01/04/20 08:17 01/04/20 09:30 Protonix - PO 40 mg DAILY [facility] Administration Rosuvastatin Calcium 20 mg 12/28/19 22:00 01/03/20 21:40 Crestor - PO 20 mg HS [facility] Administration Saliva Substitute 1 applic 01/02/20 10:00 01/04/20 09:31 Mouthkote Solution - MM 1 applic DAILY [facility] Administration Tiotropium [place] 2 puff 12/29/19 10:00 01/04/20 09:31 Spiriva Respimat IH 2 puff DAILY [facility] Administration ASSESSMENT/PLAN: 79 yo female with a PMHx of PVD, COPD, CAD (s/p PCI), HLD & diverticulosis now presenting with b/l leg ulcer with increased drainage over last week. Wound has gotten worse since her surgery on b/l legs for venous peripheral vascular disease. See's Dr. Graham at [facility]. Admitted to the hospital for cellulitis. RLE CELLULITIS - Hx of PVD, acute on chronic ulcer left leg and rt plantar foot and leg - cultures + for pseudomonas & MRSA + acinetobacter - ID consulted (Dr. Bates) completed vanc/zosyn >> can switch to oral abx doxy 100 mg po bid Levaquin 750mg po daily - Wound Care/Vascular (Dr. Graham) Santyl to all wounds daily. Xeroform to plantar surface wound - Continue Cilostazol - Started doxy - patient Qtc 477, repeat ECG tomorrow before starting levaquin Vaginal Skin Ulcer - diapers - continue TP zinc for skin breakdown COPD - hold home meds for now - start duo nebs for increased wheezing and SOB Hypoalbuminemia - Likely 2/2 malnutrition and losses 2/2 chronic inflammation. - continue ensure drinks Hypokalemia - po potassium give but patient threw up - if levels continue to decrease will try IV potassium DVT prophylaxis - Lovenox 40 mg Sq Dispo: patient has a sister Joy, will be around for few days. sw verbalized that patient d/c home with not concrete plan is not a safe d/c planing. sw will make a referral to a [facility]. Patient daughter made aware that transportation logistics internship initial assessment will take place after patient get home. Then will take few days to this agency to place a aids in the home. sw asked daughter "what is going to happened while waiting for services to be implemented. Mehreen did not answered me. she stated that she will call after speaking to patient sister(joy) Visit type - Emergency Visit Emergency Visit: Yes ED Registration Date: 12/27/19 Care time: The patient presented to the Emergency Department on the above date and was hospitalized for further evaluation of their emergent condition. - New Patient This patient is new to me today: No - Critical Care Critical Care patient: No - Discharge Referral Referred to [facility] Med [facility].C[facility] Yes Physician Referral: Kyler Graham DO ([facility]) - Medication Review Med list reviewed for High Risk Meds patients 65 and older: Yes ATTENDING PHYSICIAN STATEMENT I saw and evaluated the patient. I reviewed the resident's note and discussed the case with the resident. I agree with the resident's findings and plan as documented. SUBJECTIVE: OBJECTIVE: ASSESSMENT AND PLAN:
[2020-01-04] MEDS: ROSUVASTATIN CA 20 MG TABLET (FP) PO SCH (22:13)
[2020-01-04] MEDS: DOXYCYCLINE HYCLATE 100 MG CAPSULE PO SCH (22:13)
[2020-01-05] MEDS ORDERED: PT OWN MED DRAWER 7, Y5N ONE ×2 (05:12→09:35)
[2020-01-05] MEDS: levoFLOXacin 750 MG TABLET PO SCH (05:16)
[2020-01-05] MEDS: BENZOCAINE/MENTH/CETYLPYRD CL 1 EACH LOZENGE MM PRN ×3 (05:16→21:37)
[2020-01-05] MEDS: ALBUTEROL SO4 2.5/IPRATROPIUM 0.5 INH SOL 3 ML VIAL.NEB. NEB SCH ×4 (07:20→20:45)
[2020-01-05 07:33] LABS: HEMATOCRIT 34.5 % (32.4-45.2); HEMOGLOBIN 11.6 GM/dL (10.7-15.3); MCH 34.8 pg (25.7-33.7); MCHC 33.7 g/dl (32.0-36.0); MEAN CELL VOLUME 103.5 fl (80-96); PLATELET COUNT 243 K/MM3 (134-434); RBC 3.34 M/mm3 (3.60-5.2); RDW 13.4 % (11.6-15.6); WHITE BLOOD COUNT 6.7 K/mm3 (4.0-10.0)
[2020-01-05 07:50] LABS: BLOOD UREA NITROGEN 6.9 mg/dL (7-18); CALCIUM 7.8 mg/dL (8.5-10.1); CREATININE 0.6 mg/dL (0.55-1.3); MAGNESIUM 2.3 mg/dL (1.8-2.4); PHOSPHOROUS 1.8 mg/dL (2.5-4.9); POTASSIUM 3.1 mmol/L (3.5-5.1)
[2020-01-05] MEDS: KCL 10 MEQ IVPB 10 MEQ/100 ML INFUS.BAG IVPB SCH ×3 (09:38→13:06)
[2020-01-05] MEDS: ENOXAPARIN NA (PORCINE) 40 MG/0.4 ML DISP.SYRIN SQ SCH (09:42)
[2020-01-05] MEDS: DOXYCYCLINE HYCLATE 100 MG CAPSULE PO SCH ×2 (09:43→17:32)
[2020-01-05] MEDS: guaiFENesin 600 MG TABLET.ER (FP) PO SCH ×2 (09:43→22:14)
[2020-01-05] MEDS: LACTOBACILLUS ACIDOPHILUS 1 TABLET PO SCH (09:43)
[2020-01-05] MEDS: CALCIUM CARBONATE 650 MG TABLET PO SCH ×2 (09:43→22:14)
[2020-01-05] MEDS: PANTOPRAZOLE 40 MG TABLET PO SCH (09:44)
[2020-01-05] MEDS: ZINC OXIDE 20% TOPICAL OINTMENT 30 GM TUBE TP SCH (09:44)
[2020-01-05] MEDS: CILOSTAZOL 50 MG TABLET PO SCH ×2 (09:44→22:15)
[2020-01-05] MEDS: LYTES/YERBA SANTA 240 ML BOTTLE MM SCH (09:45)
[2020-01-05] MEDS: MINERAL OIL/PET HY-PHL TOPICAL OINTMENT 454 GM JAR TP SCH (09:45)
[2020-01-05] MEDS: COLLAGENASE CLOSTRIDIUM HIST. 30 GRAMS TUBE TP SCH (09:46)
--- NOTE | 2020-01-05 12:25 | PN ---
Progress Note, Physician History of Present Illness: stable no new issues - Current Medication List Current Medications: Active Medications Acetaminophen (Tylenol -) 650 mg PO Q6H PRN PRN Reason: PAIN LEVEL 4 - 6 Albuterol Sulfate (Ventolin Hfa Inhaler -) 2 puff IH Q4H PRN PRN Reason: WHEEZING Last Admin: 01/03/20 10:15 Dose: 2 puff Documented by: Albuterol/Ipratropium (Duoneb -) 1 amp NEB RQID [facility] Last Admin: 01/05/20 11:11 Dose: 1 amp Documented by: Benzocaine/Menthol (Cepacol Lozenge -) 1 each MM PRN PRN PRN Reason: SORE THROAT Last Admin: 01/05/20 05:16 Dose: 1 each Documented by: Budesonide/Formoterol Fumarate (Symbicort 160/4.5mcg -) 1 puff IH DAILY [facility] Last Admin: 01/04/20 09:31 Dose: 1 puff Documented by: Calcium Carbonate (Calcium Carbonate -) 650 mg PO BID [facility] Last Admin: 01/05/20 09:43 Dose: 650 mg Documented by: Cilostazol (Pletal -) 50 mg PO BID [facility] Last Admin: 01/05/20 09:44 Dose: 50 mg Documented by: Collagenase (Santyl -) 1 applic TP DAILY [facility]; Protocol Last Admin: 01/05/20 09:46 Dose: 1 applic Documented by: Doxycycline Hyclate (Vibramycin -) 100 mg PO BID@1000,1800 [facility] Last Admin: 01/05/20 09:43 Dose: 100 mg Documented by: Emollient Ointment (Aquaphor -) 1 applic TP DAILY [facility] Last Admin: 01/05/20 09:45 Dose: 1 applic Documented by: Enoxaparin Sodium (Lovenox -) 40 mg SQ DAILY [facility] Last Admin: 01/05/20 09:42 Dose: 40 mg Documented by: Guaifenesin (Mucinex -) 600 mg PO BID [facility] Last Admin: 01/05/20 09:43 Dose: 600 mg Documented by: Lactobacillus Acidophilus (Bacid -) 1 tab PO DAILY [facility] Last Admin: 01/05/20 09:43 Dose: 1 tab Documented by: Levofloxacin (Levaquin) 750 mg PO DAILY@0600 [facility] Last Admin: 01/05/20 05:16 Dose: 750 mg Documented by: Multi-Ingredient Ointment (Zinc Oxide) 1 applic TP DAILY [facility] Last Admin: 01/05/20 09:44 Dose: 1 applic Documented by: Oxycodone HCl (Roxicodone -) 5 mg PO Q6H PRN PRN Reason: PAIN LEVEL 6-10 Last Admin: 01/03/20 09:50 Dose: 5 mg Documented by: Pantoprazole Sodium (Protonix -) 40 mg PO DAILY [facility] Last Admin: 01/05/20 09:44 Dose: 40 mg Documented by: Rosuvastatin Calcium (Crestor -) 20 mg PO HS [facility] Last Admin: 01/04/20 22:13 Dose: 20 mg Documented by: Saliva Substitute (Mouthkote Solution -) 1 applic MM DAILY [facility] Last Admin: 01/05/20 09:45 Dose: 1 applic Documented by: Tiotropium [place] (Spiriva Respimat) 2 puff IH DAILY [facility] Last Admin: 01/04/20 09:31 Dose: 2 puff Documented by: - Objective Vital Signs: Vital Signs Temperature 98.6 F 01/05/20 10:00 Pulse Rate 106 H 01/05/20 10:00 Respiratory Rate 18 01/05/20 10:00 Blood Pressure 115/50 L 01/05/20 10:00 O2 Sat by Pulse Oximetry (%) 94 L 01/05/20 10:00 Constitutional: Yes: No Distress, Calm, Thin, Other (failure to thrive) Cardiovascular: Yes: S1, S2 Respiratory: Yes: Regular, CTA Bilaterally Gastrointestinal: Yes: Normal Bowel Sounds, Soft Musculoskeletal: Yes: WNL Extremities: Yes: Other Wound/Incision: Yes: Dressing Dry and Intact Neurological: Yes: Alert, Oriented Psychiatric: Yes: Alert, Oriented Labs: CBC, BMP 01/05/20 05:56 01/05/20 05:56 INR, PTT INR 1.03 (0.83-1.09) 12/27/19 17:00 Assessment/Plan Problem List - Problems (1) Cellulitis of foot Code(s): L03.119 - CELLULITIS OF UNSPECIFIED PART OF LIMB (2) Leg ulcer Code(s): L97.909 - NON-PRS CHRONIC ULC UNSP PRT OF UNSP LOW LEG W UNSP SEVERITY Qualifiers: Laterality: right Non-pressure ulcer stage: unspecified non-pressure ulcer stage Qualified Code(s): L97.919 - Non-pressure chronic ulcer of unspecified part of right lower leg with unspecified severity (3) Claudication in peripheral vascular disease Code(s): I73.9 - PERIPHERAL VASCULAR DISEASE, UNSPECIFIED (4) Idiopathic chronic venous hypertension of right lower extremity with ulcer and inflammation Code(s): I87.331 - CHRONIC VENOUS HTN W ULCER AND INFLAMMATION OF R LOW EXTREM; L97.919 - NON-PRS CHRONIC ULC UNSP PRT OF R LOW LEG W UNSP SEVERITY (5) Venous stasis dermatitis of both lower extremities Code(s): I87.2 - VENOUS INSUFFICIENCY (CHRONIC) (PERIPHERAL) Assessment/Plan Infected LE ulcers Rt plantar ulcer PVD CAD COPD Venous stasis wounds looked at plan can switch to oral abx doxy 100 mg po bid levaquin 750mg po daily both for another 10 days needs nutrition and lot of help wound care
[2020-01-05] MEDS: oxyCODONE HCL 5 MG TABLET PO PRN (14:04)
[2020-01-05] MEDS ORDERED: ALBUTEROL SO4 HFA INHALER IH SCH (15:15)
[2020-01-05] MEDS ORDERED: ALBUTEROL SO4 HFA INHALER IH PRN (15:53)
[2020-01-05] MEDS: predniSONE 20 MG TABLET (UD) PO SCH (16:12)
--- NOTE | 2020-01-05 18:58 | PN ---
Teaching Attending Note Name of Resident: Nino Ochoa ATTENDING PHYSICIAN STATEMENT I saw and evaluated the patient. I reviewed the resident's note and discussed the case with the resident. I agree with the resident's findings and plan as documented. SUBJECTIVE: no fever or chills. she feels short of breath with tightness. has wheezing . pa in in legs OBJECTIVE: NAD, awake, alert ,cooperative CV: RRR Lungs: scattered wheezing, slightly more decrease in breath sounds CV: RRR Abd: soft, NT, ND Ext: legs with hyperpigmented skin, lower part wrapped in a dressign that she declined removing . can fitting room associate her toes ASSESSMENT AND PLAN: 79 y/o lady with h/o PVD, COPD, CAD (s/p PCI), HLD & diverticulosis who presented with ulcers and drainage of legs 1- cellulitis of LEs. 2- s/p debridement 3- h/o COPD: possible mild exacerbation 4- CAD 5- elevated d dimer 6- possible episode of aspiration with vomiting 01/01 7- ulceration of labia majora Plan: - start low dose prednisone for a short period of time ,. add standing Nebs . cont PRN - cont ABx,doxy and Levaquin , but will d/w ID if Levaquin can be changed to something else given her prolonged Qtc ( 485 on this am' EKg ) - cont santyl and xeroform to wounds daily - No more urinary sx after removing PureWick. patient cont to refuse rehab. risks of falls, fractures, and were discussed . she understands
[2020-01-05] MEDS ORDERED: ALBUTEROL SO4 0.083% IH SOL 2.5 MG/3 ML VIAL.NEB. NEB PRN (18:59)
--- NOTE | 2020-01-05 19:09 | PN ---
Physical Exam: SUBJECTIVE: Patient seen and examined at the bedside, in no acute distress OBJECTIVE: Vital Signs Period Temp Pulse Resp BP Sys/Nelson Pulse Ox Last 24 Hr 97.6 F-98.6 F 84-116 18-20 102-138/50-60 90-96 GENERAL: AOx3, cachectic. HEAD: Normal with no signs of trauma. EYES: PERRL, extraocular movements intact ENT: dry mucous membranes LUNGS: BL expiratory wheezing, on 3L NC HEART: RRR S1, S2 ABDOMEN: Soft, nontender, nondistended EXTREMITIES: BL LE erythematous wounds, no purulent discharge/drainage Laboratory Results - last 24 hr 01/05/20 01/05/20 05:56 05:56 WBC 6.7 RBC 3.34 L Hgb 11.6 Hct 34.5 MCV 103.5 H MCH 34.8 H MCHC 33.7 RDW 13.4 Plt Count 243 MPV 8.0 Sodium 139 Potassium 3.1 L Chloride 105 Carbon Dioxide 28 Anion Gap 6 L BUN 6.9 L Creatinine 0.6 Est GFR (CKD-EPI)AfAm 99.77 Est GFR (CKD-EPI)NonAf 86.09 Random Glucose 82 Calcium 7.8 L Phosphorus 1.8 L Magnesium 2.3 Active Medications Generic Name Dose Route Start Last Admin Trade Name Freq PRN Reason Stop Dose Admin Acetaminophen 650 mg 01/03/20 08:00 Tylenol - PO Q6H PRN PAIN LEVEL 4 - 6 Albuterol Sulfate 1 amp 01/05/20 18:59 Ventolin 0.083% Nebulizer Soln - NEB Q4H PRN SHORT OF BREATH/WHEEZING Albuterol/Ipratropium 1 amp 01/05/20 20:00 Duoneb - NEB RQID [facility] Benzocaine/Menthol 1 each 01/02/20 06:50 01/05/20 16:12 Cepacol Lozenge - MM 1 each PRN PRN Administration SORE THROAT Budesonide/Formoterol Fumarate 1 puff 12/29/19 10:00 01/04/20 09:31 Symbicort 160/4.5mcg - IH 1 puff DAILY [facility] Administration Calcium Carbonate 650 mg 01/04/20 08:15 01/05/20 09:43 Calcium Carbonate - PO 650 mg BID [facility] Administration Cilostazol 50 mg 12/28/19 22:00 01/05/20 09:44 Pletal - PO 50 mg BID [facility] Administration Collagenase 1 applic 12/28/19 10:00 01/05/20 09:46 Santyl - TP 1 applic DAILY [facility] Administration Protocol Doxycycline Hyclate 100 mg 01/04/20 20:15 01/05/20 17:32 Vibramycin - PO 100 mg BID@1000,1800 [facility] Administration Emollient Ointment 1 applic 01/03/20 16:00 01/05/20 09:45 Aquaphor - TP 1 applic DAILY [facility] Administration Enoxaparin Sodium 40 mg 12/28/19 10:00 01/05/20 09:42 Lovenox - SQ 40 mg DAILY [facility] Administration Guaifenesin 600 mg 01/04/20 10:00 01/05/20 09:43 Mucinex - PO 600 mg BID [facility] Administration Lactobacillus Acidophilus 1 tab 12/29/19 10:00 01/05/20 09:43 Bacid - PO 1 tab DAILY [facility] Administration Levofloxacin 750 mg 01/05/20 06:00 01/05/20 05:16 Levaquin PO 750 mg DAILY@0600 [facility] Administration Multi-Ingredient Ointment 1 applic 01/03/20 16:00 01/05/20 09:44 Zinc Oxide TP 1 applic DAILY [facility] Administration Oxycodone HCl 5 mg 01/03/20 08:00 01/05/20 14:04 Roxicodone - PO 5 mg Q6H PRN Administration PAIN LEVEL 6-10 Pantoprazole Sodium 40 mg 01/04/20 08:17 01/05/20 09:44 Protonix - PO 40 mg DAILY [facility] Administration Prednisone 20 mg 01/05/20 15:15 01/05/20 16:12 Deltasone - PO 20 mg DAILY [facility] Administration Rosuvastatin Calcium 20 mg 12/28/19 22:00 01/04/20 22:13 Crestor - PO 20 mg HS [facility] Administration Saliva Substitute 1 applic 01/02/20 10:00 01/05/20 09:45 Mouthkote Solution - MM 1 applic DAILY [facility] Administration ASSESSMENT/PLAN: 79F with PMH of PVD, COPD, CAD (s/p PCI), HLD & diverticulosis now presenting with b/l leg ulcer with increased drainage over last week, admitted to the hospital for cellulitis. #RLE Cellulitis - Hx of PVD, acute on chronic ulcer left leg and rt plantar foot and leg - cultures + for pseudomonas & MRSA + acinetobacter - ID consulted (Dr. Bates) completed vanc/zosyn >> can switch to oral abx doxy 100 mg po bid Levaquin 750mg po daily - Wound Care/Vascular (Dr. Graham) Santyl to all wounds daily. Xeroform to plantar surface wound - Continue Cilostazol - Started Doxy, Qtc 477, repeat ECG before starting levaquin #Vaginal Skin Ulcer - continue TP zinc for skin breakdown #Hx of COPD - Duonebs #FEN - Regular diet #Prophylaxis - Lovenox #Dispo: - Pending [employer] Visit type - Emergency Visit Emergency Visit: No - New Patient This patient is new to me today: No - Critical Care Critical Care patient: No - Medication Review Med list reviewed for High Risk Meds patients 65 and older: Yes ATTENDING PHYSICIAN STATEMENT I saw and evaluated the patient. I reviewed the resident's note and discussed the case with the resident. I agree with the resident's findings and plan as documented. SUBJECTIVE: OBJECTIVE: ASSESSMENT AND PLAN:
[2020-01-05] MEDS ORDERED: ALBUTEROL SO4 2.5/IPRATROPIUM 0.5 INH SOL 3 ML VIAL.NEB. NEB SCH (20:00)
[2020-01-05] MEDS: ROSUVASTATIN CA 20 MG TABLET (FP) PO SCH (22:14)
[2020-01-06] MEDS: BENZOCAINE/MENTH/CETYLPYRD CL 1 EACH LOZENGE MM PRN (03:23)
[2020-01-06] MEDS ORDERED: PT OWN MED DRAWER 7, Y5N ONE ×3 (06:13→21:06)
[2020-01-06] MEDS: levoFLOXacin 750 MG TABLET PO SCH (06:30)
[2020-01-06 08:01] LABS: BASO % 0.3 % (0-2.0); LYMPH % 11.3 % (8-40); MCH 35.1 pg (25.7-33.7); MCHC 33.5 g/dl (32.0-36.0); MEAN CELL VOLUME 104.7 fl (80-96); NEUT % 81.4 % (42.8-82.8); PLATELET COUNT 263 K/MM3 (134-434); RBC 3.44 M/mm3 (3.60-5.2); RDW 13.3 % (11.6-15.6); WHITE BLOOD COUNT 5.4 K/mm3 (4.0-10.0)
[2020-01-06] MEDS: ALBUTEROL SO4 2.5/IPRATROPIUM 0.5 INH SOL 3 ML VIAL.NEB. NEB SCH ×4 (08:07→20:11)
[2020-01-06 08:36] LABS: ALBUMIN 1.9 g/dl (3.4-5.0); BILIRUBIN,TOTAL 0.8 mg/dL (0.2-1); CALCIUM 8.2 mg/dL (8.5-10.1); CREATININE 0.7 mg/dL (0.55-1.3); MAGNESIUM 2.1 mg/dL (1.8-2.4); PHOSPHOROUS 2.1 mg/dL (2.5-4.9); POTASSIUM 4.4 mmol/L (3.5-5.1); TOT PROT 6.2 g/dl (6.4-8.2)
[2020-01-06] MEDS: LACTOBACILLUS ACIDOPHILUS 1 TABLET PO SCH (09:16)
[2020-01-06] MEDS: PANTOPRAZOLE 40 MG TABLET PO SCH (09:16)
[2020-01-06] MEDS: guaiFENesin 600 MG TABLET.ER (FP) PO SCH ×2 (09:16→21:21)
[2020-01-06] MEDS: predniSONE 20 MG TABLET (UD) PO SCH (09:16)
[2020-01-06] MEDS: DOXYCYCLINE HYCLATE 100 MG CAPSULE PO SCH ×2 (09:16→20:21)
[2020-01-06] MEDS: CILOSTAZOL 50 MG TABLET PO SCH ×2 (09:17→21:21)
[2020-01-06] MEDS: MINERAL OIL/PET HY-PHL TOPICAL OINTMENT 454 GM JAR TP SCH (09:17)
[2020-01-06] MEDS: LYTES/YERBA SANTA 240 ML BOTTLE MM SCH (09:17)
[2020-01-06] MEDS: ENOXAPARIN NA (PORCINE) 40 MG/0.4 ML DISP.SYRIN SQ SCH (09:17)
[2020-01-06] MEDS: CALCIUM CARBONATE 650 MG TABLET PO SCH ×2 (09:17→21:21)
[2020-01-06] MEDS: COLLAGENASE CLOSTRIDIUM HIST. 30 GRAMS TUBE TP SCH (09:18)
[2020-01-06] MEDS: ZINC OXIDE 20% TOPICAL OINTMENT 30 GM TUBE TP SCH (09:18)
--- NOTE | 2020-01-06 11:38 | PN ---
Progress Note, Physician History of Present Illness: stable no new issues - Current Medication List Current Medications: Active Medications Acetaminophen (Tylenol -) 650 mg PO Q6H PRN PRN Reason: PAIN LEVEL 4 - 6 Albuterol Sulfate (Ventolin 0.083% Nebulizer Soln -) 1 amp NEB Q4H PRN PRN Reason: SHORT OF BREATH/WHEEZING Albuterol/Ipratropium (Duoneb -) 1 amp NEB RQID [facility] Last Admin: 01/06/20 08:07 Dose: 1 amp Documented by: Benzocaine/Menthol (Cepacol Lozenge -) 1 each MM PRN PRN PRN Reason: SORE THROAT Last Admin: 01/06/20 03:23 Dose: 1 each Documented by: Budesonide/Formoterol Fumarate (Symbicort 160/4.5mcg -) 1 puff IH DAILY [facility] Last Admin: 01/04/20 09:31 Dose: 1 puff Documented by: Calcium Carbonate (Calcium Carbonate -) 650 mg PO BID [facility] Last Admin: 01/06/20 09:17 Dose: Not Given Documented by: Cilostazol (Pletal -) 50 mg PO BID [facility] Last Admin: 01/06/20 09:17 Dose: Not Given Documented by: Collagenase (Santyl -) 1 applic TP DAILY [facility]; Protocol Last Admin: 01/06/20 09:18 Dose: 1 applic Documented by: Doxycycline Hyclate (Vibramycin -) 100 mg PO BID@1000,1800 [facility] Last Admin: 01/06/20 09:16 Dose: 100 mg Documented by: Emollient Ointment (Aquaphor -) 1 applic TP DAILY [facility] Last Admin: 01/06/20 09:17 Dose: 1 applic Documented by: Enoxaparin Sodium (Lovenox -) 40 mg SQ DAILY [facility] Last Admin: 01/06/20 09:17 Dose: 40 mg Documented by: Guaifenesin (Mucinex -) 600 mg PO BID [facility] Last Admin: 01/06/20 09:16 Dose: 600 mg Documented by: Lactobacillus Acidophilus (Bacid -) 1 tab PO DAILY [facility] Last Admin: 01/06/20 09:16 Dose: 1 tab Documented by: Levofloxacin (Levaquin) 750 mg PO DAILY@0600 [facility] Last Admin: 01/06/20 06:30 Dose: 750 mg Documented by: Multi-Ingredient Ointment (Zinc Oxide) 1 applic TP DAILY [facility] Last Admin: 01/06/20 09:18 Dose: 1 applic Documented by: Oxycodone HCl (Roxicodone -) 5 mg PO Q6H PRN PRN Reason: PAIN LEVEL 6-10 Last Admin: 01/05/20 14:04 Dose: 5 mg Documented by: Pantoprazole Sodium (Protonix -) 40 mg PO DAILY [facility] Last Admin: 01/06/20 09:16 Dose: 40 mg Documented by: Prednisone (Deltasone -) 20 mg PO DAILY [facility] Last Admin: 01/06/20 09:16 Dose: 20 mg Documented by: Rosuvastatin Calcium (Crestor -) 20 mg PO HS [facility] Last Admin: 01/05/20 22:14 Dose: Not Given Documented by: Saliva Substitute (Mouthkote Solution -) 1 applic MM DAILY [facility] Last Admin: 01/06/20 09:17 Dose: Not Given Documented by: - Objective Vital Signs: Vital Signs Temperature 98.4 F 01/06/20 09:25 Pulse Rate 89 01/06/20 09:25 Respiratory Rate 19 01/06/20 09:25 Blood Pressure 160/63 01/06/20 09:25 O2 Sat by Pulse Oximetry (%) 100 01/06/20 09:25 Constitutional: Yes: No Distress, Calm Cardiovascular: Yes: S1, S2 Respiratory: Yes: Regular, CTA Bilaterally Gastrointestinal: Yes: Normal Bowel Sounds, Soft Musculoskeletal: Yes: WNL Extremities: Yes: Other Wound/Incision: Yes: Dressing Dry and Intact Neurological: Yes: Alert, Oriented Psychiatric: Yes: Alert, Oriented Labs: CBC, BMP 01/06/20 06:05 01/06/20 06:05 INR, PTT INR 1.03 (0.83-1.09) 12/27/19 17:00 Assessment/Plan Problem List - Problems (1) Cellulitis of foot Code(s): L03.119 - CELLULITIS OF UNSPECIFIED PART OF LIMB (2) Leg ulcer Code(s): L97.909 - NON-PRS CHRONIC ULC UNSP PRT OF UNSP LOW LEG W UNSP SEVERITY Qualifiers: Laterality: right Non-pressure ulcer stage: unspecified non-pressure ulcer stage Qualified Code(s): L97.919 - Non-pressure chronic ulcer of unspecified part of right lower leg with unspecified severity (3) Claudication in peripheral vascular disease Code(s): I73.9 - PERIPHERAL VASCULAR DISEASE, UNSPECIFIED (4) Idiopathic chronic venous hypertension of right lower extremity with ulcer and inflammation Code(s): I87.331 - CHRONIC VENOUS HTN W ULCER AND INFLAMMATION OF R LOW EXTREM; L97.919 - NON-PRS CHRONIC ULC UNSP PRT OF R LOW LEG W UNSP SEVERITY (5) Venous stasis dermatitis of both lower extremities Code(s): I87.2 - VENOUS INSUFFICIENCY (CHRONIC) (PERIPHERAL) Assessment/Plan Infected LE ulcers Rt plantar ulcer PVD CAD COPD Venous stasis wounds looked at plan doxy 100 mg po bid levaquin 750mg po daily both for another 10 days needs nutrition and lot of help wound care
--- NOTE | 2020-01-06 16:07 | PN ---
Progress Note (short form) - Note Progress Note: Subjective: no fever or chills. no BOLAÑOS . breathing is better . pain in legs intermittently Objective: Vital Signs: Last Vital Signs Temp Pulse Resp BP Pulse Ox 98.4 F 128 H 19 128/67 94 L 01/06/20 14:12 01/06/20 14:12 01/06/20 14:12 01/06/20 14:12 01/06/20 14:12 Laboratory Results - last 24 hr 01/06/20 01/06/20 06:05 06:05 WBC 5.4 RBC 3.44 L Hgb 12.0 Hct 36.0 MCV 104.7 H MCH 35.1 H MCHC 33.5 RDW 13.3 Plt Count 263 MPV 8.0 Absolute Neuts (auto) 4.4 Neutrophils % 81.4 Lymphocytes % 11.3 Monocytes % 7.0 Eosinophils % 0.0 D Basophils % 0.3 Nucleated RBC % 0 Sodium 139 Potassium 4.4 Chloride 105 Carbon Dioxide 27 Anion Gap 7 L BUN 7.0 Creatinine 0.7 Est GFR (CKD-EPI)AfAm 94.84 Est GFR (CKD-EPI)NonAf 81.83 Random Glucose 128 H Calcium 8.2 L Phosphorus 2.1 L Magnesium 2.1 Total Bilirubin 0.8 AST 29 ALT 18 Alkaline Phosphatase 101 Total Protein 6.2 L Albumin 1.9 L Physical Exam: NAD, awake, alert ,cooperative CV: RRR Lungs: minimal scattered wheezing, goodair entry CV: RRR Abd: soft, NT, ND Ext: legs with hyperpigmented skin, lower part wrapped in a dressing that she declined removing . can planting material remover her toes ASSESSMENT AND PLAN: 79 y/o lady with h/o PVD, COPD, CAD (s/p PCI), HLD & diverticulosis who presented with ulcers and drainage of legs 1- cellulitis of LEs. 2- s/p debridement 3- h/o COPD: possible mild exacerbation 4- CAD 5- elevated d dimer 6- possible episode of aspiration with vomiting 01/01 7- ulceration of labia majora Plan: - cont Nebs and and low dose steroids ( day 2 on 20 mg ) - cont ABx,doxy and Levaquin , EKG findings were d/w Dr. Bates, no other option for pseudomonas. will cont levaquin only for 2 more doses - cont santyl and xeroform to wounds daily Visit type - Emergency Visit Emergency Visit: Yes ED Registration Date: 12/27/19 Care time: The patient presented to the Emergency Department on the above date and was hospitalized for further evaluation of their emergent condition. - New Patient This patient is new to me today: No - Critical Care Critical Care patient: No - Medication Review Med list reviewed for High Risk Meds patients 65 and older: Yes
[2020-01-06] MEDS: ROSUVASTATIN CA 20 MG TABLET (FP) PO SCH (21:20)
[2020-01-06] MEDS: oxyCODONE HCL 5 MG TABLET PO PRN (21:22)
[2020-01-07] MEDS ORDERED: PT OWN MED DRAWER 7, Y5N ONE ×2 (05:18→08:57)
[2020-01-07] MEDS: levoFLOXacin 750 MG TABLET PO SCH (05:32)
[2020-01-07] MEDS: BENZOCAINE/MENTH/CETYLPYRD CL 1 EACH LOZENGE MM PRN ×2 (05:38→10:17)
[2020-01-07] MEDS: ALBUTEROL SO4 2.5/IPRATROPIUM 0.5 INH SOL 3 ML VIAL.NEB. NEB SCH ×3 (07:25→16:01)
[2020-01-07] MEDS: predniSONE 20 MG TABLET (UD) PO SCH (09:00)
[2020-01-07] MEDS: ENOXAPARIN NA (PORCINE) 40 MG/0.4 ML DISP.SYRIN SQ SCH (09:00)
[2020-01-07] MEDS: guaiFENesin 600 MG TABLET.ER (FP) PO SCH (09:00)
[2020-01-07] MEDS: DOXYCYCLINE HYCLATE 100 MG CAPSULE PO SCH (09:00)
[2020-01-07] MEDS: CALCIUM CARBONATE 650 MG TABLET PO SCH (09:00)
[2020-01-07] MEDS: PANTOPRAZOLE 40 MG TABLET PO SCH (09:00)
[2020-01-07] MEDS: LACTOBACILLUS ACIDOPHILUS 1 TABLET PO SCH (09:00)
[2020-01-07] MEDS: CILOSTAZOL 50 MG TABLET PO SCH (09:01)
[2020-01-07] MEDS: ZINC OXIDE 20% TOPICAL OINTMENT 30 GM TUBE TP SCH (09:02)
[2020-01-07] MEDS: COLLAGENASE CLOSTRIDIUM HIST. 30 GRAMS TUBE TP SCH (09:02)
[2020-01-07] MEDS: MINERAL OIL/PET HY-PHL TOPICAL OINTMENT 454 GM JAR TP SCH (09:04)
[2020-01-07] MEDS: LYTES/YERBA SANTA 240 ML BOTTLE MM SCH (09:10)
--- NOTE | 2020-01-07 11:32 | PN ---
Progress Note, Physician History of Present Illness: patient feels very congested sob feels it is difficult ot breathe - Current Medication List Current Medications: Active Medications Acetaminophen (Tylenol -) 650 mg PO Q6H PRN PRN Reason: PAIN LEVEL 4 - 6 Albuterol Sulfate (Ventolin 0.083% Nebulizer Soln -) 1 amp NEB Q4H PRN PRN Reason: SHORT OF BREATH/WHEEZING Albuterol/Ipratropium (Duoneb -) 1 amp NEB RQID [facility] Last Admin: 01/07/20 07:25 Dose: 1 amp Documented by: Benzocaine/Menthol (Cepacol Lozenge -) 1 each MM PRN PRN PRN Reason: SORE THROAT Last Admin: 01/07/20 10:17 Dose: 1 each Documented by: Budesonide/Formoterol Fumarate (Symbicort 160/4.5mcg -) 1 puff IH DAILY [facility] Last Admin: 01/04/20 09:31 Dose: 1 puff Documented by: Calcium Carbonate (Calcium Carbonate -) 650 mg PO BID [facility] Last Admin: 01/07/20 09:00 Dose: 650 mg Documented by: Cilostazol (Pletal -) 50 mg PO BID [facility] Last Admin: 01/07/20 09:01 Dose: 50 mg Documented by: Collagenase (Santyl -) 1 applic TP DAILY [facility]; Protocol Last Admin: 01/07/20 09:02 Dose: 1 applic Documented by: Doxycycline Hyclate (Vibramycin -) 100 mg PO BID@1000,1800 [facility] Last Admin: 01/07/20 09:00 Dose: 100 mg Documented by: Emollient Ointment (Aquaphor -) 1 applic TP DAILY [facility] Last Admin: 01/07/20 09:04 Dose: 1 applic Documented by: Enoxaparin Sodium (Lovenox -) 40 mg SQ DAILY [facility] Last Admin: 01/07/20 09:00 Dose: 40 mg Documented by: Guaifenesin (Mucinex -) 600 mg PO BID [facility] Last Admin: 01/07/20 09:00 Dose: 600 mg Documented by: Lactobacillus Acidophilus (Bacid -) 1 tab PO DAILY [facility] Last Admin: 01/07/20 09:00 Dose: 1 tab Documented by: Levofloxacin (Levaquin) 750 mg PO DAILY@0600 [facility] Last Admin: 01/07/20 05:32 Dose: 750 mg Documented by: Multi-Ingredient Ointment (Zinc Oxide) 1 applic TP DAILY [facility] Last Admin: 01/07/20 09:02 Dose: 1 applic Documented by: Pantoprazole Sodium (Protonix -) 40 mg PO DAILY [facility] Last Admin: 01/07/20 09:00 Dose: 40 mg Documented by: Prednisone (Deltasone -) 20 mg PO DAILY [facility] Last Admin: 01/07/20 09:00 Dose: 20 mg Documented by: Rosuvastatin Calcium (Crestor -) 20 mg PO HS [facility] Last Admin: 01/06/20 21:20 Dose: 20 mg Documented by: Saliva Substitute (Mouthkote Solution -) 1 applic MM DAILY [facility] Last Admin: 01/07/20 09:10 Dose: Not Given Documented by: - Objective Vital Signs: Vital Signs Temperature 98.2 F 01/07/20 06:00 Pulse Rate 85 01/07/20 06:00 Respiratory Rate 18 01/07/20 06:00 Blood Pressure 106/46 L 01/07/20 06:00 O2 Sat by Pulse Oximetry (%) 96 01/07/20 06:00 Constitutional: Yes: Calm, Mild Distress, Other (failure to thrive) Cardiovascular: Yes: S1, S2 Respiratory: Yes: On Nasal O2, Poor Air Entry Gastrointestinal: Yes: Normal Bowel Sounds, Soft Musculoskeletal: Yes: WNL Extremities: Yes: WNL Wound/Incision: Yes: Dressing Dry and Intact Neurological: Yes: Alert, Oriented Labs: CBC, BMP 01/06/20 06:05 01/06/20 06:05 INR, PTT INR 1.03 (0.83-1.09) 12/27/19 17:00 Assessment/Plan Problem List - Problems (1) Cellulitis of foot Code(s): L03.119 - CELLULITIS OF UNSPECIFIED PART OF LIMB (2) Leg ulcer Code(s): L97.909 - NON-PRS CHRONIC ULC UNSP PRT OF UNSP LOW LEG W UNSP SEVERITY Qualifiers: Laterality: right Non-pressure ulcer stage: unspecified non-pressure ulcer stage Qualified Code(s): L97.919 - Non-pressure chronic ulcer of unspecified part of right lower leg with unspecified severity (3) Claudication in peripheral vascular disease Code(s): I73.9 - PERIPHERAL VASCULAR DISEASE, UNSPECIFIED (4) Idiopathic chronic venous hypertension of right lower extremity with ulcer and inflammation Code(s): I87.331 - CHRONIC VENOUS HTN W ULCER AND INFLAMMATION OF R LOW EXTREM; L97.919 - NON-PRS CHRONIC ULC UNSP PRT OF R LOW LEG W UNSP SEVERITY (5) Venous stasis dermatitis of both lower extremities Code(s): I87.2 - VENOUS INSUFFICIENCY (CHRONIC) (PERIPHERAL) Assessment/Plan Infected LE ulcers Rt plantar ulcer PVD CAD COPD Venous stasis wounds looked at plan continue current mgmt wound care patient is sob get a xray chest resp support close watch
[2020-01-07 12:12] VITALS: BP 110/70; PULSE 82; TEMP 97.8
--- NOTE | 2020-01-07 12:33 | DS ---
Physical Exam: SUBJECTIVE: Patient seen and examined OBJECTIVE: Vital Signs Period Temp Pulse Resp BP Sys/Nelson Pulse Ox Last 24 Hr 97.8 F-99.0 F 82-128 18-20 106-148/46-86 94-99 PHYSICAL EXAM GENERAL: The patient is awake, alert, and fully oriented, in no acute distress. HEAD: Normal with no signs of trauma. EYES: PERRL, extraocular movements intact, sclera anicteric, conjunctiva clear. ENT: Ears normal, nares patent, oropharynx clear without exudates, moist mucous membranes. NECK: Trachea midline, full range of motion, supple. LUNGS: Breath sounds equal, clear to auscultation bilaterally, no wheezes, no crackles, no accessory muscle use. HEART: Regular rate and rhythm, S1, S2 without murmur, rub or gallop. ABDOMEN: Soft, nontender, nondistended, normoactive bowel sounds, no guarding, no rebound, no hepatosplenomegaly, no masses. EXTREMITIES: 2+ pulses, warm, well-perfused, no edema. NEUROLOGICAL: Cranial nerves II through XII grossly intact. Normal speech, gait not observed. PSYCH: Normal mood, normal affect. SKIN: Warm, dry, normal turgor, no rashes or lesions noted. LABS HOSPITAL COURSE: Date of Admission:12/27/19 Date of Discharge: 01/07/20 Discharge Summary Problems reviewed: Yes Reason For Visit: WOUND OF FOOT Current Active Problems Cellulitis of foot (Acute) - Instructions Referrals: Mark Liang MD [Primary Care Provider] - - Home Medications Comprehensive Discharge Medication List: Ambulatory Orders Budesonide/Formeterol Fumarate [SYMBICORT 160/4.5mcg -] 1 puff IH DAILY 11/01/16 Cilostazol 50 tab PO BID 11/01/16 Albuterol Sulfate [Albuterol Sulfate Hfa] 2 puff IH Q4H PRN 08/21/18 Tiotropium [place] [Spiriva] 2 unit NEB DAILY 08/21/18 Lactobacillus Acidophilus [Acidophilus Lactobacilli] 1 each PO DAILY #30 capsule 08/25/18 Rosuvastatin [Crestor -] 20 mg PO HS #30 tablet 08/25/18 Alendronate Sodium [Fosamax] 1 tab WEEKLY 12/28/19 Amoxicillin/Potassium Clav [Augmentin 875-125 Tablet] 1 tab PO DAILY 12/28/19 - Discharge Referral Referred to [facility] Yes Physician Referral: Kyler Graham DO ([facility]) ATTENDING PHYSICIAN STATEMENT I saw and evaluated the patient. I reviewed the resident's note and discussed the case with the resident. I agree with the resident's findings and plan as documented. SUBJECTIVE: OBJECTIVE: ASSESSMENT AND PLAN:
--- NOTE | 2020-01-07 13:41 | PN ---
Teaching Attending Note Name of Resident: Antoinette Pierre ATTENDING PHYSICIAN STATEMENT I saw and evaluated the patient. I reviewed the resident's note and discussed the case with the resident. I agree with the resident's findings and plan as documented. SUBJECTIVE: No fever or chills, no abd pain. no N/V. breathing is better ,No abd pain. No BOLAÑOS. no pain in legs OBJECTIVE: NAD, awake, alert ,cooperative CV: RRR Lungs: good air entry , no wheezing CV: RRR Abd: soft, NT, ND Ext: legs with hyperpigmented skin, lower part wrapped in a dressing that she declined removing . can hand decorator her toes ASSESSMENT AND PLAN: 79 y/o lady with h/o PVD, COPD, CAD (s/p PCI), HLD & diverticulosis who presented with ulcers and drainage of legs 1- cellulitis of LEs. 2- s/p debridement 3- h/o COPD: possible mild exacerbation 4- CAD 5- elevated d dimer 6- possible episode of aspiration with vomiting 01/01 7- ulceration of labia majora Plan: - cont Nebs and and low dose steroids ( day 3 on 20 mg ). Will cont fro 3 more days - cont ABx,doxy ( 10 more days ) and levaquin x 1 more day . - cont santyl and xeroform to wounds daily - referral to pulm for lung nodule -referral to ortho for the partial tear in ankle - referral to ID and PCP Spoke to patient in depth about her dc and she agreed to rehab to avoid falls and other complications
--- NOTE | 2020-01-07 13:54 | DS ---
Physical Exam: SUBJECTIVE: Patient seen and examined. No acute events reported overnight. Patient has no complaints or concerns today. OBJECTIVE: Vital Signs Period Temp Pulse Resp BP Sys/Nelson Pulse Ox Last 24 Hr 97.8 F-99.0 F 82-128 18-20 106-148/46-86 94-99 PHYSICAL EXAM GENERAL: AAOx3. cachetic in appearance HEENT: NCAT, PERRLA, EOMI, sclera anicteric, conjunctiva clear, oropharynx clear w/o exudates. MMM. NECK: Normal ROM, supple, no lymphadenopathy, JVD, or masses LUNGS: b/l expiratory wheezing HEART: RRR, normal S1 S2, no M/R/G, peripheral pulses 2+ and equal b/l ABDOMEN: Soft, NTND, + BS. No guarding or rebound. No hepatomegaly or splenomegaly. MSK: ROM WNL EXTREMITIES: wounds look pink. no streaking, no purulent discharge. NEUROLOGICAL: CN II-XII intact. Normal speech. SKIN: b/l legs erythematous with cobblestoning LABS Laboratory Last Values WBC 5.4 K/mm3 (4.0-10.0) 01/06/20 06:05 RBC 3.44 M/mm3 (3.60-5.2) L 01/06/20 06:05 Hgb 12.0 GM/dL (10.7-15.3) 01/06/20 06:05 Hct 36.0 % (32.4-45.2) 01/06/20 06:05 MCV 104.7 fl (80-96) H 01/06/20 06:05 MCH 35.1 pg (25.7-33.7) H 01/06/20 06:05 MCHC 33.5 g/dl (32.0-36.0) 01/06/20 06:05 RDW 13.3 % (11.6-15.6) 01/06/20 06:05 Plt Count 263 K/MM3 (134-434) 01/06/20 06:05 MPV 8.0 fl (7.5-11.1) 01/06/20 06:05 Absolute Neuts (auto) 4.4 K/mm3 (1.5-8.0) 01/06/20 06:05 Neutrophils % 81.4 % (42.8-82.8) 01/06/20 06:05 Lymphocytes % 11.3 % (8-40) 01/06/20 06:05 Monocytes % 7.0 % (3.8-10.2) 01/06/20 06:05 Eosinophils % 0.0 % (0-4.5) D 01/06/20 06:05 Basophils % 0.3 % (0-2.0) 01/06/20 06:05 Nucleated RBC % 0 % (0-0) 01/06/20 06:05 Hypochromia 0 12/31/19 07:25 Platelet Estimate Normal 12/31/19 07:25 Polychromasia 1+ 12/31/19 07:25 Poikilocytosis 1+ 12/31/19 07:25 Anisocytosis 1+ 12/31/19 07:25 Microcytosis 0 12/31/19 07:25 Macrocytosis 2+ 12/31/19 07:25 Tear Drop Cells 1+ 12/31/19 07:25 ESR Cancelled 12/31/19 07:25 PT with INR 12.10 SEC (9.7-13.0) 12/27/19 17:00 INR 1.03 (0.83-1.09) 12/27/19 17:00 PTT (Actin FS) 30.5 SECONDS (25.2-36.5) 12/27/19 17:00 D-Dimer 1200 ng/ml (0-500) H 12/29/19 06:35 Anticoagulation Therapy No Result Required. 12/28/19 09:15 Puncture Site No Result Required. 12/28/19 09:15 Patient Temperature No Result Required. 12/28/19 09:15 ABG pH 7.416 (7.350-7.450) 12/28/19 09:15 ABG pCO2 37.70 mmHg (35-45) 12/28/19 09:15 ABG pO2 109.2 mmHg (80-100) H 12/28/19 09:15 ABG HCO3 23.7 mmol/L (22-27) 12/28/19 09:15 ABG O2 Sat (Measured) 98.1 mmHg (95-98) H 12/28/19 09:15 ABG O2 Content No Result Required. 12/28/19 09:15 ABG Base Excess -0.5 mmol/L (-2-2) 12/28/19 09:15 Jason Test No Result Required. 12/28/19 09:15 Patient On Oxygen No Result Required. 12/28/19 09:15 O2 Delivery Device No Result Required. 12/28/19 09:15 Oxygen Flow Rate No Result Required. 12/28/19 09:15 Vent Mode No Result Required. 12/28/19 09:15 Vent Rate No Result Required. 12/28/19 09:15 Mechanical Rate No Result Required. 12/28/19 09:15 PEEP No Result Required. 12/28/19 09:15 Pressure Support Vent No Result Required. 12/28/19 09:15 Sodium 139 mmol/L (136-145) 01/06/20 06:05 Potassium 4.4 mmol/L (3.5-5.1) 01/06/20 06:05 Chloride 105 mmol/L (98-107) 01/06/20 06:05 Carbon Dioxide 27 mmol/L (21-32) 01/06/20 06:05 Anion Gap 7 MMOL/L (8-16) L 01/06/20 06:05 BUN 7.0 mg/dL (7-18) 01/06/20 06:05 Creatinine 0.7 mg/dL (0.55-1.3) 01/06/20 06:05 Est GFR (CKD-EPI)AfAm 94.84 01/06/20 06:05 Est GFR (CKD-EPI)NonAf 81.83 01/06/20 06:05 Random Glucose 128 mg/dL (74-106) H 01/06/20 06:05 Hemoglobin A1c % 5.1 % (4.2-6.3) 12/28/19 07:06 Calcium 8.2 mg/dL (8.5-10.1) L 01/06/20 06:05 Phosphorus 2.1 mg/dL (2.5-4.9) L 01/06/20 06:05 Magnesium 2.1 mg/dL (1.8-2.4) 01/06/20 06:05 Ferritin 179.1 ng/ml (8-388) 12/28/19 07:06 Total Bilirubin 0.8 mg/dL (0.2-1) 01/06/20 06:05 AST 29 U/L (15-37) 01/06/20 06:05 ALT 18 U/L (13-61) 01/06/20 06:05 Alkaline Phosphatase 101 U/L (45-117) 01/06/20 06:05 LD Total 139 U/L (84-246) 12/28/19 07:06 C-Reactive Protein 3.5 MG/DL (0.00-0.3) H 01/01/20 06:56 Total Protein 6.2 g/dl (6.4-8.2) L 01/06/20 06:05 Albumin 1.9 g/dl (3.4-5.0) L 01/06/20 06:05 Vitamin B12 857 pg/ml (193-986) 01/01/20 06:56 Serum Folate 11 ng/mL (3.1-17.5) 01/01/20 06:56 Vancomycin Pre-Dose 18.6 ug/ml (5-10) H 01/03/20 10:04 COVID-19 (JOCELYN) Not detected (Not Detected) 12/27/19 17:45 HOSPITAL COURSE: 79 y/o lady with h/o PVD, COPD, CAD (s/p PCI), HLD & diverticulitis who presented with ulcers and drainage of legs. Cultures of the wound were + for pseudomonas & MRSA + acinetobacter. During her stay, she completed a course of vanc/zosyn and is being discharged on doxy 100 mg po bid. She received her last dose of Levaquin 750mg the morning of her discharge. Dr. Graham from Wound Care/Vascular recommended Santyl to all wounds daily. Xeroform was placed on the plantar surface of the wound. She was also found to have vaginal skin ulcers and was given topical zinc. For her COPD she was on Duoneb and was discharged with nebulized albuterol. Patient also had hypoalbuminemia during her hospital course which was most likely due to malnutrition and losses and was given ensure throughout her hospital stay. Patient also had hypokalemia but was unable to tolerate PO potassium. Patient was on Lovenox 40 mg for DVT prophylaxis. Date of Admission:12/27/19 12/26/19- CXR- Mild cardiomegaly without evidence of acute lung disease 12/27/19- X-Ray of right foot- There is evidence of osteopenia. The alignment is satisfactory without gross evidence of an acute fracture, dislocation or bone destruction. No gross soft tissue swelling is identified 12/29/19- R MR Lower Extremity MRI w/o contrast- Extensive cellulitis. There is no soft tissue abscess and no osteomyelitis. 12/29/19- L MR lower extremity MRI w/o contrast- Extensive cellulitis. There is no soft tissue abscess and no osteomyelitis. 01/01/20- US Duplex Vascular US 2 legs- No sonographic evidence of right or left lower extremity DVT. 01/02/20- Portable CXR- Some congestive changes. Bibasilar findings. Left upper lobe granuloma. New bilateral pulmonary and pleural changes since 12/27/2019. 01/03/20- Portable CXR- Progressive bibasilar changes. Date of Discharge: 01/07/20 Minutes to complete discharge: 36 Discharge Summary Problems reviewed: Yes Reason For Visit: WOUND OF FOOT Current Active Problems COPD exacerbation (Acute) Cellulitis of leg (Acute) Condition: Improved - Instructions Diet, Activity, Other Instructions: Your visit: You were admitted to the hospital for foot wound. You were found to have an infection on your right foot. You were treated with antibiotics and surgery with improvement of your symptoms. -During your stay, we did an MRI of your right leg and noted a small tear of your tendon. If you experience any pain or discomfort please visit with the orthopedic surgeon. we referred you to Dr. Hitchcock -During your stay, we did a X-Ray of your chest which showed a nodule in your left lung. Please follow up with a smoking pipe driller and threader. we referred you to Dr. Irvin Medications changes: -Please continue to take the antibiotic Doxycycline 100 mg (1 tablet) two times a day for 10 more days. You will take the first pill tonight. You will finish this medication on 01/16/2020. -Please discontinue Augmentin -Please continue to take prednisone 1 pill (20 mg) each for 3 more days. You will finish this medication on 01/10/2020. -We are sending Albuterol nebulizers to your pharmacy. Please use as needed for shortness of breath. -Continue to take all other home medications as prescribed. Follow up: - Please follow-up with Dr. Graham in 2 week. - Please follow-up with Dr. Bates in 2 week. - Visit with your Primary Care Provider in 1 weeks. If you do not have a primary care provider you may make an appointment with Dr. Verdugo at the [facility] clinic located at [address] [place] [address] ([phone]). - dr. Hitchcock from orthopedic surgery - Dr. Irvin [facility] Additional Instructions: -You are being discharged to a rehab facility to help you regain your strength. -Please return to the Emergency Department if you experience worsening pain, fevers, chills, shortness of breath, or chest pain, or if you experience any worsening, new or concerning symptoms. wound care : apply santyl to wounds daily . apply xeroform on leg wounds and on plantar R foot blister , then apply clean gauze , then kerlex wrap . change dressing daily. You need 3 liters of O2 through nasal cannula with ambulation . Referrals: Araceli Bates MD [Staff Physician] - Mark Liang MD [Primary Care Provider] - Kylre Graham DO [Staff Physician] - Lennox Hitchcock MD [Staff Physician] - 2 Weeks Dakota Irvin MD, MD [Staff Physician] - 1 Month Disposition: [facility] - Home Medications Comprehensive Discharge Medication List: Ambulatory Orders Budesonide/Formeterol Fumarate [SYMBICORT 160/4.5mcg -] 1 puff IH DAILY 11/01/16 Cilostazol 50 tab PO BID 11/01/16 Albuterol Sulfate [Albuterol Sulfate Hfa] 2 puff IH Q4H PRN 08/21/18 Tiotropium [place] [Spiriva] 2 unit NEB DAILY 08/21/18 Lactobacillus Acidophilus [Acidophilus Lactobacilli] 1 each PO DAILY #30 capsule 08/25/18 Rosuvastatin [Crestor -] 20 mg PO HS #30 tablet 08/25/18 Alendronate Sodium [Fosamax] 1 tab WEEKLY 12/28/19 Albuterol 0.083% Nebulizer [place] [Ventolin 0.083% Nebulizer Soln -] 1 amp NEB Q4H PRN #1 amp 01/07/20 Collagenase Clostridium Hist. [Santyl -] 1 applic TP DAILY #1 tube 01/07/20 Doxycycline Hyclate [Vibramycin -] 100 mg PO BID@1000,1800 10 Days #19 capsule 01/07/20 predniSONE [Deltasone -] 20 mg PO DAILY #3 tablet 01/07/20 This patient is new to me today: Yes Date on this admission: 01/07/20 Emergency Visit: No Critical Care patient: No - Discharge Referral Referred to [facility] Yes Physician Referral: Kyler Graham DO ([facility]) ATTENDING PHYSICIAN STATEMENT I saw and evaluated the patient. I reviewed the resident's note and discussed the case with the resident. I agree with the resident's findings and plan as documented. SUBJECTIVE: OBJECTIVE: ASSESSMENT AND PLAN:
--- NOTE | 2020-01-07 21:53 | EKG ---
Test Reason : Blood Pressure : / mmHG Vent. Rate : 095 BPM Atrial Rate : 095 BPM P-R Int : 110 ms QRS Dur : 088 ms QT Int : 386 ms P-R-T Axes : 081 008 -26 degrees QTc Int : 485 ms SINUS RHYTHM WITH SHORT MT WITH OCCASIONAL PREMATURE VENTRICULAR COMPLEXES LOW VOLTAGE QRS INFERIOR INFARCT (CITED ON OR BEFORE 12-FEB-2007) ABNORMAL ECG WHEN COMPARED WITH ECG OF 04-JAN-2020 15:37, PREMATURE VENTRICULAR COMPLEXES ARE NOW PRESENT Confirmed by CEDRIC DOMINGUEZ MD ([id number]) on 01/07/2020 9:53:33 PM Referred By: Swetha METZ Confirmed By:CEDRIC DOMINGUEZ MD
--- NOTE | 2020-01-07 22:01 | EKG ---
Test Reason : Blood Pressure : / mmHG Vent. Rate : 083 BPM Atrial Rate : 083 BPM P-R Int : 110 ms QRS Dur : 092 ms QT Int : 406 ms P-R-T Axes : 066 005 -26 degrees QTc Int : 477 ms SINUS RHYTHM WITH SHORT NH LOW VOLTAGE QRS INFERIOR INFARCT (CITED ON OR BEFORE 12-FEB-2007) ABNORMAL ECG WHEN COMPARED WITH ECG OF 27-DEC-2019 17:44, NO SIGNIFICANT CHANGE WAS FOUND Confirmed by CEDRIC DOMINGUEZ MD ([id number]) on 01/07/2020 10:00:55 PM Referred By: Confirmed By:CEDRIC DOMINGUEZ MD
== END 2020-01-07 16:23 | DRG 571 ==
LOC: JER 14:47 → JERBED 18:13 → J8W 20:33
PROVIDERS: ADMIT Internal Medicine; ATTEND Internal Medicine
PROC: 0JBQ0ZZ Excision of Right Foot Subcutaneous Tissue and Fascia, Open Approach (ICD-10-PCS; principal; 2019-12-28)
DX: L03.115 Cellulitis of right lower limb (principal); E46 Unspecified protein-calorie malnutrition; R64 Cachexia; L97.929 Non-pressure chronic ulcer of unspecified part of left lower leg with unspecified severity; L97.919 Non-pressure chronic ulcer of unspecified part of right lower leg with unspecified severity; I25.2 Old myocardial infarction; J44.9 Chronic obstructive pulmonary disease, unspecified; I25.10 Atherosclerotic heart disease of native coronary artery without angina pectoris; I73.9 Peripheral vascular disease, unspecified; Z98.61 Coronary angioplasty status; E88.09 Other disorders of plasma-protein metabolism, not elsewhere classified; R94.31 Abnormal electrocardiogram [ECG] [EKG]; K57.90 Diverticulosis of intestine, part unspecified, without perforation or abscess without bleeding; L03.116 Cellulitis of left lower limb; M85.80 Other specified disorders of bone density and structure, unspecified site; Z68.20 Body mass index [BMI] 20.0-20.9, adult; I87.2 Venous insufficiency (chronic) (peripheral); R62.7 Adult failure to thrive; N76.5 Ulceration of vagina; E87.6 Hypokalemia
CPT/HCPCS: 36415; 36600; 71045-TC-FY; 73590-TC-RT-FY; 73630-TC-RT-FY; 73718-TC-LT; 73718-TC-RT; 80048; 80053; 82607; 82728; 82746; 82803; 83036; 83615; 83735; 84100; 85025; 85027; 85379; 85610; 85651; 85730; 86140; 87040; 87070; 87186; 87205; 93005; 93010; 93970-TC; 94010; 94640; 94761; 97116-GP; 97162-GP; 99285-25; G0480; J0131; U0003

== ENCOUNTER 2020-02-08 11:23 | Inpatient (IN) | payer OTHER, BC ==
[2020-02-08] MEDS ORDERED: SODIUM CHLORIDE 1,000 ML IV SCH ×3 (11:30→23:00)
--- OUTSIDE RECORDS SUMMARY | 2020-02-08 11:42 | XMS ---
:1940 Author Organization [facility] Support Name Relationship Address Phone RE, RETIRED Unavailable Unavailable Unavailable RE Unavailable Unavailable Unavailable BOWEN MONTEIRO DAUGHTER [address] [place] [address] BOWEN MONTEIRO Child [address] [place] [address] Re-disclosure Warning The records that you are about to access may contain information from federally- assisted alcohol or drug abuse programs. If such information is present, then the following federally mandated warning applies: This information has been disclosed to you from records protected by federal confidentiality rules (42 CFR part 2). The federal rules prohibit you from making any further disclosure of this information unless further disclosure is expressly permitted by the written consent of the person to whom it pertains or as otherwise permitted by 42 CFR part 2. A general authorization for the release of medical or other information is NOT sufficient for this purpose. The Federal rules restrict any use of the information to criminally investigate or prosecute any alcohol or drug abuse patient.The records that you are about to access may contain highly sensitive health information, the redisclosure of which is protected by Article 27-F of the [facility] Public Health law. If you continue you may haveaccess to information: Regarding HIV / AIDS; Provided by facilities licensed or operated by the [facility] Office of Mental Health; or Provided by the [facility] Office for People With Developmental Disabilities. If such information is present, then the following [facility] mandated warning applies: This information has been disclosed to you from confidential records which are protected by state law. State law prohibits you from making any further disclosure of this information without the specific written consent of the person to whom it pertains, or as otherwise permitted by law. Any unauthorized further disclosure in violation of state law may result in a fine or half-way sentence or both. A general authorization for the release of medical or other information is NOT sufficient authorization for further disclosure. Insurance Providers Payer name Policy type Policy ID Covered Covered republican's Policy P sunil / Coverage republican ID relationship to [facility] type [place] G[employer] CBP [id number] SP [id number] OUTPT BC PPO [id number] SP [id number] MEDICARE [id number] SP [id number] GHI CBP [id number] SP [id number] OUTPT BC PPO [id number] SP [id number] MEDICARE [id number] SP [id number] D GHI CBP [id number] SP [id number] OUTPT GHI CBP [id number] SP [id number] OUTPT BC PPO [id number] SP [id number] GHI CBP [id number] SP [id number] OUTPT BC PPO [id number] SP [id number] Results ID Date Data Source [id number] 01/08/2020 12:00:00 AM EDT [facility] Name Value Range Interpretation Code Description Data Pooja rce(s) Supporting Document(s ) 2019-nCoV [facility] RNA XXX JOCELYN+probe- Imp This lab was ordered by [facility] and reported by [facility]. ID Date Data Source [id number] 12/27/2019 05:45:00 PM EDT [facility] Name Value Range Interpretation Description Data Sup porting Code Source(s) Document(s ) SARS [facility] coronavirus 2 RNA This lab was ordered by [facility] and reported by [facility]. Procedure
--- NOTE | 2020-02-08 11:58 | PDOC ---
History of Present Illness - General Chief Complaint: Vomiting Blood Stated Complaint: GI BLEED Time Seen by Provider: 02/08/20 11:28 History Source: Patient - History of Present Illness Initial Comments: 02/08/20 11:55 79F w/hx CAD s/p cardiac stenting on plavix, HTN, HLD, COPD p/w acute onset hematemesis. Per EMS, approx 500cc bright red hematemesis in container at the scene with additional hematemesis en route. No prior similar episodes. She was seen by Dr. Gillespie (Gastroenterology) during prior admission, noted to have diverticulosis, hernia, chronic gastritis at that time. She reports generalized weakness, fatigue, nausea, and mild sob. She denies any recent fevers, chills, cough, or chest pain. Vascular: Dr. Graham Past History - Medical History Allergies/Adverse Reactions: Allergies Allergy/AdvReac Type Severity Reaction Status Date / Time No Known Allergies Allergy Verified 11/02/19 13:35 Home Medications: Ambulatory Orders Budesonide/Formeterol Fumarate [SYMBICORT 160/4.5mcg -] 1 puff IH DAILY 11/01/16 Albuterol Sulfate [Albuterol Sulfate Hfa] 2 puff IH Q4H PRN 08/21/18 Tiotropium [place] [Spiriva] 2 unit NEB DAILY 08/21/18 Rosuvastatin [Crestor -] 20 mg PO HS #30 tablet 08/25/18 Alendronate Sodium [Fosamax] 1 tab WEEKLY 12/28/19 Albuterol 0.083% Nebulizer Yuliet [Ventolin 0.083% Nebulizer Soln -] 1 amp NEB Q4H PRN #1 amp 01/07/20 Collagenase Clostridium Hist. [Santyl -] 1 applic TP DAILY #1 tube 01/07/20 predniSONE [Deltasone -] 20 mg PO DAILY #3 tablet 01/07/20 Meloxicam 30 mg PO DAILY 02/08/20 Anemia: No Cancer: No Cardiac Disorders: Yes (CAD) CVA: No COPD: Yes CHF: No Dementia: No Diabetes: No GI Disorders: No Disorders: No HTN: Yes Hypercholesterolemia: Yes Liver Disease: No Seizures: No Thyroid Disease: No - Surgical History Abdominal Surgery: No Cardiac Surgery: Yes (cardiac stents x3) - Psycho-Social/Smoking History Smoking History: Unknown if ever smoked Have you smoked in the past 12 months: No If you are a former smoker, when did you quit?: 1989 - Substance Abuse Hx (Audit-C & DAST Scrn) How often the patient has a drink containing alcohol: Never Score: In Men: 4 or > Positive; In Women: 3 or > Positive: 0 Screen Result (Pos requires Nsg. Audit-10AR): Negative In the last yr the pt used illegal drug/Rx for NonMed reason: No Score: Yes response is considered Positive: 0 Screen Result (Positive result requires Nsg. DAST-10): Negative Review of Systems - Review of Systems Able to Perform ROS?: Yes Comments:: 02/08/20 13:49 GENERAL/CONSTITUTIONAL: Weakness. No fever or chills. HEAD, EYES, EARS, NOSE AND THROAT: No change in vision. No ear pain or discharge. No sore throat. CARDIOVASCULAR: No chest pain or shortness of breath RESPIRATORY: No cough, wheezing, or hemoptysis. GASTROINTESTINAL: Hematemesis, nausea. No diarrhea or constipation. GENITOURINARY: No dysuria, frequency, or change in urination. MUSCULOSKELETAL: No joint or muscle swelling or pain. No neck or back pain. SKIN: No rash NEUROLOGIC: No headache, vertigo, loss of consciousness, or change in strength/sensation. ENDOCRINE: No increased thirst. No abnormal weight change HEMATOLOGIC/LYMPHATIC: On plavix. No anemia ALLERGIC/IMMUNOLOGIC: No hives or skin allergy. *Physical Exam - Vital Signs Last Vital Signs Temp Pulse Resp BP Pulse Ox 98.3 F 113 H 19 95/53 L 90 L 02/08/20 11:26 02/08/20 11:26 02/08/20 11:26 02/08/20 11:02/08/20 11:38 - Physical Exam 02/08/20 13:50 GENERAL: Fatigued appearing, pale. Awake, alert, and fully oriented HEAD: Dried blood around mouth. No signs of trauma, normocephalic, atraumatic EYES: PERRLA, EOMI, sclera anicteric, conjunctiva clear ENT: Auricles normal inspection, hearing grossly normal, nares patent, oropharynx clear without exudates. Moist mucosa NECK: Normal ROM, supple, no lymphadenopathy, JVD, or masses LUNGS: No distress, speaks full sentences, clear to auscultation bilaterally HEART: Regular rate and rhythm, normal S1 and S2, no murmurs, rubs or gallops, peripheral pulses normal and equal bilaterally. ABDOMEN: Soft, nontender, normoactive bowel sounds. No guarding, no rebound. No masses EXTREMITIES : Bilateral LE wrapped. No edema. No clubbing or cyanosis NEUROLOGICAL: Cranial nerves II through XII grossly intact. Normal speech, no focal sensorimotor deficits SKIN: Warm, Dry, normal turgor, no rashes or lesions noted ED Treatment Course - LABORATORY CBC & Chemistry Diagram: 02/08/20 11:52 02/08/20 11:52 Medical Decision Making - Medical Decision Making 79F w/hx CAD s/p PCI on Plavix, diverticulosis, COPD, HTN, HLD p/w acute onset hematemesis this AM, x2 in field with EMS, x1 in ED, hypotensive with MAP to low 70s. Plan: CBC CMP EKG CXR Troponin PT/INR, APTT Type and screen x2 Continuous cardiac specialist 3L O2 nasal cannula Lactate ABG Protonix 80mg, followed by Protonix 8mg/hr drip 1L LR Likely blood transfusion GI Consult ICU Consult Dispo: Admit, ICU 02/08/20 13:48 Family: Farhad (Daughter): [phone] --- BP 95/63, Hg 7.8 Plan for transfusion. Risks/benefits of transfusion discussed with patient, verbal consent obtained from patient. Patient requested daughter's signature on consent form out of convenience secondary to weakness. --- BRPC transfusion x2 started --- Case discussed with ICU team, patient accepted to ICU under Dr. Mccarthy. --- 02/08/20 14:48 Repeat episode hematemesis with clots Zofran 4mg IV administered GI, ICU at the bedside Discharge - Discharge Information Problems reviewed: Yes Clinical Impression/Diagnosis: Hematemesis Qualifiers: Nausea presence: with nausea Qualified Code(s): K92.0 - Hematemesis Condition: Guarded - Admission Yes - Follow up/Referral Referrals: Mark Liang MD [Primary Care Provider] - - Patient Discharge Instructions - Post Discharge Activity
[2020-02-08] MEDS ORDERED: VANCOMYCIN 1,000 MG in DEXTROSE 5%-WATER - 250 ML IVPB ONE (12:08)
[2020-02-08] MEDS ORDERED: PIPERACILLIN/TAZOB 3.375 GM 3.375 GM in DEXTROSE 5%-WATER - 50 ML IVPB ONE (12:08)
[2020-02-08 12:13] LABS: BASO % 0.8 % (0-2.0); EOS % 0.1 % (0-4.5); HEMATOCRIT 25.2 % (32.4-45.2); HEMOGLOBIN 8.4 GM/dL (10.7-15.3); LYMPH % 21.9 % (8-40); MCH 34.3 pg (25.7-33.7); MCHC 33.4 g/dl (32.0-36.0); MEAN CELL VOLUME 102.6 fl (80-96); MEAN PLT VOLUME 8.6 fl (7.5-11.1); MONO % 11.6 % (3.8-10.2); NEUT % 65.6 % (42.8-82.8); PLATELET COUNT 222 K/MM3 (134-434); RBC 2.45 M/mm3 (3.60-5.2); RDW 14.5 % (11.6-15.6); WHITE BLOOD COUNT 9.6 K/mm3 (4.0-10.0)
[2020-02-08] MEDS ORDERED: PANTOPRAZOLE SODIUM 40 MG VIAL IVPUSH ONE (12:16)
[2020-02-08 12:22] LABS: INR 1.52 (0.83-1.09)
[2020-02-08 12:25] LABS: ACTIVATED PTT 30.2 SECONDS (25.2-36.5)
[2020-02-08 12:49] LABS: BILIRUBIN,TOTAL 0.7 mg/dL (0.2-1); BLOOD UREA NITROGEN 38.3 mg/dL (7-18); CALCIUM 7.7 mg/dL (8.5-10.1); CREATININE 0.6 mg/dL (0.55-1.3); POTASSIUM 3.6 mmol/L (3.5-5.1); TOT PROT 5.2 g/dl (6.4-8.2)
[2020-02-08] MEDS ORDERED: LACTATED RINGERS SOLUTION 1000 ML INFUS.BAG IV ONE (13:08)
[2020-02-08] MEDS ORDERED: PANTOPRAZOLE SODIUM 40 MG VIAL ONE ×2 (13:22→15:45)
[2020-02-08 13:36] LABS: ANISOCYTOSIS 1+; MACROCYTOSIS 1+; PLATELET ESTIMATE NORMAL
[2020-02-08] MEDS ORDERED: VANCOMYCIN 1 GRAM (PRE-DOCKED) 1,000 MG/250 ML BAG IVPB ONE (14:40)
[2020-02-08] MEDS ORDERED: PIPERACILLIN/TAZOB 3.375 GM 3.375 GM/50 ML BAG IVPB ONE (14:40)
--- NOTE | 2020-02-08 15:04 | PDOC ---
Documentation entered by Suzanne Muhammad SCRIBE, acting as scribe for Jakob Cummins MD. Jakob Cummins MD: This documentation has been prepared by the shantaibeJb Lincy, SCRIBE, under my direction and personally reviewed by me in its entirety. I confirm that the documentation accurately reflects all work, treatment, procedures, and medical decision making performed by me. Attending Attestation - Resident Resident Name: Jose Cloud - ED Attending Attestation I have performed the following: I have examined & evaluated the patient, The case was reviewed & discussed with the resident, I agree w/resident's findings & plan, Exceptions are as noted - HPI HPI: 02/08/20 12:58 The patient is an 79-year-old female with a past medical history significant for CAD s/p stents (on Plavix), HTN, HLD, and hx of GI bleeding who presents to the emergency department with hematemesis since yesterday. The patient reports associated symptoms of weakness, fatigue, and nausea. Denies fever or chills. - Physicial Exam PE: 02/08/20 12:59 Vitals: Triage vital signs reviewed General Appearance: No acute distress, well nourished, well developed Neck: Supple; No nuchal rigidity Chest Wall: Nontender Cardiac: Regular rate and rhythm, no murmurs, no rubs, no gallops Lungs: Clear to auscultation bilateral, good air movement bilaterally Abdomen: Soft, nondistended, normal bowel sounds, nontender to palpation Extremities: Full range of motion to all extremities, no cyanosis, clubbing, or edema Skin: +dry dark blood on the chest. Warm and dry, no rashes or lesions, no rash, no petechiae Psych: Normal mood, normal affect - Critical Care Time Total Critical Care Time: 65 Critical Care Statement: The care of this patient involved high complexity decision making to prevent further life threatening deterioration of the patient's condition and/or to evaluate & treat vital organ system(s) failure or risk of failure. - Medical Decision Making 79 years old with CAD status post stents 2004 on Plavix not on aspirin per patient. Hypertension hyperlipidemia previous GI bleeds in the past. Presents with 3 episodes of coffee-ground emesis Tachycardic borderline hypotensive blood ordered PPI bolus and drip ordered ICU has been consulted GI has been consulted Discharge - Discharge Information Problems reviewed: Yes Clinical Impression/Diagnosis: Hematemesis Qualifiers: Nausea presence: with nausea Qualified Code(s): K92.0 - Hematemesis Condition: Guarded - Follow up/Referral - Patient Discharge Instructions - Post Discharge Activity
[2020-02-08] MEDS ORDERED: ACETAMINOPHEN 1000 MG/100 ML VIAL (NON FORMULARY) IVPB ONE (15:05)
--- NOTE | 2020-02-08 15:17 | CON.GI ---
Consult Consult Specialty:: GI Referred by:: Hospitalist Service Reason for Consultation:: GI Bleed - History of Present Illness Chief Complaint: Hematemesis History of Present Illness: 79F admitted for evaluation of coffee ground vomitus 1 at home, 2 episodes while in ER. She denies abomindal pain. Maintained on Plavix for CAD. Previous medication list includes meloxicam and prednisone. Noted tachycardic and hypotensive. She was bolused 1000cc of NS. Pletal (She believes that she is on Plavix, however). She is not on GI prophylaxis at home. Previously she described three alcoholic beverages per day for multiple years. She denies abdominal pain. She had EGD 08/20/18 that revealed benign appearing distal esophageal stricture and hiatal hernia. She had a colonoscopy with Dr Terrell on 08/22/19 which revealed severe left sided diverticulosis. She was felt to have a diverticular bleed. There has been no vomiting. She also had an upper endoscopy in 2006 that revealed a duodenal ulcer. She is taking Meloxicam. There is no family history of colon cancer. - History Source History Provided By: Patient Limitations to Obtaining History: No Limitations - Past Medical History Cardio/Vascular: Yes: CAD (stented post ME 2004 at [facility]), ME (2004), Other (Sciatica) Pulmonary: Yes: COPD Gastrointestinal: Yes: GI Bleed (Diverticular hemorrhage 2018), Hiatal Hernia (with esophageal stricture 09/01 EGD), Peptic Ulcer Disease (duodenal ulcer on 2006 EGD) ...LMP: 05/16/89 Musculoskeletal: Yes: Chronic low back pain (Secondary to sciatica) - Past Surgical History Past Surgical History: Yes: Colonoscopy, Tonsillectomy, Upper Endoscopy, Vein Stripping/Ligation (B/L LE) - Alcohol/Substance Use Hx Alcohol Use: Yes (2-3glasses of wine nightly) History of Substance Use: reports: None - Smoking History Smoking history: Former smoker Have you smoked in the past 12 months: No If you are a former smoker, when did you quit?: 1989 - Social History Usual Living Arrangement: Alone () ADL: Independent Occupation: retired [employer] Place of : [facility] History of Recent Travel: No Home Medications - Allergies Allergies/Adverse Reactions: Allergies Allergy/AdvReac Type Severity Reaction Status Date / Time No Known Allergies Allergy Verified 11/02/19 13:35 - Home Medications Home Medications: Ambulatory Orders Budesonide/Formeterol Fumarate [SYMBICORT 160/4.5mcg -] 1 puff IH DAILY 11/01/16 Albuterol Sulfate [Albuterol Sulfate Hfa] 2 puff IH Q4H PRN 08/21/18 Tiotropium [place] [Spiriva] 2 unit NEB DAILY 08/21/18 Rosuvastatin [Crestor -] 20 mg PO HS #30 tablet 08/25/18 Alendronate Sodium [Fosamax] 1 tab WEEKLY 12/28/19 Albuterol 0.083% Nebulizer Yuliet [Ventolin 0.083% Nebulizer Soln -] 1 amp NEB Q4H PRN #1 amp 01/07/20 Collagenase Clostridium Hist. [Santyl -] 1 applic TP DAILY #1 tube 01/07/20 predniSONE [Deltasone -] 20 mg PO DAILY #3 tablet 01/07/20 Meloxicam 30 mg PO DAILY 02/08/20 Physical Exam-GI Vital Signs: Vital Signs Temperature 98.3 F 02/08/20 11:26 Pulse Rate 113 H 02/08/20 11:26 Respiratory Rate 19 02/08/20 11:26 Blood Pressure 95/53 L 02/08/20 11:26 O2 Sat by Pulse Oximetry (%) 90 L 02/08/20 11:38 CBC, [facility] 02/08/20 11:52 02/08/20 11:52 INR, PTT INR 1.52 (0.83-1.09) H 02/08/20 11:52 Constitutional: Yes: Anxious, Thin Eyes: Yes: Conjunctiva Clear HENT: Yes: Atraumatic Neck: Yes: Trachea Midline Cardiovascular: Yes: Tachycardia Respiratory: Yes: CTA Bilaterally Gastrointestinal Inspection: Yes: Distention ...Auscultate: Yes: Hyperactive Bowel Sounds ...Palpate: Yes: Other (nontender) ...Percussion: Yes: Tympanitic ...Rectal Exam: Yes: Guaiac Positive (loose black strongly guaiaic positive melena, no rectal masses) Edema: No Psychiatric: Yes: Alert, Oriented Labs: CBC, [facility] 02/08/20 11:52 02/08/20 11:52 INR, PTT INR 1.52 (0.83-1.09) H 02/08/20 11:52 Problem List - Problems (1) GI hemorrhage Code(s): K92.2 - GASTROINTESTINAL HEMORRHAGE, UNSPECIFIED (2) History of peptic ulcer Code(s): Z87.11 - PERSONAL HISTORY OF PEPTIC ULCER DISEASE (3) Diverticula of colon Code(s): K57.30 - DVRTCLOS OF LG INT W/O PERFORATION OR ABSCESS W/O BLEEDING (4) Esophageal stricture Code(s): K22.2 - ESOPHAGEAL OBSTRUCTION (5) Hiatal hernia Code(s): K44.9 - DIAPHRAGMATIC HERNIA WITHOUT OBSTRUCTION OR GANGRENE (6) Coronary artery disease Code(s): I25.10 - ATHSCL HEART DISEASE OF [place] CORONARY ARTERY W/O ANG PCTRS (7) Stented coronary artery Code(s): Z95.5 - PRESENCE OF CORONARY ANGIOPLASTY IMPLANT AND GRAFT (8) COPD (chronic obstructive pulmonary disease) Code(s): J44.9 - CHRONIC OBSTRUCTIVE PULMONARY DISEASE, UNSPECIFIED Assessment/Plan Impression: - Hematemesis with melena. Given her meloxicam usage and previous duodenal ulcer I suspect this to be the most likely source of this bleed but she will need diagnostic and interventional EGD. She could alternatively be bleeding from GERD, PUD, vascular ectasias and given her wine intake portal gastropathy or even varices. Dr Renteria assisted in her care and has already discussed EGD in detail with Shannon Tee and her daughter Mehreen [phone] and informed that of the potential for such complications that include perforation and worsening of hemorrhage and which could culminate in the need for more transfusions and surgery. They have mutually consented Plan: -- ICU Care -- Blood and fluid resuscitation -- Monodonor platelets -- PPI drip -- EGD, timing of which to be determined by Ms. Mcgrath's clinical course -- Vitamink K 10mg SC ordered x 1 -- Cardiology evaluation. The need for continued Plavix therapy will need to be reevaluated as she has prior h/o duodenal ulcer, a lower GI bleed last year and current upper GI bleed.
--- NOTE | 2020-02-08 15:17 | EKG ---
Test Reason : Blood Pressure : / mmHG Vent. Rate : 095 BPM Atrial Rate : 097 BPM P-R Int : 098 ms QRS Dur : 070 ms QT Int : 314 ms P-R-T Axes : 078 004 -82 degrees QTc Int : 394 ms POOR DATA QUALITY, INTERPRETATION MAY BE ADVERSELY AFFECTED PROBABLY NORMAL SINUS RHYTHM WITH VENTRICULAR PREMATURE VENTRICULAR CONTRACTIONS OR ATRIAL PREMATURE CONTRACTIONS WITH ABERRANCY LOW VOLTAGE QRS CANNOT RULE OUT INFERIOR INFARCT (CITED ON OR BEFORE 12-FEB-2007) POSSIBLE ANTEROLATERAL INFARCT , AGE UNDETERMINED ABNORMAL ECG Confirmed by MICHAEL KEEN MD ([id number]) on 02/08/2020 3:17:15 PM Referred By: Confirmed By:MICHAEL KEEN MD
[2020-02-08] MEDS ORDERED: PHYTONADIONE 10 MG/1 ML AMP SQ ONE (15:20)
[2020-02-08] MEDS ORDERED: ONDANSETRON 4 MG/2 ML VIAL IVPUSH ONE (15:21)
[2020-02-08] MEDS ORDERED: PHYTONADIONE 10 MG/1 ML AMP ONE (15:35)
[2020-02-08] MEDS: PANTOPRAZOLE SODIUM 80 MG in SODIUM CHLORIDE 100 ML IVPB SCH (15:52)
--- NOTE | 2020-02-08 16:00 | CONSULT ---
Consult - text type - Consultation Consultation Note: 79 yo female with PMH of
--- NOTE | 2020-02-08 16:10 | CONSULT ---
Consultation: REQUESTING PROVIDER: CONSULT REQUEST: We have been asked to medically evaluate this patient for Hemorrhagic Shock HISTORY OF PRESENT ILLNESS: 79F with PMH of Diverticulosis, Gastritis, Hernia, HTN, HLD, COPD, CAD, 3x Stents on plavix. Pt presents with acute onset of hematemesis. She had multiple episodes of bright red bloody vomit totalling ~500cc (per EMS). No prior similar episodes. She was tolerating food up until her vomiting started. She reports generalized weakness, fatigue, nausea, sob. She denies any recent fevers, chills, diarrhea, bloody stool, cough, chest pain. She denies any liver disease or alcohol abuse or drug abuse. GI: Dr. Gillespie REVIEW OF SYSTEMS: CONSTITUTIONAL: generalized weakness, malaise, loss of appetite Absent: fever, chills, diaphoresis, , weight change HEENT: Absent: rhinorrhea, nasal congestion, throat pain, throat swelling, difficulty swallowing, mouth swelling, ear pain, eye pain, visual changes CARDIOVASCULAR: lightheadedness Absent: chest pain, syncope, palpitations, irregular heart rate, peripheral edema RESPIRATORY: shortness of breath Absent: cough, dyspnea with exertion, orthopnea, wheezing, stridor, hemoptysis GASTROINTESTINAL: nausea, vomiting, hematemesis Absent: abdominal pain, abdominal distension, , diarrhea, constipation, melena, hematochezia GENITOURINARY: Absent: dysuria, frequency, urgency, hesitancy, hematuria, flank pain, genital pain MUSCULOSKELETAL: Absent: myalgia, arthralgia, joint swelling, back pain, neck pain SKIN: Absent: rash, itching, pallor HEMATOLOGIC/IMMUNOLOGIC: Absent: easy bleeding, easy bruising, lymphadenopathy, frequent infections ENDOCRINE: Absent: unexplained weight gain, unexplained weight loss, heat intolerance, cold intolerance NEUROLOGIC: Absent: headache, focal weakness or paresthesias, dizziness, unsteady gait, seizure, mental status changes, bladder or bowel incontinence PSYCHIATRIC: Absent: anxiety, depression, suicidal or homicidal ideation, hallucinations. PHYSICAL EXAMINATION Vital Signs - 24 hr 02/08/20 02/08/20 02/08/20 11:26 11:38 15:30 Temperature 98.3 F Pulse Rate 113 H Pulse Rate [ 98 H Right Radial] Respiratory 19 20 Rate Blood Pressure 95/53 L Blood Pressure 92/52 L [Right Arm] O2 Sat by Pulse 90 L 90 L 99 Oximetry (%) 02/08/20 02/08/20 15:45 16:01 Temperature 98.2 F 97.8 F Pulse Rate Pulse Rate [ 96 H 110 H Right Radial] Respiratory 22 H 20 Rate Blood Pressure Blood Pressure 69/54 L 69/52 L [Right Arm] O2 Sat by Pulse 99 98 Oximetry (%) GENERAL: Awake, alert, and fully oriented, in acute distress. HEAD: Normal with no signs of trauma. activley vomiting bright red blood EYES: Pupils equal, round and reactive to light, extraocular movements intact, sclera anicteric, conjunctiva clear. No lid lag. EARS, NOSE, THROAT: Ears normal, nares patent, oropharynx clear without exudates. dry mucous membranes. NECK: Normal range of motion, supple without lymphadenopathy, JVD, or masses. LUNGS: Breath sounds equal, clear to auscultation bilaterally. No wheezes, and no crackles. No accessory muscle use. HEART: Regular rate and rhythm, normal S1 and S2 without murmur, rub or gallop. ABDOMEN: Soft, nontender, not distended, normoactive bowel sounds, no guarding, no rebound, no masses. No hepatomegaly or splenomegaly. MUSCULOSKELETAL: Normal range of motion at all joints. No bony deformities or tenderness. No CVA tenderness. UPPER EXTREMITIES: 2+ pulses, warm, well-perfused. No cyanosis. No clubbing. Cap refill <2 seconds. No peripheral edema. LOWER EXTREMITIES: 2+ pulses, warm, well-perfused. No calf tenderness. No peripheral edema. NEUROLOGICAL: Cranial nerves II-XII intact. Normal speech. Normal gait. PSYCHIATRIC: Cooperative. Good eye contact. Appropriate mood and affect. SKIN: Warm, dry, normal turgor, no rashes or lesions noted. Laboratory Results - last 24 hr 02/08/20 02/08/20 02/08/20 11:52 11:52 11:52 WBC 9.6 RBC 2.45 L Hgb 8.4 L Hct 25.2 L D MCV 102.6 H MCH 34.3 H MCHC 33.4 RDW 14.5 Plt Count 222 MPV 8.6 Absolute Neuts (auto) 6.3 Neutrophils % 65.6 Neutrophils % (Manual) 73.0 Band Neutrophils % 0.0 Lymphocytes % 21.9 D Lymphocytes % (Manual) 19.0 Monocytes % 11.6 H Monocytes % (Manual) 8 Eosinophils % 0.1 D Eosinophils % (Manual) 0.0 D Basophils % 0.8 Basophils % (Manual) 0.0 Myelocytes % (Man) 0 D Promyelocytes % (Man) 0 Blast Cells % (Manual) 0 Nucleated RBC % 0 Metamyelocytes 0 Hypochromia 0 Platelet Estimate Normal Polychromasia 1+ Poikilocytosis 0 Anisocytosis 1+ Microcytosis 1+ Macrocytosis 1+ PT with INR 18.00 H INR 1.52 H PTT (Actin FS) 30.2 Sodium 139 Potassium 3.6 Chloride 103 Carbon Dioxide 31 Anion Gap 5 L BUN 38.3 H Creatinine 0.6 Est GFR (CKD-EPI)AfAm 99.77 Est GFR (CKD-EPI)NonAf 86.09 Random Glucose 123 H Lactic Acid Calcium 7.7 L Total Bilirubin 0.7 AST 61 H ALT 39 Alkaline Phosphatase 101 Total Protein 5.2 L Albumin 2.0 L COVID-19 (JOCELYN) Blood Type Antibody Screen Crossmatch 02/08/20 02/08/20 02/08/20 11:52 11:52 14:08 WBC RBC Hgb Hct MCV MCH MCHC RDW Plt Count MPV Absolute Neuts (auto) Neutrophils % Neutrophils % (Manual) Band Neutrophils % Lymphocytes % Lymphocytes % (Manual) Monocytes % Monocytes % (Manual) Eosinophils % Eosinophils % (Manual) Basophils % Basophils % (Manual) Myelocytes % (Man) Promyelocytes % (Man) Blast Cells % (Manual) Nucleated RBC % Metamyelocytes Hypochromia Platelet Estimate Polychromasia Poikilocytosis Anisocytosis Microcytosis Macrocytosis PT with INR INR PTT (Actin FS) Sodium Potassium Chloride Carbon Dioxide Anion Gap BUN Creatinine Est GFR (CKD-EPI)AfAm Est GFR (CKD-EPI)NonAf Random Glucose Lactic Acid 2.6 H* Calcium Total Bilirubin AST ALT Alkaline Phosphatase Total Protein Albumin COVID-19 (JOCELYN) Cancelled Blood Type O POSITIVE Antibody Screen Negative Crossmatch See Detail Active Medications Generic Name Dose Route Start Last Admin Trade Name Freq PRN Reason Stop Dose Admin Sodium Chloride 1,000 mls @ 0 mls/hr 02/08/20 11:30 02/08/20 11:41 Normal Saline - IV 1,000 mls/hr ASDIR WESTLEY Administration Wide Open Pantoprazole Sodium 80 mg/ 100 mls @ 10 mls/hr 02/08/20 15:02 02/08/20 15:52 Sodium Chloride IVPB 02/11/20 15:02 10 mls/hr Q10H WESTLEY Administration 8 MG/HR ASSESSMENT/PLAN: 79F with PMH of Alcohol Abuse, Cirrhosis, Gastritis, Haital Hernia, Diverticulosis, Diverticulitis, Hernia presents with acute hematemesis with Hb of 8.4 and BP of 69/52. #Neuro - Alert/Oriented x3 - Tylenol #Cardio - Acute blood loss - Hypotensive (69/52) & Tachycardic (110) @ ED - 1L NS + 1L LR + 2 units blood + 1 unit platelets - Norepinephrine 5 #Respiratory - Lungs clear bilaterally - SpO2 98% on 2L NC #GI - Hx of Alcohol Abuse, Gastritis, Diverticulosis, Diverticulitis, Hernia - Active bright red hematemesis - Dr. Gillespie following, - CTA shows bleeding in GE junction with cirrhosis - EGD once pt stable - Odansetron - Pantoprazole Drip - Octreotide + Ceftraixone # - no dysuria, hematuria, frequency - insert vergara to measure I&O #Heme - Active bright red hematemesis ' - Hb 8.4 with active bleeding, received 2 x pRBC & 1x plts - Vitamin K #ID - Vancomycin - Zosyn Dispo: We will continue to follow the patient. Thank you for this consultative opportunity. Visit type - Medication Review Med list reviewed for High Risk Meds patients 65 and older: Yes - Emergency Visit Emergency Visit: Yes ED Registration Date: 02/08/20 Care time: The patient presented to the Emergency Department on the above date and was hospitalized for further evaluation of their emergent condition. - New Patient This patient is new to me today: Yes Date on this admission: 02/09/20 - Critical Care Critical Care patient: No ATTENDING PHYSICIAN STATEMENT I saw and evaluated the patient. I reviewed the resident's note and discussed the case with the resident. I agree with the resident's findings and plan as documented. SUBJECTIVE: OBJECTIVE: ASSESSMENT AND PLAN:
--- NOTE | 2020-02-08 16:27 | PN.GI ---
GI Progress Note Subjective: GI NOte: I saw the patient in the ER for Dr Simon in order to facilitate her care. I did examine her and obtained an informed consent for EGD. Please see Dr. Simon's consultation for details. We have discussed the case in detail. - Objective Vital Signs: Vital Signs Temperature 97.8 F 02/08/20 16:01 Pulse Rate 110 H 02/08/20 16:01 Respiratory Rate 20 02/08/20 16:01 Blood Pressure 69/52 L 02/08/20 16:01 O2 Sat by Pulse Oximetry (%) 98 02/08/20 16:01 Constitutional: Anxious, Thin Eyes: Yes: Conjunctiva Clear HENT: Yes: Atraumatic Neck: Yes: Trachea Midline Cardiovascular: Yes: Tachycardia Respiratory: Yes: CTA Bilaterally Gastrointestinal Inspection: Yes: Distention ...Auscultate: Yes: Normoactive Bowel Sounds ...Palpate: Yes: Soft, Other (nontender) ...Percussion: Yes: Tympanitic ...Rectal Exam: Yes: Guaiac Positive (black loose strongly guaiac positive st ool, no masses) Neurological: Yes: Alert, Oriented Labs: CBC, BMP 02/08/20 11:52 02/08/20 11:52 INR, PTT INR 1.52 (0.83-1.09) H 02/08/20 11:52
[2020-02-08] MEDS ORDERED: LIDOCAINE HCL 1%, 10 MG/ML (50 mL VIAL) SQ ONE (16:42)
--- NOTE | 2020-02-08 18:06 | PDOC ---
*Physical Exam - Vital Signs Last Vital Signs Temp Pulse Resp BP Pulse Ox 98.2 F 19 L 19 86/62 L 99 02/08/20 16:30 02/08/20 16:30 02/08/20 16:30 02/08/20 16:30 02/08/20 16:30 ED Treatment Course - LABORATORY CBC & Chemistry Diagram: 02/08/20 11:52 02/08/20 11:52 - ADDITIONAL ORDERS Additional order review: Laboratory Results 02/08/20 02/08/20 02/08/20 11:52 11:52 11:52 PT with INR INR PTT (Actin FS) Sodium 139 Potassium 3.6 Chloride 103 Carbon Dioxide 31 Anion Gap 5 L BUN 38.3 H Creatinine 0.6 Est GFR (CKD-EPI)AfAm 99.77 Est GFR (CKD-EPI)NonAf 86.09 Random Glucose 123 H Lactic Acid 2.6 H* Calcium 7.7 L Total Bilirubin 0.7 AST 61 H ALT 39 Alkaline Phosphatase 101 Total Protein 5.2 L Albumin 2.0 L Blood Type O POSITIVE Antibody Screen Negative Crossmatch See Detail 02/08/20 11:52 PT with INR 18.00 H INR 1.52 H PTT (Actin FS) 30.2 Sodium Potassium Chloride Carbon Dioxide Anion Gap BUN Creatinine Est GFR (CKD-EPI)AfAm Est GFR (CKD-EPI)NonAf Random Glucose Lactic Acid Calcium Total Bilirubin AST ALT Alkaline Phosphatase Total Protein Albumin Blood Type Antibody Screen Crossmatch 02/08/20 11:52 RBC 2.45 L MCV 102.6 H MCHC 33.4 RDW 14.5 MPV 8.6 Neutrophils % 65.6 Lymphocytes % 21.9 D Monocytes % 11.6 H Eosinophils % 0.1 D Basophils % 0.8 - Medications Given in the ED: ED Medications Discontinued Medications Generic Name Dose Route Start Last Admin Trade Name Freq PRN Reason Stop Dose Admin Vancomycin HCl 1,000 mg/ 250 mls @ 250 mls/hr 02/08/20 12:08 02/08/20 15:34 Dextrose IVPB 02/08/20 13:07 250 mls/hr ONCE ONE Administration Protocol Piperacillin Sod/Tazobactam 50 mls @ 100 mls/hr 02/08/20 12:08 02/08/20 14:47 Sod 3.375 gm/ Dextrose IVPB 02/08/20 12:37 100 mls/hr ONCE ONE Administration Protocol Lactated Ringer's 1,000 ml 02/08/20 13:08 02/08/20 13:27 Lactated Ringers Solution IV 02/08/20 13:09 1,000 ml ONCE ONE Administration Lidocaine HCl 20 ml 02/08/20 16:42 02/08/20 16:49 Xylocaine 1% SQ 02/08/20 16:43 20 ml ONCE ONE Administration Ondansetron HCl 4 mg 02/08/20 15:21 02/08/20 15:34 Zofran Injection IVPUSH 02/08/20 15:22 4 mg ONCE ONE Administration Pantoprazole Sodium 80 mg 02/08/20 12:16 02/08/20 13:27 Protonix Iv IVPUSH 02/08/20 12:17 80 mg ONCE ONE Administration Phytonadione 10 mg 02/08/20 15:20 02/08/20 15:38 Aqua Mephyton Injection - SQ 02/08/20 15:21 10 mg ONCE ONE Administration Discharge - Discharge Information Problems reviewed: Yes Clinical Impression/Diagnosis: Hematemesis Condition: Guarded - Follow up/Referral - Patient Discharge Instructions - Post Discharge Activity Procedures - Central Line Central Line Lumen: triple Central Line Position: internal jugular (R) Anesthesia: 1% Lidocaine Amount of anesthesia (ccs): 5 Complications: none Post Central Line Insertion: sutured, good blood return, position confirmed w/ CXR
[2020-02-08] MEDS ORDERED: ACETAMINOPHEN INJECTION 100 ML IVPB ONE (18:33)
--- NOTE | 2020-02-08 19:58 | PN ---
Progress Note (short form) - Note Progress Note: CTA noted. ? of contrast @ level of [place]. Cirrhotic changes noted. Varices noted Receiving 2nd U PRBC now Will need platelets. Awaiting 1 U SDP Octreotide bolus followed by infusion initiated Vitamin K 10mg SC x 1 given Ceftriazone 1g IVPB daily started in setting of possible portal hypertensive etiology of bleed along with ascites Problem List - Problems (1) GI hemorrhage Code(s): K92.2 - GASTROINTESTINAL HEMORRHAGE, UNSPECIFIED (2) History of peptic ulcer Code(s): Z87.11 - PERSONAL HISTORY OF PEPTIC ULCER DISEASE (3) Diverticula of colon Code(s): K57.30 - DVRTCLOS OF LG INT W/O PERFORATION OR ABSCESS W/O BLEEDING (4) Esophageal stricture Code(s): K22.2 - ESOPHAGEAL OBSTRUCTION (5) Hiatal hernia Code(s): K44.9 - DIAPHRAGMATIC HERNIA WITHOUT OBSTRUCTION OR GANGRENE (6) Coronary artery disease Code(s): I25.10 - ATHSCL HEART DISEASE OF [place] CORONARY ARTERY W/O ANG PCTRS (7) Stented coronary artery Code(s): Z95.5 - PRESENCE OF CORONARY ANGIOPLASTY IMPLANT AND GRAFT (8) COPD (chronic obstructive pulmonary disease) Code(s): J44.9 - CHRONIC OBSTRUCTIVE PULMONARY DISEASE, UNSPECIFIED
[2020-02-08] MEDS ORDERED: OCTREOTIDE ACETATE 200 MCG, OCTREOTIDE ACETATE 1,000 MCG in DEXTROSE 5%-WATER - 496 ML IVPB SCH ×2 (20:00)
[2020-02-08] MEDS ORDERED: OCTREOTIDE ACETATE 50 MCG/1 ML - 1 ML VIAL IVPUSH ONE (20:00)
--- NOTE | 2020-02-08 20:29 | PN ---
Progress Note (short form) - Note Progress Note: Had d/w patient's daughter. She is aware of her mother's history of cirrhosis. Has carried the diagnosis for over 30 years. Patient does not seem to have been discharged on Plavix during her last admission to [facility], but Pletal rather. Both the patient and her daughter are not familiar with this medication while they are both pretty certain that Ms. Mcgrath takes Plavix. Problem List - Problems (1) GI hemorrhage Code(s): K92.2 - GASTROINTESTINAL HEMORRHAGE, UNSPECIFIED (2) History of peptic ulcer Code(s): Z87.11 - PERSONAL HISTORY OF PEPTIC ULCER DISEASE (3) Diverticula of colon Code(s): K57.30 - DVRTCLOS OF LG INT W/O PERFORATION OR ABSCESS W/O BLEEDING (4) Esophageal stricture Code(s): K22.2 - ESOPHAGEAL OBSTRUCTION (5) Hiatal hernia Code(s): K44.9 - DIAPHRAGMATIC HERNIA WITHOUT OBSTRUCTION OR GANGRENE (6) Coronary artery disease Code(s): I25.10 - ATHSCL HEART DISEASE OF [place] CORONARY ARTERY W/O ANG PCTRS (7) Stented coronary artery Code(s): Z95.5 - PRESENCE OF CORONARY ANGIOPLASTY IMPLANT AND GRAFT (8) COPD (chronic obstructive pulmonary disease) Code(s): J44.9 - CHRONIC OBSTRUCTIVE PULMONARY DISEASE, UNSPECIFIED
[2020-02-08 21:00] LABS: HEMATOCRIT 31.4 % (32.4-45.2); HEMOGLOBIN 10.8 GM/dL (10.7-15.3); MCH 32.6 pg (25.7-33.7); MCHC 34.3 g/dl (32.0-36.0); MEAN PLT VOLUME 8.6 fl (7.5-11.1); PLATELET COUNT 161 K/MM3 (134-434); RBC 3.31 M/mm3 (3.60-5.2); RDW 16.1 % (11.6-15.6); WHITE BLOOD COUNT 9.8 K/mm3 (4.0-10.0)
[2020-02-08] MEDS ORDERED: DEXTROSE 5%-WATER - 50 ML IVPB ONE (21:05)
[2020-02-08] MEDS ORDERED: cefTRIAXone SODIUM 1 GM VIAL ONE (21:05)
[2020-02-08 21:08] LABS: INR 1.45 (0.83-1.09); PROTHROMBIN TIME (PATIENT) 17.2 SEC (9.7-13.0)
[2020-02-08] MEDS: MUPIROCIN 2% TOPICAL OINTMENT FOR DECOLONIZATION NS SCH (21:15)
[2020-02-08] MEDS: CEFTRIAXONE 1 GM in DEXTROSE 5%-WATER - 50 ML IVPB SCH (21:15)
[2020-02-08] MEDS: CHLORHEXIDINE GLUCONATE 4% CLEANSER FOR DECOLONIZATION TP SCH (21:23)
[2020-02-08 21:32] LABS: BLOOD UREA NITROGEN 34.4 mg/dL (7-18); CREATININE 0.5 mg/dL (0.55-1.3); POTASSIUM 3.4 mmol/L (3.5-5.1)
[2020-02-08 22:22] LABS: CALCIUM 6.8 mg/dL (8.5-10.1)
[2020-02-08] MEDS ORDERED: NOREPINEPHRINE BITARTRATE 4 MG/4 ML ML IV ONE (23:52)
[2020-02-09] MEDS: NOREPINEPHRINE BITARTRATE 8,000 MCG/500 ML BAG IVPB SCH
[2020-02-09] MEDS: PANTOPRAZOLE SODIUM 80 MG in SODIUM CHLORIDE 100 ML IVPB SCH ×3 (04:48→21:26)
[2020-02-09] MEDS ORDERED: PHYTONADIONE 10 MG/1 ML AMP SQ ONE ×2 (05:54→06:00)
[2020-02-09] MEDS ORDERED: PHYTONADIONE 10 MG/1 ML AMP IVPB ONE (06:03)
[2020-02-09 06:34] LABS: BASO % 0.5 % (0-2.0); EOS % 1.9 % (0-4.5); HEMATOCRIT 30.5 % (32.4-45.2); HEMOGLOBIN 10.3 GM/dL (10.7-15.3); LYMPH % 10.8 % (8-40); MCH 31.6 pg (25.7-33.7); MCHC 33.6 g/dl (32.0-36.0); MEAN CELL VOLUME 93.9 fl (80-96); MEAN PLT VOLUME 8.3 fl (7.5-11.1); MONO % 7.9 % (3.8-10.2); NEUT % 78.9 % (42.8-82.8); PLATELET COUNT 196 K/MM3 (134-434); RBC 3.25 M/mm3 (3.60-5.2); RDW 17.2 % (11.6-15.6)
--- NOTE | 2020-02-09 06:35 | CON.CARD ---
Consult Consult Specialty:: Cardiology Referred by:: Dr. Mccarthy Reason for Consultation:: GIB/ CAD - History of Present Illness Chief Complaint: Hematemesis History of Present Illness: 79 F hx CAD with prior PCI on Plavix, peptic ulcer dz, h/o diverticular bleed now admitted with upper GI bleed/hypotension and Hb 8.4. Received 2UPRBCs, a unit of platelets and Vitamin K Currently in ICU alert and oriented. On Levo gtts. A troponin was sent and was mildly elevated. She denies CP of anginal character/SOB/palps/SOB on my history. Had a cardiac stent in 2004 (her report). Lives alone and is able to perform her ADLS without exertional CP, SOB or any limitation. Sees Dr. Ward for Cardio. A repeat ECG was obtained this AM and showed NSR, no acute ST changes, nonspecific T waves. Lowish voltage but unchanged from admission ECG overall. At one point after admission BP dropped to 80/44. - History Source History Provided By: Patient - Past Medical History Cardio/Vascular: Yes: CAD (stented post [place] 2004 at [place]), [place] (2004), Other (Sciatica) Pulmonary: Yes: COPD Gastrointestinal: Yes: GI Bleed (Diverticular hemorrhage 2018), Hiatal Hernia (with esophageal stricture 09/01 EGD), Peptic Ulcer Disease (duodenal ulcer on 2006 EGD) ...LMP: 05/16/89 Musculoskeletal: Yes: Chronic low back pain (Secondary to sciatica) - Past Surgical History Past Surgical History: Yes: Colonoscopy, Tonsillectomy, Upper Endoscopy, Vein Stripping/Ligation (B/L LE) - Alcohol/Substance Use Hx Alcohol Use: Yes (2-3glasses of wine nightly) History of Substance Use: reports: None - Smoking History Smoking history: Former smoker Have you smoked in the past 12 months: No If you are a former smoker, when did you quit?: 1989 - Social History Usual Living Arrangement: Alone () ADL: Independent Occupation: retired [employer] History of Recent Travel: No Home Medications - Allergies Allergies/Adverse Reactions: Allergies Allergy/AdvReac Type Severity Reaction Status Date / Time No Known Allergies Allergy Verified 11/02/19 13:35 - Home Medications Home Medications: Ambulatory Orders Budesonide/Formeterol Fumarate [SYMBICORT 160/4.5mcg -] 1 puff IH DAILY 11/01/16 Albuterol Sulfate [Albuterol Sulfate Hfa] 2 puff IH Q4H PRN 08/21/18 Tiotropium [place] [Spiriva] 2 unit NEB DAILY 08/21/18 Rosuvastatin [Crestor -] 20 mg PO HS #30 tablet 08/25/18 Alendronate Sodium [Fosamax] 1 tab WEEKLY 12/28/19 Albuterol 0.083% Nebulizer [place]ul[place] [Ventolin 0.083% Nebulizer Soln -] 1 amp NEB Q4H PRN #1 amp 01/07/20 Collagenase Clostridium Hist. [Santyl -] 1 applic TP DAILY #1 tube 01/07/20 predniSONE [Deltasone -] 20 mg PO DAILY #3 tablet 01/07/20 Meloxicam 30 mg PO DAILY 02/08/20 Family Medical History Family History: Unremarkable (not pertinent to this presentation) Review of Systems Findings/Remarks: 79F admitted for evaluation of coffee ground vomitus 1 at home, 2 episodes while in ER. She denies abomindal pain. Maintained on Plavix for CAD. Previous medication list includes meloxicam and prednisone. Noted tachycardic and hypotensive. She was bolused 1000cc of NS. Pletal (She believes that she is on Plavix, however). She is not on GI prophylaxis at home. Previously she described three alcoholic beverages per day for multiple years. She denies abdominal pain. She had EGD 08/20/18 that revealed benign appearing distal esophageal stricture and hiatal hernia. She had a colonoscopy with Dr Terrell on 08/22/19 which revealed severe left sided diverticulosis. She was felt to have a diverticular bleed. There has been no vomiting. She also had an upper endoscopy in 2006 that revealed a duodenal ulcer. She is taking Meloxicam. There is no family history of colon cancer. - Review of Systems Constitutional: reports: No Symptoms Eyes: reports: No Symptoms HENT: reports: No Symptoms Neck: reports: No Symptoms Cardiovascular: reports: No Symptoms Respiratory: reports: No Symptoms Gastrointestinal: reports: Melena, Vomiting Blood Genitourinary: reports: No Symptoms Breasts: reports: No Symptoms Reported Musculoskeletal: reports: No Symptoms Integumentary: reports: No Symptoms Neurological: reports: No Symptoms Endocrine: reports: No Symptoms Hematology/Lymphatic: reports: No Symptoms Psychiatric: reports: No Symptoms - Risk Factors Known Risk Factors: Yes: Age, Prior [place] /Emb Stroke, Smoking Vital Signs: Vital Signs Temperature 98.4 F 02/09/20 02:00 Pulse Rate 72 02/09/20 04:00 Respiratory Rate 18 02/09/20 04:00 Blood Pressure 117/55 L 02/09/20 04:00 O2 Sat by Pulse Oximetry (%) 97 02/09/20 04:00 Constitutional: Yes: No Distress, Calm Eyes: Yes: Conjunctiva Clear, EOM Intact HENT: Yes: Atraumatic, Normocephalic Neck: Yes: Supple, Trachea Midline Respiratory: Yes: Other (slightly decreased basilar breath sounds but no rales or wheezing.) Gastrointestinal: Yes: Soft (NT) Cardiovascular: Yes: Regular Rate and Rhythm, Other (No murmur; no JVD) JVD: No Carotid Bruit: No PMI: Non-Displaced Edema: No Peripheral Pulses WNL: Yes Neurological: Yes: Alert, Oriented ...Motor Strength: WNL - Other Data Labs, Other Data: INR, PTT INR 1.45 (0.83-1.09) H 02/08/20 20:45 Laboratory Tests 02/08/20 02/08/20 02/09/20 11:52 20:45 06:00 WBC 11.0 H Hgb 8.4 L 10.8 10.3 L Plt Count 196 D Sodium Potassium BUN Creatinine Magnesium Creatine Kinase Troponin I 02/09/20 06:00 WBC Hgb Plt Count Sodium 142 Potassium 3.4 L BUN 29.2 H Creatinine 0.5 L Magnesium 1.7 L Creatine Kinase 55 Troponin I 1.79 H* NSR, cannot r/o old inferior wal [place] (chronic). Nonspecific T waves V2/V3; no sig changes from prior Telemetry: NSR Prior Cardiac Procedures: PTCA with Stent Imaging - Results Chest X-ray: Image Reviewed Cat Scan: Report Reviewed EKG: Image Reviewed Assessment/Plan IMP: Acute Upper GI bleed, history of peptic ulcer dz Marked anemia secondary to acute blood loss History of diverticulosis and Cirrhosis with varices CAD s/p PCI (remote) Mild TnI elevation Hypotension REC: 1. Suspected UGI bleed: prior h/o peptic ulcer, cirrhosis with varices -GI consulted: management of acute GI bleed as per Critical Care and GI -Follow H/H -ICU monitoring 2. CAD s/p prior [place]: -Per patient, stent placed 2004. -Was maintained on Plavix -Hold Plavix -Presently without anginal sx or sx of ACS 3. Elevated TnI: 1.79-->1.64 with normal CK -Mildly elevated, flat TnI trend with normal CK in the setting of acute blood loss anemia and hypotension most likely represents demand ischemia and not a type I [place]/ACS. -Patient has no symptoms of angina or ACS; serial ECGs are unchanged -At this time, there are no absolute cardiac contraindications to upper endoscopy which is needed on an urgent basis. The patient is considered (at least) moderate to high risk for procedures due to prior hx of CAD/ recent Plavix use and requiring pressors. 4. Hypotension: improved - Most likely due to acute blood loss -No history of or physical exam signs of aortic stenosis. -On Levo gtts, wean as tolerated. Call placed to daughter to update condition 45 minutes spent in obtaining hx, reviewing labs/chart/ECGS/exam/discussion with care team and formulating assessment and plan
[2020-02-09 06:41] LABS: INR 1.28 (0.83-1.09); PROTHROMBIN TIME (PATIENT) 15.1 SEC (9.7-13.0)
[2020-02-09 06:43] LABS: ACTIVATED PTT 32.8 SECONDS (25.2-36.5)
[2020-02-09 07:03] LABS: ALBUMIN 1.9 g/dl (3.4-5.0); BILIRUBIN,TOTAL 0.8 mg/dL (0.2-1); BLOOD UREA NITROGEN 29.2 mg/dL (7-18); CREATININE 0.5 mg/dL (0.55-1.3); MAGNESIUM 1.7 mg/dL (1.8-2.4); PHOSPHOROUS 2.1 mg/dL (2.5-4.9); POTASSIUM 3.4 mmol/L (3.5-5.1); TOT PROT 4.5 g/dl (6.4-8.2)
--- NOTE | 2020-02-09 07:56 | PN.GI ---
GI Progress Note Subjective: No continued bleeding overnight. Started on pressors due to low BP Troponins elevated to 1.79 this AM No Chest pain / abdominal pain / shortness of breath - Objective Vital Signs: Vital Signs Temperature 98.6 F 02/09/20 06:00 Pulse Rate 64 02/09/20 06:00 Respiratory Rate 18 02/09/20 06:00 Blood Pressure 95/49 L 02/09/20 06:00 O2 Sat by Pulse Oximetry (%) 97 02/09/20 06:00 Constitutional: Calm Eyes: No: Sclera Icterus Cardiovascular: Yes: Regular Rate and Rhythm. No: Murmur Gastrointestinal Inspection: No: Distention ...Auscultate: Yes: Normoactive Bowel Sounds ...Palpate: Yes: Soft. No: Hepatomegaly, Splenomegaly, Tenderness ...Percussion: No: Tympanitic Neurological: Yes: Alert Labs: CBC, BMP 02/09/20 06:00 02/09/20 06:00 INR, PTT INR 1.28 (0.83-1.09) H 02/09/20 06:00 Problem List - Problems (1) GI hemorrhage Assessment/Plan: No overt bleeding overnight and H/H remains stable Continue PPI infusion / Octreotide Continue Abx NPO except meds Will need upper endoscopy to evaluate bleeding source. Variceal hemoorhage in differential as well given patient's history of cirrhosis and CTA findings Being evaluated by cardiology now given elevated tropoinins. Would like another set of enzymes prior to endoscopic evaluation. If continuing to trend up, would advise transfer to tertiary care center. Code(s): K92.2 - GASTROINTESTINAL HEMORRHAGE, UNSPECIFIED (2) History of peptic ulcer Code(s): Z87.11 - PERSONAL HISTORY OF PEPTIC ULCER DISEASE (3) Diverticula of colon Code(s): K57.30 - DVRTCLOS OF LG INT W/O PERFORATION OR ABSCESS W/O BLEEDING (4) Esophageal stricture Code(s): K22.2 - ESOPHAGEAL OBSTRUCTION (5) Hiatal hernia Code(s): K44.9 - DIAPHRAGMATIC HERNIA WITHOUT OBSTRUCTION OR GANGRENE (6) Coronary artery disease Code(s): I25.10 - ATHSCL HEART DISEASE OF [place] CORONARY ARTERY W/O ANG PCTRS (7) Stented coronary artery Code(s): Z95.5 - PRESENCE OF CORONARY ANGIOPLASTY IMPLANT AND GRAFT (8) COPD (chronic obstructive pulmonary disease) Code(s): J44.9 - CHRONIC OBSTRUCTIVE PULMONARY DISEASE, UNSPECIFIED
[2020-02-09] MEDS ORDERED: MAGNESIUM SULF 50% (8.12 MEQ/2 ML-1 GM VIAL) IVPB ONE (08:14)
[2020-02-09] MEDS ORDERED: MAGNESIUM 1GM/D5W - 1 GM/100 ML IVPB IVPB ONE (08:30)
[2020-02-09] MEDS ORDERED: POTASSIUM PHOSPHATE 30 MM in SODIUM CHLORIDE 500 ML IVPB ONE (09:00)
[2020-02-09] MEDS ORDERED: cefTRIAXone SODIUM 1 GM VIAL ONE (09:27)
[2020-02-09] MEDS ORDERED: DEXTROSE 5%-WATER - 50 ML IVPB ONE (09:27)
[2020-02-09] MEDS: CEFTRIAXONE 1 GM in DEXTROSE 5%-WATER - 50 ML IVPB SCH (09:46)
[2020-02-09] MEDS: MUPIROCIN 2% TOPICAL OINTMENT FOR DECOLONIZATION NS SCH ×2 (09:56→21:27)
--- NOTE | 2020-02-09 10:24 | PN ---
Teaching Attending Note Name of Resident: Mickey Hall ATTENDING PHYSICIAN STATEMENT I saw and evaluated the patient. I reviewed the resident's note and discussed the case with the resident. I agree with the resident's findings and plan as documented. SUBJECTIVE: Pt seen and examined in the ICU. Remains on protonix and octreotide gtts. Does r eport some chest discomfort. On levophed gtt for hemodynamic support.- t OBJECTIVE: Vital Signs Period Temp Pulse Resp BP Sys/Nelson Pulse Ox Last 24 Hr 97.8 F-98.6 F 19-113 12-22 69-117/44-62 90-100 Intake & Output 02/06/20 02/07/20 02/08/20 02/09/20 23:59 23:59 23:59 23:59 Intake Total 550 1710 Output Total 400 Balance 550 1310 Weight 50.984 kg Gen: frail but in NAD Heart: RRR Lung: scattered rhonchi Abd: +ascites Ext: + edema CBC, BMP 02/09/20 06:00 02/09/20 06:00 Active Medications Chlorhexidine Gluconate (Hibiclens For Decolonization -) 1 applic TP HS [facility] Last Admin: 02/08/20 21:23 Dose: 1 applic Documented by: Pantoprazole Sodium 80 mg/ (Sodium Chloride) 100 mls @ 10 mls/hr IVPB Q10H [facility] Stop: 02/11/20 15:02 Last Admin: 02/09/20 04:48 Dose: Not Given Documented by: Octreotide Acetate 200 mcg/Octreotide Acetate 1,000 mcg/Dextrose 500 mls @ 20.833 mls/hr IVPB ASDIR [facility] Last Admin: 02/08/20 20:42 Dose: 20.833 mls/hr Documented by: Ceftriaxone Sodium 1 gm/ (Dextrose) 50 mls @ 100 mls/hr IVPB DAILY [facility] Last Admin: 02/09/20 09:46 Dose: 100 mls/hr Documented by: Sodium Chloride (Normal Saline -) 1,000 mls @ 50 mls/hr IV [facility] Stop: 02/09/20 22:52 Last Admin: 02/08/20 23:04 Dose: Not Given Documented by: Norepinephrine Bitartrate (Levophed Bag) 8,000 mcg in 500 mls @ 18.75 mls/hr IVPB TITR [facility]; Protocol Last Admin: 02/09/20 00:00 Dose: 5 mcg/min, 18.75 mls/hr Documented by: Potassium Phosphate 30 mm/ (Sodium Chloride) 510 mls @ 62.5 mls/hr IVPB ONCE ONE Stop: 02/09/20 17:09 Last Admin: 02/09/20 09:32 Dose: 62.5 mls/hr Documented by: Mupirocin (Bactroban Ointment (For Decolonization) -) 1 applic NS BID [facility] Stop: 02/13/20 21:59 Last Admin: 02/09/20 09:56 Dose: 1 applic Documented by: ASSESSMENT AND PLAN: GI Bleed likely Upper Gastric Varices Acute Blood Loss Anemia Hemorrhagic Shock Diverticulosis Liver Cirrhosis CAD +Troponins likely Demand Ischemia COPD HTN Hyperlipidemia - continue protonix, octreotide gtts - monitor H/H, coags - transfuse as needed - empiric antibiotics - NPO - trend cardiac enzymes - will need EGD - titrate presssors to maintain MAP >65 - DVT prophylaxis - continue ICU monitoring critical care time spent in reviewing chart, evaluating patient and formulating plan 35 min
[2020-02-09] MEDS ORDERED: ONDANSETRON 4 MG/2 ML VIAL IVPUSH PRN (10:30)
[2020-02-09 11:39] LABS: HEMATOCRIT 31.8 % (32.4-45.2); HEMOGLOBIN 10.8 GM/dL (10.7-15.3); MCHC 33.9 g/dl (32.0-36.0); MEAN CELL VOLUME 94.4 fl (80-96); MEAN PLT VOLUME 8.6 fl (7.5-11.1); PLATELET COUNT 199 K/MM3 (134-434); RBC 3.36 M/mm3 (3.60-5.2); RDW 17.3 % (11.6-15.6); WHITE BLOOD COUNT 10.8 K/mm3 (4.0-10.0)
[2020-02-09] MEDS ORDERED: MIDAZOLAM HCL 2 MG/2 ML SINGLE DOSE VIAL ONE (12:02)
--- NOTE | 2020-02-09 13:25 | PN ---
Physical Exam: SUBJECTIVE: Patient seen and examined. MAP 40s overnight; Levophed later titrated from 5 to 3 mcg/min this morning. Protonix drip @8mg/h & octreotide 49.92 mcg/h. Patient went for EGD today OBJECTIVE: Vital Signs Period Temp Pulse Resp BP Sys/Nelson Pulse Ox Last 24 Hr 97.8 F-98.6 F 19-110 12-22 69-117/44-62 97-100 GENERAL: The patient is awake, alert, and fully oriented, in no acute distress. HEENT: Normal with no signs of trauma. No ptosis. Dry mucous membranes. LUNGS: decreased breath sounds b/l, no wheezes, no crackles, no accessory muscle use. HEART: Regular rate and rhythm, S1, S2 without murmur, rub or gallop. ABDOMEN: Soft, nontender, nondistended, normoactive bowel sounds, no guarding, no rebound EXTREMITIES: 2+ pulses, warm, well-perfused, no edema. ecchyoses b/l forearms. venous stasis changes b/l legs. LE ttp NEUROLOGICAL: Normal speech, gait not observed. PSYCH: Normal mood, normal affect. Laboratory Results - last 24 hr 02/08/20 02/08/20 02/08/20 11:52 11:52 11:52 WBC RBC Hgb Hct MCV MCH MCHC RDW Plt Count MPV Absolute Neuts (auto) Neutrophils % Neutrophils % (Manual) 73.0 Band Neutrophils % 0.0 Lymphocytes % Lymphocytes % (Manual) 19.0 Monocytes % Monocytes % (Manual) 8 Eosinophils % Eosinophils % (Manual) 0.0 D Basophils % Basophils % (Manual) 0.0 Myelocytes % (Man) 0 D Promyelocytes % (Man) 0 Blast Cells % (Manual) 0 Nucleated RBC % 0 Metamyelocytes 0 Hypochromia 0 Platelet Estimate Normal Polychromasia 1+ Poikilocytosis 0 Anisocytosis 1+ Microcytosis 1+ Macrocytosis 1+ PT with INR INR PTT (Actin FS) Sodium Potassium Chloride Carbon Dioxide Anion Gap BUN Creatinine Est GFR (CKD-EPI)AfAm Est GFR (CKD-EPI)NonAf Random Glucose Lactic Acid 2.6 H* Calcium Phosphorus Magnesium Total Bilirubin AST ALT Alkaline Phosphatase Creatine Kinase Troponin I Total Protein Albumin COVID-19 (JOCELYN) SARS-CoV-2 (PCR) Blood Type O POSITIVE Antibody Screen Negative Crossmatch See Detail 02/08/20 02/08/20 02/08/20 14:08 15:19 20:45 WBC 9.8 RBC 3.31 L Hgb 10.8 Hct 31.4 L D MCV 95.0 D MCH 32.6 MCHC 34.3 RDW 16.1 H Plt Count 161 D MPV 8.6 Absolute Neuts (auto) Neutrophils % Neutrophils % (Manual) Band Neutrophils % Lymphocytes % Lymphocytes % (Manual) Monocytes % Monocytes % (Manual) Eosinophils % Eosinophils % (Manual) Basophils % Basophils % (Manual) Myelocytes % (Man) Promyelocytes % (Man) Blast Cells % (Manual) Nucleated RBC % Metamyelocytes Hypochromia Platelet Estimate Polychromasia Poikilocytosis Anisocytosis Microcytosis Macrocytosis PT with INR INR PTT (Actin FS) Sodium Potassium Chloride Carbon Dioxide Anion Gap BUN Creatinine Est GFR (CKD-EPI)AfAm Est GFR (CKD-EPI)NonAf Random Glucose Lactic Acid Calcium Phosphorus Magnesium Total Bilirubin AST ALT Alkaline Phosphatase Creatine Kinase Troponin I Total Protein Albumin COVID-19 (JOCELYN) Cancelled SARS-CoV-2 (PCR) Negative Blood Type Antibody Screen Crossmatch 02/08/20 02/08/20 02/08/20 20:45 20:45 20:45 WBC RBC Hgb Hct MCV MCH MCHC RDW Plt Count MPV Absolute Neuts (auto) Neutrophils % Neutrophils % (Manual) Band Neutrophils % Lymphocytes % Lymphocytes % (Manual) Monocytes % Monocytes % (Manual) Eosinophils % Eosinophils % (Manual) Basophils % Basophils % (Manual) Myelocytes % (Man) Promyelocytes % (Man) Blast Cells % (Manual) Nucleated RBC % Metamyelocytes Hypochromia Platelet Estimate Polychromasia Poikilocytosis Anisocytosis Microcytosis Macrocytosis PT with INR 17.20 H INR 1.45 H PTT (Actin FS) 36.0 Sodium 141 Potassium 3.4 L Chloride 105 Carbon Dioxide 31 Anion Gap 5 L BUN 34.4 H Creatinine 0.5 L Est GFR (CKD-EPI)AfAm 105.94 Est GFR (CKD-EPI)NonAf 91.41 Random Glucose 126 H Lactic Acid 1.3 Calcium 6.8 L* Phosphorus Magnesium Total Bilirubin AST ALT Alkaline Phosphatase Creatine Kinase Troponin I Total Protein Albumin COVID-19 (JOCELYN) SARS-CoV-2 (PCR) Blood Type Antibody Screen Crossmatch 02/09/20 02/09/20 02/09/20 06:00 06:00 06:00 WBC 11.0 H RBC 3.25 L Hgb 10.3 L Hct 30.5 L MCV 93.9 MCH 31.6 MCHC 33.6 RDW 17.2 H Plt Count 196 D MPV 8.3 Absolute Neuts (auto) 8.7 H Neutrophils % 78.9 D Neutrophils % (Manual) Band Neutrophils % Lymphocytes % 10.8 D Lymphocytes % (Manual) Monocytes % 7.9 Monocytes % (Manual) Eosinophils % 1.9 D Eosinophils % (Manual) Basophils % 0.5 Basophils % (Manual) Myelocytes % (Man) Promyelocytes % (Man) Blast Cells % (Manual) Nucleated RBC % 0 Metamyelocytes Hypochromia Platelet Estimate Polychromasia Poikilocytosis Anisocytosis Microcytosis Macrocytosis PT with INR 15.10 H INR 1.28 H PTT (Actin FS) 32.8 Sodium 142 Potassium 3.4 L Chloride 106 Carbon Dioxide 31 Anion Gap 5 L BUN 29.2 H Creatinine 0.5 L Est GFR (CKD-EPI)AfAm 105.94 Est GFR (CKD-EPI)NonAf 91.41 Random Glucose 157 H Lactic Acid Calcium 7.0 L Phosphorus 2.1 L Magnesium 1.7 L Total Bilirubin 0.8 AST 38 H ALT 27 Alkaline Phosphatase 77 Creatine Kinase 55 Troponin I 1.79 H* Total Protein 4.5 L Albumin 1.9 L COVID-19 (JOCELYN) SARS-CoV-2 (PCR) Blood Type Antibody Screen Crossmatch 02/09/20 02/09/20 10:00 11:00 WBC 10.8 H RBC 3.36 L Hgb 10.8 Hct 31.8 L MCV 94.4 MCH 32.0 MCHC 33.9 RDW 17.3 H Plt Count 199 MPV 8.6 Absolute Neuts (auto) Neutrophils % Neutrophils % (Manual) Band Neutrophils % Lymphocytes % Lymphocytes % (Manual) Monocytes % Monocytes % (Manual) Eosinophils % Eosinophils % (Manual) Basophils % Basophils % (Manual) Myelocytes % (Man) Promyelocytes % (Man) Blast Cells % (Manual) Nucleated RBC % Metamyelocytes Hypochromia Platelet Estimate Polychromasia Poikilocytosis Anisocytosis Microcytosis Macrocytosis PT with INR INR PTT (Actin FS) Sodium Potassium Chloride Carbon Dioxide Anion Gap BUN Creatinine Est GFR (CKD-EPI)AfAm Est GFR (CKD-EPI)NonAf Random Glucose Lactic Acid Calcium Phosphorus Magnesium Total Bilirubin AST ALT Alkaline Phosphatase Creatine Kinase Troponin I 1.64 H* Total Protein Albumin COVID-19 (JOCELYN) SARS-CoV-2 (PCR) Blood Type Antibody Screen Crossmatch Active Medications Generic Name Dose Route Start Last Admin Trade Name Freq PRN Reason Stop Dose Admin Chlorhexidine Gluconate 1 applic 02/08/20 22:00 02/08/20 21:23 Hibiclens For Decolonization - TP 1 applic HS [facility] Administration Pantoprazole Sodium 80 mg/ 100 mls @ 10 mls/hr 02/08/20 15:02 02/09/20 04:48 Sodium Chloride IVPB 02/11/20 15:02 Not Given Q10H [facility] 8 MG/HR Octreotide Acetate 200 mcg/ 500 mls @ 20.833 mls/hr 02/08/20 20:00 02/08/20 20:42 Octreotide Acetate 1,000 mcg/ IVPB 20.833 mls/hr Dextrose ASDIR [facility] Administration Ceftriaxone Sodium 1 gm/ 50 mls @ 100 mls/hr 02/08/20 20:00 02/09/20 09:46 Dextrose IVPB 100 mls/hr DAILY [facility] Administration Sodium Chloride 1,000 mls @ 50 mls/hr 02/08/20 23:00 02/08/20 23:04 Normal Saline - IV 02/09/20 22:52 Not Given ASDIR [facility] Norepinephrine Bitartrate 8,000 mcg in 500 mls @ 18.75 mls/hr 02/09/20 00:00 02/09/20 00:00 Levophed Bag IVPB 5 mcg/min TITR [facility] 18.75 mls/hr Administration Protocol 5 MCG/MIN Potassium Phosphate 30 mm/ 510 mls @ 62.5 mls/hr 02/09/20 09:00 02/09/20 09:32 Sodium Chloride IVPB 02/09/20 17:09 62.5 mls/hr ONCE ONE Administration Mupirocin 1 applic 02/08/20 22:00 02/09/20 09:56 Bactroban Ointment (For Decolonization) - NS 02/13/20 21:59 1 applic BID [facility] Administration Ondansetron HCl 4 mg 02/09/20 10:30 Zofran Injection IVPUSH Q8H PRN NAUSEA ASSESSMENT/PLAN: 79 F PMH of HTN, HLD, COPD, CAD (s/p 3 stents on plavix), Alcohol Abuse, C irrhosis, Gastritis, Haital Hernia, Diverticulosis, Diverticulitis, Hernia presents with acute-onset hematemesis. Found to have a Hgb of 8.4 and BP of 69/52. Admitted to ICU for Hemorrhagic shock 2/2 GI bleed. #Neuro - AAOX 3 Cardio #Hemorrhagic Shock 2/2 acute-onset GI bleed -in ED, Hypotensive to 69/52 and tachycardic to 110 -s/p 2 units blood & 1 unit platelets - MAP in 40s overnight. Norepinephrine 3 mcg/min in AM. Titrate as needed. Maintain MAP>65 #Troponinemia -trop trended down from 1.79 to 1.64 -likely 2/2 demand ischemia -EKG (02/09/20): Sinus rhythm, Low voltage QRS. 72 bpm. QTC 435 Respiratory - CXR (02/07): old apical disease on right. Enlarged heart. Increased bibasilar infiltrative/atelectatic changes and left pleural fluid -O2 saturation 100% with 3 L NC -CTA abd/pelvis: partially iaged lower chest showed b/l small-moderate pleural effusions GI H/o Alcohol Abuse, Gastritis, Diverticulosis, Diverticulitis, Hernia #Acute-onset GI bleed causing Hemorrhagic shock -bright-red hematemesis on admission -CTA abd/pelvis: -bleeding at Gastroesophageal junction -ascites -varices within gastrohepatic ligament & along greater curvature of stomach -hepatic cirrhosis as seen on 2016 CT -b/l flank subcutaneous edema -continuous concentric wall thickening of ascending & transverse colon & - extensive colonic diverticulosis -cholelithiasis -marked celiac artery ostial stenosis -octreotide dc'ed per GI -No NG tube per GI -pantoprazole 80 mg drip Q10H -Carafate 1 g suspension TID PO X 5 days -ceftriaxone 1 g daily -zofran 4 mg IV push Q8H PRN for nausea -EGD (02/08): (1) short stricture in distal esophagus (2) suspected Evelia-Gordon tear in distal esophagus (3) hiatal hernia Heme #Hemorrhagic Shock 2/2 acute-onset GI bleed -On admission, Hgb/Hct 8.4/25.2 & Active bright red hematemesis. s/p 2 units blood & 1 unit platelets -Hgb/Hct improved from 10.3/30.5 to 10.8/31.8. H/H Q8H until it stabilizes. -PT/INR trending down from 17.2/1.45 to 15.1/1.28 -Keep INR<1.5 per GI Renal - denies dysuria, hematuria, urinary frequency - maintain vergara - 1710 ml I's/400 ml O's/1310 ml Balance -BUN/Cr 29.2/0.5 ID -s/p Vancomycin &- Zosyn -continue with ceftriaxone 1 g daily for prophylaxis to prevent SBP -SARS-CoV-2 (PCR) negative FEN NS@50 ml/hr monitor lytes NPO give acute GI bleed DVT PPX hold plavix, avoid NSAIDs no SCDs because patient's LE have TTP Lines Right IJ triple lumen (02/07) DISPO Maintain ICU ATTENDING PHYSICIAN STATEMENT I saw and evaluated the patient. I reviewed the resident's note and discussed the case with the resident. I agree with the resident's findings and plan as documented. SUBJECTIVE: OBJECTIVE: ASSESSMENT AND PLAN:
[2020-02-09] MEDS ORDERED: SUCRALFATE 1 GM/10 ML UNIT DOSE CUPS PO SCH (14:00)
--- NOTE | 2020-02-09 14:12 | PN ---
Progress Note (short form) - Note Progress Note: EGD complete. Report left in the procedural section of the physical chart and will be scanned into [facility] Problem List - Problems (1) GI hemorrhage Code(s): K92.2 - GASTROINTESTINAL HEMORRHAGE, UNSPECIFIED (2) History of peptic ulcer Code(s): Z87.11 - PERSONAL HISTORY OF PEPTIC ULCER DISEASE (3) Diverticula of colon Code(s): K57.30 - DVRTCLOS OF LG INT W/O PERFORATION OR ABSCESS W/O BLEEDING (4) Esophageal stricture Code(s): K22.2 - ESOPHAGEAL OBSTRUCTION (5) Hiatal hernia Code(s): K44.9 - DIAPHRAGMATIC HERNIA WITHOUT OBSTRUCTION OR GANGRENE (6) Coronary artery disease Code(s): I25.10 - ATHSCL HEART DISEASE OF [place] CORONARY ARTERY W/O ANG PCTRS (7) Stented coronary artery Code(s): Z95.5 - PRESENCE OF CORONARY ANGIOPLASTY IMPLANT AND GRAFT (8) COPD (chronic obstructive pulmonary disease) Code(s): J44.9 - CHRONIC OBSTRUCTIVE PULMONARY DISEASE, UNSPECIFIED
--- NOTE | 2020-02-09 16:09 | EKG ---
Test Reason : Blood Pressure : / mmHG Vent. Rate : 072 BPM Atrial Rate : 072 BPM P-R Int : 100 ms QRS Dur : 080 ms QT Int : 398 ms P-R-T Axes : 016 011 130 degrees QTc Int : 435 ms SINUS RHYTHM WITH SINUS ARRHYTHMIA WITH SHORT [place] LOW VOLTAGE QRS POSSIBLE INFERIOR INFARCT (CITED ON OR BEFORE 12-FEB-2007) ABNORMAL ECG WHEN COMPARED WITH ECG OF 08-FEB-2020 12:47, PREVIOUS ECG HAS UNDETERMINED RHYTHM, NEEDS REVIEW BORDERLINE CRITERIA FOR ANTERIOR INFARCT ARE NO LONGER PRESENT BORDERLINE CRITERIA FOR ANTEROLATERAL INFARCT ARE NO LONGER PRESENT Confirmed by MD Suresh Daniel ([id number]) on 02/09/2020 4:08:41 PM Referred By: Homa PECK Confirmed By:Lester Suresh MD
[2020-02-09] MEDS: SUCRALFATE 1 GM/10 ML UNIT DOSE CUPS PO SCH (16:30)
[2020-02-09 18:56] LABS: HEMATOCRIT 33.3 % (32.4-45.2); HEMOGLOBIN 11.3 GM/dL (10.7-15.3); MCH 32.5 pg (25.7-33.7); MEAN CELL VOLUME 95.6 fl (80-96); MEAN PLT VOLUME 8.5 fl (7.5-11.1); PLATELET COUNT 202 K/MM3 (134-434); RBC 3.48 M/mm3 (3.60-5.2); RDW 17.8 % (11.6-15.6); WHITE BLOOD COUNT 10.5 K/mm3 (4.0-10.0)
[2020-02-09 19:33] LABS: BLOOD UREA NITROGEN 24.3 mg/dL (7-18); CREATININE 0.5 mg/dL (0.55-1.3)
[2020-02-09] MEDS: CHLORHEXIDINE GLUCONATE 4% CLEANSER FOR DECOLONIZATION TP SCH (21:27)
[2020-02-10] MEDS: NOREPINEPHRINE BITARTRATE 8,000 MCG/500 ML BAG IVPB SCH (05:53)
[2020-02-10] MEDS: SUCRALFATE 1 GM/10 ML UNIT DOSE CUPS PO SCH ×3 (06:45→16:42)
[2020-02-10] MEDS: PANTOPRAZOLE SODIUM 80 MG in SODIUM CHLORIDE 100 ML IVPB SCH (06:46)
[2020-02-10 06:56] LABS: HEMATOCRIT 32.4 % (32.4-45.2); MCH 32.2 pg (25.7-33.7); MCHC 33.8 g/dl (32.0-36.0); MEAN PLT VOLUME 8.4 fl (7.5-11.1); PLATELET COUNT 185 K/MM3 (134-434); RBC 3.41 M/mm3 (3.60-5.2); RDW 17.6 % (11.6-15.6); WHITE BLOOD COUNT 9.2 K/mm3 (4.0-10.0)
--- NOTE | 2020-02-10 06:57 | PN ---
Progress Note (short form) - Note Progress Note: Anesthesia Post Op Note Pt s/p GA for EGD Pt awake alert in bed w/o complaints VSS w/ low dose levophed still in place o/w denies n/v, puritis no apparent anesthesia complications Lavell NEW
--- NOTE | 2020-02-10 07:05 | PN ---
Progress Note, Physician Chief Complaint: Seen and examined in ICU alert, no distress TELE: NSR w/ single rare PVC Denies CP/SOB/dizziness S/p EGD yesterday History of Present Illness: 79 F hx CAD with prior PCI on Plavix, peptic ulcer dz, h/o diverticular bleed now admitted with upper GI bleed/hypotension and Hb 8.4. Received 2UPRBCs, a unit of platelets and Vitamin K On Levo gtts. Low level + TnI flat. She denies CP of anginal character/SOB/palps/SOB Had several cardiac stents in 2004 , confirmed with daughter. Lives alone and daughter reports she has required assistance to perform ADLS Sees Dr. Ward for Cardio. - Current Medication List Current Medications: Active Medications Chlorhexidine Gluconate (Hibiclens For Decolonization -) 1 applic TP HS [facility] Last Admin: 02/09/20 21:27 Dose: 1 applic Documented by: Pantoprazole Sodium 80 mg/ (Sodium Chloride) 100 mls @ 10 mls/hr IVPB Q10H [facility] Stop: 02/11/20 15:02 Last Admin: 02/10/20 06:46 Dose: Not Given Documented by: Ceftriaxone Sodium 1 gm/ (Dextrose) 50 mls @ 100 mls/hr IVPB DAILY [facility] Last Admin: 02/09/20 09:46 Dose: 100 mls/hr Documented by: Norepinephrine Bitartrate (Levophed Bag) 8,000 mcg in 500 mls @ 18.75 mls/hr IVPB TITR [facility]; Protocol Last Admin: 02/10/20 05:53 Dose: 6 mcg/min, 22.5 mls/hr Documented by: Mupirocin (Bactroban Ointment (For Decolonization) -) 1 applic NS BID [facility] Stop: 02/13/20 21:59 Last Admin: 02/09/20 21:27 Dose: 1 applic Documented by: Ondansetron HCl (Zofran Injection) 4 mg IVPUSH Q8H PRN PRN Reason: NAUSEA Last Admin: 02/09/20 14:36 Dose: 4 mg Documented by: Sucralfate (Carafate Oral Suspension -) 1 gm PO TIDAC [facility] Last Admin: 02/10/20 06:45 Dose: 1 gm Documented by: - Objective Vital Signs: Vital Signs Temperature 98.5 F 02/10/20 06:00 Pulse Rate 72 02/10/20 07:00 Respiratory Rate 18 02/10/20 07:00 Blood Pressure 99/45 L 02/10/20 07:00 O2 Sat by Pulse Oximetry (%) 96 02/10/20 07:00 Constitutional: Yes: No Distress, Calm Eyes: Yes: Conjunctiva Clear, EOM Intact Neck: Yes: Supple, Trachea Midline Cardiovascular: Yes: Regular Rate and Rhythm Respiratory: Yes: Other (slight decreased breath sounds at bases) Gastrointestinal: Yes: Soft (nt) Edema: No Peripheral Pulses WNL: Yes Neurological: Yes: Alert, Oriented ...Motor Strength: WNL Labs: CBC, BMP 02/10/20 06:00 INR, PTT INR 1.28 (0.83-1.09) H 02/09/20 06:00 Laboratory Tests 02/09/20 02/10/20 02/10/20 06:00 06:00 06:00 WBC 9.2 Hgb 11.0 Plt Count 185 Sodium 139 Potassium 3.6 Creatinine 0.4 L Calcium 6.9 L* Creatine Kinase 55 Troponin I 1.79 H* Total Protein 4.5 L Albumin 2.0 L 02/10/20 06:00 WBC Hgb Plt Count Sodium Potassium Creatinine Calcium Creatine Kinase Troponin I 1.19 H* Total Protein Albumin - ....Imaging EKG: Image Reviewed Assessment/Plan Assessment/Plan IMP: Acute Upper GI bleed, history of peptic ulcer dz Marked anemia secondary to acute blood loss History of diverticulosis and Cirrhosis with varices CAD s/p PCI (remote) Mild TnI elevation Hypotension REC: 1. UGI bleed: found to have Evelia Gordon tear on EGD 02/08 -management of acute GI bleed as per Critical Care and GI -Follow H/H -ICU monitoring 2. CAD s/p prior NC: -Multiple stents placed 2004 as per daughter [address] [facility] [place] -Was maintained on Plavix -Hold Plavix at this time, resume with PPI when deemed safe from GI standpoint -Presently without anginal sx or sx of ACS 3. Elevated TnI: 1.79-->1.64 with normal CK -Mildly elevated, flat TnI trend with normal CK in the setting of acute blood lo ss anemia and hypotension most likely represents demand ischemia and not a type I NC/ACS. -Patient has no symptoms of angina or ACS; serial ECGs are unchanged -tolerated endoscopy well -Will d/w primary outpatient terrazzo worker helper Dr Nice 4. Hypotension: improved - Most likely due to acute blood loss -No history of or physical exam signs of aortic stenosis. -On Levo gtts, wean as tolerated.
[2020-02-10 07:16] LABS: INR 1.13 (0.83-1.09); PROTHROMBIN TIME (PATIENT) 13.3 SEC (9.7-13.0)
[2020-02-10 07:17] LABS: ACTIVATED PTT 31.5 SECONDS (25.2-36.5)
[2020-02-10 07:20] LABS: BILIRUBIN,TOTAL 0.9 mg/dL (0.2-1); BLOOD UREA NITROGEN 17.4 mg/dL (7-18); CREATININE 0.4 mg/dL (0.55-1.3); PHOSPHOROUS 2.7 mg/dL (2.5-4.9); POTASSIUM 3.6 mmol/L (3.5-5.1)
[2020-02-10 07:32] LABS: CALCIUM 6.9 mg/dL (8.5-10.1)
--- NOTE | 2020-02-10 09:13 | PN.GI ---
GI Progress Note Subjective: No acute events No overt bleeding S/P EGD 02/08: Evelia Gordon Tear in the distal esophagus - Objective Vital Signs: Vital Signs Temperature 98.5 F 02/10/20 06:00 Pulse Rate 72 02/10/20 08:00 Respiratory Rate 14 02/10/20 08:00 Blood Pressure 110/63 02/10/20 08:00 O2 Sat by Pulse Oximetry (%) 100 02/10/20 08:13 Constitutional: Calm Eyes: No: Sclera Icterus Cardiovascular: Yes: Regular Rate and Rhythm Respiratory: Yes: Diminished (at bases bilaterally with poor insp effort) ...Auscultate: Yes: Normoactive Bowel Sounds ...Palpate: Yes: Soft. No: Hepatomegaly, Splenomegaly, Tenderness ...Percussion: No: Tympanitic Neurological: Yes: Alert Labs: CBC, BMP 02/10/20 06:00 02/10/20 06:00 INR, PTT INR 1.13 (0.83-1.09) H 02/10/20 06:00 Problem List - Problems (1) GI hemorrhage Assessment/Plan: No overt bleeding: Advance to clears Carafate Change to BID PPI Monitor H/H Code(s): K92.2 - GASTROINTESTINAL HEMORRHAGE, UNSPECIFIED
--- NOTE | 2020-02-10 09:36 | PN ---
Teaching Attending Note Name of Resident: Aydin Sanchez ATTENDING PHYSICIAN STATEMENT I saw and evaluated the patient. I reviewed the resident's note and discussed the case with the resident. I agree with the resident's findings and plan as documented. SUBJECTIVE: Pt seen and examined in the ICU. s/p EGD showing Evelia Gordon tear. Remains on levophed and protonix gtts. OBJECTIVE: Vital Signs Period Temp Pulse Resp BP Sys/Nelson Pulse Ox Last 24 Hr 97.6 F-98.6 F 55-82 12-21 80-133/42-92 94-100 Intake & Output 02/07/20 02/08/20 02/09/20 02/10/20 23:59 23:59 23:59 23:59 Intake Total 550 3602.3 990 Output Total 1100 400 Balance 550 2502.3 590 Weight 50.984 kg Gen: frail but in NAD Heart: RRR Lung: scattered rhonchi Abd: +ascites Ext: + edema CBC, BMP 02/10/20 06:00 02/10/20 06:00 Active Medications Chlorhexidine Gluconate (Hibiclens For Decolonization -) 1 applic TP HS [facility] Last Admin: 02/09/20 21:27 Dose: 1 applic Documented by: Norepinephrine Bitartrate (Levophed Bag) 8,000 mcg in 500 mls @ 18.75 mls/hr IVPB TITR [facility]; Protocol Last Admin: 02/10/20 05:53 Dose: 6 mcg/min, 22.5 mls/hr Documented by: Mupirocin (Bactroban Ointment (For Decolonization) -) 1 applic NS BID [facility] Stop: 02/13/20 21:59 Last Admin: 02/09/20 21:27 Dose: 1 applic Documented by: Ondansetron HCl (Zofran Injection) 4 mg IVPUSH Q8H PRN PRN Reason: NAUSEA Last Admin: 02/09/20 14:36 Dose: 4 mg Documented by: Pantoprazole Sodium (Protonix Iv) 40 mg IVPUSH BID [facility] Sucralfate (Carafate Oral Suspension -) 1 gm PO TIDAC [facility] Last Admin: 02/10/20 06:45 Dose: 1 gm Documented by: ASSESSMENT AND PLAN: GI Bleed likely Upper Gastric Varices Acute Blood Loss Anemia Hemorrhagic Shock Diverticulosis Liver Cirrhosis CAD +Troponins likely Demand Ischemia COPD HTN Hyperlipidemia - continue protonix - monitor H/H, coags - transfuse as needed - start clears - taper presssors to maintain MAP >65 - DVT prophylaxis - continue ICU monitoring critical care time spent in reviewing chart, evaluating patient and formulating plan 35 min
[2020-02-10] MEDS ORDERED: PT OWN MED DRAWER 7, Y5N ONE ×3 (10:06→17:49)
[2020-02-10 10:57] VITALS: BMI 18.6
[2020-02-10] MEDS: PANTOPRAZOLE SODIUM 40 MG VIAL IVPUSH SCH ×2 (11:30→21:48)
[2020-02-10] MEDS: MUPIROCIN 2% TOPICAL OINTMENT FOR DECOLONIZATION NS SCH ×2 (11:30→21:47)
[2020-02-10] MEDS ORDERED: ARTIFICIAL TEARS (POLYVINYL ALCOHOL) OPTH DROPS OU PRN (14:58)
[2020-02-10 15:15] LABS: HEMATOCRIT 31.7 % (32.4-45.2); HEMOGLOBIN 10.5 GM/dL (10.7-15.3); MEAN CELL VOLUME 96.8 fl (80-96); PLATELET COUNT 155 K/MM3 (134-434); RBC 3.28 M/mm3 (3.60-5.2); RDW 17.4 % (11.6-15.6); WHITE BLOOD COUNT 7.1 K/mm3 (4.0-10.0)
[2020-02-10] MEDS: ALBUTEROL SO4 2.5/IPRATROPIUM 0.5 INH SOL 3 ML VIAL.NEB. NEB SCH ×2 (16:48→16:49)
[2020-02-10] MEDS ORDERED: ALBUTEROL SO4 2.5/IPRATROPIUM 0.5 INH SOL 3 ML VIAL.NEB. NEB PRN (20:12)
--- NOTE | 2020-02-10 20:13 | PN ---
Physical Exam: SUBJECTIVE: Patient seen and examined YOKO Had small dark stool streaks in diaper as per nurse. Denies abd pain. Endorses hunger, SOB, wheezing. Levo 6 OBJECTIVE: Vital Signs Period Temp Pulse Resp BP Sys/Nelson Pulse Ox Last 24 Hr 97.1 F-98.6 F 70-92 12-22 99-139/45-80 94-100 GENERAL: The patient is awake, alert, and fully oriented, in no acute distress. HEENT: Normal with no signs of trauma. No ptosis. Dry mucous membranes. LUNGS: decreased breath sounds b/l, md expiratory wheezes, no crackles, no accessory muscle use. Breathing comfortably on NC HEART: Regular rate and rhythm, S1, S2 without murmur, rub or gallop. ABDOMEN: Soft, nontender, nondistended, normoactive bowel sounds, no guarding, no rebound EXTREMITIES: 2+ pulses, warm, well-perfused, no edema. ecchyoses b/l forearms. venous stasis changes b/l legs. LE ttp NEUROLOGICAL: Normal speech, gait not observed. PSYCH: Normal mood, normal affect. Laboratory Results - last 24 hr 02/10/20 02/10/20 02/10/20 06:00 06:00 06:00 WBC 9.2 RBC 3.41 L Hgb 11.0 Hct 32.4 MCV 95.0 MCH 32.2 MCHC 33.8 RDW 17.6 H Plt Count 185 MPV 8.4 PT with INR 13.30 H INR 1.13 H PTT (Actin FS) 31.5 Sodium 139 Potassium 3.6 Chloride 106 Carbon Dioxide 30 Anion Gap 4 L BUN 17.4 Creatinine 0.4 L Est GFR (CKD-EPI)AfAm 114.01 Est GFR (CKD-EPI)NonAf 98.37 Random Glucose 148 H Calcium 6.9 L* Phosphorus 2.7 Magnesium 2.0 Total Bilirubin 0.9 AST 42 H ALT 28 Alkaline Phosphatase 85 Creatine Kinase Troponin I Total Protein 5.0 L Albumin 2.0 L 02/10/20 02/10/20 06:00 15:00 WBC 7.1 RBC 3.28 L Hgb 10.5 L Hct 31.7 L MCV 96.8 H MCH 32.0 MCHC 33.0 RDW 17.4 H Plt Count 155 MPV 8.0 PT with INR INR PTT (Actin FS) Sodium Potassium Chloride Carbon Dioxide Anion Gap BUN Creatinine Est GFR (CKD-EPI)AfAm Est GFR (CKD-EPI)NonAf Random Glucose Calcium Phosphorus Magnesium Total Bilirubin AST ALT Alkaline Phosphatase Creatine Kinase 64 Troponin I 1.19 H* Total Protein Albumin Active Medications Generic Name Dose Route Start Last Admin Trade Name Freq PRN Reason Stop Dose Admin Artificial Tears 1 drop 02/10/20 14:58 Artificial Tears OU BID PRN DRY EYES Chlorhexidine Gluconate 1 applic 02/08/20 22:00 02/09/20 21:27 Hibiclens For Decolonization - TP 1 applic HS [facility] Administration Mupirocin 1 applic 02/08/20 22:00 02/10/20 11:30 Bactroban Ointment (For Decolonization) - NS 02/13/20 21:59 1 applic BID [facility] Administration Ondansetron HCl 4 mg 02/09/20 10:30 02/09/20 14:36 Zofran Injection IVPUSH 4 mg Q8H PRN Administration NAUSEA Pantoprazole Sodium 40 mg 02/10/20 10:00 02/10/20 11:30 Protonix Iv IVPUSH 40 mg BID [facility] Administration Sucralfate 1 gm 02/09/20 16:30 02/10/20 16:42 Carafate Oral Suspension - PO 1 gm TIDAC [facility] Administration ASSESSMENT/PLAN: 79 F PMH of HTN, HLD, COPD, CAD (s/p 3 stents on plavix), Alcohol Abuse, Cirrhosis, Gastritis, Haital Hernia, Diverticulosis, Diverticulitis, Hernia presents with acute-onset hematemesis. Found to have a Hgb of 8.4 and BP of 69/52. Admitted to ICU for Hemorrhagic shock 2/2 GI bleed. EGD(02/08) showing distal esophagus with short stricture, and suspected Mallor-Nora tear. No clinical signs of further active brisk GIB. #Neuro - AAOX 3 Cardio #Hemorrhagic Shock 2/2 acute-onset GI bleed #elevated troponin --likely 2/2 demand, troponin has plateau'd >EKG (02/09/20): Sinus rhythm, Low voltage QRS. 72 bpm. QTC 435 > trop 1.79, 1.64, 1.62, 1.119 -in ED, Hypotensive to 69/52 and tachycardic to 110 -s/p 2 units blood & 1 unit platelets -Currently: Norepinephrine 4 mcg/min. Titrate as needed. Maintain MAP>65 Respiratory #Mild wheezing --possible mild COPD exacerbation -CXR (02/07): old apical disease on right. Enlarged heart. Increased bibasilar infiltrative/atelectatic changes and left pleural fluid -O2 saturation 100% with 3 L NC -CTA abd/pelvis: partially iaged lower chest showed b/l small-moderate pleural effusions -cw home Symbicort and Spiriva -duonebs PRN -avoiding steroids in the setting of mild chronic COPD and healing GIB GI H/o Alcohol Abuse, Gastritis, Diverticulosis, Diverticulitis, Hernia #Acute-onset GI bleed causing Hemorrhagic shock -bright-red hematemesis on admission -CTA abd/pelvis: -bleeding at Gastroesophageal junction -ascites -varices within gastrohepatic ligament & along greater curvature of stomach -hepatic cirrhosis as seen on 2017 CT -b/l flank subcutaneous edema -continuous concentric wall thickening of ascending & transverse colon & - extensive colonic diverticulosis -cholelithiasis -marked celiac artery ostial stenosis -GI consult(DiGiorno): --suspect Evelia Gordon tear and short esophageal stricture. No obvious bleeding --cw carafate --PPI gtt changed to BID --dc'd NGT, dc'd octreotide gtt --diet: CLD -ceftriaxone 1 g daily -zofran 4 mg IV push Q8H PRN for nausea -EGD (02/08): (1) short stricture in distal esophagus (2) suspected Evelia-Gordon tear in distal esophagus (3) hiatal hernia Heme #Hemorrhagic Shock 2/2 acute-onset GI bleed -On admission, Hgb/Hct 8.4/25.2 & Active bright red hematemesis. s/p 2 units blood & 1 unit platelets -Hgb improved from 8.4 to 10.5 currently -INR improved from 1.52 to 1.13 currently -Keep INR<1.5 per GI Renal -no active issues -will dc Dutta once stable for transfer out of ICU ID -s/p Vancomycin &- Zosyn -sp ceftriaxone 1 g daily for prophylaxis to prevent SBP --discontinued -SARS-CoV-2 (PCR) negative FEN no IVF monitor lytes CLD DVT PPX hold plavix, avoid NSAIDs no SCDs because patient's LE have TTP Lines Right IJ triple lumen (02/07) DISPO Maintain ICU Visit type - Emergency Visit Emergency Visit: No - New Patient This patient is new to me today: Yes Date on this admission: 02/10/20 - Critical Care Critical Care patient: Yes Total Critical Care Time (in minutes): 35 Critical Care Statement: The care of this patient involved high complexity decision making to prevent further life threatening deterioration of the patient's condition and/or to evaluate & treat vital organ system(s) failure or risk of failure. - Medication Review Med list reviewed for High Risk Meds patients 65 and older: Yes ATTENDING PHYSICIAN STATEMENT I saw and evaluated the patient. I reviewed the resident's note and discussed the case with the resident. I agree with the resident's findings and plan as documented. SUBJECTIVE: OBJECTIVE: ASSESSMENT AND PLAN:
[2020-02-10] MEDS: CHLORHEXIDINE GLUCONATE 4% CLEANSER FOR DECOLONIZATION TP SCH (21:48)
[2020-02-11 06:35] LABS: HEMATOCRIT 30.5 % (32.4-45.2); MCH 31.7 pg (25.7-33.7); MCHC 32.8 g/dl (32.0-36.0); MEAN CELL VOLUME 96.4 fl (80-96); MEAN PLT VOLUME 8.6 fl (7.5-11.1); PLATELET COUNT 151 K/MM3 (134-434); RBC 3.17 M/mm3 (3.60-5.2); RDW 17.5 % (11.6-15.6); WHITE BLOOD COUNT 6.8 K/mm3 (4.0-10.0)
[2020-02-11] MEDS: SUCRALFATE 1 GM/10 ML UNIT DOSE CUPS PO SCH ×3 (06:40→18:24)
[2020-02-11 06:42] LABS: INR 1.1 (0.83-1.09)
[2020-02-11 07:14] LABS: BLOOD UREA NITROGEN 13.2 mg/dL (7-18); CREATININE 0.5 mg/dL (0.55-1.3); MAGNESIUM 1.9 mg/dL (1.8-2.4); POTASSIUM 3.5 mmol/L (3.5-5.1)
[2020-02-11 07:21] LABS: CALCIUM 6.9 mg/dL (8.5-10.1)
[2020-02-11] MEDS ORDERED: POTASSIUM PHOSPHATE 40 MM in SODIUM CHLORIDE 250 ML IVPB ONE (07:47)
[2020-02-11] MEDS ORDERED: PT OWN MED DRAWER 7, Y5N ONE (08:58)
[2020-02-11] MEDS ORDERED: POTASSIUM PHOSPHATE 30 MM in SODIUM CHLORIDE 250 ML IVPB ONE (09:30)
[2020-02-11] MEDS: PANTOPRAZOLE SODIUM 40 MG VIAL IVPUSH SCH (09:33)
[2020-02-11] MEDS: BUDESONIDE/FORMETEROL FUMARATE 160/4.5 mcg INHALER IH SCH (09:35)
[2020-02-11] MEDS: TIOTROPIUM BROMIDE 2.5 MCG (SPIRIVA) RESPIMAT INHALER IH SCH (09:36)
[2020-02-11] MEDS: MUPIROCIN 2% TOPICAL OINTMENT FOR DECOLONIZATION NS SCH ×2 (09:37→21:22)
--- NOTE | 2020-02-11 09:40 | PN.GI ---
GI Progress Note Subjective: No acute events States feeling "OK" - Objective Vital Signs: Vital Signs Temperature 98.4 F 02/11/20 06:00 Pulse Rate 78 02/11/20 06:00 Respiratory Rate 16 02/11/20 06:00 Blood Pressure 104/48 L 02/11/20 06:00 O2 Sat by Pulse Oximetry (%) 100 02/11/20 06:00 Constitutional: Calm Eyes: No: Sclera Icterus Cardiovascular: Yes: Regular Rate and Rhythm Respiratory: Yes: Wheezes (expiratory wheezing) Gastrointestinal Inspection: Yes: Distention ...Auscultate: Yes: Normoactive Bowel Sounds ...Palpate: Yes: Soft, Tenderness (TTP left abdomen), Other (anasarca of left abdominal wall) ...Percussion: No: Tympanitic Extremities: Yes: Other (stasis changes bilaterally) Edema: Yes Edema: LLE: 1+, RLE: 1+ Neurological: Yes: Alert Labs: CBC, BMP 02/11/20 05:40 02/11/20 05:40 INR, PTT INR 1.10 (0.83-1.09) H 02/11/20 05:40 Problem List - Problems (1) GI hemorrhage Assessment/Plan: No further bleeding Abdominal pain left side. ? if related to abdominal wall fluid accumulation Fluid management / Diuresis per primary team If persistent abdominal pain, repeat Ct scan of the abdomen and pelvis Change to PO protonix Code(s): K92.2 - GASTROINTESTINAL HEMORRHAGE, UNSPECIFIED
[2020-02-11] MEDS: PANTOPRAZOLE 40 MG TABLET PO SCH ×2 (10:23→21:23)
[2020-02-11 10:28] LABS: ALBUMIN 1.9 g/dl (3.4-5.0)
--- NOTE | 2020-02-11 10:36 | HOSP ---
Subjective - Review of Symptoms General: Yes: Fatigue, Malaise Pulmonary: No: Dyspnea, Cough, Pleuritic Chest Pain, Other Cardiovascular: No: Chest Pain, Palpitations, Orthopnea, Paroxysmal Noc. Dyspnea, Edema, Light Headedness, Other Gastrointestinal: No: Nausea, NOSYM, Vomiting, Abdominal Pain, Diarrhea, Constipation, Melena, Hematochezia, Other Genitourinary: No: Dysuria, NOSYM, Frequency, Incontinence, Hematuria, Retention, Other Musculoskeletal: No: No Symptoms, Back Pain, Crepitus, Decreased ROM, Extremity Pain, Joint Pain, Joint Swelling, Muscle Pain, Muscle Cramps, Muscle Weakness, Other Neurological: No: Weakness, Numbness, Incoordination, Change in speech, Confusion, Seizures, Other Physical Examination Vital Signs: Vital Signs Temperature 98.4 F 02/11/20 06:00 Pulse Rate 78 02/11/20 06:00 Respiratory Rate 16 02/11/20 06:00 Blood Pressure 104/48 L 02/11/20 06:00 O2 Sat by Pulse Oximetry (%) 100 02/11/20 06:00 Constitutional: Yes: Anxious, Thin Eyes: Yes: Conjunctiva Clear, EOM Intact HENT: Yes: WNL, Atraumatic, Normocephalic Neck: Yes: Supple Cardiovascular: Yes: Regular Rate and Rhythm Respiratory: Yes: Diminished, On Nasal O2, SOB on Exertion, Wheezes Gastrointestinal: Yes: Soft Edema: No Integumentary: Yes: Erythema (BL foot & ankle erythema and tenderness to palpation), Venous Stasis Changes Neurological: Yes: Alert, Oriented Labs: CBC, BMP 02/11/20 05:40 02/11/20 05:40 Hospitalist Encounter Assessment: 79 yo female with PMHx of HTN, HLD, COPD, CAD (s/p 3 stents on plavix), Alcohol Abuse, Cirrhosis, Gastritis, Haital Hernia, Diverticulosis, Diverticulitis, Hernia presents with acute-onset hematemesis. Found to have a Hgb of 8.4 and BP of 69/52. Admitted to ICU for Hemorrhagic shock 2/2 GI bleed. Was placed on pressors from hemorrhagic shock and received 2 units of pRBCs. Was also placed on protonix drip. EGD(02/08) showing distal esophagus with short stricture, and suspected Mallor- Nora tear. Patient s/p dose of Vancomycin & Zosyn, also s/p ceftriaxone 1 g daily for prophylaxis to prevent SBP. No further bleeding has been noted, hbg/hct have been stable, protonix switched to PO. Patient tolerating clear liquid diet. GI said if persistent abdominal pain, repeat Ct scan of the abdomen and pelvis. Patient is now stable for transfer from ICU to Med/Surg floors. Visit type - Medication Review Med list reviewed for High Risk Meds patients 65 and older: Yes - Emergency Visit Emergency Visit: Yes ED Registration Date: 02/08/20 Care time: The patient presented to the Emergency Department on the above date and was hospitalized for further evaluation of their emergent condition. - New Patient This patient is new to me today: Yes Date on this admission: 02/16/20 - Critical Care Critical Care patient: Yes Total Critical Care Time (in minutes): 36 Critical Care Statement: The care of this patient involved high complexity decision making to prevent further life threatening deterioration of the patient's condition and/or to evaluate & treat vital organ system(s) failure or risk of failure.
--- NOTE | 2020-02-11 10:48 | PN ---
Teaching Attending Note Name of Resident: Yael Calabrese ATTENDING PHYSICIAN STATEMENT I saw and evaluated the patient. I reviewed the resident's note and discussed the case with the resident. I agree with the resident's findings and plan as documented. SUBJECTIVE: Pt seen and examined in the ICU. No bowel movements overnight. Off pressors. Tolerating clears. OBJECTIVE: Vital Signs Period Temp Pulse Resp BP Sys/Nelson Pulse Ox Last 24 Hr 97.1 F-98.6 F 72-94 14-22 90-139/44-72 100-100 Intake & Output 02/08/20 02/09/20 02/10/20 02/11/20 23:59 23:59 23:59 23:59 Intake Total 550 3602.3 2170 100 Output Total 1100 800 450 Balance 550 2502.3 1370 -350 Weight 50.984 kg 50.802 kg Gen: frail but in NAD Heart: RRR Lung: decreased breath sounds at the bases Abd: +ascites Ext: + edema CBC, BMP 02/11/20 05:40 02/11/20 05:40 Active Medications Albuterol/Ipratropium (Duoneb -) 1 amp NEB Q6H PRN PRN Reason: SHORTNESS OF BREATH Artificial Tears (Artificial Tears) 1 drop OU BID PRN PRN Reason: DRY EYES Budesonide/Formoterol Fumarate (Symbicort 160/4.5mcg -) 1 puff IH DAILY [facility] Last Admin: 02/11/20 09:35 Dose: 1 puff Documented by: Chlorhexidine Gluconate (Hibiclens For Decolonization -) 1 applic TP HS [facility] Last Admin: 02/10/20 21:48 Dose: 1 applic Documented by: Potassium Phosphate 30 mm/ (Sodium Chloride) 260 mls @ 62.5 mls/hr IVPB ONCE ONE Stop: 02/11/20 13:39 Last Admin: 02/11/20 09:35 Dose: 62.5 mls/hr Documented by: Mupirocin (Bactroban Ointment (For Decolonization) -) 1 applic NS BID [facility] Stop: 02/13/20 21:59 Last Admin: 02/11/20 09:37 Dose: 1 applic Documented by: Ondansetron HCl (Zofran Injection) 4 mg IVPUSH Q8H PRN PRN Reason: NAUSEA Last Admin: 02/09/20 14:36 Dose: 4 mg Documented by: Pantoprazole Sodium (Protonix -) 40 mg PO BID [facility] Last Admin: 02/11/20 10:23 Dose: Not Given Documented by: Sucralfate (Carafate Oral Suspension -) 1 gm PO TIDAC [facility] Last Admin: 02/11/20 10:35 Dose: 1 gm Documented by: Tiotropium [place] (Spiriva Respimat) 2 puff IH DAILY [facility] Last Admin: 02/11/20 09:36 Dose: 2 puff Documented by: ASSESSMENT AND PLAN: GI Bleed - Evelia Gordon Tear Gastric Varices Acute Blood Loss Anemia Hemorrhagic Shock Diverticulosis Liver Cirrhosis CAD +Troponins likely Demand Ischemia COPD HTN Hyperlipidemia - continue protonix - monitor H/H, coags - transfuse as needed - advance diet per GI - off pressors, maintain MAP >65 - DVT prophylaxis - can monitor on floor
--- NOTE | 2020-02-11 10:56 | PN ---
Progress Note (short form) - Note Progress Note: Chief Complaint: gib Seen and examined in ICU alert, no distress TELE: sr, occ pvcs, few beats nsvt Denies CP/SOB/dizziness/palps History of Present Illness: 79 F hx CAD with prior PCI on Plavix, peptic ulcer dz, h/o diverticular bleed now admitted with upper GI bleed/hypotension and Hb 8.4. Received 2UPRBCs, a unit of platelets and Vitamin K Had several cardiac stents in 2004 , confirmed with daughter. Lives alone and daughter reports she has required assistance to perform ADLS Sees Dr. Ward for Cardio. Current Medications Generic Name Dose Route Start Last Admin Trade Name Freq PRN Reason Stop Dose Admin Albuterol/Ipratropium 1 amp 02/10/20 20:12 Duoneb - NEB Q6H PRN SHORTNESS OF BREATH Artificial Tears 1 drop 02/10/20 14:58 Artificial Tears OU BID PRN DRY EYES Budesonide/Formoterol Fumarate 1 puff 02/11/20 10:00 02/11/20 09:35 Symbicort 160/4.5mcg - IH 1 puff DAILY [facility] Administration Chlorhexidine Gluconate 1 applic 02/08/20 22:00 02/10/20 21:48 Hibiclens For Decolonization - TP 1 applic HS [facility] Administration Potassium Phosphate 30 mm/ 260 mls @ 62.5 mls/hr 02/11/20 09:30 02/11/20 09:35 Sodium Chloride IVPB 02/11/20 13:39 62.5 mls/hr ONCE ONE Administration Mupirocin 1 applic 02/08/20 22:00 02/11/20 09:37 Bactroban Ointment (For Decolonization) - NS 02/13/20 21:59 1 applic BID [facility] Administration Ondansetron HCl 4 mg 02/09/20 10:30 02/09/20 14:36 Zofran Injection IVPUSH 4 mg Q8H PRN Administration NAUSEA Pantoprazole Sodium 40 mg 02/11/20 10:00 02/11/20 10:23 Protonix - PO Not Given BID [facility] Sucralfate 1 gm 02/09/20 16:30 02/11/20 10:35 Carafate Oral Suspension - PO 1 gm TIDAC [facility] Administration Tiotropium [place] 2 puff 02/11/20 10:00 02/11/20 09:36 Spiriva Respimat IH 2 puff DAILY [facility] Administration Vital Signs Period Temp Pulse Resp BP Sys/Nelson Pulse Ox Last 24 Hr 98.2 F-98.6 F 72-94 14-22 90-139/44-72 100-100 Vital Signs Temp 98.4 F 02/11/20 06:00 Pulse 78 02/11/20 06:00 Resp 16 02/11/20 06:00 BP 104/48 L 02/11/20 06:00 Pulse Ox 100 02/11/20 06:00 Intake & Output 02/10/20 02/10/20 02/11/20 11:59 23:59 11:59 Intake Total 990 1180 100 Output Total 400 400 450 Balance 590 780 -350 Weight 112 lb Intake: IV 990 530 LEVOPHED BAG 8,000 mcg In 270 100 500 ml @ 5 MCG/MIN 18.75 mls/hr IVPB TITR [facility] Rx# :[id number] Normal Saline - 1,000 ml 600 400 @ 50 mls/hr IV ASDIR [facility] Rx#:[id number] protonix drip 120 30 Oral 650 100 Output: Urine 400 400 450 Dutta 400 400 450 Other: Voiding Method Indwelling Catheter Indwelling Catheter Indwelling Catheter Bowel Movement Yes: a smear No Height 5 ft 5 in Body Mass Index (BMI) 18.6 Constitutional: Yes: No Distress, Calm Eyes: Yes: Conjunctiva Clear, EOM Intact Neck: Yes: Supple, Trachea Midline Cardiovascular: Yes: Regular Rate and Rhythm Respiratory:cta bl nleff Gastrointestinal: Yes: Soft (nt) Edema: No Peripheral Pulses WNL: Yes Neurological: Yes: Alert, Oriented no jaundice diaphoresis Labs: Laboratory Last Values WBC 6.8 K/mm3 (4.0-10.0) 02/11/20 05:40 RBC 3.17 M/mm3 (3.60-5.2) L 02/11/20 05:40 Hgb 10.0 GM/dL (10.7-15.3) L 02/11/20 05:40 Hct 30.5 % (32.4-45.2) L 02/11/20 05:40 MCV 96.4 fl (80-96) H 02/11/20 05:40 MCH 31.7 pg (25.7-33.7) 02/11/20 05:40 MCHC 32.8 g/dl (32.0-36.0) 02/11/20 05:40 RDW 17.5 % (11.6-15.6) H 02/11/20 05:40 Plt Count 151 K/MM3 (134-434) 02/11/20 05:40 MPV 8.6 fl (7.5-11.1) 02/11/20 05:40 Absolute Neuts (auto) 8.7 K/mm3 (1.5-8.0) H 02/09/20 06:00 Neutrophils % 78.9 % (42.8-82.8) D 02/09/20 06:00 Neutrophils % (Manual) 73.0 % (42.8-82.8) 02/08/20 11:52 Band Neutrophils % 0.0 % 02/08/20 11:52 Lymphocytes % 10.8 % (8-40) D 02/09/20 06:00 Lymphocytes % (Manual) 19.0 % (8-40) 02/08/20 11:52 Monocytes % 7.9 % (3.8-10.2) 02/09/20 06:00 Monocytes % (Manual) 8 % (3.8-10.2) 02/08/20 11:52 Eosinophils % 1.9 % (0-4.5) D 02/09/20 06:00 Eosinophils % (Manual) 0.0 % (0-4.5) D 02/08/20 11:52 Basophils % 0.5 % (0-2.0) 02/09/20 06:00 Basophils % (Manual) 0.0 % (0-2.0) 02/08/20 11:52 Myelocytes % (Man) 0 % (0-2) D 02/08/20 11:52 Promyelocytes % (Man) 0 % (0-2) 02/08/20 11:52 Blast Cells % (Manual) 0 % (0-0) 02/08/20 11:52 Nucleated RBC % 0 % (0-0) 02/09/20 06:00 Metamyelocytes 0 % (0-2) 02/08/20 11:52 Hypochromia 0 02/08/20 11:52 Platelet Estimate Normal 02/08/20 11:52 Polychromasia 1+ 02/08/20 11:52 Poikilocytosis 0 02/08/20 11:52 Anisocytosis 1+ 02/08/20 11:52 Microcytosis 1+ 02/08/20 11:52 Macrocytosis 1+ 02/08/20 11:52 PT with INR 13.00 SEC (9.7-13.0) 02/11/20 05:40 INR 1.10 (0.83-1.09) H 02/11/20 05:40 PTT (Actin FS) 31.5 SECONDS (25.2-36.5) 02/10/20 06:00 Sodium 140 mmol/L (136-145) 02/11/20 05:40 Potassium 3.5 mmol/L (3.5-5.1) 02/11/20 05:40 Chloride 105 mmol/L (98-107) 02/11/20 05:40 Carbon Dioxide 30 mmol/L (21-32) 02/11/20 05:40 Anion Gap 5 MMOL/L (8-16) L 02/11/20 05:40 BUN 13.2 mg/dL (7-18) 02/11/20 05:40 Creatinine 0.5 mg/dL (0.55-1.3) L 02/11/20 05:40 Est GFR (CKD-EPI)AfAm 105.94 02/11/20 05:40 Est GFR (CKD-EPI)NonAf 91.41 02/11/20 05:40 Random Glucose 123 mg/dL (74-106) H 02/11/20 05:40 Lactic Acid 1.3 mmol/L (0.4-2.0) 02/08/20 20:45 Calcium 6.9 mg/dL (8.5-10.1) L* 02/11/20 05:40 Phosphorus 2.0 mg/dL (2.5-4.9) L 02/11/20 05:40 Magnesium 1.9 mg/dL (1.8-2.4) 02/11/20 05:40 Total Bilirubin 0.9 mg/dL (0.2-1) 02/10/20 06:00 AST 42 U/L (15-37) H 02/10/20 06:00 ALT 28 U/L (13-61) 02/10/20 06:00 Alkaline Phosphatase 85 U/L (45-117) 02/10/20 06:00 Creatine Kinase 64 U/L (26-192) 02/10/20 06:00 Troponin I 1.19 ng/ml (0.00-0.05) H* 02/10/20 06:00 Total Protein 5.0 g/dl (6.4-8.2) L 02/10/20 06:00 Albumin 1.9 g/dl (3.4-5.0) L 02/11/20 05:40 COVID-19 (JOCELYN) Cancelled 02/08/20 14:08 SARS-CoV-2 (PCR) Negative (Negative) 02/08/20 15:19 Blood Type O POSITIVE 02/08/20 11:52 Antibody Screen Negative 02/08/20 11:52 Crossmatch See Detail 02/08/20 11:52 - ....Imaging EKG: Image Reviewed est cct 35 mins Assessment/Plan IMP: Acute Upper GI bleed, history of peptic ulcer dz Marked anemia secondary to acute blood loss History of diverticulosis and Cirrhosis with varices CAD s/p PCI (remote) Mild TnI elevation Hypotension REC: 1. UGI bleed: found to have Evelia Gordon tear on EGD 02/08 -management of acute GI bleed as per Critical Care and GI -Follow H/H -ICU monitoring 2. CAD s/p prior NE: -Multiple stents placed 2004 as per daughter at [facility] -Was maintained on Plavix -Hold Plavix at this time, resume with PPI when deemed safe from GI standpoint -Presently without anginal sx or sx of ACS 3. Elevated TnI: 1.79-->1.64 with normal CK -Mildly elevated, flat TnI trend with normal CK in the setting of acute blood loss anemia and hypotension most likely represents demand ischemia and not a type I NE/ACS. -Patient has no symptoms of angina or ACS; serial ECGs are unchanged -tolerated endoscopy well -will plan for nuclear stress test for risk stratification when acute issues resolve 4. Hypotension: improved - Most likely due to acute blood loss -No history of or physical exam signs of aortic stenosis. -Levo gtt weaned off
--- NOTE | 2020-02-11 11:10 | PN ---
Progress Note (short form) - Note Progress Note: 79 F PMH of HTN, HLD, COPD, CAD (s/p 3 stents on plavix), Alcohol Abuse, Cirrhosis, Gastritis, Haital Hernia, Diverticulosis, Diverticulitis, Hernia who was admitted to the ICU for upper GI bleed, likely 2/2 to Evelia Garcia tear. Patient off drips and hgb levels have remained stable. When examining patient MAP was 61. Vital Signs Temperature 98.4 F 02/11/20 06:00 Pulse Rate 78 02/11/20 06:00 Respiratory Rate 16 02/11/20 06:00 Blood Pressure 104/48 L 02/11/20 06:00 O2 Sat by Pulse Oximetry (%) 100 02/11/20 06:00 Physical Exam: General:no acute distress, thin Heart: Regular rate Lungs: clear to auscultation Abd: soft nontender Msk: b/l legs erythema and warmth CBC, BMP 02/11/20 05:40 02/11/20 05:40 GI bleeding resolved - protonix BID - monitor abd pain - EGD 02/08 showed Evelia Gordon tear - full liquid diet tonight #Hx MN - f/u ECHO vs nuclear stress test per cardio Discussed with ICU team to give 1 bolus, monitor patient for a few hours and if Maps remain > 65 we will reevaluate and ptient can be dowgraded to the floor >> was not downgraded overnight
[2020-02-11] MEDS ORDERED: SODIUM CHLORIDE 500 ML IV STA (11:37)
--- NOTE | 2020-02-11 15:39 | ECHO ---
Name: ALBERTO MAYA Exam:Adult Echocardiogram Study Date: 02/11/2020 10:24 AM Age: 79 yrs Reason For Study: LV, EF Height: 65 in Weight: 112 lb BSA: 1.5 m2 BP: 104/58 mmHg MMode/2D Measurements & Calculations RVDd: 3.7 cm Ao root diam: 2.5 cm IVSd: 0.82 cm LA dimension: 3.5 cm LVIDd: 3.9 cm ACS: 1.3 cm LVIDs: 2.7 cm LVPWd: 0.84 cm EDV(Teich): 66.5 ml LVOT diam: 1.9 cm ESV(Teich): 26.9 ml LAV (MOD-bp): 50.0 ml TAPSE: 1.2 cm RV S Sathish: 12.1 cm/sec Doppler Measurements & Calculations MV E max sathish: 73.1 cm/sec Ao V2 max: 131.5 cm/sec MV A max sathish: 120.3 cm/sec Ao max P.9 mmHg MV E/A: 0.61 Ao V2 mean: 86.3 cm/sec MV dec time: 0.20 sec Ao mean P.4 mmHg Ao V2 VTI: 21.6 cm JONNA(I,D): 2.2 cm2 JONNA(V,D): 2.0 cm2 LV V1 max P.5 mmHg MR max sathish: 495.3 cm/sec LV V1 mean P.5 mmHg MR max P.1 mmHg LV V1 max: 93.2 cm/sec LV V1 mean: 56.2 cm/sec LV V1 VTI: 16.4 cm SV(LVOT): 46.6 ml TR max sathish: 277.1 cm/sec TR max P.9 mmHg PA V2 max: 82.8 cm/sec PI end-d sathish: 84.2 cm/sec PA max P.7 mmHg PA acc slope: 514.0 cm/sec2 PA acc time: 0.11 sec Med Peak E' Sathish: 3.2 cm/sec PA pr(Accel): 31.5 mmHg Med E/e': 22.7 Lat Peak E' Sathish: 5.0 cm/sec Lat E/e': 14.7 Pulm Sys Sathish: 73.5 cm/sec Pulm Nelson Sathish: 55.9 cm/sec Pulm S/D: 1.3 Tech Comments TDS. Patient agitated and very thin. Scanned sitting up. Procedure A complete two-dimensional transthoracic echocardiogram was performed (2D, M-mode, Doppler and color flow Doppler). Technically limited study. Left Ventricle The left ventricle is normal in size. Left ventricular systolic function is normal. Ejection Fraction = 55- 60%. LV diastology reveals impaired relaxation with elevated filling pressure. No regional wall motio n abnormalities noted. Right Ventricle The right ventricle is normal size. The right ventricular systolic function is normal. Atria The left atrium is mildly dilated. Right atrial size is normal. Mitral Valve There is mild mitral annular calcification. There is mild to moderate mitral regurgitation. Tricuspid Valve The tricuspid valve is normal in structure and function. There is mild to moderate tricuspid regurgit ation. PASP is at least 42 mmHg if RA pressure is assumed 3 mmHg (IVC was not adequately visualized). Aortic Valve There is mild aortic sclerosis.;. No aortic regurgitation is present. Pulmonic Valve The pulmonic valve is not well visualized. Great Vessels The aortic root is normal size. Pericardium/Pleura There is no pericardial effusion. There is a pleural effusion present. Interpretation Summary Technically limited study The left ventricle is normal in size. Left ventricular systolic function is normal. No regional wall motion abnormalities noted. Ejection Fraction = 55-60%. LV diastology reveals impaired relaxation with elevated filling pressure The left atrium is mildly dilated. There is mild mitral annular calcification. There is mild to moderate mitral regurgitation. There is mild to moderate tricuspid regurgitation. PASP is at least 42 mmHg if RA pressure is assumed 3 mmHg (IVC was not adequately visualized) There is mild aortic sclerosis. There is no pericardial effusion. There is a pleural effusion present. Antione Galeana MD 02/11/2020 03:38 PM
--- NOTE | 2020-02-11 15:58 | CONSULT ---
- Consultation REQUESTING PROVIDER: CONSULT REQUEST: We have been asked to surgically evaluate this patient for bilateral lower extremity congestion. Hospitalist:Twin Mccarthy HISTORY OF PRESENT ILLNESS: The patient is 79 yo fmelae who presented to the ER with weakness and she vomited. She is s/p EGD which revealed a small zaid Lovett tear. Her plavix has been on hold, currently she is tolerating a clear liquid diet. The patients daughter is at bedside and provides some history today along with her mother. She is a current patient of Dr. Graham and has a schedued follow up appointment with him on Tuesday. Her lower extremity wounds have healed over the past several months. Currently, she denies any open wounds, weeping from her skin. The swelling has improved since admission as well as the redness. Her extremities remain tender with touch/movement. Prior to coming home for several days, she was being treated at [facility]. While there, she had been ambulatory. At home this past week, she had been too weak and unable to ambulate. She was last seen by Dr. Graham 01/02 while admitted at [facility] and her lower ext wounds had healed. PMHx: CAD s/p stents (on Plavix), HTN, HLD, and hx of GI bleeding PSHx: angiogram of LLE 03/01, no intervention. Angiogram of RLE 12/30- orbital arthrectomy of SFA/tibial artery Home Medications Medication Instructions Recorded Budesonide/Formeterol Fumarate 1 puff IH DAILY 11/01/16 [SYMBICORT 160/4.5mcg -] Albuterol Sulfate [Albuterol 2 puff IH Q4H PRN 08/21/18 Sulfate Hfa] Tiotropium [place]ugio [Spiriva] 2 unit NEB DAILY 08/21/18 Rosuvastatin [Crestor -] 20 mg PO HS #30 tablet 08/25/18 Alendronate Sodium [Fosamax] 1 tab WEEKLY 12/28/19 Albuterol 0.083% Nebulizer Yuliet 1 amp NEB Q4H PRN #1 amp 01/07/20 [Ventolin 0.083% Nebulizer Soln -] Collagenase Clostridium Hist. 1 applic TP DAILY #1 tube 01/07/20 [Santyl -] Meloxicam 30 mg PO DAILY 02/08/20 Allergies Allergy/AdvReac Type Severity Reaction Status Date / Time No Known Allergies Allergy Verified 11/02/19 13:35 REVIEW OF SYSTEMS: CONSTITUTIONAL: Absent: fever, chills SKIN: Present:erythema PHYSICAL EXAM: GENERAL: Awake, alert, and fully oriented, in no acute distress. LOWER EXTREMITIES:+1 DP pulse b/l confirmed good signal with doppler, warm, w ell-perfused. DIfficult to palpable or auscultate PT pulses, skin very thickened and non-compliant. No wounds seen to b/l LE. Healed ulcers over anterior skin with intact skin(light pink in color. No heel ulcers seen b/l. There is upper thigh pitting edema b/l. NEUROLOGICAL: Normal speech, gait not observed. Neuro 2/5 with dorsi/plantar flexion. PSYCH: Cooperative. Good eye contact. Appropriate mood and affect. Vital Signs Temperature 98 F 02/11/20 10:00 Pulse Rate 88 02/11/20 12:00 Respiratory Rate 19 02/11/20 12:00 Blood Pressure 108/54 L 02/11/20 12:00 O2 Sat by Pulse Oximetry (%) 100 02/11/20 10:00 Lab Results WBC 6.8 K/mm3 (4.0-10.0) 02/11/20 05:40 RBC 3.17 M/mm3 (3.60-5.2) L 02/11/20 05:40 Hgb 10.0 GM/dL (10.7-15.3) L 02/11/20 05:40 Hct 30.5 % (32.4-45.2) L 02/11/20 05:40 MCV 96.4 fl (80-96) H 02/11/20 05:40 MCHC 32.8 g/dl (32.0-36.0) 02/11/20 05:40 RDW 17.5 % (11.6-15.6) H 02/11/20 05:40 Plt Count 151 K/MM3 (134-434) 02/11/20 05:40 INR 1.10 (0.83-1.09) H 02/11/20 05:40 Sodium 140 mmol/L (136-145) 02/11/20 05:40 Potassium 3.5 mmol/L (3.5-5.1) 02/11/20 05:40 Chloride 105 mmol/L (98-107) 02/11/20 05:40 Carbon Dioxide 30 mmol/L (21-32) 02/11/20 05:40 Anion Gap 5 MMOL/L (8-16) L 02/11/20 05:40 BUN 13.2 mg/dL (7-18) 02/11/20 05:40 Creatinine 0.5 mg/dL (0.55-1.3) L 02/11/20 05:40 Random Glucose 123 mg/dL (74-106) H 02/11/20 05:40 Calcium 6.9 mg/dL (8.5-10.1) L* 02/11/20 05:40 Blood Type O POSITIVE 02/08/20 11:52 Antibody Screen Negative 02/08/20 11:52 CTA: ascites abd/pelvis with SQ b/l flank edema. Blush of contrast GE junction. Cirrhosis/varices. 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 Problem List - Problems (1) GI hemorrhage Assessment/Plan: s/p EGD with malllor lovett tear visualized, H&H remains stable and pt tolerating clears Problems reviewed: Yes Code(s): K92.2 - GASTROINTESTINAL HEMORRHAGE, UNSPECIFIED (2) Leg ulcer Assessment/Plan: leg ulcers healed bilaterally to franz and right plantar surface. No surgical intervention is needed. Recommend to continue to elevate heels off of the bed on pillows and apply alleyven to heels. Freqent turns and repositioning every 2 hours. D/w Dr. Graham Problems reviewed: Yes Code(s): L97.909 - NON-PRS CHRONIC ULC UNSP PRT OF UNSP LOW LEG W UNSP SEVERITY Qualifiers: Laterality: right Non-pressure ulcer stage: unspecified non-pressure ulcer stage Qualified Code(s): L97.919 - Non-pressure chronic ulcer of unspecified part of right lower leg with unspecified severity
[2020-02-11] MEDS: CHLORHEXIDINE GLUCONATE 4% CLEANSER FOR DECOLONIZATION TP SCH (21:23)
[2020-02-12] MEDS: SUCRALFATE 1 GM/10 ML UNIT DOSE CUPS PO SCH ×3 (06:23→16:54)
[2020-02-12 06:33] LABS: HEMATOCRIT 28.2 % (32.4-45.2); HEMOGLOBIN 9.4 GM/dL (10.7-15.3); MCH 32.3 pg (25.7-33.7); MCHC 33.1 g/dl (32.0-36.0); MEAN CELL VOLUME 97.4 fl (80-96); MEAN PLT VOLUME 8.5 fl (7.5-11.1); PLATELET COUNT 142 K/MM3 (134-434); RDW 17.1 % (11.6-15.6)
[2020-02-12 06:54] LABS: BLOOD UREA NITROGEN 15.8 mg/dL (7-18); CALCIUM 7.3 mg/dL (8.5-10.1); CREATININE 0.5 mg/dL (0.55-1.3); POTASSIUM 3.9 mmol/L (3.5-5.1)
--- NOTE | 2020-02-12 08:53 | PN.GI ---
GI Progress Note Subjective: No acute events Some belching Feels bloated States being very thirsty - Objective Vital Signs: Vital Signs Temperature 98.2 F 02/12/20 06:00 Pulse Rate 70 02/12/20 06:00 Respiratory Rate 18 02/12/20 06:00 Blood Pressure 110/49 L 02/12/20 06:00 O2 Sat by Pulse Oximetry (%) 100 02/11/20 22:00 Constitutional: Calm Eyes: No: Sclera Icterus Cardiovascular: Yes: Regular Rate and Rhythm Respiratory: Yes: Diminished (at bases bilaterally with poor insp effort) Gastrointestinal Inspection: No: Distention ...Auscultate: Yes: Normoactive Bowel Sounds ...Palpate: No: Hepatomegaly, Splenomegaly, Tenderness ...Percussion: No: Tympanitic Edema: Yes (B/L LE edema) Neurological: Yes: Alert Labs: CBC, BMP 02/12/20 06:00 02/12/20 06:00 INR, PTT INR 1.10 (0.83-1.09) H 02/11/20 05:40 Problem List - Problems (1) GI hemorrhage Assessment/Plan: No further overt bleeding Continue carafate, decreased protonix to 40mg once daily Full liquid diet Ordered CXR given persistent complaints of SOB Ordered abdominal US to reassess ascites Diuresis per primary team Code(s): K92.2 - GASTROINTESTINAL HEMORRHAGE, UNSPECIFIED
[2020-02-12] MEDS ORDERED: SODIUM CHLORIDE 250 ML IV STA (09:02)
[2020-02-12] MEDS ORDERED: PANTOPRAZOLE 40 MG TABLET PO SCH (10:00)
[2020-02-12] MEDS ORDERED: FUROSEMIDE 40 MG/4 ML INJECTABLE VIAL IVPUSH ONE (10:23)
[2020-02-12] MEDS: MUPIROCIN 2% TOPICAL OINTMENT FOR DECOLONIZATION NS SCH (11:00)
--- NOTE | 2020-02-12 11:00 | PN ---
Teaching Attending Note Name of Resident: Yael Calabrese ATTENDING PHYSICIAN STATEMENT I saw and evaluated the patient. I reviewed the resident's note and discussed the case with the resident. I agree with the resident's findings and plan as documented. SUBJECTIVE: Pt seen and examined in the ICU. No bowel movements overnight. Remains off pressors. Tolerating clears. OBJECTIVE: Vital Signs Period Temp Pulse Resp BP Sys/Nelson Pulse Ox Last 24 Hr 98.2 F-98.7 F 70-91 14-21 84-110/44-68 100-100 Intake & Output 02/09/20 02/10/20 02/11/20 02/12/20 23:59 23:59 23:59 23:59 Intake Total 3602.3 2170 1500 Output Total 1100 800 750 Balance 2502.3 1370 750 Weight 50.802 kg Gen: frail but in NAD Heart: RRR Lung: decreased breath sounds at the bases Abd: +ascites Ext: + edema CBC, BMP 02/12/20 06:00 02/12/20 06:00 Active Medications Albuterol/Ipratropium (Duoneb -) 1 amp NEB Q6H PRN PRN Reason: SHORTNESS OF BREATH Artificial Tears (Artificial Tears) 1 drop OU BID PRN PRN Reason: DRY EYES Budesonide/Formoterol Fumarate (Symbicort 160/4.5mcg -) 1 puff IH DAILY [facility] Last Admin: 02/11/20 09:35 Dose: 1 puff Documented by: Chlorhexidine Gluconate (Hibiclens For Decolonization -) 1 applic TP HS [facility] Last Admin: 02/11/20 21:23 Dose: 1 applic Documented by: Mupirocin (Bactroban Ointment (For Decolonization) -) 1 applic NS BID [facility] Stop: 02/13/20 21:59 Last Admin: 02/11/20 21:22 Dose: 1 applic Documented by: Ondansetron HCl (Zofran Injection) 4 mg IVPUSH Q8H PRN PRN Reason: NAUSEA Last Admin: 02/09/20 14:36 Dose: 4 mg Documented by: Pantoprazole Sodium (Protonix -) 40 mg PO DAILY [facility] Last Admin: 02/12/20 10:27 Dose: 40 mg Documented by: Sucralfate (Carafate Oral Suspension -) 1 gm PO TIDAC [facility] Last Admin: 02/12/20 10:27 Dose: 1 gm Documented by: Tiotropium [place] (Spiriva Respimat) 2 puff IH DAILY [facility] Last Admin: 02/11/20 09:36 Dose: 2 puff Documented by: ASSESSMENT AND PLAN: GI Bleed - Evelia Gordon Tear Gastric Varices Acute Blood Loss Anemia Hemorrhagic Shock Diverticulosis Liver Cirrhosis CAD +Troponins likely Demand Ischemia COPD HTN Hyperlipidemia - continue protonix - monitor H/H, coags - transfuse as needed - advance diet per GI - off pressors, maintain MAP >65 - lasix today - monitor urine output, creatinine - DVT prophylaxis - can monitor on floor
[2020-02-12] MEDS: TIOTROPIUM BROMIDE 2.5 MCG (SPIRIVA) RESPIMAT INHALER IH SCH (11:42)
[2020-02-12] MEDS: BUDESONIDE/FORMETEROL FUMARATE 160/4.5 mcg INHALER IH SCH (11:43)
--- NOTE | 2020-02-12 12:54 | PN ---
Progress Note (short form) - Note Progress Note: 79 F PMH of HTN, HLD, COPD, CAD (s/p 3 stents on plavix), Alcohol Abuse, Cirrhosis, Gastritis, Haital Hernia, Diverticulosis, Diverticulitis, Hernia who was admitted to the ICU for upper GI bleed, likely 2/2 to Evelia Garcia tear. Patient off drips and hgb levels have remained stable. Patient remained in ICU and MAPS have stabilized ~65 Vital Signs Temperature 98.2 F 02/12/20 06:00 Pulse Rate 70 02/12/20 06:00 Respiratory Rate 18 02/12/20 06:00 Blood Pressure 110/49 L 02/12/20 06:00 O2 Sat by Pulse Oximetry (%) 100 02/11/20 22:00 Physical Exam: General:no acute distress, thin Heart: Regular rate Lungs: clear to auscultation Abd: soft nontender Msk: b/l legs erythema and warmth CBC, BMP 02/12/20 06:00 02/12/20 06:00 #GI bleeding resolved - protonix BID - monitor abd pain - EGD 02/08 showed Evelia Gordon tear - full liquid diet tolerated - continue to be monitored by GI and progress diet as tolerated - monitor Hgb daily #Hx ND - ECHO: EF 55-60, no LVdysfxn - new ND ruled out #LE edema and erythema - likely related to venous stasis - vascular consulted Dispo: monitor on med surg
--- NOTE | 2020-02-12 13:03 | PN ---
Progress Note (short form) - Note Progress Note: cc: GI bleed s: no chest pain, palps, dizziness, dyspnea Current Medications Generic Name Dose Route Start Last Admin Trade Name Kenny PRN Reason Stop Dose Admin Albuterol/Ipratropium 1 amp 02/10/20 20:12 Duoneb - NEB Q6H PRN SHORTNESS OF BREATH Artificial Tears 1 drop 02/10/20 14:58 Artificial Tears OU BID PRN DRY EYES Budesonide/Formoterol Fumarate 1 puff 02/11/20 10:00 02/12/20 11:43 Symbicort 160/4.5mcg - IH 1 puff DAILY [facility] Administration Chlorhexidine Gluconate 1 applic 02/08/20 22:00 02/11/20 21:23 Hibiclens For Decolonization - TP 1 applic HS [facility] Administration Mupirocin 1 applic 02/08/20 22:00 02/12/20 11:00 Bactroban Ointment (For Decolonization) - NS 02/13/20 21:59 1 applic BID [facility] Administration Ondansetron HCl 4 mg 02/09/20 10:30 02/09/20 14:36 Zofran Injection IVPUSH 4 mg Q8H PRN Administration NAUSEA Pantoprazole Sodium 40 mg 02/12/20 10:00 02/12/20 10:27 Protonix - PO 40 mg DAILY [facility] Administration Sucralfate 1 gm 02/09/20 16:30 02/12/20 10:27 Carafate Oral Suspension - PO 1 gm TIDAC [facility] Administration Tiotropium [place] 2 puff 02/11/20 10:00 02/12/20 11:42 Spiriva Respimat IH 2 puff DAILY [facility] Administration Vital Signs Period Temp Pulse Resp BP Sys/Nelson Pulse Ox Last 24 Hr 98.2 F-98.7 F 70-91 14-21 84-110/44-68 100-100 Constitutional: Yes: No Distress, Calm Eyes: Yes: Conjunctiva Clear, EOM Intact Neck: Yes: Supple, Trachea Midline Cardiovascular: Yes: Regular Rate and Rhythm Respiratory:cta bl nl eff Gastrointestinal: Yes: Soft (nt) Edema: No Peripheral Pulses WNL: Yes Neurological: Yes: Alert, Oriented no jaundice diaphoresis Laboratory Last Values WBC 9.0 K/mm3 (4.0-10.0) 02/12/20 06:00 RBC 2.90 M/mm3 (3.60-5.2) L 02/12/20 06:00 Hgb 9.4 GM/dL (10.7-15.3) L 02/12/20 06:00 Hct 28.2 % (32.4-45.2) L 02/12/20 06:00 MCV 97.4 fl (80-96) H 02/12/20 06:00 MCH 32.3 pg (25.7-33.7) 02/12/20 06:00 MCHC 33.1 g/dl (32.0-36.0) 02/12/20 06:00 RDW 17.1 % (11.6-15.6) H 02/12/20 06:00 Plt Count 142 K/MM3 (134-434) 02/12/20 06:00 MPV 8.5 fl (7.5-11.1) 02/12/20 06:00 Absolute Neuts (auto) 8.7 K/mm3 (1.5-8.0) H 02/09/20 06:00 Neutrophils % 78.9 % (42.8-82.8) D 02/09/20 06:00 Neutrophils % (Manual) 73.0 % (42.8-82.8) 02/08/20 11:52 Band Neutrophils % 0.0 % 02/08/20 11:52 Lymphocytes % 10.8 % (8-40) D 02/09/20 06:00 Lymphocytes % (Manual) 19.0 % (8-40) 02/08/20 11:52 Monocytes % 7.9 % (3.8-10.2) 02/09/20 06:00 Monocytes % (Manual) 8 % (3.8-10.2) 02/08/20 11:52 Eosinophils % 1.9 % (0-4.5) D 02/09/20 06:00 Eosinophils % (Manual) 0.0 % (0-4.5) D 02/08/20 11:52 Basophils % 0.5 % (0-2.0) 02/09/20 06:00 Basophils % (Manual) 0.0 % (0-2.0) 02/08/20 11:52 Myelocytes % (Man) 0 % (0-2) D 02/08/20 11:52 Promyelocytes % (Man) 0 % (0-2) 02/08/20 11:52 Blast Cells % (Manual) 0 % (0-0) 02/08/20 11:52 Nucleated RBC % 0 % (0-0) 02/09/20 06:00 Metamyelocytes 0 % (0-2) 02/08/20 11:52 Hypochromia 0 02/08/20 11:52 Platelet Estimate Normal 02/08/20 11:52 Polychromasia 1+ 02/08/20 11:52 Poikilocytosis 0 02/08/20 11:52 Anisocytosis 1+ 02/08/20 11:52 Microcytosis 1+ 02/08/20 11:52 Macrocytosis 1+ 02/08/20 11:52 PT with INR 13.00 SEC (9.7-13.0) 02/11/20 05:40 INR 1.10 (0.83-1.09) H 02/11/20 05:40 PTT (Actin FS) 31.5 SECONDS (25.2-36.5) 02/10/20 06:00 Sodium 140 mmol/L (136-145) 02/12/20 06:00 Potassium 3.9 mmol/L (3.5-5.1) 02/12/20 06:00 Chloride 104 mmol/L (98-107) 02/12/20 06:00 Carbon Dioxide 32 mmol/L (21-32) 02/12/20 06:00 Anion Gap 4 MMOL/L (8-16) L 02/12/20 06:00 BUN 15.8 mg/dL (7-18) 02/12/20 06:00 Creatinine 0.5 mg/dL (0.55-1.3) L 02/12/20 06:00 Est GFR (CKD-EPI)AfAm 105.94 02/12/20 06:00 Est GFR (CKD-EPI)NonAf 91.41 02/12/20 06:00 Random Glucose 129 mg/dL (74-106) H 02/12/20 06:00 Lactic Acid 1.3 mmol/L (0.4-2.0) 02/08/20 20:45 Calcium 7.3 mg/dL (8.5-10.1) L 02/12/20 06:00 Phosphorus 2.0 mg/dL (2.5-4.9) L 02/12/20 06:00 Magnesium 2.0 mg/dL (1.8-2.4) 02/12/20 06:00 Total Bilirubin 0.9 mg/dL (0.2-1) 02/10/20 06:00 AST 42 U/L (15-37) H 02/10/20 06:00 ALT 28 U/L (13-61) 02/10/20 06:00 Alkaline Phosphatase 85 U/L (45-117) 02/10/20 06:00 Creatine Kinase 64 U/L (26-192) 02/10/20 06:00 Troponin I 1.19 ng/ml (0.00-0.05) H* 02/10/20 06:00 Total Protein 5.0 g/dl (6.4-8.2) L 02/10/20 06:00 Albumin 1.9 g/dl (3.4-5.0) L 02/11/20 05:40 COVID-19 (JOCELYN) Cancelled 02/08/20 14:08 SARS-CoV-2 (PCR) Negative (Negative) 02/08/20 15:19 Blood Type O POSITIVE 02/08/20 11:52 Antibody Screen Negative 02/08/20 11:52 Crossmatch See Detail 02/08/20 11:52 - ....Imaging EKG: Image Reviewed Assessment/Plan IMP: Acute Upper GI bleed, history of peptic ulcer dz Marked anemia secondary to acute blood loss History of diverticulosis and Cirrhosis with varices CAD s/p PCI (remote) Mild TnI elevation Hypotension REC: 1. UGI bleed: found to have Evelia Gordon tear on EGD 02/08 -management of acute GI bleed as per Critical Care and GI, monitor H/H 2. CAD s/p prior IL: -Multiple stents placed 2004 as per daughter at [facility] -Was maintained on Plavix -Hold Plavix at this time, resume with PPI when deemed safe from GI standpoint -Presently without anginal sx or sx of ACS 3. Elevated TnI: 1.79-->1.64 with normal CK -Mildly elevated, flat TnI trend with normal CK in the setting of acute blood loss anemia and hypotension most likely represents demand ischemia and not a type I IL/ACS. -Patient has no symptoms of angina or ACS; serial ECGs are unchanged -tolerated endoscopy well -will plan for nuclear stress test for risk stratification when acute issues resolve 4. Hypotension: improved - Most likely due to acute blood loss -No history of or physical exam signs of aortic stenosis. -Levo gtt weaned off
[2020-02-12] MEDS ORDERED: SODIUM CHLORIDE 0.9% 500 ML INFUS.BAG IV ONE (14:55)
[2020-02-12] MEDS ORDERED: PT OWN MED DRAWER 7, Y5N ONE (16:14)
[2020-02-12] MEDS ORDERED: ONDANSETRON 4 MG/2 ML VIAL IVPUSH PRN (16:55)
[2020-02-12] MEDS ORDERED: CHLORHEXIDINE GLUCONATE 4% CLEANSER FOR DECOLONIZATION TP SCH (22:00)
[2020-02-12] MEDS ORDERED: MUPIROCIN 2% TOPICAL OINTMENT FOR DECOLONIZATION NS SCH (22:00)
[2020-02-13] MEDS: SUCRALFATE 1 GM/10 ML UNIT DOSE CUPS PO SCH ×3 (06:22→19:29)
--- NOTE | 2020-02-13 07:02 | PN.GI ---
GI Progress Note Subjective: NO REPORT OF GI BLEED- DOING OKAY - Objective Vital Signs: Vital Signs Temperature 97.8 F 02/13/20 05:50 Pulse Rate 79 02/13/20 05:50 Respiratory Rate 18 02/13/20 05:50 Blood Pressure 108/56 L 02/13/20 05:50 O2 Sat by Pulse Oximetry (%) 100 02/13/20 05:50 Constitutional: Well Nourished, No Distress Eyes: Yes: WNL Cardiovascular: Yes: WNL, Regular Rate and Rhythm Respiratory: Yes: WNL, Regular, CTA Bilaterally Gastrointestinal Inspection: Yes: WNL ...Auscultate: Yes: Normoactive Bowel Sounds Extremities: Yes: WNL Edema: No Labs: CBC, BMP 02/12/20 06:00 02/12/20 06:00 INR, PTT INR 1.10 (0.83-1.09) H 02/11/20 05:40 Problem List - Problems (1) COPD (chronic obstructive pulmonary disease) Assessment/Plan: S/P EGD WITH FINDINGS OF ESOPHAGEAL STRICTURE AND ESTER GRIMES TEAR - H/H STABLE - C/W PPI 40 MG DAILY - FULL LIQUID DIET - AVOID NSAID - WILL F/U Code(s): J44.9 - CHRONIC OBSTRUCTIVE PULMONARY DISEASE, UNSPECIFIED (2) GI hemorrhage Code(s): K92.2 - GASTROINTESTINAL HEMORRHAGE, UNSPECIFIED (3) Hiatal hernia Code(s): K44.9 - DIAPHRAGMATIC HERNIA WITHOUT OBSTRUCTION OR GANGRENE (4) History of peptic ulcer Code(s): Z87.11 - PERSONAL HISTORY OF PEPTIC ULCER DISEASE
[2020-02-13 08:44] LABS: HEMATOCRIT 31.2 % (32.4-45.2); HEMOGLOBIN 10.4 GM/dL (10.7-15.3); MCH 32.7 pg (25.7-33.7); MCHC 33.2 g/dl (32.0-36.0); MEAN CELL VOLUME 98.6 fl (80-96); MEAN PLT VOLUME 8.6 fl (7.5-11.1); PLATELET COUNT 151 K/MM3 (134-434); RBC 3.17 M/mm3 (3.60-5.2); WHITE BLOOD COUNT 8.8 K/mm3 (4.0-10.0)
[2020-02-13 08:58] LABS: ALBUMIN 1.9 g/dl (3.4-5.0); BILIRUBIN,TOTAL 1.1 mg/dL (0.2-1); BLOOD UREA NITROGEN 15.7 mg/dL (7-18); CALCIUM 7.9 mg/dL (8.5-10.1); CREATININE 0.6 mg/dL (0.55-1.3); POTASSIUM 3.9 mmol/L (3.5-5.1)
--- NOTE | 2020-02-13 11:59 | PN ---
Teaching Attending Note Name of Resident: Abril Winn ATTENDING PHYSICIAN STATEMENT I saw and evaluated the patient. I reviewed the resident's note and discussed the case with the resident. I agree with the resident's findings and plan as documented. SUBJECTIVE: Patient seen and examined at bedside, admitted for Evelia tear and GIB, low MAPs but now stabilizing, h/o chronic Etoh abuse, CAD, VSS. OBJECTIVE: PE General:NAD, tired appearing, cachectic, AAOx2 HEENT NC/AT, no JVD, dry MM, neck supple Heart: S1, S2+, ROMELIA+ Lungs: CTAB anteriorally Abd: soft non-tender, ND, BS+ Msk: b/l legs erythema and warmth, no edema, thin extremities Vital Signs (72 hours) 02/10/20 02/10/20 02/10/20 13:00 14:00 16:00 Temperature Pulse Rate 72 78 78 Respiratory 18 16 16 Rate Blood Pressure 115/64 111/46 L 103/49 L O2 Sat by Pulse Oximetry (%) 02/10/20 02/10/20 02/10/20 17:11 18:00 19:00 Temperature 98.6 F Pulse Rate 86 92 H 84 Respiratory 22 H 20 20 Rate Blood Pressure 112/52 L 139/55 L 99/48 L O2 Sat by Pulse 100 Oximetry (%) 02/10/20 02/10/20 02/11/20 20:00 22:00 00:27 Temperature 98.2 F Pulse Rate 90 94 H 80 Respiratory 18 18 14 Rate Blood Pressure 96/52 L 92/61 98/48 L O2 Sat by Pulse 100 100 100 Oximetry (%) 02/11/20 02/11/20 02/11/20 01:00 02:00 03:00 Temperature 98.5 F Pulse Rate 74 77 80 Respiratory 16 18 16 Rate Blood Pressure 100/48 L 101/46 L 102/50 L O2 Sat by Pulse 100 100 100 Oximetry (%) 02/11/20 02/11/20 02/11/20 04:00 06:00 09:00 Temperature 98.4 F Pulse Rate 82 78 Respiratory 14 16 16 Rate Blood Pressure 90/44 L 104/48 L O2 Sat by Pulse 100 100 100 Oximetry (%) 02/11/20 02/11/20 02/11/20 10:00 12:00 14:00 Temperature 98 F 98.4 F Pulse Rate 82 88 91 H Respiratory 16 19 21 H Rate Blood Pressure 104/55 L 108/54 L 107/58 L O2 Sat by Pulse 100 Oximetry (%) 02/11/20 02/11/20 02/11/20 16:00 18:00 20:00 Temperature 98.7 F Pulse Rate 81 80 72 Respiratory 17 18 18 Rate Blood Pressure 98/46 L 93/46 L 88/44 L O2 Sat by Pulse 100 Oximetry (%) 02/11/20 02/11/20 02/12/20 20:51 22:00 00:00 Temperature 98.2 F Pulse Rate 76 73 Respiratory 14 18 Rate Blood Pressure 84/68 L 104/54 L O2 Sat by Pulse 100 100 Oximetry (%) 02/12/20 02/12/20 02/12/20 02:00 04:00 06:00 Temperature 98.4 F 98.2 F Pulse Rate 74 74 70 Respiratory 18 20 18 Rate Blood Pressure 96/61 96/46 L 110/49 L O2 Sat by Pulse Oximetry (%) 02/12/20 02/12/20 02/12/20 08:00 09:00 10:00 Temperature 98.2 F Pulse Rate 80 74 Respiratory 17 19 Rate Blood Pressure 114/46 L 111/46 L O2 Sat by Pulse 100 100 Oximetry (%) 02/12/20 02/12/20 02/12/20 12:00 14:00 16:00 Temperature 98.1 F Pulse Rate 75 73 78 Respiratory 15 15 14 Rate Blood Pressure 120/52 L 102/46 L 92/48 L O2 Sat by Pulse Oximetry (%) 02/12/20 02/12/20 02/12/20 18:00 21:00 21:01 Temperature 97.3 F L Pulse Rate 78 Respiratory 18 Rate Blood Pressure 89/47 L 105/58 L O2 Sat by Pulse 100 98 98 Oximetry (%) 02/13/20 02/13/20 01:28 05:50 Temperature 97.8 F Pulse Rate 79 Respiratory 18 Rate Blood Pressure 108/56 L O2 Sat by Pulse 98 100 Oximetry (%) Laboratory Results - last 24 hr 02/13/20 02/13/20 08:00 08:00 WBC 8.8 RBC 3.17 L Hgb 10.4 L Hct 31.2 L MCV 98.6 H MCH 32.7 MCHC 33.2 RDW 17.0 H Plt Count 151 MPV 8.6 Sodium 140 Potassium 3.9 Chloride 104 Carbon Dioxide 31 Anion Gap 4 L BUN 15.7 Creatinine 0.6 Est GFR (CKD-EPI)AfAm 99.77 Est GFR (CKD-EPI)NonAf 86.09 Random Glucose 110 H Calcium 7.9 L Total Bilirubin 1.1 H AST 38 H ALT 24 Alkaline Phosphatase 98 Total Protein 5.0 L Albumin 1.9 L Home Medications Medication Instructions Recorded Budesonide/Formeterol Fumarate 1 puff IH DAILY 11/01/16 [SYMBICORT 160/4.5mcg -] Albuterol Sulfate [Albuterol 2 puff IH Q4H PRN 08/21/18 Sulfate Hfa] Tiotropium [place] [Spiriva] 2 unit NEB DAILY 08/21/18 Rosuvastatin [Crestor -] 20 mg PO HS #30 tablet 08/25/18 Alendronate Sodium [Fosamax] 1 tab WEEKLY 12/28/19 Albuterol 0.083% Nebulizer Yuliet 1 amp NEB Q4H PRN #1 amp 01/07/20 [Ventolin 0.083% Nebulizer Soln -] Collagenase Clostridium Hist. 1 applic TP DAILY #1 tube 01/07/20 [Santyl -] Meloxicam 30 mg PO DAILY 02/08/20 Current Medications Generic Name Dose Route Start Last Admin Trade Name Freq PRN Reason Stop Dose Admin Albuterol/Ipratropium 1 amp 02/12/20 16:55 Duoneb - NEB Q6H PRN SHORTNESS OF BREATH Artificial Tears 1 drop 02/12/20 16:55 Artificial Tears OU BID PRN DRY EYES Budesonide/Formoterol Fumarate 1 puff 02/13/20 10:00 Symbicort 160/4.5mcg - IH DAILY [facility] Ondansetron HCl 4 mg 02/12/20 16:55 Zofran Injection IVPUSH Q8H PRN NAUSEA Pantoprazole Sodium 40 mg 02/13/20 10:00 Protonix - PO DAILY [facility] Sucralfate 1 gm 02/13/20 07:00 02/13/20 06:22 Carafate Oral Suspension - PO 1 gm TIDAC [facility] Administration Tiotropium [place] 2 puff 02/13/20 10:00 Spiriva Respimat IH DAILY [facility] ASSESSMENT AND PLAN: 79 F Evelia Gordon tear w/ UGIB HTN HLD CAD s/p stents Etoh abuse COPD/Asthma Deconditioned Malnutrition Plan: Gentle IVF to maintain MAP >65 DC NSAIds, monitor CBC Q12H, normal transfusion threshold Cont. PPI/Sucralfate per GI recs Monitor in tele DVT ppx: SCD
--- NOTE | 2020-02-13 12:04 | PN ---
Progress Note (short form) - Note Progress Note: cc: GI bleed s: no chest pain, palps, dizziness, dyspnea. feels tired. Current Medications Generic Name Dose Route Start Last Admin Trade Name Freq PRN Reason Stop Dose Admin Albuterol/Ipratropium 1 amp 02/12/20 16:55 Duoneb - NEB Q6H PRN SHORTNESS OF BREATH Artificial Tears 1 drop 02/12/20 16:55 Artificial Tears OU BID PRN DRY EYES Budesonide/Formoterol Fumarate 1 puff 02/13/20 10:00 Symbicort 160/4.5mcg - IH DAILY [facility] Ondansetron HCl 4 mg 02/12/20 16:55 Zofran Injection IVPUSH Q8H PRN NAUSEA Pantoprazole Sodium 40 mg 02/13/20 10:00 Protonix - PO DAILY [facility] Sucralfate 1 gm 02/13/20 07:00 02/13/20 06:22 Carafate Oral Suspension - PO 1 gm TIDAC [facility] Administration Tiotropium [place] 2 puff 02/13/20 10:00 Spiriva Respimat IH DAILY [facility] Vital Signs Period Temp Pulse Resp BP Sys/Nelson Pulse Ox Last 24 Hr 97.3 F-98.1 F 73-79 14-18 89-108/46-58 98-100 Constitutional: Yes: No Distress, Calm Eyes: Yes: Conjunctiva Clear, EOM Intact Neck: Yes: Supple, Trachea Midline Cardiovascular: Yes: Regular Rate and Rhythm Respiratory:cta bl nl eff Gastrointestinal: Yes: Soft (nt) Edema: No Peripheral Pulses WNL: Yes Neurological: Yes: Alert, Oriented no jaundice diaphoresis Laboratory Last Values WBC 8.8 K/mm3 (4.0-10.0) 02/13/20 08:00 RBC 3.17 M/mm3 (3.60-5.2) L 02/13/20 08:00 Hgb 10.4 GM/dL (10.7-15.3) L 02/13/20 08:00 Hct 31.2 % (32.4-45.2) L 02/13/20 08:00 MCV 98.6 fl (80-96) H 02/13/20 08:00 MCH 32.7 pg (25.7-33.7) 02/13/20 08:00 MCHC 33.2 g/dl (32.0-36.0) 02/13/20 08:00 RDW 17.0 % (11.6-15.6) H 02/13/20 08:00 Plt Count 151 K/MM3 (134-434) 02/13/20 08:00 MPV 8.6 fl (7.5-11.1) 02/13/20 08:00 Absolute Neuts (auto) 8.7 K/mm3 (1.5-8.0) H 02/09/20 06:00 Neutrophils % 78.9 % (42.8-82.8) D 02/09/20 06:00 Neutrophils % (Manual) 73.0 % (42.8-82.8) 02/08/20 11:52 Band Neutrophils % 0.0 % 02/08/20 11:52 Lymphocytes % 10.8 % (8-40) D 02/09/20 06:00 Lymphocytes % (Manual) 19.0 % (8-40) 02/08/20 11:52 Monocytes % 7.9 % (3.8-10.2) 02/09/20 06:00 Monocytes % (Manual) 8 % (3.8-10.2) 02/08/20 11:52 Eosinophils % 1.9 % (0-4.5) D 02/09/20 06:00 Eosinophils % (Manual) 0.0 % (0-4.5) D 02/08/20 11:52 Basophils % 0.5 % (0-2.0) 02/09/20 06:00 Basophils % (Manual) 0.0 % (0-2.0) 02/08/20 11:52 Myelocytes % (Man) 0 % (0-2) D 02/08/20 11:52 Promyelocytes % (Man) 0 % (0-2) 02/08/20 11:52 Blast Cells % (Manual) 0 % (0-0) 02/08/20 11:52 Nucleated RBC % 0 % (0-0) 02/09/20 06:00 Metamyelocytes 0 % (0-2) 02/08/20 11:52 Hypochromia 0 02/08/20 11:52 Platelet Estimate Normal 02/08/20 11:52 Polychromasia 1+ 02/08/20 11:52 Poikilocytosis 0 02/08/20 11:52 Anisocytosis 1+ 02/08/20 11:52 Microcytosis 1+ 02/08/20 11:52 Macrocytosis 1+ 02/08/20 11:52 PT with INR 13.00 SEC (9.7-13.0) 02/11/20 05:40 INR 1.10 (0.83-1.09) H 02/11/20 05:40 PTT (Actin FS) 31.5 SECONDS (25.2-36.5) 02/10/20 06:00 Sodium 140 mmol/L (136-145) 02/13/20 08:00 Potassium 3.9 mmol/L (3.5-5.1) 02/13/20 08:00 Chloride 104 mmol/L (98-107) 02/13/20 08:00 Carbon Dioxide 31 mmol/L (21-32) 02/13/20 08:00 Anion Gap 4 MMOL/L (8-16) L 02/13/20 08:00 BUN 15.7 mg/dL (7-18) 02/13/20 08:00 Creatinine 0.6 mg/dL (0.55-1.3) 02/13/20 08:00 Est GFR (CKD-EPI)AfAm 99.77 02/13/20 08:00 Est GFR (CKD-EPI)NonAf 86.09 02/13/20 08:00 Random Glucose 110 mg/dL (74-106) H 02/13/20 08:00 Lactic Acid 1.3 mmol/L (0.4-2.0) 02/08/20 20:45 Calcium 7.9 mg/dL (8.5-10.1) L 02/13/20 08:00 Phosphorus 2.0 mg/dL (2.5-4.9) L 02/12/20 06:00 Magnesium 2.0 mg/dL (1.8-2.4) 02/12/20 06:00 Total Bilirubin 1.1 mg/dL (0.2-1) H 02/13/20 08:00 AST 38 U/L (15-37) H 02/13/20 08:00 ALT 24 U/L (13-61) 02/13/20 08:00 Alkaline Phosphatase 98 U/L (45-117) 02/13/20 08:00 Creatine Kinase 64 U/L (26-192) 02/10/20 06:00 Troponin I 1.19 ng/ml (0.00-0.05) H* 02/10/20 06:00 Total Protein 5.0 g/dl (6.4-8.2) L 02/13/20 08:00 Albumin 1.9 g/dl (3.4-5.0) L 02/13/20 08:00 COVID-19 (JOCELYN) Cancelled 02/08/20 14:08 SARS-CoV-2 (PCR) Negative (Negative) 02/08/20 15:19 Blood Type O POSITIVE 02/08/20 11:52 Antibody Screen Negative 02/08/20 11:52 Crossmatch See Detail 02/08/20 11:52 - ....Imaging EKG: Image Reviewed Assessment/Plan IMP: Acute Upper GI bleed, history of peptic ulcer dz Marked anemia secondary to acute blood loss History of diverticulosis and Cirrhosis with varices CAD s/p PCI (remote) Mild TnI elevation Hypotension REC: 1. UGI bleed: found to have Evelia Gordon tear on EGD 02/08 -management of acute GI bleed as per primary and GI, monitor H/H 2. CAD s/p prior NE: -Multiple stents placed 2004 as per daughter at [facility] -Was maintained on Plavix -Hold Plavix at this time, resume with PPI when deemed safe from GI standpoint -Presently without anginal sx or sx of ACS 3. Elevated TnI: 1.79-->1.64 with normal CK -Mildly elevated, flat TnI trend with normal CK in the setting of acute blood loss anemia and hypotension most likely represents demand ischemia and not a type I NE/ACS. -Patient has no symptoms of angina or ACS; serial ECGs are unchanged -tolerated endoscopy well -will plan for nuclear stress test for risk stratification when acute issues resolve 4. Hypotension: - Most likely due to acute blood loss -No history of or physical exam signs of aortic stenosis. -was on levo gtt, now resolved
[2020-02-13] MEDS: PANTOPRAZOLE 40 MG TABLET PO SCH (12:26)
[2020-02-13] MEDS: TIOTROPIUM BROMIDE 2.5 MCG (SPIRIVA) RESPIMAT INHALER IH SCH (12:27)
[2020-02-13] MEDS: BUDESONIDE/FORMETEROL FUMARATE 160/4.5 mcg INHALER IH SCH (12:28)
[2020-02-13] MEDS: ARTIFICIAL TEARS (POLYVINYL ALCOHOL) OPTH DROPS OU PRN (12:29)
--- NOTE | 2020-02-13 13:23 | PN ---
Teaching Attending Note Name of Resident: Fausto Gaffney ATTENDING PHYSICIAN STATEMENT I saw and evaluated the patient. I reviewed the resident's note and discussed the case with the resident. I agree with the resident's findings and plan as documented. SUBJECTIVE: Seen and examined at bedside. Patient is alert and oriented x3, hemodynamically stable, hemoglobin is stable. Appears tired OBJECTIVE Last Vital Signs Temp Pulse Resp BP Pulse Ox 97.8 F 79 18 108/56 L 100 02/13/20 05:50 02/13/20 05:50 02/13/20 05:50 02/13/20 05:50 02/13/20 05:50 PE: Per resident note Labs/Imaging: reviewed ASSESSMENT/PLAN 79-year-old female past medical history of HTN, HLD, COPD, CAD status post 3 stents on Plavix, EtOH abuse, cirrhosis, gastritis admitted to the ICU for upper GI bleed likely secondary to Evelia-Gordon tear. Patient was transfused 2 units of blood and stabilized and downgraded to the floor. #Upper GI bleed secondary to Evelia-Gordon tear GI on board: Appreciate recommendations Status post EGD on 02/08 showing Evelia-Gordon tear Continue Carafate Protonix 40 mg daily Full liquid diet #Cirrhosis Moderate ascites on ultrasound GI on board: Appreciate recommendations #Hypotension: Improved Most likely due to acute blood loss superimposed on cirrhosis #Elevated troponin Cardiology on board: Appreciate recommendations Mostly likely represents demand ischemia in setting of acute blood loss Nuclear stress test when stable per cardiology #Hx COPD -continue spireva, symbicort, duonebs
--- NOTE | 2020-02-13 20:52 | PN ---
Physical Exam: SUBJECTIVE: Patient seen and examined at bedside. No acute events overnight. Transferred from ICU. OBJECTIVE: Vital Signs Period Temp Pulse Resp BP Sys/Nelson Pulse Ox Last 24 Hr 97.8 F-97.9 F 79-92 18-18 105-119/45-58 98-100 GENERAL: AAOx3 NAD HEAD: AT/NC. NECK: Trachea midline, full range of motion, supple. LUNGS: Crackles at lower bases HEART: RRR S1S2 ABDOMEN: Diffuse Anasarca abdomen. EXTREMITIES: 3+ pitting edema up to mid thigh b/l. PSYCH: Normal mood, normal affect. Laboratory Results - last 24 hr 02/13/20 02/13/20 08:00 08:00 WBC 8.8 RBC 3.17 L Hgb 10.4 L Hct 31.2 L MCV 98.6 H MCH 32.7 MCHC 33.2 RDW 17.0 H Plt Count 151 MPV 8.6 Sodium 140 Potassium 3.9 Chloride 104 Carbon Dioxide 31 Anion Gap 4 L BUN 15.7 Creatinine 0.6 Est GFR (CKD-EPI)AfAm 99.77 Est GFR (CKD-EPI)NonAf 86.09 Random Glucose 110 H Calcium 7.9 L Total Bilirubin 1.1 H AST 38 H ALT 24 Alkaline Phosphatase 98 Total Protein 5.0 L Albumin 1.9 L Active Medications Generic Name Dose Route Start Last Admin Trade Name Freq PRN Reason Stop Dose Admin Albuterol/Ipratropium 1 amp 02/12/20 16:55 Duoneb - NEB Q6H PRN SHORTNESS OF BREATH Artificial Tears 1 drop 02/12/20 16:55 02/13/20 12:29 Artificial Tears OU 1 drop BID PRN Administration DRY EYES Budesonide/Formoterol Fumarate 1 puff 02/13/20 10:00 02/13/20 12:28 Symbicort 160/4.5mcg - IH 1 puff DAILY [facility] Administration Ondansetron HCl 4 mg 02/12/20 16:55 Zofran Injection IVPUSH Q8H PRN NAUSEA Pantoprazole Sodium 40 mg 02/13/20 10:00 02/13/20 12:26 Protonix - PO 40 mg DAILY [facility] Administration Sucralfate 1 gm 02/13/20 07:00 02/13/20 19:29 Carafate Oral Suspension - PO 1 gm TIDAC [facility] Administration Tiotropium [place] 2 puff 02/13/20 10:00 02/13/20 12:27 Spiriva Respimat IH 2 puff DAILY [facility] Administration ASSESSMENT/PLAN: 79-year-old female past medical history of HTN, HLD, COPD, CAD status post 3 stents on Plavix, EtOH abuse, cirrhosis, gastritis admitted to the ICU for upper GI bleed likely secondary to Evelia-Gordon tear. Patient was transfused 2 units of blood and stabilized and downgraded to the floor. #Upper GI bleed secondary to Evelia-Gordon tear GI on board. Reccomeding Daily PPI, Full liquid diet, and to avoid NSAIDs Status post EGD on 02/08 showing Evelia-Gordon tear Continue Carafate Protonix 40 mg daily Full liquid diet #Cirrhosis Moderate ascites on ultrasound GI on board: Appreciate recommendations #Hypovolemic shock 2/2 GI Bleed: Improved. Was on Pressors. #Elevated troponin likely 2/2 demand Cardiology on board: Downtrended. Nuclear stress test when stable per cardiology #Hx COPD -continue spireva, symbicort, duonebs #FEN No Fluids Mon Electrolytes Full Liquid #DVT ppx: Non in light of GI Bleed #Dispo: Tele Visit type - Emergency Visit Emergency Visit: Yes ED Registration Date: 02/08/20 Care time: The patient presented to the Emergency Department on the above date and was hospitalized for further evaluation of their emergent condition. - New Patient This patient is new to me today: No - Critical Care Critical Care patient: No - Discharge Referral Referred to [facility] No - Medication Review Med list reviewed for High Risk Meds patients 65 and older: Yes ATTENDING PHYSICIAN STATEMENT I saw and evaluated the patient. I reviewed the resident's note and discussed the case with the resident. I agree with the resident's findings and plan as documented. SUBJECTIVE: OBJECTIVE: ASSESSMENT AND PLAN:
[2020-02-14] MEDS: SUCRALFATE 1 GM/10 ML UNIT DOSE CUPS PO SCH ×2 (07:05→10:14)
[2020-02-14 07:26] LABS: HEMATOCRIT 30.1 % (32.4-45.2); MCHC 33.4 g/dl (32.0-36.0); MEAN CELL VOLUME 98.8 fl (80-96); MEAN PLT VOLUME 8.8 fl (7.5-11.1); PLATELET COUNT 172 K/MM3 (134-434); RBC 3.04 M/mm3 (3.60-5.2); RDW 17.5 % (11.6-15.6)
[2020-02-14 07:55] LABS: MAGNESIUM 1.9 mg/dL (1.8-2.4); POTASSIUM 3.9 mmol/L (3.5-5.1)
[2020-02-14 07:56] LABS: CREATININE 0.6 mg/dL (0.55-1.3); PHOSPHOROUS 2.3 mg/dL (2.5-4.9)
[2020-02-14] MEDS: ALBUTEROL SO4 2.5/IPRATROPIUM 0.5 INH SOL 3 ML VIAL.NEB. NEB PRN ×2 (09:00→18:35)
[2020-02-14] MEDS: BUDESONIDE/FORMETEROL FUMARATE 160/4.5 mcg INHALER IH SCH (10:14)
[2020-02-14] MEDS: PANTOPRAZOLE 40 MG TABLET PO SCH (10:14)
[2020-02-14] MEDS: TIOTROPIUM BROMIDE 2.5 MCG (SPIRIVA) RESPIMAT INHALER IH SCH (10:15)
[2020-02-14] MEDS: ARTIFICIAL TEARS (POLYVINYL ALCOHOL) OPTH DROPS OU PRN (10:20)
--- NOTE | 2020-02-14 11:58 | PN ---
Progress Note (short form) - Note Progress Note: Chief Complaint: gib Denies CP/SOB/dizziness/palps History of Present Illness: 79 F hx CAD with prior PCI on Plavix, peptic ulcer dz, h/o diverticular bleed now admitted with upper GI bleed/hypotension and Hb 8.4. Received 2UPRBCs, a unit of platelets and Vitamin K Had several cardiac stents in 2004 , confirmed with daughter. Lives alone and daughter reports she has required assistance to perform ADLS Sees Dr. Ward for Cardio. Current Medications Generic Name Dose Route Start Last Admin Trade Name Freq PRN Reason Stop Dose Admin Albuterol/Ipratropium 1 amp 02/12/20 16:55 02/14/20 09:00 Duoneb - NEB 1 amp Q6H PRN Administration SHORTNESS OF BREATH Artificial Tears 1 drop 02/12/20 16:55 02/14/20 10:20 Artificial Tears OU 1 drop BID PRN Administration DRY EYES Budesonide/Formoterol Fumarate 1 puff 02/13/20 10:00 02/14/20 10:14 Symbicort 160/4.5mcg - IH 1 puff DAILY [facility] Administration Ondansetron HCl 4 mg 02/12/20 16:55 Zofran Injection IVPUSH Q8H PRN NAUSEA Pantoprazole Sodium 40 mg 02/13/20 10:00 02/14/20 10:14 Protonix - PO 40 mg DAILY [facility] Administration Sucralfate 1 gm 02/13/20 07:00 02/14/20 10:14 Carafate Oral Suspension - PO 1 gm TIDAC [facility] Administration Tiotropium [place] 2 puff 02/13/20 10:00 02/14/20 10:15 Spiriva Respimat IH 2 puff DAILY [facility] Administration Vital Signs Period Temp Pulse Resp BP Sys/Enlson Pulse Ox Last 24 Hr 97.8 F-97.9 F 83-92 18-20 102-119/45-59 94-100 Constitutional: Yes: No Distress, Calm Eyes: Yes: Conjunctiva Clear, EOM Intact Neck: Yes: Supple, Trachea Midline Cardiovascular: Yes: Regular Rate and Rhythm Respiratory:cta bl nleff Gastrointestinal: Yes: Soft (nt) Edema: No Peripheral Pulses WNL: Yes Neurological: Yes: Alert, Oriented no jaundice diaphoresis Labs: CBC, BMP 02/14/20 07:04 02/14/20 07:04 Assessment/Plan IMP: Acute Upper GI bleed, history of peptic ulcer dz Marked anemia secondary to acute blood loss History of diverticulosis and Cirrhosis with varices CAD s/p PCI (remote) Mild TnI elevation Hypotension 1. UGI bleed: found to have Evelia Gordon tear on EGD 02/08 -management of acute GI bleed as per primary and GI, monitor H/H 2. CAD s/p prior MN: -Multiple stents placed 2004 as per daughter at [facility] -Was maintained on Plavix -Hold Plavix at this time, resume with PPI when deemed safe from GI standpoint -Presently without anginal sx or sx of ACS 3. Elevated TnI: 1.79-->1.64 with normal CK -Mildly elevated, flat TnI trend with normal CK in the setting of acute blood loss anemia and hypotension most likely represents demand ischemia and not a type I MN/ACS. -Patient has no symptoms of angina or ACS; serial ECGs are unchanged -tolerated endoscopy well -will plan for nuclear stress test for risk stratification when acute issues resolve 4. Hypotension: - Most likely due to acute blood loss -No history of or physical exam signs of aortic stenosis. -was on levo gtt, now resolved
[2020-02-14] MEDS ORDERED: FUROSEMIDE 40 MG/4 ML INJECTABLE VIAL IVPUSH ONE (12:44)
[2020-02-14] MEDS ORDERED: SPIRONOLACTONE 25 MG TABLET PO ONE (12:45)
--- NOTE | 2020-02-14 12:50 | PN.GI ---
GI Progress Note Subjective: No vomiting States not feeling well but does not give a particular proiblem - Objective Vital Signs: Vital Signs Temperature 97.6 F 02/14/20 10:00 Pulse Rate 89 02/14/20 10:00 Respiratory Rate 20 02/14/20 10:00 Blood Pressure 123/54 L 02/14/20 10:00 O2 Sat by Pulse Oximetry (%) 98 02/14/20 10:00 Constitutional: Calm Eyes: No: Sclera Icterus Cardiovascular: Yes: Regular Rate and Rhythm Respiratory: Yes: Diminished (at bases bilaterally) Gastrointestinal Inspection: Yes: Distention ...Auscultate: Yes: Normoactive Bowel Sounds ...Palpate: No: Tenderness Extremities: Yes: Other (stasis changes) Edema: Yes Edema: LLE: 2+, RLE: 2+ Labs: CBC, BMP 02/14/20 07:04 02/14/20 07:04 INR, PTT INR 1.10 (0.83-1.09) H 02/11/20 05:40 Problem List - Problems (1) GI hemorrhage Assessment/Plan: No further bleeding Continue protonix 40mg daily Code(s): K92.2 - GASTROINTESTINAL HEMORRHAGE, UNSPECIFIED (2) Ascites Assessment/Plan: Daily weights I's and O's Minimize drips Sodium controlled diet Started Lasix 40mg PO daily / aldactone 50mg daily Diagnostic paracentesis with fluid sent for culture, cytology, total protein, albumin, cell count with diff. Hepatic panel should be sent the day of the parecentesis to accurately calculate [facility] goals of care will need to be addressed Code(s): R18.8 - OTHER ASCITES
--- NOTE | 2020-02-14 12:56 | PN ---
Progress Note (short form) - Note Progress Note: Resting in NAD. Denies CP or SOB. No acute events overnight. Intake & Output 02/11/20 02/12/20 02/13/20 02/14/20 23:59 23:59 23:59 23:59 Intake Total 1500 1110 480 238 Output Total 750 900 900 Balance 750 210 -420 238 Last Vital Signs Temp Pulse Resp BP Pulse Ox 97.6 F 89 20 123/54 L 98 02/14/20 10:00 02/14/20 10:00 02/14/20 10:00 02/14/20 10:00 02/14/20 10:00 Active Medications Albuterol/Ipratropium (Duoneb -) 1 amp NEB Q6H PRN PRN Reason: SHORTNESS OF BREATH Last Admin: 02/14/20 09:00 Dose: 1 amp Documented by: Artificial Tears (Artificial Tears) 1 drop OU BID PRN PRN Reason: DRY EYES Last Admin: 02/14/20 10:20 Dose: 1 drop Documented by: Budesonide/Formoterol Fumarate (Symbicort 160/4.5mcg -) 1 puff IH DAILY [facility] Last Admin: 02/14/20 10:14 Dose: 1 puff Documented by: Furosemide (Lasix -) 40 mg PO DAILY [facility] Ondansetron HCl (Zofran Injection) 4 mg IVPUSH Q8H PRN PRN Reason: NAUSEA Pantoprazole Sodium (Protonix -) 40 mg PO DAILY [facility] Last Admin: 02/14/20 10:14 Dose: 40 mg Documented by: Spironolactone (Aldactone -) 50 mg PO DAILY [facility] Tiotropium [place] (Spiriva Respimat) 2 puff IH DAILY [facility] Last Admin: 02/14/20 10:15 Dose: 2 puff Documented by: Gen: frail appearing but in NAD Heart: RRR Lung: decreased breath sounds at the bases Abd: +ascites Ext: + edema Laboratory Results - last 24 hr 02/14/20 02/14/20 07:04 07:04 WBC 9.0 RBC 3.04 L Hgb 10.0 L Hct 30.1 L MCV 98.8 H MCH 33.0 MCHC 33.4 RDW 17.5 H Plt Count 172 MPV 8.8 Sodium 138 Potassium 3.9 Chloride 101 Carbon Dioxide 31 Anion Gap 5 L BUN 13.0 Creatinine 0.6 Est GFR (CKD-EPI)AfAm 99.77 Est GFR (CKD-EPI)NonAf 86.09 Random Glucose 106 Calcium 8.0 L Phosphorus 2.3 L Magnesium 1.9 ASSESSMENT AND PLAN: GI Bleed - Evelia Gordon Tear Gastric Varices Acute Blood Loss Anemia Hemorrhagic Shock Diverticulosis Liver Cirrhosis CAD +Troponins likely Demand Ischemia COPD HTN Hyperlipidemia - PPI - monitor H/H, coags - transfuse as needed - PO per GI - monitor urine output, creatinine - DVT prophylaxis Dr Mccarthy
--- NOTE | 2020-02-14 13:19 | PN ---
Teaching Attending Note Name of Resident: Fausto Gaffney ATTENDING PHYSICIAN STATEMENT I saw and evaluated the patient. I reviewed the resident's note and discussed the case with the resident. I agree with the resident's findings and plan as documented. SUBJECTIVE: Seen and examined at bedside. Undergoing nuclear stress test today. Still with anasarca and ascites. Will start low dose of lasix/spironolactone (50/20) to see if can tolerate and uptitrate. Will send for diagnostic paracentesis. OBJECTIVE Last Vital Signs Temp Pulse Resp BP Pulse Ox 97.8 F 79 18 108/56 L 100 02/13/20 05:50 02/13/20 05:50 02/13/20 05:50 02/13/20 05:50 02/13/20 05:50 PE: Per resident note Labs/Imaging: reviewed ASSESSMENT/PLAN 79-year-old female past medical history of HTN, HLD, COPD, CAD status post 3 stents on Plavix, EtOH abuse, cirrhosis, gastritis admitted to the ICU for upper GI bleed likely secondary to Evelia-Gordon tear. Patient was transfused 2 units of blood and stabilized and downgraded to the floor. #Upper GI bleed secondary to Evelia-Gordon tear GI on board: Appreciate recommendations Status post EGD on 02/08 showing Evelia-Gordon tear Continue Carafate Protonix 40 mg daily Full liquid diet #Cirrhosis Moderate ascites on ultrasound GI on board: Appreciate recommendations -Will start low dose of lasix/spironolactone (50/20) to see if can tolerate and uptitrate. -Will send for diagnostic paracentesis. #Hypotension: Improved Most likely due to acute blood loss superimposed on cirrhosis #Elevated troponin Cardiology on board: Appreciate recommendations Mostly likely represents demand ischemia in setting of acute blood loss Nuclear stress test when stable per cardiology #Hx COPD -continue spireva, symbicort, duonebs
[2020-02-14] MEDS: FUROSEMIDE 40 MG TABLET (FP) PO SCH (13:53)
[2020-02-14] MEDS: SPIRONOLACTONE 25 MG TABLET PO SCH (13:53)
--- NOTE | 2020-02-14 19:33 | PN ---
Physical Exam: SUBJECTIVE: Patient seen and examined at bedside. No acute events overnight. OBJECTIVE: Vital Signs Period Temp Pulse Resp BP Sys/Nelson Pulse Ox Last 24 Hr 97.6 F-98.6 F 88-103 20-20 102-134/51-64 94-100 GENERAL: AAOx3 NAD HEAD: AT/NC. LUNGS: Faint crackles at bases HEART: RRR S1S2 ABDOMEN: Diffuse Anasarca abdomen. EXTREMITIES: 3+ pitting edema up to mid thigh b/l. Chronic lower extremity venous stasis dermatitis. PSYCH: Normal mood, normal affect. Laboratory Results - last 24 hr 02/14/20 02/14/20 07:04 07:04 WBC 9.0 RBC 3.04 L Hgb 10.0 L Hct 30.1 L MCV 98.8 H MCH 33.0 MCHC 33.4 RDW 17.5 H Plt Count 172 MPV 8.8 Sodium 138 Potassium 3.9 Chloride 101 Carbon Dioxide 31 Anion Gap 5 L BUN 13.0 Creatinine 0.6 Est GFR (CKD-EPI)AfAm 99.77 Est GFR (CKD-EPI)NonAf 86.09 Random Glucose 106 Calcium 8.0 L Phosphorus 2.3 L Magnesium 1.9 Active Medications Generic Name Dose Route Start Last Admin Trade Name Freq PRN Reason Stop Dose Admin Albuterol/Ipratropium 1 amp 02/12/20 16:55 02/14/20 18:35 Duoneb - NEB 1 amp Q6H PRN Administration SHORTNESS OF BREATH Artificial Tears 1 drop 02/12/20 16:55 02/14/20 10:20 Artificial Tears OU 1 drop BID PRN Administration DRY EYES Budesonide/Formoterol Fumarate 1 puff 02/13/20 10:00 02/14/20 10:14 Symbicort 160/4.5mcg - IH 1 puff DAILY [facility] Administration Furosemide 40 mg 02/14/20 13:30 02/14/20 13:53 Lasix - PO 40 mg DAILY [facility] Administration Ondansetron HCl 4 mg 02/12/20 16:55 Zofran Injection IVPUSH Q8H PRN NAUSEA Pantoprazole Sodium 40 mg 02/13/20 10:00 02/14/20 10:14 Protonix - PO 40 mg DAILY [facility] Administration Spironolactone 50 mg 02/14/20 13:00 02/14/20 13:53 Aldactone - PO 50 mg DAILY [facility] Administration Tiotropium [place] 2 puff 02/13/20 10:00 02/14/20 10:15 Spiriva Respimat IH 2 puff DAILY [facility] Administration ASSESSMENT/PLAN: 79-year-old female past medical history of HTN, HLD, COPD, CAD status post 3 stents on Plavix, EtOH abuse, cirrhosis, gastritis admitted to the ICU for upper GI bleed likely secondary to Evelia-Gordon tear. Patient was transfused 2 units of blood and stabilized and downgraded to the floor. #Upper GI bleed secondary to Evelia-Gordon tear GI on board. Recommending Daily PPI, Full liquid diet, and to avoid NSAIDs Status post EGD on 02/08 showing Evelia-Gordon tear Continue Carafate Protonix 40 mg daily. Will start on Furosemide 40 Daily as well as Aldactone 50 PO Daily. -Will go for Diagnostic Paracentesis tomorrow tentatively. Will need to calculate SAAG. Full liquid diet #Cirrhosis Moderate ascites on ultrasound GI on board: Appreciate recommendations #Hypovolemic shock 2/2 GI Bleed: Improved. Was on Pressors. #Elevated troponin likely 2/2 demand Cardiology on board: Downtrended. Nuclear stress test when stable per cardiology #Hx COPD -continue spireva, symbicort, duonebs #FEN No Fluids Monitor Electrolytes NPO #DVT ppx: None in light of GI Bleed #Dispo: Tele Visit type - Emergency Visit Emergency Visit: Yes ED Registration Date: 02/08/20 Care time: The patient presented to the Emergency Department on the above date and was hospitalized for further evaluation of their emergent condition. - New Patient This patient is new to me today: No - Critical Care Critical Care patient: No - Discharge Referral Referred to [facility] Med P.C.: No - Medication Review Med list reviewed for High Risk Meds patients 65 and older: Yes ATTENDING PHYSICIAN STATEMENT I saw and evaluated the patient. I reviewed the resident's note and discussed the case with the resident. I agree with the resident's findings and plan as documented. SUBJECTIVE: OBJECTIVE: ASSESSMENT AND PLAN:
[2020-02-15 08:21] LABS: HEMATOCRIT 30.1 % (32.4-45.2); MCH 33.2 pg (25.7-33.7); MCHC 33.4 g/dl (32.0-36.0); MEAN CELL VOLUME 99.6 fl (80-96); MEAN PLT VOLUME 8.8 fl (7.5-11.1); PLATELET COUNT 182 K/MM3 (134-434); RBC 3.02 M/mm3 (3.60-5.2)
[2020-02-15 08:47] LABS: ALBUMIN 1.9 g/dl (3.4-5.0); BLOOD UREA NITROGEN 13.4 mg/dL (7-18); CALCIUM 7.9 mg/dL (8.5-10.1); CREATININE 0.5 mg/dL (0.55-1.3); MAGNESIUM 1.6 mg/dL (1.8-2.4); PHOSPHOROUS 2.6 mg/dL (2.5-4.9); POTASSIUM 3.7 mmol/L (3.5-5.1); TOT PROT 5.1 g/dl (6.4-8.2)
[2020-02-15 08:51] LABS: ALBUMIN 1.8 g/dl (3.4-5.0); BILIRUBIN,DIRECT 0.5 mg/dL (0.0-0.2); TOT PROT 5.1 g/dl (6.4-8.2)
--- NOTE | 2020-02-15 10:42 | PN.GI ---
GI Progress Note Subjective: No acute events No bleeding States shortness of breath somewhat improved from yesterday Started on diuretics yesterday No daily weights - Objective Vital Signs: Vital Signs Temperature 97.4 F L 02/15/20 06:00 Pulse Rate 82 02/15/20 06:00 Respiratory Rate 20 02/14/20 20:39 Blood Pressure 94/50 L 02/15/20 06:00 O2 Sat by Pulse Oximetry (%) 100 02/15/20 06:00 Constitutional: Calm Eyes: No: Sclera Icterus Cardiovascular: Yes: Regular Rate and Rhythm Respiratory: Yes: Rhonchi (right lung base) ...Auscultate: Yes: Normoactive Bowel Sounds ...Palpate: Yes: Other (Abdominal wall anasarca). No: Tenderness ...Percussion: No: Tympanitic Extremities: Yes: Other (blistering left anterior thigh) Edema: Yes Edema: LLE: 2+ (to thigh), RLE: 2+ (to thigh) Labs: CBC, BMP 02/15/20 08:02 02/15/20 08:02 INR, PTT INR 1.10 (0.83-1.09) H 02/11/20 05:40 Problem List - Problems (1) GI hemorrhage Assessment/Plan: No further bleeding Protonix 40mg PO BID Code(s): K92.2 - GASTROINTESTINAL HEMORRHAGE, UNSPECIFIED (2) Ascites Assessment/Plan: Anasarca: Started on diuretics yesterday: Lasix 40mg PO daily, Aldactone 50mg daily Monitor BP Monitor lytes Daily weight ordered 2g Sodium controlled diet Eval for alternate causes of anasarca per primary team Diagnostic paracentesis when able Code(s): R18.8 - OTHER ASCITES
[2020-02-15] MEDS: PANTOPRAZOLE 40 MG TABLET PO SCH (10:55)
[2020-02-15] MEDS: FUROSEMIDE 40 MG TABLET (FP) PO SCH (10:55)
[2020-02-15] MEDS: TIOTROPIUM BROMIDE 2.5 MCG (SPIRIVA) RESPIMAT INHALER IH SCH (10:55)
[2020-02-15] MEDS: BUDESONIDE/FORMETEROL FUMARATE 160/4.5 mcg INHALER IH SCH (10:55)
[2020-02-15] MEDS: SPIRONOLACTONE 25 MG TABLET PO SCH (10:55)
--- NOTE | 2020-02-15 12:50 | PN ---
Teaching Attending Note Name of Resident: Fausto Gaffney ATTENDING PHYSICIAN STATEMENT I saw and evaluated the patient. I reviewed the resident's note and discussed the case with the resident. I agree with the resident's findings and plan as documented. SUBJECTIVE: Seen and examined at bedside. Pending paracentesis. Pt to be placed on fluid r estriciton as well. Tolerated lasix 20mg, aldactone 50. Will increase to 100/40. OBJECTIVE Last Vital Signs Temp Pulse Resp BP Pulse Ox 97.4 F L 79 20 102/53 L 98 02/15/20 06:00 02/15/20 10:00 02/15/20 10:00 02/15/20 10:00 02/15/20 10:00 PE: Per resident note Labs/Imaging: reviewed ASSESSMENT/PLAN 79-year-old female past medical history of HTN, HLD, COPD, CAD status post 3 stents on Plavix, EtOH abuse, cirrhosis, gastritis admitted to the ICU for upper GI bleed likely secondary to Evelia-Gordon tear. Patient was transfused 2 units of blood and stabilized and downgraded to the floor. #Upper GI bleed secondary to Evelia-Gordon tear GI on board: Appreciate recommendations Status post EGD on 02/08 showing Evelia-Gordon tear Continue Carafate Protonix 40 mg daily Full liquid diet #Cirrhosis Moderate ascites on ultrasound GI on board: Appreciate recommendations -increase lasix/sprionolactone 100/40 -Will send for diagnostic paracentesis. #Hypotension: Improved Most likely due to acute blood loss superimposed on cirrhosis #Elevated troponin Cardiology on board: Appreciate recommendations Mostly likely represents demand ischemia in setting of acute blood loss Nuclear stress test when stable per cardiology #Hx COPD -continue spireva, symbicort, duonebs
--- NOTE | 2020-02-15 14:02 | PN ---
Progress Note, Physician Chief Complaint: frail. No CP/SOB/palps. History of Present Illness: 79 F hx CAD with prior PCI on Plavix, peptic ulcer dz, h/o diverticular bleed now admitted with upper GI bleed/hypotension and Hb 8.4. Received 2UPRBCs, a unit of platelets and Vitamin K Had several cardiac stents in 2004 , confirmed with daughter. Lives alone and daughter reports she has required assistance to perform ADLS Sees Dr. Ward for Cardio. - Current Medication List Current Medications: Active Medications Albuterol/Ipratropium (Duoneb -) 1 amp NEB Q6H PRN PRN Reason: SHORTNESS OF BREATH Last Admin: 02/14/20 18:35 Dose: 1 amp Documented by: Artificial Tears (Artificial Tears) 1 drop OU BID PRN PRN Reason: DRY EYES Last Admin: 02/14/20 10:20 Dose: 1 drop Documented by: Budesonide/Formoterol Fumarate (Symbicort 160/4.5mcg -) 1 puff IH DAILY [facility] Last Admin: 02/15/20 10:55 Dose: 1 puff Documented by: Furosemide (Lasix -) 40 mg PO DAILY [facility] Last Admin: 02/15/20 10:55 Dose: 40 mg Documented by: Ondansetron HCl (Zofran Injection) 4 mg IVPUSH Q8H PRN PRN Reason: NAUSEA Pantoprazole Sodium (Protonix -) 40 mg PO DAILY [facility] Last Admin: 02/15/20 10:55 Dose: 40 mg Documented by: Spironolactone (Aldactone -) 100 mg PO DAILY [facility] Tiotropium [place] (Spiriva Respimat) 2 puff IH DAILY [facility] Last Admin: 02/15/20 10:55 Dose: 2 puff Documented by: - Objective Vital Signs: Vital Signs Temperature 97.4 F L 02/15/20 06:00 Pulse Rate 79 02/15/20 10:00 Respiratory Rate 20 02/15/20 10:00 Blood Pressure 102/53 L 02/15/20 10:00 O2 Sat by Pulse Oximetry (%) 98 02/15/20 10:00 Constitutional: Yes: No Distress Eyes: Yes: Conjunctiva Clear Cardiovascular: Yes: Regular Rate and Rhythm Respiratory: Yes: Other (decreased breath sounds b/l , no active wheezing or rales.) Gastrointestinal: Yes: Soft (nt) Edema: No ...Motor Strength: WNL Labs: CBC, BMP 02/15/20 08:02 02/15/20 08:02 INR, PTT INR 1.10 (0.83-1.09) H 02/11/20 05:40 Laboratory Tests 02/08/20 02/15/20 02/15/20 15:19 08:02 08:02 WBC 11.0 H RBC 3.02 L Plt Count 182 Sodium 138 Potassium 3.7 Creatinine 0.5 L SARS-CoV-2 (PCR) Negative Assessment/Plan IMP: Acute Upper GI bleed, history of peptic ulcer dz Marked anemia secondary to acute blood loss History of diverticulosis and Cirrhosis with varices CAD s/p PCI (remote) Mild TnI elevation Hypotension 1. UGI bleed: found to have Evelia Gordon tear on EGD 02/08 -management of acute GI bleed as per primary and GI, monitor H/H -Now with ascites, with plan for paracentesis 2. CAD s/p prior OR: -Multiple stents placed 2004 as per daughter at [facility] -Was maintained on Plavix -Hold Plavix at this time, resume with PPI when deemed safe from GI standpoint after paracentesis and if H/H remains stable. -Presently without anginal sx or sx of ACS 3. Elevated TnI: 1.79-->1.64 with normal CK -Mildly elevated, flat TnI trend with normal CK in the setting of acute blood loss anemia and hypotension most likely represents demand ischemia and not a type I OR/ACS. -Patient has no symptoms of angina or ACS; serial ECGs are unchanged -tolerated endoscopy well -Case d/w primary lap machine operator, Dr. Nice. Plan for ischemic evaluation when above acute issues resolved with pharm MPI 4. Hypotension: - Most likely due to acute blood loss -No history of or physical exam signs of aortic stenosis. -was on levo gtt, now resolved
[2020-02-15 16:36] LABS: BF WBC & OTHER NUCLEATED CELLS 33 /mm3; BODY FLUID BASOPHIL 1 %; BODY FLUID HISTIOCYTES 51 %; BODY FLUID MESOTHELIAL 3 %; BODY FLUID MONOCYTE 8 %
--- NOTE | 2020-02-15 19:56 | PN ---
Physical Exam: SUBJECTIVE: Patient seen and examined at bedside. Denies any pain. States she is thirsty. No acute events overnight. Paracentesis today. OBJECTIVE: Vital Signs Period Temp Pulse Resp BP Sys/Nelson Pulse Ox Last 24 Hr 97.4 F-97.9 F 79-91 -20 94-119/50-54 97-100 GENERAL: AAOx3 NAD HEAD: AT/NC. LUNGS: Decreased breath sounds at bases HEART: RRR S1S2 ABDOMEN: Diffuse Anasarca abdomen. EXTREMITIES: 3+ pitting edema up to mid thigh b/l. Chronic lower extremity venous stasis dermatitis. Open blister left upper arm draining clear fluid. PSYCH: Normal mood, normal affect. Laboratory Results - last 24 hr 02/15/20 02/15/20 02/15/20 08:02 08:02 08:02 WBC 11.0 H RBC 3.02 L Hgb 10.0 L Hct 30.1 L MCV 99.6 H MCH 33.2 MCHC 33.4 RDW 18.0 H Plt Count 182 MPV 8.8 Sodium 138 Potassium 3.7 Chloride 100 Carbon Dioxide 34 H Anion Gap 4 L BUN 13.4 Creatinine 0.5 L Est GFR (CKD-EPI)AfAm 105.94 Est GFR (CKD-EPI)NonAf 91.41 Random Glucose 109 H Calcium 7.9 L Phosphorus 2.6 Magnesium 1.6 L Total Bilirubin 1.0 1.0 Direct Bilirubin 0.5 H AST 39 H 37 ALT 25 24 Alkaline Phosphatase 113 113 Total Protein 5.1 L 5.1 L Albumin 1.9 L 1.8 L Fluid Source Fluid WBC Fluid RBC Fluid Neutrophils Fluid Lymphocytes Pleural Monocytes Pleural Basophils Pleural Histocytes Pleural Mesothelial 02/15/20 12:13 WBC RBC Hgb Hct MCV MCH MCHC RDW Plt Count MPV Sodium Potassium Chloride Carbon Dioxide Anion Gap BUN Creatinine Est GFR (CKD-EPI)AfAm Est GFR (CKD-EPI)NonAf Random Glucose Calcium Phosphorus Magnesium Total Bilirubin Direct Bilirubin AST ALT Alkaline Phosphatase Total Protein Albumin Fluid Source Peritoneal Fluid WBC 33 Fluid RBC 72 Fluid Neutrophils 33 Fluid Lymphocytes 7 Pleural Monocytes 8 Pleural Basophils 1 Pleural Histocytes 51 Pleural Mesothelial 3 Active Medications Generic Name Dose Route Start Last Admin Trade Name Freq PRN Reason Stop Dose Admin Albuterol/Ipratropium 1 amp 02/12/20 16:55 10/01/20 18:35 Duoneb - NEB 1 amp Q6H PRN Administration SHORTNESS OF BREATH Artificial Tears 1 drop 02/12/20 16:55 02/14/20 10:20 Artificial Tears OU 1 drop BID PRN Administration DRY EYES Budesonide/Formoterol Fumarate 1 puff 02/13/20 10:00 02/15/20 10:55 Symbicort 160/4.5mcg - IH 1 puff DAILY [facility] Administration Furosemide 40 mg 02/14/20 13:30 02/15/20 10:55 Lasix - PO 40 mg DAILY [facility] Administration Ondansetron HCl 4 mg 02/12/20 16:55 Zofran Injection IVPUSH Q8H PRN NAUSEA Pantoprazole Sodium 40 mg 02/13/20 10:00 02/15/20 10:55 Protonix - PO 40 mg DAILY [facility] Administration Spironolactone 100 mg 02/15/20 12:51 Aldactone - PO DAILY [facility] Tiotropium [place] 2 puff 02/13/20 10:00 02/15/20 10:55 Spiriva Respimat IH 2 puff DAILY [facility] Administration ASSESSMENT/PLAN: 79-year-old female past medical history of HTN, HLD, COPD, CAD status post 3 stents on Plavix, EtOH abuse, cirrhosis, gastritis admitted to the ICU for upper GI bleed likely secondary to Evelia-Gordon tear. Patient was transfused 2 units of blood and stabilized and downgraded to the floor. #Upper GI bleed secondary to Evelia-Gordon tear GI on board. Recommending Daily PPI, Full liquid diet, and to avoid NSAIDs Status post EGD on 02/08 showing Evelia-Gordon tear Continue Carafate Protonix 40 mg daily. Furosemide 40 Daily as well as Aldactone 100 PO Daily. -S/p Diagnostic Paracentesis 02/15/2020 Will need to calculate SAAG. Full liquid diet #Cirrhosis Moderate ascites on ultrasound GI on board: Appreciate recommendations #Hypovolemic shock 2/2 GI Bleed: Improved. Was on Pressors. #Elevated troponin likely 2/2 demand Cardiology on board: Downtrended. Nuclear stress test when stable per cardiology #Hx COPD -continue spiriva, symbicort, duonebs #FEN No Fluids Monitor Electrolytes Sodium Controlled #DVT ppx: None in light of GI Bleed #Dispo: Tele Visit type - Emergency Visit Emergency Visit: Yes ED Registration Date: 02/08/20 Care time: The patient presented to the Emergency Department on the above date and was hospitalized for further evaluation of their emergent condition. - New Patient This patient is new to me today: No - Critical Care Critical Care patient: No - Discharge Referral Referred to [facility] Med P.C.: No - Medication Review Med list reviewed for High Risk Meds patients 65 and older: Yes ATTENDING PHYSICIAN STATEMENT I saw and evaluated the patient. I reviewed the resident's note and discussed the case with the resident. I agree with the resident's findings and plan as documented. SUBJECTIVE: OBJECTIVE: ASSESSMENT AND PLAN:
[2020-02-16 08:06] LABS: HEMATOCRIT 34.1 % (32.4-45.2); HEMOGLOBIN 11.1 GM/dL (10.7-15.3); MCH 32.4 pg (25.7-33.7); MCHC 32.7 g/dl (32.0-36.0); MEAN CELL VOLUME 99.1 fl (80-96); PLATELET COUNT 217 K/MM3 (134-434); RBC 3.44 M/mm3 (3.60-5.2); RDW 18.8 % (11.6-15.6); WHITE BLOOD COUNT 14.7 K/mm3 (4.0-10.0)
[2020-02-16 08:20] LABS: BLOOD UREA NITROGEN 13.3 mg/dL (7-18); CALCIUM 7.7 mg/dL (8.5-10.1); CREATININE 0.6 mg/dL (0.55-1.3); MAGNESIUM 1.6 mg/dL (1.8-2.4); PHOSPHOROUS 2.7 mg/dL (2.5-4.9); POTASSIUM 3.8 mmol/L (3.5-5.1)
[2020-02-16] MEDS: FUROSEMIDE 40 MG TABLET (FP) PO SCH (09:22)
[2020-02-16] MEDS: SPIRONOLACTONE 25 MG TABLET PO SCH (09:22)
[2020-02-16] MEDS: PANTOPRAZOLE 40 MG TABLET PO SCH ×2 (09:23→21:58)
[2020-02-16] MEDS: TIOTROPIUM BROMIDE 2.5 MCG (SPIRIVA) RESPIMAT INHALER IH SCH (09:24)
[2020-02-16] MEDS: BUDESONIDE/FORMETEROL FUMARATE 160/4.5 mcg INHALER IH SCH (09:25)
--- NOTE | 2020-02-16 10:24 | PN ---
Progress Note (short form) - Note Progress Note: Chief Complaint: gib Denies CP/SOB/dizziness/palps History of Present Illness: 79 F hx CAD with prior PCI on Plavix, peptic ulcer dz, h/o diverticular bleed now admitted with upper GI bleed/hypotension and Hb 8.4. Received 2UPRBCs, a unit of platelets and Vitamin K Had several cardiac stents in 2004 , confirmed with daughter. Lives alone and daughter reports she has required assistance to perform ADLS Sees Dr. Ward for Cardio. Current Medications Generic Name Dose Route Start Last Admin Trade Name Freq PRN Reason Stop Dose Admin Albuterol/Ipratropium 1 amp 02/12/20 16:55 02/14/20 18:35 Duoneb - NEB 1 amp Q6H PRN Administration SHORTNESS OF BREATH Artificial Tears 1 drop 02/12/20 16:55 02/14/20 10:20 Artificial Tears OU 1 drop BID PRN Administration DRY EYES Budesonide/Formoterol Fumarate 1 puff 02/13/20 10:00 02/16/20 09:25 Symbicort 160/4.5mcg - IH 1 puff DAILY [facility] Administration Furosemide 40 mg 02/14/20 13:30 02/16/20 09:22 Lasix - PO 40 mg DAILY [facility] Administration Ondansetron HCl 4 mg 02/12/20 16:55 Zofran Injection IVPUSH Q8H PRN NAUSEA Pantoprazole Sodium 40 mg 02/13/20 10:00 02/16/20 09:23 Protonix - PO 40 mg DAILY [facility] Administration Spironolactone 100 mg 02/15/20 12:51 02/16/20 09:22 Aldactone - PO 100 mg DAILY [facility] Administration Tiotropium [place] 2 puff 02/13/20 10:00 02/16/20 09:24 Spiriva Respimat IH 2 puff DAILY [facility] Administration Vital Signs Period Temp Pulse Resp BP Sys/Nelson Pulse Ox Last 24 Hr 97.6 F-97.9 F 89-91 20-20 105-119/54-65 98-99 Constitutional: Yes: No Distress, Calm Eyes: Yes: Conjunctiva Clear, EOM Intact Neck: Yes: Supple, Trachea Midline Cardiovascular: Yes: Regular Rate and Rhythm Respiratory:cta bl nleff Gastrointestinal: Yes: Soft (nt) Edema: No Peripheral Pulses WNL: Yes Neurological: Yes: Alert, Oriented no jaundice diaphoresis Labs: CBC, BMP 02/16/20 07:45 02/16/20 07:45 Assessment/Plan Acute Upper GI bleed, history of peptic ulcer dz Marked anemia secondary to acute blood loss History of diverticulosis and Cirrhosis with varices CAD s/p PCI (remote) Mild TnI elevation Hypotension 1. UGI bleed: found to have Evelia Gordon tear on EGD 02/08 -management of acute GI bleed as per primary and GI, monitor H/H -Now with ascites, s/p paracentesis 2. CAD s/p prior PA: -Multiple stents placed 2004 as per daughter at [facility] -Was maintained on Plavix -Hold Plavix at this time, resume with PPI when deemed safe from GI standpoint after paracentesis and if H/H remains stable. -Presently without anginal sx or sx of ACS 3. Elevated TnI: 1.79-->1.64 with normal CK -Mildly elevated, flat TnI trend with normal CK in the setting of acute blood loss anemia and hypotension most likely represents demand ischemia and not a type I PA/ACS. -Patient has no symptoms of angina or ACS; serial ECGs are unchanged -tolerated endoscopy well -Case d/w primary stapler coil unit, Dr. Nice. Plan for ischemic evaluation when above acute issues resolved with pharm MPI 4. Hypotension: - Most likely due to acute blood loss -No history of or physical exam signs of aortic stenosis. -was on levo gtt, now resolved
[2020-02-16 12:10] LABS: BODY FLUID ALBUMIN 0.3 g/dL (Not Estab.)
--- NOTE | 2020-02-16 13:47 | PN.GI ---
GI Progress Note Subjective: GI NOte( covering Dr. Simon): No bleeding. Ascites fluid SAAG is 1.5. The WBC and glucose 125 argue against SBP. Weight increased from 100 to 126 lbs during this hospitalization due to ascites accumulation. Await today's weight. Receiving diuretics - Objective Vital Signs: Vital Signs Temperature 97.6 F 02/16/20 05:45 Pulse Rate 89 02/16/20 05:45 Respiratory Rate 20 02/16/20 05:45 Blood Pressure 105/65 02/16/20 05:45 O2 Sat by Pulse Oximetry (%) 99 02/16/20 05:45 Laboratory Tests 02/15/20 02/15/20 12:13 12:13 Fluid WBC 33 Fluid RBC 72 Fluid Neutrophils 33 Fluid Glucose 125 Fluid Total Protein 0.4 Fluid Albumin 0.3 Body Fluid LDH Source 27 Fluid Amylase 13 Laboratory Tests 02/08/20 02/14/20 02/15/20 15:19 07:04 08:02 WBC 9.0 11.0 H Hgb 10.0 L 10.0 L Plt Count SARS-CoV-2 (PCR) Negative 02/16/20 07:45 WBC 14.7 H Hgb 11.1 Plt Count 217 SARS-CoV-2 (PCR) Laboratory Tests 12/28/19 02/08/20 02/14/20 07:06 11:52 07:04 Potassium BUN 38.3 H 13.0 Creatinine 0.6 Ferritin 179.1 02/15/20 02/16/20 08:02 07:45 Potassium 3.8 BUN 13.4 13.3 Creatinine 0.5 L 0.6 Ferritin Constitutional: Anxious ...Auscultate: Yes: Normoactive Bowel Sounds ...Palpate: Yes: Soft, Tenderness (at paracentesis site but no fluctuance seen) Labs: CBC, BMP 02/16/20 07:45 02/16/20 07:45 INR, PTT INR 1.10 (0.83-1.09) H 02/11/20 05:40 Assessment/Plan Impression: - Resolved Evelia Gordon tear bleed - Ascites presumably due to alcoholic cirrhosis with greater curvature gastric varices. Ferritin argues against hemochromatosis - GERD with esophageal stricture - Silent gallstones Plan: - Follow BUN/Cr and K while in diuretics. Patient is at risk for developing hepatorenal syndrome - Screen for nonalcoholic etiologies of cirrhosis - Continue PPI Dr Simon will return 02/17 Problem List - Problems (1) Evelia-Gordon tear Code(s): K22.6 - GASTRO-ESOPHAGEAL LACERATION-HEMORRHAGE SYNDROME (2) Ascites due to alcoholic cirrhosis Code(s): K70.31 - ALCOHOLIC CIRRHOSIS OF LIVER WITH ASCITES (3) COPD (chronic obstructive pulmonary disease) Code(s): J44.9 - CHRONIC OBSTRUCTIVE PULMONARY DISEASE, UNSPECIFIED (4) Coronary artery disease Code(s): I25.10 - ATHSCL HEART DISEASE OF [place] CORONARY ARTERY W/O ANG PCTRS (5) Esophageal stricture Code(s): K22.2 - ESOPHAGEAL OBSTRUCTION (6) GI hemorrhage Code(s): K92.2 - GASTROINTESTINAL HEMORRHAGE, UNSPECIFIED (7) Stented coronary artery Code(s): Z95.5 - PRESENCE OF CORONARY ANGIOPLASTY IMPLANT AND GRAFT (8) Gallstones without obstruction of gallbladder Code(s): K80.20 - CALCULUS OF GALLBLADDER W/O CHOLECYSTITIS W/O OBSTRUCTION (9) Gastric varices without bleeding Code(s): I86.4 - GASTRIC VARICES
[2020-02-16] MEDS ORDERED: MAGNESIUM OXIDE 400 MG TABLET (FP) PO ONE (15:06)
[2020-02-16] MEDS ORDERED: oxyCODONE HCL 5 MG TABLET PO ONE (15:30)
[2020-02-16] MEDS ORDERED: ACETAMINOPHEN 325 MG TABLET (FP) PO ONE (15:30)
[2020-02-16] MEDS ORDERED: PANTOPRAZOLE SODIUM 40 MG VIAL IVPUSH ONE (20:54)
[2020-02-16] MEDS ORDERED: guaiFENesin 200 MG/10 ML 10 ML UNIT-DOSE CUPS PO ONE (20:55)
[2020-02-17] MEDS: SPIRONOLACTONE 25 MG TABLET PO SCH ×2 (08:36→09:08)
[2020-02-17] MEDS: PANTOPRAZOLE 40 MG TABLET PO SCH ×3 (08:36→22:17)
[2020-02-17] MEDS: TIOTROPIUM BROMIDE 2.5 MCG (SPIRIVA) RESPIMAT INHALER IH SCH ×2 (08:37→09:08)
[2020-02-17] MEDS: BUDESONIDE/FORMETEROL FUMARATE 160/4.5 mcg INHALER IH SCH (09:09)
--- NOTE | 2020-02-17 10:50 | PN ---
Progress Note (short form) - Note Progress Note: Chief Complaint: gib Denies CP/SOB/dizziness/palps History of Present Illness: 79 F hx CAD with prior PCI on Plavix, peptic ulcer dz, h/o diverticular bleed now admitted with upper GI bleed/hypotension and Hb 8.4. Received 2UPRBCs, a unit of platelets and Vitamin K Had several cardiac stents in 2004 , confirmed with daughter. Lives alone and daughter reports she has required assistance to perform ADLS Sees Dr. Ward for Cardio. Current Medications Generic Name Dose Route Start Last Admin Trade Name Freq PRN Reason Stop Dose Admin Albuterol/Ipratropium 1 amp 02/12/20 16:55 02/14/20 18:35 Duoneb - NEB 1 amp Q6H PRN Administration SHORTNESS OF BREATH Artificial Tears 1 drop 02/12/20 16:55 02/14/20 10:20 Artificial Tears OU 1 drop BID PRN Administration DRY EYES Budesonide/Formoterol Fumarate 1 puff 02/13/20 10:00 02/17/20 09:09 Symbicort 160/4.5mcg - IH 1 puff DAILY [facility] Administration Furosemide 40 mg 02/17/20 10:00 Lasix - PO DAILY [facility] Ondansetron HCl 4 mg 02/12/20 16:55 Zofran Injection IVPUSH Q8H PRN NAUSEA Pantoprazole Sodium 40 mg 02/16/20 22:00 02/17/20 09:08 Protonix - PO Not Given BID [facility] Spironolactone 100 mg 02/15/20 12:51 02/17/20 09:08 Aldactone - PO Not Given DAILY [facility] Tiotropium [place] 2 puff 02/13/20 10:00 02/17/20 09:08 Spiriva Respimat IH Not Given DAILY [facility] Constitutional: Yes: No Distress, Calm Eyes: Yes: Conjunctiva Clear, EOM Intact Neck: Yes: Supple, Trachea Midline Cardiovascular: Yes: Regular Rate and Rhythm Respiratory:cta bl nleff Gastrointestinal: Yes: Soft (nt) Edema: No Peripheral Pulses WNL: Yes Neurological: Yes: Alert, Oriented no jaundice diaphoresis Labs: CBC, BMP 02/16/20 07:45 02/16/20 07:45 Assessment/Plan Acute Upper GI bleed, history of peptic ulcer dz Marked anemia secondary to acute blood loss History of diverticulosis and Cirrhosis with varices CAD s/p PCI (remote) Mild TnI elevation Hypotension 1. UGI bleed: found to have Evelia Gordon tear on EGD 02/08 -management of acute GI bleed as per primary and GI, monitor H/H -Now with ascites, s/p paracentesis 2. CAD s/p prior SC: -Multiple stents placed 2004 as per daughter at [facility] -Was maintained on Plavix -Hold Plavix at this time, resume with PPI when deemed safe from GI standpoint after paracentesis and if H/H remains stable. -Presently without anginal sx or sx of ACS 3. Elevated TnI: 1.79-->1.64 with normal CK -Mildly elevated, flat TnI trend with normal CK in the setting of acute blood loss anemia and hypotension most likely represents demand ischemia and not a type I SC/ACS. -Patient has no symptoms of angina or ACS; serial ECGs are unchanged -tolerated endoscopy well -Case d/w primary loss claim clerk, Dr. Nice. Plan for ischemic evaluation when above acute issues resolved with pharm MPI 4. Hypotension: - Most likely due to acute blood loss -No history of or physical exam signs of aortic stenosis. -was on levo gtt, now resolved
[2020-02-17] MEDS: FUROSEMIDE 40 MG TABLET (FP) PO SCH (11:15)
--- NOTE | 2020-02-17 15:03 | PN ---
Progress Note (short form) - Note Progress Note: SUBJECTIVE: Seen and examined at bedside. Patient remains significantly fluid overloaded with pain around the swelling in her skin. Despite normal WBC count from peritoneal fluid body fluid culture shows group B strep or enterococcus. Started on cefotaxime and ID consulted. We will also place palliative care consult after speaking with the patient's daughter. She has expressed interest in hospice care moving forward OBJECTIVE Last Vital Signs Temp Pulse Resp BP Pulse Ox 98 F 107 H 17 88/60 L 96 02/17/20 08:53 02/17/20 13:21 02/17/20 13:21 02/17/20 13:21 02/17/20 13:21 PE: Per resident note Labs/Imaging: reviewed ASSESSMENT/PLAN 79-year-old female past medical history of HTN, HLD, COPD, CAD status post 3 stents on Plavix, EtOH abuse, cirrhosis, gastritis admitted to the ICU for upper GI bleed likely secondary to Evelia-Gordon tear. Patient was transfused 2 units of blood and stabilized and downgraded to the floor. #Spontaneous Bacterial Peritonitis -normal WBC but positive ascites culture -started cefotaxime 2g q8h x1 dose -ID consulted #Upper GI bleed secondary to Evelia-Gordon tear GI on board: Appreciate recommendations Status post EGD on 02/08 showing Evelia-Gordon tear Continue Carafate Protonix 40 mg daily Full liquid diet #Cirrhosis Moderate ascites on ultrasound GI on board: Appreciate recommendations -increase lasix/sprionolactone 100/40 -Will send for diagnostic paracentesis. #Hypotension: Improved Most likely due to acute blood loss superimposed on cirrhosis #Elevated troponin Cardiology on board: Appreciate recommendations Mostly likely represents demand ischemia in setting of acute blood loss Nuclear stress test when stable per cardiology #Hx COPD -continue spireva, symbicort, duonebs Dispo: likely hospice: will consult palliative care Visit type - Emergency Visit Emergency Visit: Yes ED Registration Date: 02/08/20 Care time: The patient presented to the Emergency Department on the above date and was hospitalized for further evaluation of their emergent condition. - New Patient This patient is new to me today: No - Critical Care Critical Care patient: No - Medication Review Med list reviewed for High Risk Meds patients 65 and older: Yes
[2020-02-17] MEDS ORDERED: CEFOTAXIME SODIUM 500 MG in DEXTROSE 5%-WATER - 50 ML IVPB ONE ×2 (15:30→15:45)
[2020-02-17 15:56] LABS: BASO % 0.1 % (0-2.0); EOS % 0.1 % (0-4.5); HEMATOCRIT 31.2 % (32.4-45.2); HEMOGLOBIN 10.4 GM/dL (10.7-15.3); LYMPH % 9.1 % (8-40); MCH 33.3 pg (25.7-33.7); MCHC 33.5 g/dl (32.0-36.0); MEAN CELL VOLUME 99.4 fl (80-96); MEAN PLT VOLUME 9.5 fl (7.5-11.1); MONO % 1.7 % (3.8-10.2); PLATELET COUNT 258 K/MM3 (134-434); RBC 3.14 M/mm3 (3.60-5.2); RDW 18.2 % (11.6-15.6); WHITE BLOOD COUNT 4.6 K/mm3 (4.0-10.0)
[2020-02-17 16:17] LABS: POTASSIUM 3.8 mmol/L (3.5-5.1)
[2020-02-17 16:21] LABS: ALBUMIN 1.5 g/dl (3.4-5.0); BLOOD UREA NITROGEN 22.8 mg/dL (7-18); CALCIUM 7.5 mg/dL (8.5-10.1)
[2020-02-17 16:26] LABS: BILIRUBIN,TOTAL 1.7 mg/dL (0.2-1); CREATININE 1.1 mg/dL (0.55-1.3); TOT PROT 4.6 g/dl (6.4-8.2)
[2020-02-17] MEDS: AMPICILLIN NA/SULBACTAM NA 1.5 GM in SODIUM CHLORIDE 100 ML IVPB SCH ×2 (17:10→22:16)
[2020-02-17 18:19] LABS: ANISOCYTOSIS 1+; MACROCYTOSIS 1+; PLATELET ESTIMATE NORMAL
[2020-02-17] MEDS ORDERED: ALBUTEROL SO4 2.5/IPRATROPIUM 0.5 INH SOL 3 ML VIAL.NEB. NEB ONE (20:07)
[2020-02-17] MEDS ORDERED: PT OWN MED DRAWER 7, Y5N ONE (20:46)
--- NOTE | 2020-02-17 21:42 | PN ---
Physical Exam: SUBJECTIVE: Patient seen and examined at bedside, ill appearing, cachectic, vomited few times. OBJECTIVE: Vital Signs Period Temp Pulse Resp BP Sys/Nelson Pulse Ox Last 24 Hr 98 F-98.5 F 92-118 17-18 88-129/49-60 95-96 GA cachectic, AAox3, weak appearing HEENT NC/AT, temporal wasting, dry MM Chest Poor inspiratory effort, decreased BS at bases CVS S1, S2+, RRR Abd distended, soft, NT, BS+ ext no LE edema, thin extremities w/ bruising Laboratory Results - last 24 hr 02/17/20 02/17/20 14:57 14:57 WBC 4.6 RBC 3.14 L Hgb 10.4 L Hct 31.2 L MCV 99.4 H MCH 33.3 MCHC 33.5 RDW 18.2 H Plt Count 258 MPV 9.5 Absolute Neuts (auto) 4.1 Neutrophils % 89.0 H Neutrophils % (Manual) 10.0 L Band Neutrophils % 46.0 Lymphocytes % 9.1 Lymphocytes % (Manual) 6.0 L D Monocytes % 1.7 L Monocytes % (Manual) 0 L D Eosinophils % 0.1 D Eosinophils % (Manual) 0.0 Basophils % 0.1 Basophils % (Manual) 1.0 D Myelocytes % (Man) 0 Promyelocytes % (Man) 0 Blast Cells % (Manual) 0 Nucleated RBC % 1 H Metamyelocytes 37 H D Hypochromia 0 Platelet Estimate Normal Polychromasia 1+ Poikilocytosis 0 Anisocytosis 1+ Macrocytosis 1+ Sodium 135 L Potassium 3.8 Chloride 96 L Carbon Dioxide 27 Anion Gap 12 BUN 22.8 H Creatinine 1.1 Est GFR (CKD-EPI)AfAm 54.91 Est GFR (CKD-EPI)NonAf 47.38 Random Glucose 87 Calcium 7.5 L Total Bilirubin 1.7 H AST 32 ALT 20 Alkaline Phosphatase 99 Total Protein 4.6 L Albumin 1.5 L Active Medications Generic Name Dose Route Start Last Admin Trade Name Freq PRN Reason Stop Dose Admin Artificial Tears 1 drop 02/12/20 16:55 02/14/20 10:20 Artificial Tears OU 1 drop BID PRN Administration DRY EYES Budesonide/Formoterol Fumarate 1 puff 02/13/20 10:00 02/17/20 09:09 Symbicort 160/4.5mcg - IH 1 puff DAILY WESTLEY Administration Furosemide 40 mg 02/17/20 10:00 02/17/20 11:15 Lasix - PO 40 mg DAILY WESTLEY Administration Ampicillin Sodium/Sulbactam 100 mls @ 200 mls/hr 02/17/20 15:45 02/17/20 17:10 Sodium 1.5 gm/ Sodium Chloride IVPB 200 mls/hr Q6H-IV WESTLEY Administration Ondansetron HCl 4 mg 02/12/20 16:55 Zofran Injection IVPUSH Q8H PRN NAUSEA Pantoprazole Sodium 40 mg 02/16/20 22:00 02/17/20 09:08 Protonix - PO Not Given BID WESTLEY Spironolactone 100 mg 02/15/20 12:51 02/17/20 09:08 Aldactone - PO Not Given DAILY WESTLEY Tiotropium [place] 2 puff 02/13/20 10:00 02/17/20 09:08 Spiriva Respimat IH Not Given DAILY WESTLEY ASSESSMENT/PLAN: 79 F Evelia Gordon tear w/ UGIB HTN HLD CAD s/p stents Etoh abuse COPD/Asthma Deconditioned Malnutrition Plan: Cont. abx Gentle diuresis, monitor MAP avoid NSAIds, monitor CBC, normal transfusion threshold GI following Patient would benefit from palliative evaluation for GOC DVT ppx: SCD Visit type - Emergency Visit Emergency Visit: Yes ED Registration Date: 02/08/20 Care time: The patient presented to the Emergency Department on the above date and was hospitalized for further evaluation of their emergent condition. - New Patient This patient is new to me today: Yes Date on this admission: 02/17/20 - Critical Care Critical Care patient: No - Discharge Referral Referred to [facility] No - Medication Review Med list reviewed for High Risk Meds patients 65 and older: Yes
[2020-02-17 23:00] LABS: HEMATOCRIT 32.6 % (32.4-45.2); HEMOGLOBIN 10.5 GM/dL (10.7-15.3); MCH 32.5 pg (25.7-33.7); MCHC 32.2 g/dl (32.0-36.0); MEAN CELL VOLUME 100.9 fl (80-96); RBC 3.23 M/mm3 (3.60-5.2); RDW 19.5 % (11.6-15.6)
[2020-02-17] MEDS ORDERED: SODIUM CHLORIDE 250 ML IV STA (23:10)
[2020-02-17 23:11] LABS: WHITE BLOOD COUNT 3.1 K/mm3 (4.0-10.0)
--- NOTE | 2020-02-18 00:45 | CONSULT ---
Consult - text type - Consultation Consultation Note: I was called to assess Ms Mcgrath who was reported to be hypotensive to BP 70's/40's and with increased O2 requirements now on 100% NRB with c/f fluid overload. Active Medications Artificial Tears (Artificial Tears) 1 drop OU BID PRN PRN Reason: DRY EYES Last Admin: 02/14/20 10:20 Dose: 1 drop Documented by: Budesonide/Formoterol Fumarate (Symbicort 160/4.5mcg -) 1 puff IH DAILY REPLACED BY [facility] Last Admin: 02/17/20 09:09 Dose: 1 puff Documented by: Furosemide (Lasix -) 40 mg PO DAILY REPLACED BY [facility] Last Admin: 02/17/20 11:15 Dose: 40 mg Documented by: Ampicillin Sodium/Sulbactam (Sodium 1.5 gm/ Sodium Chloride) 100 mls @ 200 mls/hr IVPB Q6H-IV REPLACED BY [facility] Last Admin: 02/17/20 22:16 Dose: 200 mls/hr Documented by: Ondansetron HCl (Zofran Injection) 4 mg IVPUSH Q8H PRN PRN Reason: NAUSEA Pantoprazole Sodium (Protonix -) 40 mg PO BID REPLACED BY [facility] Last Admin: 02/17/20 22:17 Dose: Not Given Documented by: Spironolactone (Aldactone -) 100 mg PO DAILY REPLACED BY [facility] Last Admin: 02/17/20 09:08 Dose: Not Given Documented by: Tiotropium [place] (Spiriva Respimat) 2 puff IH DAILY REPLACED BY [facility] Last Admin: 02/17/20 09:08 Dose: Not Given Documented by: Vital Signs Period Temp Pulse Resp BP Sys/Nelson Pulse Ox Last 24 Hr 97.6 F-98.3 F 92-107 17-29 76-104/49-60 95-100 Intake & Output 02/15/20 02/16/20 02/17/20 02/18/20 23:59 23:59 23:59 23:59 Intake Total 800 50 410 Output Total 600 1300 150 Balance 200 -1250 260 Weight 57.334 kg 60.328 kg 57.062 kg Gen: Frail elderly woman in NAD on NRB 100% Chest: Diminished bases CV: S1S2 reg Abd: Obese, soft, NT Ext: Warm, chronic venous changes Neuro: Awake, responsive to simple questions CBC, BMP 02/17/20 22:35 02/17/20 14:57 A/P Ms Mcgrath is a 79-year-old female past medical history of HTN, HLD, COPD, CAD status post 3 stents on Plavix, EtOH abuse, cirrhosis, gastritis. Now with SBP with poss Group D strep or enterococcus being treated with Unasyn. She is re ported s/p paracentesis ~3L removed. She currently receiving 250cc fluid bolus as recommended by covering MD. She is currently comfortable on 100% NRB with O2 sat 100%. Plan for BiPAP support if needed. Consider 25% Albumin for post LVP resuscitation. Given pt's family is considering hospice care for her I recommend to continue current support and would not recommended any invasive measures. Tabitha Lake, RAFATP
--- NOTE | 2020-02-18 01:48 | RAPID ---
Physical Examination Vital Signs: Vital Signs Temperature 97.6 F 02/17/20 22:00 Pulse Rate 105 H 02/17/20 22:00 Respiratory Rate 29 H 02/17/20 22:00 Blood Pressure 76/53 L 02/17/20 22:00 O2 Sat by Pulse Oximetry (%) 99 02/18/20 00:30 BP 66/21 HR 98 O2 100 Labs: CBC, BMP 02/17/20 22:35 02/17/20 14:57
[2020-02-18] MEDS ORDERED: SODIUM CHLORIDE 250 ML IV STA (01:52)
[2020-02-18] MEDS ORDERED: PHENYLEPHRINE NS PREMIX 25,000 MCG/250 ML BAG CVP SCH (02:15)
--- NOTE | 2020-02-18 02:59 | CONSULT ---
Consult Consult Specialty:: Pulm/CCM Reason for Consultation:: Hypotension - History of Present Illness Chief Complaint: Hypotension/AMS History of Present Illness: 79-year-old female past medical history of HTN, HLD, COPD, CAD status post 3 stents on Plavix, EtOH abuse, cirrhosis, gastritis admitted 02/07 to the ICU for upper GI bleed; EGD on 02/08 show likely secondary to Evelia-Gordon tear. Patient was transfused 2 units of blood and stabilized and transferred to the floor. Started on lasix and Spirinolactone for possible fluid overload. S/p LVP ~3L in IR on 02/14 with SAAG>1.5 and culture + for group D strep and enterococcus. Started on Unasyn. Today asked to evaluate pt for ICU given increased O2 requirements and hypotension. Placed on BiPAP and started on small IV bolus. 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 Transferred to ICU. Of note unable to reach her daughter to clarify goals of care. - Past Medical History Cardio/Vascular: Yes: CAD (stented post RI 2004 at [place]), RI (2004), Other (Sciatica) Pulmonary: Yes: COPD Gastrointestinal: Yes: GI Bleed (Diverticular hemorrhage 2018), Hiatal Hernia (with esophageal stricture 09/01 EGD), Peptic Ulcer Disease (duodenal ulcer on 2006 EGD) ...LMP: 05/16/89 Musculoskeletal: Yes: Chronic low back pain (Secondary to sciatica) - Past Surgical History Past Surgical History: Yes: Colonoscopy, Tonsillectomy, Upper Endoscopy, Vein Stripping/Ligation (B/L LE) - Alcohol/Substance Use Hx Alcohol Use: Yes (2-3glasses of wine nightly) History of Substance Use: reports: None - Smoking History Smoking history: Former smoker Have you smoked in the past 12 months: No If you are a former smoker, when did you quit?: 1989 - Social History Usual Living Arrangement: Alone () ADL: Independent Occupation: retired [employer] History of Recent Travel: No Home Medications - Allergies Allergies/Adverse Reactions: Allergies Allergy/AdvReac Type Severity Reaction Status Date / Time No Known Allergies Allergy Verified 11/02/19 13:35 - Home Medications Home Medications: Ambulatory Orders Budesonide/Formeterol Fumarate [SYMBICORT 160/4.5mcg -] 1 puff IH DAILY 11/01/16 Albuterol Sulfate [Albuterol Sulfate Hfa] 2 puff IH Q4H PRN 08/21/18 Tiotropium [place] [Spiriva] 2 unit NEB DAILY 08/21/18 Rosuvastatin [Crestor -] 20 mg PO HS #30 tablet 08/25/18 Alendronate Sodium [Fosamax] 1 tab WEEKLY 12/28/19 Albuterol 0.083% Nebulizer Yuliet [Ventolin 0.083% Nebulizer Soln -] 1 amp NEB Q4H PRN #1 amp 01/07/20 Collagenase Clostridium Hist. [Santyl -] 1 applic TP DAILY #1 tube 01/07/20 Meloxicam 30 mg PO DAILY 02/08/20 Family Medical History Family History: Unremarkable (not pertinent to this presentation) Review of Systems Unable to obtain ROS, reason: Unable Physical Exam Vital Signs: Vital Signs Temperature 97.6 F 02/17/20 22:00 Pulse Rate 105 H 02/17/20 22:00 Respiratory Rate 29 H 02/17/20 22:00 Blood Pressure 76/53 L 02/17/20 22:00 O2 Sat by Pulse Oximetry (%) 99 02/18/20 00:30 Constitutional: Yes: No Distress, Cachectic, Pallor Eyes: Yes: Conjunctiva Clear, PERRL HENT: Yes: Atraumatic Neck: Yes: Supple, Trachea Midline Cardiovascular: Yes: Tachycardia, S1, S2 Respiratory: Yes: Diminished, On BiPap Gastrointestinal: Yes: Soft, Abdomen, Obese ...Rectal Exam: Yes: Deferred Renal/: Yes: Incontinence Musculoskeletal: Yes: Joint Stiffness Edema: Yes Edema: LUE: 1+, RUE: 1+, LLE: 1+, RLE: 1+ Neurological: Yes: Oriented, Lethargy, Weakness, Other (following commands) Psychiatric: Yes: Oriented (Awake) Labs: CBC, BMP 02/17/20 22:35 02/17/20 14:57 CBC,CMP WBC 3.1 K/mm3 (4.0-10.0) L 02/17/20 22:35 RBC 3.23 M/mm3 (3.60-5.2) L 02/17/20 22:35 Hgb 10.5 GM/dL (10.7-15.3) L 02/17/20 22:35 Hct 32.6 % (32.4-45.2) 02/17/20 22:35 MCV 100.9 fl (80-96) H 02/17/20 22:35 MCH 32.5 pg (25.7-33.7) 02/17/20 22:35 MCHC 32.2 g/dl (32.0-36.0) 02/17/20 22:35 RDW 19.5 % (11.6-15.6) H 02/17/20 22:35 Plt Count K/MM3 (134-434) 02/17/20 22:35 MPV 9.5 fl (7.5-11.1) 02/17/20 14:57 Absolute Neuts (auto) 4.1 K/mm3 (1.5-8.0) 02/17/20 14:57 Neutrophils % 89.0 % (42.8-82.8) H 02/17/20 14:57 Neutrophils % (Manual) 10.0 % (42.8-82.8) L 02/17/20 14:57 Band Neutrophils % 46.0 % 02/17/20 14:57 Lymphocytes % 9.1 % (8-40) 02/17/20 14:57 Lymphocytes % (Manual) 6.0 % (8-40) L D 02/17/20 14:57 Monocytes % 1.7 % (3.8-10.2) L 02/17/20 14:57 Monocytes % (Manual) 0 % (3.8-10.2) L D 02/17/20 14:57 Eosinophils % 0.1 % (0-4.5) D 02/17/20 14:57 Eosinophils % (Manual) 0.0 % (0-4.5) 02/17/20 14:57 Basophils % 0.1 % (0-2.0) 02/17/20 14:57 Basophils % (Manual) 1.0 % (0-2.0) D 02/17/20 14:57 Myelocytes % (Man) 0 % (0-2) 02/17/20 14:57 Promyelocytes % (Man) 0 % (0-2) 02/17/20 14:57 Blast Cells % (Manual) 0 % (0-0) 02/17/20 14:57 Nucleated RBC % 1 % (0-0) H 02/17/20 14:57 Metamyelocytes 37 % (0-2) H D 02/17/20 14:57 Hypochromia 0 02/17/20 14:57 Platelet Estimate Normal 02/17/20 14:57 Platelet Comment Mod plt clumping 02/17/20 22:35 Polychromasia 1+ 02/17/20 14:57 Poikilocytosis 0 02/17/20 14:57 Anisocytosis 1+ 02/17/20 14:57 Microcytosis 1+ 02/08/20 11:52 Macrocytosis 1+ 02/17/20 14:57 Sodium 135 mmol/L (136-145) L 02/17/20 14:57 Potassium 3.8 mmol/L (3.5-5.1) 02/17/20 14:57 Chloride 96 mmol/L (98-107) L 02/17/20 14:57 Carbon Dioxide 27 mmol/L (21-32) 02/17/20 14:57 Anion Gap 12 MMOL/L (8-16) 02/17/20 14:57 BUN 22.8 mg/dL (7-18) H 02/17/20 14:57 Creatinine 1.1 mg/dL (0.55-1.3) 02/17/20 14:57 Est GFR (CKD-EPI)AfAm 54.91 02/17/20 14:57 Est GFR (CKD-EPI)NonAf 47.38 02/17/20 14:57 Random Glucose 87 mg/dL (74-106) 02/17/20 14:57 Lactic Acid 1.3 mmol/L (0.4-2.0) 02/08/20 20:45 Calcium 7.5 mg/dL (8.5-10.1) L 02/17/20 14:57 Phosphorus 2.7 mg/dL (2.5-4.9) 02/16/20 07:45 Magnesium 1.6 mg/dL (1.8-2.4) L 02/16/20 07:45 Total Bilirubin 1.7 mg/dL (0.2-1) H 02/17/20 14:57 Direct Bilirubin 0.5 mg/dL (0.0-0.2) H 02/15/20 08:02 AST 32 U/L (15-37) 02/17/20 14:57 ALT 20 U/L (13-61) 02/17/20 14:57 Alkaline Phosphatase 99 U/L (45-117) 02/17/20 14:57 Creatine Kinase 64 U/L (26-192) 02/10/20 06:00 Troponin I 0.10 ng/ml (0.00-0.05) H 02/17/20 22:23 Total Protein 4.6 g/dl (6.4-8.2) L 02/17/20 14:57 Albumin 1.5 g/dl (3.4-5.0) L 02/17/20 14:57 Problem List - Problems (1) Hypotension Code(s): I95.9 - HYPOTENSION, UNSPECIFIED (2) Respiratory distress Code(s): R06.03 - ACUTE RESPIRATORY DISTRESS (3) Ascites Code(s): R18.8 - OTHER ASCITES (4) Ascites due to alcoholic cirrhosis Code(s): K70.31 - ALCOHOLIC CIRRHOSIS OF LIVER WITH ASCITES (5) COPD (chronic obstructive pulmonary disease) Code(s): J44.9 - CHRONIC OBSTRUCTIVE PULMONARY DISEASE, UNSPECIFIED (6) Coronary artery disease Code(s): I25.10 - ATHSCL HEART DISEASE OF [place] CORONARY ARTERY W/O ANG PCTRS (7) GI hemorrhage Code(s): K92.2 - GASTROINTESTINAL HEMORRHAGE, UNSPECIFIED Assessment/Plan 79-year-old female past medical history of HTN, HLD, COPD, CAD status post 3 stents on Plavix, EtOH abuse, cirrhosis, gastritis presented with UGIB s/p EGD showing esophageal tear ccb ascites, fluid overload and group D/enterococcus SBP, now in shock with acute hypoxic respiratory failure. Plan: CV: Shock m/l septic -vasopressor support for MAP>55-60 -25% Albumin x1 -Continue antibiotics as per ID -Trend lactate, troponin -TTE and ECG Pulm: Hypoxic resp failure c/f fluid overload +/- HAP; Hx COPD -BiPAP support for O2 sat >92% -Cont nebs ID: SBP; leukopenia with 46% bandemia -ID consult -Cont Unasyn -F/u cultures; tailor antibiotics GI: UGIB resolved -NPO for now -Cont PPI DVT prophylaxis GOC: Family reportedly initiated discussion of hospice care -Palliative consulted -Clarify GOC with family Tabitha Lake, ACNP CCT 45mins
[2020-02-18] MEDS ORDERED: VASOPRESSIN 40 UNITS in SODIUM CHLORIDE 98 ML IVPB SCH (03:30)
[2020-02-18] MEDS: ALBUMIN HUMAN 25% 12.5 GM/50 ML VIAL IVPB SCH ×2 (03:34→07:01)
[2020-02-18] MEDS: AMPICILLIN NA/SULBACTAM NA 1.5 GM in SODIUM CHLORIDE 100 ML IVPB SCH ×2 (03:59→10:13)
[2020-02-18 05:51] LABS: ARTERIAL BLD GAS O2 SATURATION 69.3 mmHg (95-98); ARTERIAL BLOOD GAS BASE EXCESS -15.8 mmol/L (-2-2); ARTERIAL BLOOD GAS PO2 50.3 mmHg (80-100)
[2020-02-18 05:54] LABS: ALLENS TEST POSITIVE
[2020-02-18 05:55] LABS: VENT MODE S/T; VENT RATE 12
[2020-02-18 07:41] LABS: INR 2.49 (0.83-1.09); PROTHROMBIN TIME (PATIENT) 29.7 SEC (9.7-13.0)
[2020-02-18 07:44] LABS: ACTIVATED PTT 65.9 SECONDS (25.2-36.5)
--- NOTE | 2020-02-18 08:58 | PN ---
Progress Note (short form) - Note Progress Note: ID consult dictated asked to see patient for positive ascites fluid culture - group D developed hypotension overnight and transferred to the ICU now on pressors unresponsive now DNR/DNI family has declined blood draws per resident septic shock recent GI bleed possible pneumonia possible SBP with enterococcus history of MRSA infeciton-contact isolation ideally would get blood cultures but family has declined labs still getting supportive care would escalate antiibotics to vancomycin and zosyn overall condition grave d/w ICU resident Problem List - Problems (1) Septic shock Code(s): A41.9 - SEPSIS, UNSPECIFIED ORGANISM; R65.21 - SEVERE SEPSIS WITH SEPTIC SHOCK (2) GI hemorrhage Code(s): K92.2 - GASTROINTESTINAL HEMORRHAGE, UNSPECIFIED (3) Spontaneous bacterial peritonitis Code(s): K65.2 - SPONTANEOUS BACTERIAL PERITONITIS (4) Pneumonia Code(s): J18.9 - PNEUMONIA, UNSPECIFIED ORGANISM (5) MRSA (methicillin resistant Staphylococcus aureus) colonization Code(s): Z22.322 - CARRIER OR SUSPECTED CARRIER OF METHICILLIN RESIS STAPH
[2020-02-18 09:01] LABS: ALBUMIN 0.6 g/dl (3.4-5.0); BILIRUBIN,DIRECT 0.5 mg/dL (0.0-0.2); BILIRUBIN,TOTAL 0.5 mg/dL (0.2-1); BLOOD UREA NITROGEN 12.8 mg/dL (7-18); CHLORIDE 125 mmol/L (98-107); CO2 10 mmol/L (21-32); CREATININE 0.6 mg/dL (0.55-1.3); MAGNESIUM 0.9 mg/dL (1.8-2.4); PHOSPHOROUS 2.5 mg/dL (2.5-4.9); SGOT/AST 106 U/L (15-37); SGPT/ALT 24 U/L (13-61); SODIUM 147 mmol/L (136-145)
[2020-02-18 09:15] LABS: ALK PHOS 41 U/L (45-117); ANION GAP 12 MMOL/L (8-16); TOT PROT 1.6 g/dl (6.4-8.2)
[2020-02-18] MEDS: SPIRONOLACTONE 25 MG TABLET PO SCH (09:15)
[2020-02-18] MEDS: PANTOPRAZOLE 40 MG TABLET PO SCH (09:16)
[2020-02-18] MEDS: FUROSEMIDE 40 MG TABLET (FP) PO SCH (09:16)
[2020-02-18 09:22] LABS: CALCIUM < 5.0 mg/dL (8.5-10.1); GLUCOSE,RANDOM 18 mg/dL (74-106); POTASSIUM 2.4 mmol/L (3.5-5.1)
[2020-02-18] MEDS ORDERED: VANCOMYCIN 1 GRAM (PRE-DOCKED) 1,000 MG/250 ML BAG IVPB SCH (09:30)
[2020-02-18] MEDS ORDERED: PIPERACILLIN/TAZOB 3.375 GM 3.375 GM in DEXTROSE 5%-WATER - 50 ML IVPB SCH (09:30)
[2020-02-18] MEDS ORDERED: DEXTROSE 50%-WATER - 25 GM/50 ML VIAL ONE (09:35)
--- NOTE | 2020-02-18 09:38 | PN.GI ---
GI Progress Note Subjective: Decompensated: hypotensive, worsened respiratory status - Objective Vital Signs: Vital Signs Temperature 97.5 F L 02/18/20 06:00 Pulse Rate 99 H 02/18/20 06:00 Respiratory Rate 28 H 02/18/20 06:00 Blood Pressure 120/103 H 02/18/20 06:00 O2 Sat by Pulse Oximetry (%) 99 02/18/20 00:30 Constitutional: Calm Cardiovascular: Yes: Regular Rate and Rhythm Respiratory: Yes: Diminished (at bases bilaterally) Gastrointestinal Inspection: Yes: Distention ...Auscultate: Yes: Normoactive Bowel Sounds ...Palpate: Yes: Soft (No grimacing upon palpation). No: Tenderness Labs: CBC, BMP 02/18/20 08:00 02/18/20 08:00 INR, PTT INR 2.49 (0.83-1.09) H 02/18/20 05:55 Problem List - Problems (1) GI hemorrhage Assessment/Plan: No further bleeding Code(s): K92.2 - GASTROINTESTINAL HEMORRHAGE, UNSPECIFIED (2) Ascites Assessment/Plan: + enterococcus noted on paracentesis On Abx per ID Family leaning towards supportive measures Code(s): R18.8 - OTHER ASCITES
[2020-02-18] MEDS ORDERED: DEXTROSE 5%-WATER - 50 ML IVPB ONE (09:59)
[2020-02-18] MEDS ORDERED: PIPERACILLIN/TAZOBACTAM 3.375 GM VIAL IVPB ONE (09:59)
[2020-02-18] MEDS: BUDESONIDE/FORMETEROL FUMARATE 160/4.5 mcg INHALER IH SCH (10:13)
[2020-02-18] MEDS: TIOTROPIUM BROMIDE 2.5 MCG (SPIRIVA) RESPIMAT INHALER IH SCH (10:13)
[2020-02-18] MEDS ORDERED: DEXTROSE 50%-WATER - 25 GM/50 ML VIAL IVPUSH ONE (10:59)
--- NOTE | 2020-02-18 11:48 | PN ---
Progress Note (short form) - Note Progress Note: Chief Complaint: gib History of Present Illness: 79 F hx CAD with prior PCI on Plavix, peptic ulcer dz, h/o diverticular bleed now admitted with upper GI bleed/hypotension and Hb 8.4. Received 2UPRBCs, a unit of platelets and Vitamin K Had several cardiac stents in 2004 , confirmed with daughter. Lives alone and daughter reports she has required assistance to perform ADLS Sees Dr. Ward for Cardio. s: overnight decompensated, septic with hypotension, hypoxic. ascites +cx. on pressors, bipap now Current Medications Generic Name Dose Route Start Last Admin Trade Name Freq PRN Reason Stop Dose Admin Artificial Tears 1 drop 02/12/20 16:55 02/14/20 10:20 Artificial Tears OU 1 drop BID PRN Administration DRY EYES Budesonide/Formoterol Fumarate 1 puff 02/13/20 10:00 02/18/20 10:13 Symbicort 160/4.5mcg - IH Not Given DAILY WE[facility]LEY Furosemide 40 mg 02/17/20 10:00 02/18/20 09:16 Lasix - PO Not Given DAILY WE[facility] Phenylephrine HCl 25,000 mcg in 250 mls @ 60 mls/hr 02/18/20 02:15 02/18/20 03:30 Derek-Synephrine CVP 200 mcg/min TITR WESTLEY 120 mls/hr Titration Protocol 100 MCG/MIN Vasopressin 40 units/ Sodium 100 mls @ 10 mls/hr 02/18/20 03:30 02/18/20 03:23 Chloride IVPB 4 units/hr ASDIR WESTLEY 10 mls/hr Administration Protocol 4 UNITS/HR Ondansetron HCl 4 mg 02/12/20 16:55 Zofran Injection IVPUSH Q8H PRN NAUSEA Pantoprazole Sodium 40 mg 02/16/20 22:00 02/18/20 09:16 Protonix - PO Not Given BID WE[facility]LEY Spironolactone 100 mg 02/15/20 12:51 02/18/20 09:15 Aldactone - PO Not Given DAILY [facility] Tiotropium [place] 2 puff 02/13/20 10:00 02/18/20 10:13 Spiriva Respimat IH Not Given DAILY WE[facility] Vital Signs Temp 97.5 F L 02/18/20 06:00 Pulse 99 H 02/18/20 06:00 Resp 28 H 10/05/20 06:00 BP 120/103 H 02/18/20 06:00 Pulse Ox 99 02/18/20 00:30 Intake & Output 02/17/20 02/17/20 02/18/20 11:59 23:59 11:59 Intake Total 230 180 870 Output Total 150 150 Balance 230 30 720 Weight 125 lb 12.8 oz 132 lb 12.8 oz Intake: IV 770 DEREK-SYNEPHRINE 25,000 mcg 480 In 250 ml @ 100 MCG/MIN 60 mls/hr CVP TITR WE[facility]LEY Rx #:[id number] Normal Saline - 250 ml @ 250 250 mls/hr IV ASDIR STA Rx#:[id number] Pitressin - 40 Units In 40 Normal Saline - 98 ml @ 4 UNITS/HR 10 mls/hr IVPB ASDIR WESTLEY Rx#:[id number] IVPB 100 Oral 230 180 Output: Urine 150 150 External Catheter 150 150 Other: Voiding Method External Catheter External Catheter External Catheter Bowel Movement No No No Weight Measurement Method Built in [facility] Built in [facility] Constitutional: Yes: No Distress, Calm Eyes: Yes: Conjunctiva Clear Cardiovascular: Yes: Regular Rate and Rhythm Respiratory:cta bl poor eff Gastrointestinal: Yes: Soft (nt) Edema: No Peripheral Pulses WNL: Yes Neurological: Yes: lethargic no jaundice diaphoresis Labs: Laboratory Last Values WBC Cancelled 02/18/20 08:00 Corrected WBC (auto) Cancelled 02/18/20 08:00 RBC Cancelled 02/18/20 08:00 Hgb Cancelled 02/18/20 08:00 Hct Cancelled 02/18/20 08:00 MCV Cancelled 02/18/20 08:00 MCH Cancelled 02/18/20 08:00 MCHC Cancelled 02/18/20 08:00 RDW Cancelled 02/18/20 08:00 Plt Count Cancelled 02/18/20 08:00 MPV Cancelled 02/18/20 08:00 Absolute Neuts (auto) Cancelled 02/18/20 08:00 Neutrophils % Cancelled 02/18/20 08:00 Neutrophils % (Manual) 10.0 % (42.8-82.8) L 02/17/20 14:57 Band Neutrophils % 46.0 % 02/17/20 14:57 Lymphocytes % Cancelled 02/18/20 08:00 Lymphocytes % (Manual) 6.0 % (8-40) L D 02/17/20 14:57 Monocytes % Cancelled 02/18/20 08:00 Monocytes % (Manual) 0 % (3.8-10.2) L D 02/17/20 14:57 Eosinophils % Cancelled 02/18/20 08:00 Eosinophils % (Manual) 0.0 % (0-4.5) 02/17/20 14:57 Basophils % Cancelled 02/18/20 08:00 Basophils % (Manual) 1.0 % (0-2.0) D 02/17/20 14:57 Myelocytes % (Man) 0 % (0-2) 02/17/20 14:57 Promyelocytes % (Man) 0 % (0-2) 02/17/20 14:57 Blast Cells % (Manual) 0 % (0-0) 02/17/20 14:57 Nucleated RBC % Cancelled 02/18/20 08:00 Metamyelocytes 37 % (0-2) H D 02/17/20 14:57 Hypochromia 0 02/17/20 14:57 Platelet Estimate Cancelled 02/18/20 08:00 Platelet Comment Cancelled 02/18/20 08:00 Polychromasia 1+ 02/17/20 14:57 Poikilocytosis 0 02/17/20 14:57 Anisocytosis 1+ 02/17/20 14:57 Microcytosis 1+ 02/08/20 11:52 Macrocytosis 1+ 02/17/20 14:57 PT with INR 29.70 SEC (9.7-13.0) H 02/18/20 05:55 INR 2.49 (0.83-1.09) H 02/18/20 05:55 PTT (Actin FS) 65.9 SECONDS (25.2-36.5) H 02/18/20 05:55 Anticoagulation Therapy No Result Required. 02/18/20 05:30 Puncture Site Right radial 02/18/20 05:30 Patient Temperature No Result Required. 02/18/20 05:30 ABG pH 7.060 (7.350-7.450) L* 02/18/20 05:30 ABG pCO2 49.90 mmHg (35-45) H 02/18/20 05:30 ABG pO2 50.3 mmHg (80-100) L 02/18/20 05:30 ABG HCO3 13.8 mmol/L (22-27) L 02/18/20 05:30 ABG O2 Sat (Measured) 69.3 mmHg (95-98) L 02/18/20 05:30 ABG O2 Content No Result Required. 02/18/20 05:30 ABG Base Excess -15.8 mmol/L (-2-2) L 02/18/20 05:30 Jason Test Positive 02/18/20 05:30 Patient On Oxygen Yes 02/18/20 05:30 O2 Delivery Device Bipap 02/18/20 05:30 Oxygen Flow Rate 100% 02/18/20 05:30 Vent Mode S/t 02/18/20 05:30 Vent Rate 12 02/18/20 05:30 Mechanical Rate Bipap 02/18/20 05:30 PEEP No Result Required. 02/18/20 05:30 Pressure Support Vent Ipap10/epap4 02/18/20 05:30 Sodium 147 mmol/L (136-145) H 02/18/20 08:00 Potassium 2.4 mmol/L (3.5-5.1) L* 02/18/20 08:00 Chloride 125 mmol/L (98-107) H 02/18/20 08:00 Carbon Dioxide 10 mmol/L (21-32) L 02/18/20 08:00 Anion Gap 12 MMOL/L (8-16) 02/18/20 08:00 BUN 12.8 mg/dL (7-18) 02/18/20 08:00 Creatinine 0.6 mg/dL (0.55-1.3) 02/18/20 08:00 Est GFR (CKD-EPI)AfAm 99.77 02/18/20 08:00 Est GFR (CKD-EPI)NonAf 86.09 02/18/20 08:00 Random Glucose 18 mg/dL (74-106) L* 02/18/20 08:00 Lactic Acid 8.9 mmol/L (0.4-2.0) H* 02/18/20 08:00 Calcium < 5.0 mg/dL (8.5-10.1) L* 02/18/20 08:00 Phosphorus 2.5 mg/dL (2.5-4.9) 02/18/20 08:00 Magnesium 0.9 mg/dL (1.8-2.4) L 02/18/20 08:00 Total Bilirubin 0.5 mg/dL (0.2-1) 02/18/20 08:00 Direct Bilirubin 0.5 mg/dL (0.0-0.2) H 02/18/20 08:00 AST 106 U/L (15-37) H 02/18/20 08:00 ALT 24 U/L (13-61) 02/18/20 08:00 Alkaline Phosphatase 41 U/L (45-117) L 02/18/20 08:00 Creatine Kinase 53 U/L (26-192) 02/18/20 08:00 Troponin I 0.08 ng/ml (0.00-0.05) H 02/18/20 08:00 Total Protein 1.6 g/dl (6.4-8.2) L 02/18/20 08:00 Albumin 0.6 g/dl (3.4-5.0) L 02/18/20 08:00 Fluid Source Peritoneal 02/15/20 12:13 POC Fluid pH 7.9 (Not Estab.) 02/15/20 12:13 Fluid WBC 33 /mm3 02/15/20 12:13 Fluid RBC 72 /mm3 02/15/20 12:13 Fluid Neutrophils 33 % 02/15/20 12:13 Fluid Lymphocytes 7 % 02/15/20 12:13 Fluid Glucose 125 mg/dL (.) 02/15/20 12:13 Fluid Total Protein 0.4 g/dL (.) 02/15/20 12:13 Fluid Albumin 0.3 g/dL (Not Estab.) 02/15/20 12:13 Body Fluid LDH Source 27 IU/L (.) 02/15/20 12:13 Fluid Amylase 13 U/L (.) 02/15/20 12:13 Fluid Triglycerides 27 mg/dL (Not Estab.) 02/15/20 12:13 Pleural Monocytes 8 % 02/15/20 12:13 Pleural Basophils 1 % 02/15/20 12:13 Pleural Histocytes 51 % 02/15/20 12:13 Pleural Mesothelial 3 % 02/15/20 12:13 COVID-19 (JOCELYN) Cancelled 02/08/20 14:08 SARS-CoV-2 (PCR) Negative (Negative) 02/08/20 15:19 Blood Type O POSITIVE 02/08/20 11:52 Antibody Screen Negative 02/08/20 11:52 Crossmatch See Detail 02/08/20 11:52 tele:sr Assessment/Plan Acute Upper GI bleed, history of peptic ulcer dz Marked anemia secondary to acute blood loss History of diverticulosis and Cirrhosis with varices CAD s/p PCI (remote) Mild TnI elevation Hypotension est cct 35 mins septic shock: -ascites fluid with +culture and pt with hypotension, resp failure. Likely sepsis. Cont pressors for bp support. Cont abx per ID. Monitor in icu. UGI bleed: found to have Evelia Gordon tear on EGD 02/08 -management of acute GI bleed as per primary and GI, monitor H/H, has been stable CAD s/p prior TN: -Multiple stents placed 2004 as per daughter at [facility] -Was maintained on Plavix -Holding plavix, resume with PPI when/if deemed safe from GI standpoint Elevated TnI: 1.79-->1.64 with normal CK -Mildly elevated, flat TnI trend with normal CK in the setting of acute blood loss anemia and hypotension most likely represents demand ischemia and not a type I TN/ACS. -Patient had no symptoms of angina or ACS; serial ECGs are unchanged -tolerated endoscopy well -Case d/w primary marketing information analyst, Dr. Nice. Plan for ischemic evaluation if she makes meaningful recovery. hypokalemia: -replete if family wishes (they are leaning towards comfort care it seems) -monitor on tele
[2020-02-18 11:49] VITALS: BP 69/23; PULSE 95
[2020-02-18 11:50] VITALS: TEMP 97.4
[2020-02-18] MEDS ORDERED: LORazepam 2 MG/ML SDV VIAL IVPUSH ONE (12:00)
[2020-02-18] MEDS ORDERED: MORPHINE SULFATE 2 MG/ML VIAL IVPUSH ONE (12:00)
[2020-02-18] MEDS ORDERED: ACETAMINOPHEN 1000 MG/100 ML VIAL (NON FORMULARY) IVPB ONE (12:00)
--- NOTE | 2020-02-18 12:19 | PN ---
Teaching Attending Note Name of Resident: Iesha Salcidolucía ATTENDING PHYSICIAN STATEMENT I saw and evaluated the patient. I reviewed the resident's note and discussed the case with the resident. I agree with the resident's findings and plan as documented. SUBJECTIVE: Patient seen and examined in the ICU. Poorly responsive on NIPPV support. Phenylephrine @ 180mcq for hemodynamic support and remains hypotensive. Intake & Output 02/15/20 02/16/20 02/17/20 02/18/20 23:59 23:59 23:59 23:59 Intake Total 800 50 410 870 Output Total 600 1300 150 150 Balance 200 -1250 260 720 Weight 126 lb 6.4 oz 133 lb 125 lb 12.8 oz 132 lb 12.8 oz Last Vital Signs Temp Pulse Resp BP Pulse Ox 97.4 F L 95 H 26 H 69/23 L 99 02/18/20 08:00 02/18/20 10:00 02/18/20 10:00 02/18/20 10:00 02/18/20 00:30 Gen: Minimally responsive on NIPPV support Heart: RRR Lung: Bilateral coarse rhonchi, decreased breath sounds at the bases Abd: +ascites Ext: + edema Laboratory Results - last 24 hr 02/15/20 02/17/20 02/17/20 12:13 14:57 14:57 WBC 4.6 Corrected WBC (auto) RBC 3.14 L Hgb 10.4 L Hct 31.2 L MCV 99.4 H MCH 33.3 MCHC 33.5 RDW 18.2 H Plt Count 258 MPV 9.5 Absolute Neuts (auto) 4.1 Neutrophils % 89.0 H Neutrophils % (Manual) 10.0 L Band Neutrophils % 46.0 Lymphocytes % 9.1 Lymphocytes % (Manual) 6.0 L D Monocytes % 1.7 L Monocytes % (Manual) 0 L D Eosinophils % 0.1 D Eosinophils % (Manual) 0.0 Basophils % 0.1 Basophils % (Manual) 1.0 D Myelocytes % (Man) 0 Promyelocytes % (Man) 0 Blast Cells % (Manual) 0 Nucleated RBC % 1 H Metamyelocytes 37 H D Hypochromia 0 Platelet Estimate Normal Platelet Comment Polychromasia 1+ Poikilocytosis 0 Anisocytosis 1+ Macrocytosis 1+ PT with INR INR PTT (Actin FS) Anticoagulation Therapy Puncture Site Patient Temperature ABG pH ABG pCO2 ABG pO2 ABG HCO3 ABG O2 Sat (Measured) ABG O2 Content ABG Base Excess Jason Test Patient On Oxygen O2 Delivery Device Oxygen Flow Rate Vent Mode Vent Rate Mechanical Rate PEEP Pressure Support Vent Sodium 135 L Potassium 3.8 Chloride 96 L Carbon Dioxide 27 Anion Gap 12 BUN 22.8 H Creatinine 1.1 Est GFR (CKD-EPI)AfAm 54.91 Est GFR (CKD-EPI)NonAf 47.38 Random Glucose 87 Lactic Acid Calcium 7.5 L Phosphorus Magnesium Total Bilirubin 1.7 H Direct Bilirubin AST 32 ALT 20 Alkaline Phosphatase 99 Creatine Kinase Troponin I Total Protein 4.6 L Albumin 1.5 L POC Fluid pH 7.9 02/17/20 02/17/20 02/18/20 22:23 22:35 05:30 WBC 3.1 L Corrected WBC (auto) RBC 3.23 L Hgb 10.5 L Hct 32.6 MCV 100.9 H MCH 32.5 MCHC 32.2 RDW 19.5 H Plt Count MPV Absolute Neuts (auto) Neutrophils % Neutrophils % (Manual) Band Neutrophils % Lymphocytes % Lymphocytes % (Manual) Monocytes % Monocytes % (Manual) Eosinophils % Eosinophils % (Manual) Basophils % Basophils % (Manual) Myelocytes % (Man) Promyelocytes % (Man) Blast Cells % (Manual) Nucleated RBC % Metamyelocytes Hypochromia Platelet Estimate Platelet Comment Mod plt clumping Polychromasia Poikilocytosis Anisocytosis Macrocytosis PT with INR INR PTT (Actin FS) Anticoagulation Therapy No Result Required. Puncture Site Right radial Patient Temperature No Result Required. ABG pH 7.060 L* ABG pCO2 49.90 H ABG pO2 50.3 L ABG HCO3 13.8 L ABG O2 Sat (Measured) 69.3 L ABG O2 Content No Result Required. ABG Base Excess -15.8 L Jason Test Positive Patient On Oxygen Yes O2 Delivery Device Bipap Oxygen Flow Rate 100% Vent Mode S/t Vent Rate 12 Mechanical Rate Bipap PEEP No Result Required. Pressure Support Vent Ipap10/epap4 Sodium Potassium Chloride Carbon Dioxide Anion Gap BUN Creatinine Est GFR (CKD-EPI)AfAm Est GFR (CKD-EPI)NonAf Random Glucose Lactic Acid Calcium Phosphorus Magnesium Total Bilirubin Direct Bilirubin AST ALT Alkaline Phosphatase Creatine Kinase Troponin I 0.10 H Total Protein Albumin POC Fluid pH 02/18/20 02/18/2002/17/20 05:55 08:00 08:00 WBC Cancelled Corrected WBC (auto) Cancelled RBC Cancelled Hgb Cancelled Hct Cancelled MCV Cancelled MCH Cancelled MCHC Cancelled RDW Cancelled Plt Count Cancelled MPV Cancelled Absolute Neuts (auto) Cancelled Neutrophils % Cancelled Neutrophils % (Manual) Band Neutrophils % Lymphocytes % Cancelled Lymphocytes % (Manual) Monocytes % Cancelled Monocytes % (Manual) Eosinophils % Cancelled Eosinophils % (Manual) Basophils % Cancelled Basophils % (Manual) Myelocytes % (Man) Promyelocytes % (Man) Blast Cells % (Manual) Nucleated RBC % Cancelled Metamyelocytes Hypochromia Platelet Estimate Cancelled Platelet Comment Cancelled Polychromasia Poikilocytosis Anisocytosis Macrocytosis PT with INR 29.70 H INR 2.49 H PTT (Actin FS) 65.9 H Anticoagulation Therapy Puncture Site Patient Temperature ABG pH ABG pCO2 ABG pO2 ABG HCO3 ABG O2 Sat (Measured) ABG O2 Content ABG Base Excess Jason Test Patient On Oxygen O2 Delivery Device Oxygen Flow Rate Vent Mode Vent Rate Mechanical Rate PEEP Pressure Support Vent Sodium 147 H Potassium 2.4 L* Chloride 125 H Carbon Dioxide 10 L Anion Gap 12 BUN 12.8 Creatinine 0.6 Est GFR (CKD-EPI)AfAm 99.77 Est GFR (CKD-EPI)NonAf 86.09 Random Glucose 18 L* Lactic Acid Calcium < 5.0 L* Phosphorus 2.5 Magnesium 0.9 L Total Bilirubin 0.5 Direct Bilirubin 0.5 H AST 106 H ALT 24 Alkaline Phosphatase 41 L Creatine Kinase 53 Troponin I 0.08 H Total Protein 1.6 L Albumin 0.6 L POC Fluid pH 02/18/20 08:00 WBC Corrected WBC (auto) RBC Hgb Hct MCV MCH MCHC RDW Plt Count MPV Absolute Neuts (auto) Neutrophils % Neutrophils % (Manual) Band Neutrophils % Lymphocytes % Lymphocytes % (Manual) Monocytes % Monocytes % (Manual) Eosinophils % Eosinophils % (Manual) Basophils % Basophils % (Manual) Myelocytes % (Man) Promyelocytes % (Man) Blast Cells % (Manual) Nucleated RBC % Metamyelocytes Hypochromia Platelet Estimate Platelet Comment Polychromasia Poikilocytosis Anisocytosis Macrocytosis PT with INR INR PTT (Actin FS) Anticoagulation Therapy Puncture Site Patient Temperature ABG pH ABG pCO2 ABG pO2 ABG HCO3 ABG O2 Sat (Measured) ABG O2 Content ABG Base Excess Jason Test Patient On Oxygen O2 Delivery Device Oxygen Flow Rate Vent Mode Vent Rate Mechanical Rate PEEP Pressure Support Vent Sodium Potassium Chloride Carbon Dioxide Anion Gap BUN Creatinine Est GFR (CKD-EPI)AfAm Est GFR (CKD-EPI)NonAf Random Glucose Lactic Acid 8.9 H* Calcium Phosphorus Magnesium Total Bilirubin Direct Bilirubin AST ALT Alkaline Phosphatase Creatine Kinase Troponin I Total Protein Albumin POC Fluid pH ASSESSMENT AND PLAN: GI Bleed - Evelia Gordon Tear Gastric Varices Acute Blood Loss Anemia Hemorrhagic Shock Diverticulosis Liver Cirrhosis CAD +Troponins likely Demand Ischemia COPD HTN Hyperlipidemia - NIPPV support to be changed to NRBM - Broad ABX - PPI - monitor H/H, coags - transfuse as needed - PO per GI - monitor urine output, creatinine - DVT prophylaxis - Requires ICU monitoring until final GOC is determined with her family. Overall prognosis appears grave for meaningful survival. Dr Mccarthy Critical care time spent in reviewing chart, evaluating patient and formulating plan - 36 minutes.
--- NOTE | 2020-02-18 13:48 | CONS ---
INFECTIOUS DISEASE CONSULTATION DATE OF CONSULTATION: 02/18/2020 HISTORY: This is an 79-year-old woman who was originally admitted to the hospital on the . At that time she was admitted for coffee-ground vomitus at home. She was admitted to the ICU where she was given platelets and PPI drip, and she underwent endoscopy on the which showed a suspected Evelia-Gordon tear. She was ultimately transferred to the floor. She underwent a paracentesis on the . The counts were not consistent with infection. She had only 33 white cells. I was asked to see her because the peritoneal fluid culture is growing group D strep from broad subculture only. Overnight she became extremely hypotensive. She was transferred to the ICU for pressors and I am asked to see her for antibiotic management. She is currently unresponsive and unable to give any history. PAST MEDICAL HISTORY: Notable for hypertension, hyperlipidemia, COPD, coronary artery disease. She is status post 3 stents. She is on Plavix. She has a history of a diverticular hemorrhage in 2018, hiatal hernia, peptic ulcer disease, chronic low back pain. She most recently was found to have the Evelia-Gordon tear on recent EGD during this admission. She has a surgical history notable for vein stripping and ligation in both her legs. From an ID perspective, she is noted to have prior MRSA in leg wounds from earlier this year. [facility]. SOCIAL HISTORY: Notable for 2 to 3 glasses of wine a day. Former smoker, she stopped in 1989. 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 ALLERGIES: She has no known drug allergies. OUTPATIENT MEDICATIONS: Included Spiriva, Crestor, Santyl, Symbicort, Fosamax and nebulizer treatment. REVIEW OF SYSTEMS: Not obtainable. PHYSICAL EXAMINATION: Vital Signs: Her temperature is 97.5. She has had no fever. Pulse is 99. Blood pressure is 120/103. She is on BiPAP with FiO2 of 100%. General: She is a thin woman who is unresponsive. HEENT: She is normocephalic. Lungs: Diminished breath sounds at the bases. Heart: Tachycardic. Abdomen: Firm, nontender. Extremities: Mottled. LABORATORIES: Notable for white count yesterday of 3.1, hemoglobin 10.5, platelets were 258. Her INR is 2.49. Her BUN was 12.8 and creatinine 0.6. Lactic acid is 8.9 with an AST of 106, ALT of 24, alkaline phosphatase of 41. Troponin is 0.08. Ascitic fluid is notable for 33 white cells, 72 red cells, glucose of 125. The Gram stain from the peritoneal fluid shows no organisms and shows no white cells and broth only is growing group D . In summary, this is an 79-year-old woman in septic shock, recent GI bleed. She is poorly responsive. She has a history of recent GI bleed. Per the ICU team, the family has declined any further lab draws. Would broaden her antibiotics to vancomycin and Zosyn at this time. With further evaluation based on family wishes, she has been made DNR/DNI and there is consideration for what level of supportive care the family wants and these issues are currently in discussion. Case was discussed with the ICU resident. Antibiotics vancomycin and Zosyn were ordered. Marshall [id number]
--- NOTE | 2020-02-18 17:03 | EKG ---
Test Reason : Blood Pressure : / mmHG Vent. Rate : 114 BPM Atrial Rate : 114 BPM P-R Int : 100 ms QRS Dur : 078 ms QT Int : 290 ms P-R-T Axes : 071 008 066 degrees QTc Int : 399 ms SINUS TACHYCARDIA WITH SHORT PA LOW VOLTAGE QRS NONSPECIFIC ST AND T WAVE ABNORMALITY ABNORMAL ECG WHEN COMPARED WITH ECG OF 09-FEB-2020 08:10, VENT. RATE HAS INCREASED BY 42 BPM Confirmed by CEDRIC DOMINGUEZ MD ([id number]) on 02/18/2020 5:02:25 PM Referred By: Confirmed By:CEDRIC DOMINGUEZ MD
--- NOTE | 2020-02-18 17:35 | PN ---
Physical Exam: SUBJECTIVE: Patient seen and examined at bedside. Pt is unresponsive. Family wants to have DNR/DNI, withdraw labs/pressors/fluids/meds, and place on comfort care. OBJECTIVE: Vital Signs Period Temp Pulse Resp BP Sys/Nelson Pulse Ox Last 24 Hr 97.0 F-97.6 F 95-105 25-29 40-120/15-103 99-100 GENERAL: Pt is not alert HEAD: Normal with no signs of trauma. EYES: Wide non-reactive pupils. Unable to tract with eyes. No sclera anicteric. conjunctiva clear. No ptosis. ENT: Ears normal, nares patent, oropharynx clear without exudates, moist mucous membranes. NECK: Trachea midline, , supple. LUNGS: Breath sounds equal, clear to auscultation bilaterally, no wheezes, no crackles, no accessory muscle use. HEART: Regular rate and rhythm, S1, S2, S3. ABDOMEN: Soft, nontender, nondistended, EXTREMITIES: Weak pulses bilaterally, mottling observed on arms/legs NEUROLOGICAL: Unable to illicit any reflexes PSYCH: Unable to illicit mood/affect SKIN: cool and clammy, no lesions noted Laboratory Results - last 24 hr 02/15/20 02/17/20 02/17/20 12:13 14:57 22:23 WBC Corrected WBC (auto) RBC Hgb Hct MCV MCH MCHC RDW Plt Count MPV Absolute Neuts (auto) Neutrophils % Neutrophils % (Manual) 10.0 L Band Neutrophils % 46.0 Lymphocytes % Lymphocytes % (Manual) 6.0 L D Monocytes % Monocytes % (Manual) 0 L D Eosinophils % Eosinophils % (Manual) 0.0 Basophils % Basophils % (Manual) 1.0 D Myelocytes % (Man) 0 Promyelocytes % (Man) 0 Blast Cells % (Manual) 0 Nucleated RBC % 1 H Metamyelocytes 37 H D Hypochromia 0 Platelet Estimate Normal Platelet Comment Polychromasia 1+ Poikilocytosis 0 Anisocytosis 1+ Macrocytosis 1+ PT with INR INR PTT (Actin FS) Anticoagulation Therapy Puncture Site Patient Temperature ABG pH ABG pCO2 ABG pO2 ABG HCO3 ABG O2 Sat (Measured) ABG O2 Content ABG Base Excess Jason Test Patient On Oxygen O2 Delivery Device Oxygen Flow Rate Vent Mode Vent Rate Mechanical Rate PEEP Pressure Support Vent Sodium Potassium Chloride Carbon Dioxide Anion Gap BUN Creatinine Est GFR (CKD-EPI)AfAm Est GFR (CKD-EPI)NonAf Random Glucose Lactic Acid Calcium Phosphorus Magnesium Total Bilirubin Direct Bilirubin AST ALT Alkaline Phosphatase Creatine Kinase Troponin I 0.10 H Total Protein Albumin POC Fluid pH 7.9 02/17/20 02/18/20 02/18/20 22:35 05:30 05:55 WBC 3.1 L Corrected WBC (auto) RBC 3.23 L Hgb 10.5 L Hct 32.6 MCV 100.9 H MCH 32.5 MCHC 32.2 RDW 19.5 H Plt Count MPV Absolute Neuts (auto) Neutrophils % Neutrophils % (Manual) Band Neutrophils % Lymphocytes % Lymphocytes % (Manual) Monocytes % Monocytes % (Manual) Eosinophils % Eosinophils % (Manual) Basophils % Basophils % (Manual) Myelocytes % (Man) Promyelocytes % (Man) Blast Cells % (Manual) Nucleated RBC % Metamyelocytes Hypochromia Platelet Estimate Platelet Comment Mod plt clumping Polychromasia Poikilocytosis Anisocytosis Macrocytosis PT with INR 29.70 H INR 2.49 H PTT (Actin FS) 65.9 H Anticoagulation Therapy No Result Required. Puncture Site Right radial Patient Temperature No Result Required. ABG pH 7.060 L* ABG pCO2 49.90 H ABG pO2 50.3 L ABG HCO3 13.8 L ABG O2 Sat (Measured) 69.3 L ABG O2 Content No Result Required. ABG Base Excess -15.8 L Jason Test Positive Patient On Oxygen Yes O2 Delivery Device Bipap Oxygen Flow Rate 100% Vent Mode S/t Vent Rate 12 Mechanical Rate Bipap PEEP No Result Required. Pressure Support Vent Ipap10/epap4 Sodium Potassium Chloride Carbon Dioxide Anion Gap BUN Creatinine Est GFR (CKD-EPI)AfAm Est GFR (CKD-EPI)NonAf Random Glucose Lactic Acid Calcium Phosphorus Magnesium Total Bilirubin Direct Bilirubin AST ALT Alkaline Phosphatase Creatine Kinase Troponin I Total Protein Albumin POC Fluid pH 02/18/20 02/18/20 02/18/20 08:00 08:00 08:00 WBC Cancelled Corrected WBC (auto) Cancelled RBC Cancelled Hgb Cancelled Hct Cancelled MCV Cancelled MCH Cancelled MCHC Cancelled RDW Cancelled Plt Count Cancelled MPV Cancelled Absolute Neuts (auto) Cancelled Neutrophils % Cancelled Neutrophils % (Manual) Band Neutrophils % Lymphocytes % Cancelled Lymphocytes % (Manual) Monocytes % Cancelled Monocytes % (Manual) Eosinophils % Cancelled Eosinophils % (Manual) Basophils % Cancelled Basophils % (Manual) Myelocytes % (Man) Promyelocytes % (Man) Blast Cells % (Manual) Nucleated RBC % Cancelled Metamyelocytes Hypochromia Platelet Estimate Cancelled Platelet Comment Cancelled Polychromasia Poikilocytosis Anisocytosis Macrocytosis PT with INR INR PTT (Actin FS) Anticoagulation Therapy Puncture Site Patient Temperature ABG pH ABG pCO2 ABG pO2 ABG HCO3 ABG O2 Sat (Measured) ABG O2 Content ABG Base Excess Jason Test Patient On Oxygen O2 Delivery Device Oxygen Flow Rate Vent Mode Vent Rate Mechanical Rate PEEP Pressure Support Vent Sodium 147 H Potassium 2.4 L* Chloride 125 H Carbon Dioxide 10 L Anion Gap 12 BUN 12.8 Creatinine 0.6 Est GFR (CKD-EPI)AfAm 99.77 Est GFR (CKD-EPI)NonAf 86.09 Random Glucose 18 L* Lactic Acid 8.9 H* Calcium < 5.0 L* Phosphorus 2.5 Magnesium 0.9 L Total Bilirubin 0.5 Direct Bilirubin 0.5 H AST 106 H ALT 24 Alkaline Phosphatase 41 L Creatine Kinase 53 Troponin I 0.08 H Total Protein 1.6 L Albumin 0.6 L POC Fluid pH ASSESSMENT/PLAN: 79 yo female with PMHx of HTN, HLD, COPD, CAD (s/p 3 stents on plavix), Alcohol Abuse, Cirrhosis, Gastritis, Haital Hernia, Diverticulosis, Diverticulitis, Hernia. Rapid response was called for pt due to unresponsiveness with a BP of 66/21. Pt found to have septic shock with multiorgan failure 2/2 sbp. #Neuro - NO alert/oriented - No pupil reflex #CV - CHF - Furosemide 40, IVP - Hypotensive, MAP 30-40 - Phenylephrine 200 - Vasopressing 4 units #Pulmonary - NIPPV - sating at 100% - Duoneb, Spiriva, Symbicort #GI -s/p endoscopy revealing zaid lovett tear - Ascites - SAAG >1.1, likely 2/2 to cirrhosis - Culture- group D strep or enterococcus - Odansetron 4mg, q8 - Pantaprazole 40mg, BID # - no active problems #Heme Anemia, Hb 10.5 Leukopenia, WBC 3.1 #FEN - Hypokalemia 2.4 - Hypocalcemia 5 - Hypomagnesemia 0.9 - Metabolic Acidosis: LA 8.9, pH 7.06 Visit type - Emergency Visit Emergency Visit: Yes ED Registration Date: 02/08/20 Care time: The patient presented to the Emergency Department on the above date and was hospitalized for further evaluation of their emergent condition. - New Patient This patient is new to me today: No - Critical Care Critical Care patient: No - Medication Review Med list reviewed for High Risk Meds patients 65 and older: Yes ATTENDING PHYSICIAN STATEMENT I saw and evaluated the patient. I reviewed the resident's note and discussed the case with the resident. I agree with the resident's findings and plan as documented. SUBJECTIVE: OBJECTIVE: ASSESSMENT AND PLAN:
--- NOTE | 2020-02-18 17:58 | DS ---
Physical Exam: SUBJECTIVE: Patient seen and examined at bedside. Pt is unresponsive. Rapid response called overnight for low blood pressure. OBJECTIVE: Vital Signs Period Temp Pulse Resp BP Sys/Nelson Pulse Ox Last 24 Hr 97.0 F-97.6 F 95-105 25-29 40-120/15-103 99-100 PHYSICAL EXAM GENERAL: Pt is not alert HEAD: Normal with no signs of trauma. EYES: Wide non-reactive pupils. Unable to tract with eyes. No sclera anicteric. conjunctiva clear. No ptosis. ENT: Ears normal, nares patent, oropharynx clear without exudates, moist mucous membranes. NECK: Trachea midline, , supple. LUNGS: Breath sounds equal, clear to auscultation bilaterally, no wheezes, no crackles, no accessory muscle use. HEART: Regular rate and rhythm, S1, S2, S3. ABDOMEN: Soft, nontender, nondistended, EXTREMITIES: Weak pulses bilaterally, mottling observed on arms/legs NEUROLOGICAL: Unable to illicit any reflexes PSYCH: Unable to illicit mood/affect SKIN: cool and clammy, no lesions noted LABS Laboratory Results - last 24 hr 02/15/20 02/17/20 02/17/20 12:13 14:57 22:23 WBC Corrected WBC (auto) RBC Hgb Hct MCV MCH MCHC RDW Plt Count MPV Absolute Neuts (auto) Neutrophils % Neutrophils % (Manual) 10.0 L Band Neutrophils % 46.0 Lymphocytes % Lymphocytes % (Manual) 6.0 L D Monocytes % Monocytes % (Manual) 0 L D Eosinophils % Eosinophils % (Manual) 0.0 Basophils % Basophils % (Manual) 1.0 D Myelocytes % (Man) 0 Promyelocytes % (Man) 0 Blast Cells % (Manual) 0 Nucleated RBC % 1 H Metamyelocytes 37 H D Hypochromia 0 Platelet Estimate Normal Platelet Comment Polychromasia 1+ Poikilocytosis 0 Anisocytosis 1+ Macrocytosis 1+ PT with INR INR PTT (Actin FS) Anticoagulation Therapy Puncture Site Patient Temperature ABG pH ABG pCO2 ABG pO2 ABG HCO3 ABG O2 Sat (Measured) ABG O2 Content ABG Base Excess Jason Test Patient On Oxygen O2 Delivery Device Oxygen Flow Rate Vent Mode Vent Rate Mechanical Rate PEEP Pressure Support Vent Sodium Potassium Chloride Carbon Dioxide Anion Gap BUN Creatinine Est GFR (CKD-EPI)AfAm Est GFR (CKD-EPI)NonAf Random Glucose Lactic Acid Calcium Phosphorus Magnesium Total Bilirubin Direct Bilirubin AST ALT Alkaline Phosphatase Creatine Kinase Troponin I 0.10 H Total Protein Albumin POC Fluid pH 7.9 02/17/20 02/18/20 02/18/20 22:35 05:30 05:55 WBC 3.1 L Corrected WBC (auto) RBC 3.23 L Hgb 10.5 L Hct 32.6 MCV 100.9 H MCH 32.5 MCHC 32.2 RDW 19.5 H Plt Count MPV Absolute Neuts (auto) Neutrophils % Neutrophils % (Manual) Band Neutrophils % Lymphocytes % Lymphocytes % (Manual) Monocytes % Monocytes % (Manual) Eosinophils % Eosinophils % (Manual) Basophils % Basophils % (Manual) Myelocytes % (Man) Promyelocytes % (Man) Blast Cells % (Manual) Nucleated RBC % Metamyelocytes Hypochromia Platelet Estimate Platelet Comment Mod plt clumping Polychromasia Poikilocytosis Anisocytosis Macrocytosis PT with INR 29.70 H INR 2.49 H PTT (Actin FS) 65.9 H Anticoagulation Therapy No Result Required. Puncture Site Right radial Patient Temperature No Result Required. ABG pH 7.060 L* ABG pCO2 49.90 H ABG pO2 50.3 L ABG HCO3 13.8 L ABG O2 Sat (Measured) 69.3 L ABG O2 Content No Result Required. ABG Base Excess -15.8 L Jason Test Positive Patient On Oxygen Yes O2 Delivery Device Bipap Oxygen Flow Rate 100% Vent Mode S/t Vent Rate 12 Mechanical Rate Bipap PEEP No Result Required. Pressure Support Vent Ipap10/epap4 Sodium Potassium Chloride Carbon Dioxide Anion Gap BUN Creatinine Est GFR (CKD-EPI)AfAm Est GFR (CKD-EPI)NonAf Random Glucose Lactic Acid Calcium Phosphorus Magnesium Total Bilirubin Direct Bilirubin AST ALT Alkaline Phosphatase Creatine Kinase Troponin I Total Protein Albumin POC Fluid pH 02/18/20 02/18/20 02/18/20 08:00 08:00 08:00 WBC Cancelled Corrected WBC (auto) Cancelled RBC Cancelled Hgb Cancelled Hct Cancelled MCV Cancelled MCH Cancelled MCHC Cancelled RDW Cancelled Plt Count Cancelled MPV Cancelled Absolute Neuts (auto) Cancelled Neutrophils % Cancelled Neutrophils % (Manual) Band Neutrophils % Lymphocytes % Cancelled Lymphocytes % (Manual) Monocytes % Cancelled Monocytes % (Manual) Eosinophils % Cancelled Eosinophils % (Manual) Basophils % Cancelled Basophils % (Manual) Myelocytes % (Man) Promyelocytes % (Man) Blast Cells % (Manual) Nucleated RBC % Cancelled Metamyelocytes Hypochromia Platelet Estimate Cancelled Platelet Comment Cancelled Polychromasia Poikilocytosis Anisocytosis Macrocytosis PT with INR INR PTT (Actin FS) Anticoagulation Therapy Puncture Site Patient Temperature ABG pH ABG pCO2 ABG pO2 ABG HCO3 ABG O2 Sat (Measured) ABG O2 Content ABG Base Excess Jason Test Patient On Oxygen O2 Delivery Device Oxygen Flow Rate Vent Mode Vent Rate Mechanical Rate PEEP Pressure Support Vent Sodium 147 H Potassium 2.4 L* Chloride 125 H Carbon Dioxide 10 L Anion Gap 12 BUN 12.8 Creatinine 0.6 Est GFR (CKD-EPI)AfAm 99.77 Est GFR (CKD-EPI)NonAf 86.09 Random Glucose 18 L* Lactic Acid 8.9 H* Calcium < 5.0 L* Phosphorus 2.5 Magnesium 0.9 L Total Bilirubin 0.5 Direct Bilirubin 0.5 H AST 106 H ALT 24 Alkaline Phosphatase 41 L Creatine Kinase 53 Troponin I 0.08 H Total Protein 1.6 L Albumin 0.6 L POC Fluid pH HOSPITAL COURSE: 79F with PMH of Cirrhosis, Diverticulosis, Gastritis, Hernia, HTN, HLD, COPD, CAD, 3x Stents on plavix. Pt presents with acute onset of hematemesis. She had multiple episodes of bright red bloody vomit totalling ~500cc (per EMS). No prior similar episodes. She was tolerating food up until her vomiting started. She reports generalized weakness, fatigue, nausea, sob. She denies any recent fevers, chills, diarrhea, bloody stool, cough, chest pain. CT imaging showed bleeding at the GE junciton suspicious for esophgeal varices. GI evaluated the patient and performed an EGD to identify zaid lovett tears. Hemoglobin decreased due to the active hematemesis leading to the transfusion of 2L blood. GI treated pt with ceftriaxone, octreotide Pt was stable and transferred to the floors on 02/11. Pt transferred back to the ICU after a rapid response was called for an unresponsive pt with hypotension (MAP 30s-40s). Family is contacted regarding goals of care. Family states that they would like to make her DNR/DNI, withdraw medications, discontinue labs, and place on comfort care. At 1:38, I was called to bedside to evaluate the pt. There was no heart beat, no respirations to auscultation, no pulses, no pain response, no pupillary reflex. Pt was declared at 1:38. telecommunications facility examiner and Sherlyn were contacted and informed me that there will not be utilized. Date of Admission:02/08/20 Date of Discharge: 02/18/20 Minutes to complete discharge: 30 Discharge Summary Problems reviewed: Yes Reason For Visit: HEMATEMESIS Condition: - Instructions Disposition: - Home Medications Comprehensive Discharge Medication List: Ambulatory Orders Budesonide/Formeterol Fumarate [SYMBICORT 160/4.5mcg -] 1 puff IH DAILY 11/01/16 Albuterol Sulfate [Albuterol Sulfate Hfa] 2 puff IH Q4H PRN 08/21/18 Tiotropium [place] [Spiriva] 2 unit NEB DAILY 08/21/18 Rosuvastatin [Crestor -] 20 mg PO HS #30 tablet 08/25/18 Alendronate Sodium [Fosamax] 1 tab WEEKLY 12/28/19 Albuterol 0.083% Nebulizer [place]uliet [Ventolin 0.083% Nebulizer Soln -] 1 amp NEB Q4H PRN #1 amp 01/07/20 Collagenase Clostridium Hist. [Santyl -] 1 applic TP DAILY #1 tube 01/07/20 Meloxicam 30 mg PO DAILY 02/08/20 This patient is new to me today: No Emergency Visit: Yes ED Registration Date: 02/08/20 Care time: The patient presented to the Emergency Department on the above date and was hospitalized for further evaluation of their emergent condition. Critical Care patient: No - Discharge Referral Referred to [facility] Med [facility] No ATTENDING PHYSICIAN STATEMENT I saw and evaluated the patient. I reviewed the resident's note and discussed the case with the resident. I agree with the resident's findings and plan as documented. SUBJECTIVE: OBJECTIVE: ASSESSMENT AND PLAN:
[2020-02-19 10:07] LABS: TRANSGLUTAMINASE IGA 2 U/mL (0-3); TRANSGLUTAMINASE IGG 9 U/mL (0-5)
--- NOTE | 2020-02-19 17:47 | PATH ---
Cytology Non-Gynecological Report Patient Name: ALBERTO MAYA [facility]. Rec. 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 Specimen(s) Received A: ABDOMINAL FLUID B: ABDOMINAL FLUID Clinical History Ascites Final Diagnosis A- B. ABDOMINAL FLUID, PARACENTESIS: SATISFACTORY FOR EVALUATION. NEGATIVE FOR MALIGNANCY. MESOTHELIAL CELLS, MACROPHAGES, AND NEUTROPHILS PRESENT. Comment: Suggest clinical correlation. Electronically Signed Abril Dong M.D. Gross Description A. Approximately 50 cc of yellow fluid received fixed in 50% alcohol. One cytofunnel prepared and Pap stained. One cellblock prepared. B. Approximately 3000 cc of yellow fluid received fresh. One cytofunnel prepared and Pap stained. One cellblock prepared.
[2020-02-20 22:09] LABS: HEP B CORE AB, TOT Negative (Negative)
[2020-02-21 04:09] LABS: ALPHA 2 MACROGLOBULINS,QN 184 mg/dL (110-276); ALT(SGPT)P5P 22 IU/L (0-40); CHOLESTEROL TOTAL 67 mg/dL (100-199); GLUCOSE SERUM 94 mg/dL (65-99); HEIGHT. 65 in (.); WEIGHT. 125 LBS (.)
== END 2020-02-18 15:30 | disposition expired | DRG 368 ==
LOC: JER 11:23 → JERBED 16:01 → JICU 19:28 → J6S 02-12 17:37 → JICU 02-18 02:40
PROVIDERS: ADMIT Internal Medicine Pulmonary Disease; ATTEND Internal Medicine
PROC: 30233R1 Transfusion of Nonautologous Platelets into Peripheral Vein, Percutaneous Approach (ICD-10-PCS; 2020-02-08)
PROC: 30233R1 Transfusion of Nonautologous Platelets into Peripheral Vein, Percutaneous Approach (ICD-10-PCS; 2020-02-08)
PROC: 0DJ08ZZ Inspection of Upper Intestinal Tract, Via Natural or Artificial Opening Endoscopic (ICD-10-PCS; principal; 2020-02-11)
PROC: 0W9G30Z Drainage of Peritoneal Cavity with Drainage Device, Percutaneous Approach (ICD-10-PCS; 2020-02-15)
DX: K22.6 Gastro-esophageal laceration-hemorrhage syndrome (principal); J96.01 Acute respiratory failure with hypoxia; K65.2 Spontaneous bacterial peritonitis; A41.9 Sepsis, unspecified organism; J18.9 Pneumonia, unspecified organism; R65.21 Severe sepsis with septic shock; D62 Acute posthemorrhagic anemia; R18.8 Other ascites; E87.2 Acidosis; I24.8 Other forms of acute ischemic heart disease; E46 Unspecified protein-calorie malnutrition; R64 Cachexia; Z68.1 Body mass index [BMI] 19.9 or less, adult; R57.8 Other shock; K92.2 Gastrointestinal hemorrhage, unspecified; Z87.11 Personal history of peptic ulcer disease; Z95.5 Presence of coronary angioplasty implant and graft; K57.30 Diverticulosis of large intestine without perforation or abscess without bleeding; J44.9 Chronic obstructive pulmonary disease, unspecified; I25.10 Atherosclerotic heart disease of native coronary artery without angina pectoris; K74.60 Unspecified cirrhosis of liver; D72.819 Decreased white blood cell count, unspecified; I95.9 Hypotension, unspecified; E87.6 Hypokalemia; E83.42 Hypomagnesemia; I10 Essential (primary) hypertension; E78.5 Hyperlipidemia, unspecified; E87.70 Fluid overload, unspecified; Z68.22 Body mass index [BMI] 22.0-22.9, adult; K21.9 Gastro-esophageal reflux disease without esophagitis; K44.9 Diaphragmatic hernia without obstruction or gangrene; R57.1 Hypovolemic shock; E83.51 Hypocalcemia
CPT/HCPCS: 36415; 36430; 36600; 71045-TC-FY; 74174-TC; 76700-TC; 76942-TC; 80048; 80053; 80076; 82040; 82042; 82105; 82150; 82465; 82550; 82803; 82945; 83516; 83605; 83615; 83735; 83986; 84100; 84155; 84157; 84165; 84478; 84484; 85025; 85027; 85610; 85730; 86038; 86704; 86706; 86707; 86708; 86709; 86803; 86850; 86900; 86901; 86922; 87070; 87075; 87102; 87116; 87186; 87205; 87206; 87210; 87340; 88108; 88305-TC; 93005; 93010; 93306-TC; 94010; 94640; 94660; 97162-GP; 99291; J0131; P9034; P9047; P9058; U0003